=== PATIENT | female | born 1970 | race Caucasian/White ===

== ENCOUNTER → 2016-04-15 | Outpatient (CLI) | payer BC ==
[~2016-04-15] MED LIST: ASP81TEC PO; BIRTHCONTROL; CHLO500T4 PO; CRAN500T2 PO; DIPH50CA75 PO; DOCU100T7 PO; GABA100C PO; HYOS0.3710 PO; HYOS0.378 PO; HYOS0.379; JOLESSA PO; LRT10T PO; MELA1TAB8 PO; MTP25TSR PO; MULT-608 PO; NAPR-243 PO; NEURONTIN PO; NF-FLON16G; NFPRILOC40 PO; OXB5T PO; PANT40TA2 PO; SUMA100T2 PO; TOLTA4 PO; TOPI50TA2 PO; TOPI50TA20
--- OUTSIDE RECORDS SUMMARY | 2016-04-15 13:43 | XMS REPORT | Continuity of Care Document ---
Author Author [facility] Organization [facility] Address Unknown Phone Unavailable Allergies Active Description Code Type Severity Reaction Onset Reported/Identified Relationship to Patient Clinical Status Yes NKDA NKDA Mild N/A 06/11/2008 Yes No Known Drug Allergies [id number] Drug Allergy Unknown N/ A 06/22/2009 Medications Problems Date Dx Coded Attending Type Code Diagnosis Diagnosed By 01/01/2010 Ot 346.90 01/01/2010 Ot 396.3 01/01/2010 Ot 397.0 01/01/2010 Ot 416.8 01/01/2010 Ot 722.10 01/01/2010 Ot 780.96 01/01/2010 Ot 782.0 01/01/2010 Ot 786.09 01/01/2010 Ot 786.59 01/01/2010 Ot 790.6 01/01/2010 Ot V07.4 01/01/2010 Ot V58.69 02/22/2010 Ot 530.81 ESOPHAGEAL REFLUX 02/22/2010 Ot 535.40 OTH SPECIFIED GASTRITIS,W/O MENTION OF H 02/22/2010 Ot 553.3 DIAPHRAGMATIC HERNIA 02/22/2010 Ot 562.10 DIVERTICULOSIS COLON (W/O MENT OF HEMORR 02/22/2010 Ot V76.51 SCREEN MAL NEOP-COLON 09/10/2010 Ot 723.0 CERVICAL SPINAL STENOSIS 09/10/2010 Ot 782.0 SKIN SENSATION DISTURB 09/10/2010 Ot 786.01 HYPERVENTILATION 01/24/2011 Ot 724.2 LUMBAGO 01/24/2011 Ot 724.4 LUMBOSACRAL NEURITIS NOS 01/24/2011 Ot V57.1 PHYSICAL THERAPY NEC 08/16/2012 ROSARIO VILLEGAS, ERNESTO Nash Ot 728.71 PLANTAR FIBROMATOSIS 08/16/2012 ROSARIO VILLEGAS, ERNESTO Nash Ot V57.1 PHYSICAL THERAPY NEC 01/03/2014 ROSARIO VILLEGAS, ERNESTO Nash Ot 785.1 01/10/2014 Ot V76.12 01/10/2014 Ot 553.3 01/10/2014 Ot 625.9 01/10/2014 Ot 787.3 01/10/2014 Ot V64.2 01/10/2014 Ot V76.51 01/10/2014 Ot 724.4 01/10/2014 Ot 728.87 01/10/2014 ERNESTO PONCE MD Ot V76.12 01/10/2014 ERNESTO PONCE MD Ot 785.1 01/10/2014 ERNESTO PONCE MD Ot V76.12 01/10/2014 ERNESTO PONCE MD Ot 729.5 01/10/2014 ERNESTO PONCE MD Ot 729.5 01/14/2014 Ot V76.12 01/14/2014 Ot 553.3 01/14/2014 Ot 625.9 01/14/2014 Ot 787.3 01/14/2014 Ot V64.2 01/14/2014 Ot V76.51 01/14/2014 Ot 724.4 01/14/2014 Ot 728.87 01/14/2014 ERNESTO PONCE MD Ot V76.12 01/14/2014 ERNESTO PONCE MD Ot 785.1 01/14/2014 ERNESTO PONCE MD Ot V76.12 01/14/2014 ERNESTO PONCE MD Ot 729.5 01/28/2014 ERNESTO PONCE MD Ot V76.12 02/11/2014 PIERRE VILLEGAS, PRISCILLA P Ot 721.3 05/30/2014 ANAHI LOERA MD Ot 278.00 OBESITY, NOS 05/30/2014 ANAHI LOERA MD Ot 722.52 LUMB/LUMBOSAC DISC DEGEN 05/30/2014 ANAHI LOERA MD Ot V58.69 OTH MED,LT,CURRENT USE 05/30/2014 ANAHI LOERA MD Ot V85.36 BODY MASS INDEX 36.0-36.9, ADULT 03/25/2015 Ot 553.3 03/25/2015 Ot 625.9 03/25/2015 Ot 787.3 03/25/2015 Ot V64.2 03/25/2015 Ot V76.51 03/25/2015 Ot 724.4 03/25/2015 Ot 728.87 03/25/2015 ERNESTO PONCE MD, Ot V76.12 03/25/2015 ERNESTO PONCE MD Ot 785.1 03/25/2015 ERNESTO PONCE MD, Ot V76.12 03/25/2015 ERNESTO PONCE MD Ot 729.5 03/25/2015 PIERRE VILLEGAS, PRISCILLA Francisco Ot 724.4 03/25/2015 PIERRE VILLEGAS, PRISCILLA Francisco Ot 721.3 03/25/2015 EVARISTO VILLEGAS, ANAHI Nash Ot 722.52 03/25/2015 ANAHI LOERA MD Ot V58.69 04/01/2015 SONY BERGER MD Ot K21.9 04/01/2015 SONY BERGER MD Ot Z01.818 04/01/2015 SONY BERGER MD Ot Z80.0 04/03/2015 SONY BERGER MD Ot K21.0 GASTRO-ESOPHAGEAL REFLUX DISEASE WITH ES 04/03/2015 SONY BERGER MD Ot K29.70 GASTRITIS, UNSPECIFIED, WITHOUT BLEEDING 04/03/2015 SONY BERGER MD Ot K44.9 DIAPHRAGMATIC HERNIA WITHOUT OBSTRUCTION 04/03/2015 SONY BERGER MD Ot K57.30 DVRTCLOS OF LG INT W/O PERFORATION OR AB 04/03/2015 SONY BERGER MD Ot K58.9 IRRITABLE BOWEL SYNDROME WITHOUT DIARRHE 04/03/2015 SONY BERGER MD Ot K59.00 CONSTIPATION, UNSPECIFIED 04/03/2015 SONY BERGER MD Ot K60.2 ANAL FISSURE, UNSPECIFIED 04/03/2015 SONY BERGER MD Ot K64.1 SECOND DEGREE HEMORRHOIDS 04/03/2015 SONY BERGER MD Ot Z80.0 FAMILY HISTORY OF MALIGNANT NEOPLASM OF 07/15/2015 Ot 724.4 LUMBOSACRAL NEURITIS NOS 07/15/2015 Ot 728.87 MUSCLE WEAKNESS (GENERALIZED) 07/15/2015 ERNESTO PONCE MD, Ot V76.12 OTH SCREEN MAMMO-MALIGN NEOPLASM OF SHONDA 07/15/2015 ERNESTO PONCE MD Ot 785.1 PALPITATIONS 07/15/2015 ENRESTO PONCE MD, Ot V76.12 OTH SCREEN MAMMO-MALIGN NEOPLASM OF SHONDA 07/15/2015 ERNESTO PONCE MD Ot 729.5 PAIN IN LIMB 07/15/2015 PRISCILLA JAY MD Ot 724.4 LUMBOSACRAL NEURITIS NOS 07/15/2015 PRISCILLA JAY MD Ot 721.3 LUMBOSACRAL SPONDYLOSIS 07/15/2015 ANAHI LOERA MD Ot 722.52 LUMB/LUMBOSAC DISC DEGEN 07/15/2015 ANAHI LOERA MD Ot V58.69 OT MED,LT,CURRENT USE 07/15/2015 SONY BERGER MD, Ot K21.9 GASTRO-ESOPHAGEAL REFLUX DISEASE WITHOUT 07/15/2015 SONY BERGER MD, Ot Z01.818 ENCOUNTER FOR OTHER PREPROCEDURAL EXAMIN 07/15/2015 SONY BERGER MD, Ot Z80.0 FAMILY HISTORY OF MALIGNANT NEOPLASM OF Procedures Code Description Performed By Performed On 51.23 06/23/2009 87.53 06/23/2009 Results Encounters ACCT No. Visit Date/Time Discharge Status Pt. Type Provider Facility Loc./Unit Complaint [id number] 04/03/2015 11:33:00 2015 14:05:00 DIS Outpatient SONY BERGER MD [facility] [id number] 04/01/2015 14:30:00 2015 14:30:00 CAN Outpatient SONY BERGER MD [facility] PREOP [id number] 05/30/2014 08:11:00 2014 08:57:00 DIS Outpatient ANAHI LOERA MD [facility] CARD [id number] 04/04/2014 08:17:00 2014 23:59:59 CLS Outpatient ANAHI LOERA MD [facility] CARD [id number] 01/24/2014 16:00:00 2013 23:59:59 CLS Outpatient PRISCILLA JAY MD [facility] RAD [id number] 01/14/2014 13:06:00 2013 23:59:59 CLS Outpatient PRISCILLA JAY MD [facility] RAD [id number] 01/07/2014 14:54:00 2013 23:59:59 CLS Outpatient ERNESTO PONCE MD [facility] RAD [id number] 12/26/2013 13:53:00 2013 23:59:59 CLS Outpatient ERNESTO PONCE MD [facility] RAD [id number] 12/17/2013 09:39:00 2013 23:59:59 CLS Outpatient ERNESTO PONCE MD [facility] CARD [id number] 12/11/2012 15:21:00 2012 23:59:59 CLS Outpatient ERNESTO PONCE MD [facility] RAD [id number] 08/08/2012 14:29:00 2012 08:16:00 DIS Outpatient ERNESTO PONCE MD [facility] REHAB [id number] 03/25/2015 13:33:00 Document Registration [id number] 03/25/2015 13:33:00 Document Registration [id number] 01/18/2011 13:36:00 Document Registration [id number] 10/08/2010 13:36:00 Document Registration [id number] 09/10/2010 15:45:00 Document Registration [id number] 02/22/2010 09:13:00 Document Registration [id number] 01/04/2010 05:45:00 Document Registration [id number] 12/31/2009 14:13:00 Document Registration [id number] 12/01/2009 08:42:00 Document Registration [id number] 10/09/2008 14:03:00 Document Registration
--- NOTE | 2016-04-19 20:05 | Diagnostic Imaging Report ---
Bilateral screening mammogram The current study was also evaluated with a Computer Aided Detection (CAD) system. INDICATION: Screening. No current complaints stated on the questionnaire. COMPARISON: 01/07/2014. FINDINGS: The breasts are composed of heterogeneously dense parenchyma which may decrease mammographic sensitivity. There is no mass, architectural distortion, or suspicious cluster of calcifications. Allowing for technique and positional differences, no suspicious change is seen. IMPRESSION: Dense breasts with no definite change. ACR BI-RADS Category 2: Benign findings. Result letter will be mailed to the patient. Note: At least 10% of breast cancer is not imaged by mammography. Dictated by: Dictated on workstation # [id number]
== END ==
LOC: RAD 13:39
PROVIDERS: ATTEND Family Medicine
DX: Z12.31 Encounter for screening mammogram for malignant neoplasm of breast (principal)
CPT/HCPCS: 77067

== ENCOUNTER 2018-03-23 21:53 | Emergency (ER) | payer BC ==
[~2018-03-23] VITALS: Ht 157.5 cm; Wt 84.4 kg
--- OUTSIDE RECORDS SUMMARY | 2018-03-23 21:57 | XMS REPORT | Continuity of Care Document ---
Author Author [facility] Organization [facility] Address Unknown Phone Unavailable Allergies Active Description Code Type Severity Reaction Onset Reported/Identified Relationship to Patient Clinical Status Yes NKDA NKDA Mild N/ A 06/11/2008 Yes No Known Drug Allergies [id number] Drug Allergy Unknown N/A 06/22/2009 Medications There is no data. Problems Date Dx Coded Attending Type Code [...] ERNESTO Nash Ot 728.71 PLANTAR FIBROMATOSIS 08/16/2012 ERNESTO PONCE MD Ot V57.1 PHYSICAL THERAPY NEC 01/03/2014 ERNESTO PONCE MD Ot 785.1 01/10/2014 Ot V76.12 01/10/2014 Ot 553.3 01/10/2014 Ot 625.9 01/10/2014 Ot 787.3 01/10/2014 Ot V64.2 01/10/2014 Ot V76.51 01/10/2014 Ot 724.4 01/10/2014 Ot 728.87 01/10/2014 ERNESTO PONCE MD Ot V76.12 01/10/2014 ROSARIO VILLEGAS, ERNESTO Nash Ot 785.1 01/10/2014 ERNESTO PONCE MD Ot V76.12 01/10/2014 ERNESTO PONCE MD Ot 729.5 01/10/2014 ERNESTO PONCE MD Ot 729.5 01/14/2014 Ot V76.12 01/14/2014 Ot 553.3 01/14/2014 Ot 625.9 01/14/2014 Ot 787.3 01/14/2014 Ot V64.2 01/14/2014 Ot V76.51 01/14/2014 Ot 724.4 01/14/2014 Ot 728.87 01/14/2014 ERNESTO PONEC MD Ot V76.12 01/14/2014 ERNESTO PONCE MD Ot 785.1 01/14/2014 ERNESTO PONCE MD Ot V76.12 01/14/2014 ERNESTO PONCE MD Ot 729.5 01/28/2014 ERNESTO PONCE MD Ot V76.12 02/11/2014 PIERRE VILLEGAS, PRISCILLA Francisco Ot 721.3 05/30/2014 ANAHI LOERA MD Ot 278.00 OBESITY, NOS 05/30/2014 ANAHI LOERA MD Ot 722.52 LUMB/LUMBOSAC DISC DEGEN 05/30/2014 ANAHI LOERA MD Ot V58.69 OTH MED,LT,CURRENT USE 05/30/2014 ANAHI LOERA MD Ot V85.36 BODY MASS INDEX 36.0-36.9, ADULT 03/25/2015 Ot 553.3 03/25/2015 Ot 625.9 03/25/2015 Ot 787.3 03/25/2015 Ot V64.2 03/25/2015 Ot V76.51 03/25/2015 Ot 724.4 03/25/2015 Ot 728.87 03/25/2015 ROSARIO VILLEGAS, ERNESTO Nash Ot V76.12 03/25/2015 ROSARIO VILLEGAS, ERNESTO Nash Ot 785.1 03/25/2015 ROSARIO VILLEGAS, ERNESTO Nash Ot V76.12 03/25/2015 ROSARIO VILLEGAS, ERNESTO Nash Ot 729.5 03/25/2015 PIERRE VILLEGAS, PRISCILLA Francisco Ot 724.4 03/25/2015 PIERRE VILLEGAS, PRISCILLA Francisco Ot 721.3 03/25/2015 VEARISTO VILLEGAS, ANAHI Nash Ot 722.52 03/25/2015 EVARISTO VILLEGAS, ANAHI Nash Ot V58.69 04/01/2015 SONY BERGER MD Ot [...] 728.87 MUSCLE WEAKNESS (GENERALIZED) 07/15/2015 ERNESTO PONCE MD Ot V76.12 OTH SCREEN MAMMO-MALIGN NEOPLASM OF SHONDA 07/15/2015 ERNESTO PONCE MD Ot 785.1 PALPITATIONS 07/15/2015 ERNESTO PONCE MD Ot V76.12 OTH SCREEN MAMMO-MALIGN NEOPLASM OF SHONDA 07/15/2015 ERNESTO PONCE MD Ot 729.5 PAIN IN LIMB 07/15/2015 PRISCILLA JAY MD Ot 724.4 LUMBOSACRAL NEURITIS NOS 07/15/2015 PRISCILLA JAY MD Ot 721.3 LUMBOSACRAL SPONDYLOSIS 07/15/2015 ANAHI LOERA MD Ot 722.52 LUMB/LUMBOSAC DISC DEGEN 07/15/2015 ANAHI LOERA MD Ot V58.69 OTH MED,LT,CURRENT USE 07/15/2015 SONY BERGER MD, Ot K21.9 GASTRO-ESOPHAGEAL REFLUX DISEASE WITHOUT 07/15/2015 SONY BERGER MD, Ot Z01.818 ENCOUNTER FOR OTHER PREPROCEDURAL EXAMIN 07/15/2015 SONY BERGER MD Ot Z80.0 FAMILY HISTORY OF MALIGNANT NEOPLASM OF 04/19/2016 ERNESTO PONCE MD Ot Z12.31 ENCNTR SCREEN MAMMOGRAM FOR MALIGNANT NE 04/27/2016 ERNESTO PONCE MD, Ot Z12.31 ENCNTR SCREEN MAMMOGRAM FOR MALIGNANT NE Procedures Code Description Performed By Performed On 51.23 06/23/2009 87.53 06/23/2009 Results There is no data. Encounters ACCT No. Visit Date/Time Discharge Status Pt. Type Provider Facility Loc./Unit Complaint [id number] 04/15/2016 13:39:00 04/15/2016 23:59:59 CLS Outpatient ERNESTO PONCE MD [facility] RAD SCREENING [id number] 04/03/2015 11:33:00 04/03/2015 14:05:00 DIS Outpatient SONY BERGER MD [facility] SDC [id number] 04/01/2015 14:30:00 04/01/2015 14:30:00 CAN Outpatient SONY BERGER MD [facility] PREOP [id number] 05/30/2014 08:11:00 05/30/2014 08:57:00 DIS Outpatient ANAHI LOERA MD [facility] CARD [id number] 04/04/2014 08:17:00 04/04/2014 23:59:59 CLS Outpatient ANAHI LOERA MD [facility] CARD [id number] 01/24/2014 16:00:00 01/24/2014 23:59:59 CLS Outpatient PRISCILLA JAY MD [facility] RAD [id number] 01/14/2014 13:06:00 01/14/2014 23:59:59 CLS Outpatient PRISCILLA JAY MD [facility] RAD [id number] 01/07/2014 14:54:00 01/07/2014 23:59:59 CLS Outpatient ERNESTO PONCE MD [facility] RAD [id number] 12/26/2013 13:53:00 12/26/2013 23:59:59 CLS Outpatient ERNESTO PONCE MD [facility] RAD [id number] 12/17/2013 09:39:00 12/17/2013 23:59:59 CLS Outpatient ERNESTO PONCE MD [facility] CARD [id number] 12/11/2012 15:21:00 12/11/2012 23:59:59 CLS Outpatient ERNESTO PONCE MD [facility] RAD [id number] 08/08/2012 14:29:00 08/16/2012 08:16:00 DIS Outpatient ERNESTO PONCE MD [facility] REHAB [id number] 03/23/2018 21:54:00 ACT Emergency BRANNON JULES DO [facility] ER SOB [id number] 03/25/2015 13:33:00 Document Registration [id number] 03/25/2015 13:33:00 Document Registration [id number] 01/18/2011 13:36:00 Document Registration [id number] 10/08/2010 13:36:00 Document Registration [id number] 09/10/2010 15:45:00 Document Registration [id number] 02/22/2010 09:13:00 Document Registration [id number] 01/04/2010 05:45:00 Document Registration [id number] 12/31/2009 14:13:00 Document Registration [id number] 12/01/2009 08:42:00 Document Registration [id number] 10/09/2008 14:03:00 Document Registration [id number] 05/30/2014 08:12:31 ACT Document Registration
[2018-03-23] MEDS ORDERED: ASPIRIN 81 MG CHEW (CHILDREN'S ASA) PO ONE (22:45)
[2018-03-23 22:59] LABS: BASOPHILS # (AUTO) 0.1 10^3/uL (0.0-0.1); BASOPHILS % (AUTO) 1 % (0-10); EOSINOPHILS # (AUTO) 0.1 10^3/uL (0.0-0.3); EOSINOPHILS % (AUTO) 2 % (0-10); HEMATOCRIT 26 % (35-52); HEMOGLOBIN 8.7 G/DL (11.5-16.0); LYMPHOCYTES # (AUTO) 2.3 X 10^3 (1.0-4.0); LYMPHOCYTES % (AUTO) 37 % (12-44); MEAN CORPUSCULAR HEMOGLOBIN 28 PG (25-34); MEAN CORPUSCULAR HGB CONC 33 G/DL (32-36); MEAN CORPUSCULAR VOLUME 83 FL (80-99); MEAN PLATELET VOLUME 9.7 FL (7.4-10.4); MONOCYTES # (AUTO) 0.3 X 10^3 (0.0-1.0); MONOCYTES % (AUTO) 5 % (0-12); NEUTROPHILS # (AUTO) 3.3 X 10^3 (1.8-7.8); NEUTROPHILS % (AUTO) 55 % (42-75); PLATELET COUNT 338 10^3/uL (130-400); RED CELL DISTRIBUTION WIDTH 15.2 % (10.0-14.5); WHITE BLOOD COUNT 6.1 10^3/uL (4.3-11.0)
[2018-03-23 23:10] LABS: INR 1.1 (0.8-1.4); PROTHROMBIN TIME PATIENT 13.9 SEC (12.2-14.7)
[2018-03-23 23:19] LABS: ALANINE AMINOTRANSFERASE 18 U/L (0-55); ALBUMIN 3.7 GM/DL (3.2-4.5); ALKALINE PHOSPHATASE 42 U/L (40-136); AMYLASE 33 U/L (25-125); BILIRUBIN,TOTAL 0.4 MG/DL (0.1-1.0); BUN/CREATININE RATIO 15; CALCIUM 8.6 MG/DL (8.5-10.1); CARBON DIOXIDE 22 MMOL/L (21-32); CHLORIDE 110 MMOL/L (98-107); CREATININE SERUM 0.71 MG/DL (0.60-1.30); GFR ESTIMATED > 60; GLUCOSE 99 MG/DL (70-105); LIPASE 18 U/L (8-78); MAGNESIUM 1.7 MG/DL (1.8-2.4); POTASSIUM 3.3 MMOL/L (3.6-5.0); SODIUM 139 MMOL/L (135-145); TOTAL PROTEIN 6.3 GM/DL (6.4-8.2)
[2018-03-23 23:28] LABS: MYOGLOBIN SERUM 48.2 NG/ML (10.0-92.0)
[2018-03-23] MEDS ORDERED: MAGNESIUM OXIDE (MAG-OX)400 MG TAB PO ONE (23:30)
[2018-03-23] MEDS ORDERED: KETOROLAC 30 MG/ML VIAL IVP ONE (23:45)
[2018-03-23] MEDS ORDERED: PANTOPRAZOLE 40 MG (PROTONIX) VIAL IV ONE (23:45)
[2018-03-23] MEDS ORDERED: ONDANSETRON 4 MG/2 ML (SDV) Z0FRAN IVP ONE (23:45)
[2018-03-23] MEDS ORDERED: MAGNESIUM OXIDE (MAG-OX)400 MG TAB ONE (23:47)
[2018-03-24] MEDS ORDERED: IOHEXOL 350 MG/ML 150 ML (OMNIPAQUE 350) VIAL IV ONE (00:30)
[2018-03-24] MEDS ORDERED: NS 100 ML (IVPB) BAG IV ONE (00:30)
[2018-03-24] MEDS ORDERED: RECEIVED CONTRAST (Hold Metformin) IV SCH (00:30)
[2018-03-24] MEDS ORDERED: SUCR1TAB36 PO (00:53)
--- NOTE | 2018-03-24 00:54 | ED General ---
General Chief Complaint: Respiratory Problems Stated Complaint: SOB Nursing Triage Note: soa, left side pain. Nursing Sepsis Screen: No Definite Risk Source of Information: Patient History of Present Illness Date Seen by Provider: Mar 23, 2018 Time Seen by Provider: 22:18 Initial Comments PT ARRIVES VIA POV FROM HOME C/O SHORTNESS OF BREATH FOR A FEW HOURS C/O PAIN TO LEFT UPPER ABDOMEN AND CHEST, RADIATING TO LEFT FLANK/MID BACK AREA AND UP INTO LEFT LATERAL NECK AREA STATES "NOT BREATHING WELL" STATES THESE SYMPTOMS WOKE HER UP 2-3 HOURS AGO NO COUGH STATES SHE HAS HAD NAUSEA/VOMITING/DIARRHEA SINCE Monday03/19/18 HAS VOMITED X 1 TODAY NO DIARRHEA TODAY OR FOR THE LAST 3 DAYS STATES "I TRY TO DRINK WATER BUT IT COMES BACK UP BUT THE OATMEAL STAYED DOWN" NO NAUSEA NOW NO FEVER URINATING A NORMAL AMOUNT AND NO URINARY SYMPTOMS 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 PONCE Allergies and Home Medications Allergies Coded Allergies: No Known Drug Allergies (Verified , 06/22/09) Uncoded Allergies: NKDA (Allergy, Mild, 06/11/08) Home Medications Hyoscyamine Sulfate 0.375 Mg Tab.sr.12h, 0.375 MG PO BID, (Reported) Hyoscyamine Sulfate 0.125 Mg Tab.subl, 1-2 TAB SL Q4H Prescribed by: BRANNON JULES on 03/25/18 0450 Metoprolol Succinate 25 Mg Tab, 25 MG PO DAILY, (Reported) Ondansetron 4 Mg Tab.rapdis, 4 MG PO Q4H Prescribed by: BRANNON JULES on 03/25/18 0450 Oxybutynin Chloride 5 Mg Tab, 5 MG PO ONCE, (Reported) Pantoprazole Sodium 40 Mg Tablet.dr, 40 MG PO DAILY Prescribed by: SONY BERGER on 04/03/15 1308 Sucralfate 1 Gm Tablet, 1 GM PO QIDACHS Prescribed by: BRANNON JULES on 03/24/18 0053 Topiramate 50 Mg Tablet, 50 MG PO DAILY, (Reported) Patient Home Medication List Home Medication List Reviewed: Yes Review of Systems Review of Systems Constitutional: no symptoms reported; No chills, No diaphoresis, No dizziness, No fever EENTM: no symptoms reported Respiratory: see HPI; No cough; short of breath Cardiovascular: see HPI; No edema, No palpitations, No syncope, No vascular heart diseas Gastrointestinal: see HPI, abdominal pain, diarrhea, nausea, vomiting Genitourinary: no symptoms reported; No decreased output Musculoskeletal: see HPI, back pain Skin: no symptoms reported Psychiatric/Neurological: No Symptoms Reported Hematologic/Lymphatic: No Symptoms Reported Immunological/Allergic: no symptoms reported Past Oaelpqx-Ehffdl-Pwgpzj Hx Patient Social History Alcohol Use: Denies Use Recreational Drug Use: No Smoking Status: Never a Smoker 2nd Hand Smoke Exposure: No Recent Foreign Travel: No Contact w/Someone Who Travel: No Recent Infectious Disease Expo: No Recent Hopitalizations: No Immunizations Up To Date Tetanus Booster (TDap): Unknown Past Medical History Surgeries: Yes (EGD/COLONOSCOPY; HIATAL HERNIA REPAIR 2005; X 1) Abdominal, Appendectomy, Section, Gallbladder, Tubal Ligation Respiratory: No Cardiac: Yes Hypertension Neurological: Yes Headaches /Migraines : No 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 Disorders: 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 Genitourinary: Yes (URINARY URGENCY) Kidney Stones Gastrointestinal: Yes (S/P HIATAL HERNIA REPAIR 2005; RECURRENT HIATAL HERNIA OF 2.5 CM NOTED ON EGD 2015; S/P PABLO AND APPY) Gastroesophageal Reflux, Diverticulosis, Hemorrhoids, Hiatal Hernia, Irritable Bowel Musculoskeletal: Yes (SCIATICA; CHRONIC NECK AND BACK PAIN) Degenerate Disk Disease, Chronic Back Pain Endocrine: No HEENT: No Cancer: No Psychosocial: No Integumentary: No Blood Disorders: No Physical Exam Vital Signs Vital Signs - First Documented 03/23/18 22:10 Temp 98.1 Pulse 85 Resp 18 B/P (MAP) 108/84 (92) Pulse Ox 99 O2 Delivery Room Air Capillary Refill : Less Than 3 Seconds Height, Weight, BMI Height: 5'2.00" Weight: 186lbs. 0oz. 84.523467kr; 36.58 BMI Method:Stated General Appearance: No Apparent Distress, WD/WN HEENT: PERRL/EOMI Neck: Full Range of Motion, Normal Inspection, Non Tender, Supple; No Carotid Bruit, No JVD Respiratory: Normal Breath Sounds, No Accessory Muscle Use, No Respiratory Distress, Other (MILD LEFT LOWER RIB TENDERNESS) Cardiovascular: Regular Rate, Rhythm, No Edema, No JVD, No Murmur, Normal Peripheral Pulses Gastrointestinal: Normal Bowel Sounds, No Organomegaly, No Pulsatile Mass, Soft , Tenderness (EPIGASTRIC, LUQ AND LEFT FLANK TENDERNESS) Back: No Vertebral Tenderness, CVA Tenderness (L) Extremity: Normal Capillary Refill, Normal Inspection, Normal Range of Motion, Non Tender, No Pedal Edema Neurologic/Psychiatric: Alert, Oriented x3, No Motor/Sensory Deficits, Normal Mood/Affect, director regulatory agency II-XII Norm as Tested Skin: Normal Color, Warm/Dry; No Rash Progress/Results/Core Measures Suspected Sepsis Recent Fever Within 48 Hours: No Infection Criteria Present: None New/Unexplained Altered Menta: No Sepsis Screen: No Definite Risk SIRS Temperature:98.1 Pulse: 85 Respiratory Rate: 18 Laboratory Tests 03/23/18 22:50: White Blood Count 6.1 Blood Pressure 108 /84 Mean: 92 Laboratory Tests 03/23/18 22:50: Creatinine 0.71, INR Comment 1.1, Platelet Count 338, Total Bilirubin 0.4 Results/Orders Lab Results Laboratory Tests Test 03/23/18 22:50 Range/Units White Blood Count 6.1 4.3-11.0 10^3/uL Red Blood Count 3.15 L 4.35-5.85 10^6/uL Hemoglobin 8.7 L 11.5-16.0 G/DL Hematocrit 26 L 35-52 % Mean Corpuscular Volume 83 80-99 FL Mean Corpuscular Hemoglobin 28 25-34 PG Mean Corpuscular Hemoglobin Concent 33 32-36 G/DL Red Cell Distribution Width 15.2 H 10.0-14.5 % Platelet Count 338 130-400 10^3/uL Mean Platelet Volume 9.7 7.4-10.4 FL Neutrophils (%) (Auto) 55 42-75 % Lymphocytes (%) (Auto) 37 12-44 % Monocytes (%) (Auto) 5 0-12 % Eosinophils (%) (Auto) 2 0-10 % Basophils (%) (Auto) 1 0-10 % Neutrophils # (Auto) 3.3 1.8-7.8 X 10^3 Lymphocytes # (Auto) 2.3 1.0-4.0 X 10^3 Monocytes # (Auto) 0.3 0.0-1.0 X 10^3 Eosinophils # (Auto) 0.1 0.0-0.3 10^3/uL Basophils # (Auto) 0.1 0.0-0.1 10^3/uL Prothrombin Time 13.9 12.2-14.7 SEC INR Comment 1.1 0.8-1.4 Activated Partial Thromboplast Time 29 24-35 SEC Sodium Level 139 135-145 MMOL/L Potassium Level 3.3 L 3.6-5.0 MMOL/L Chloride Level 110 H 98-107 MMOL/L Carbon Dioxide Level 22 21-32 MMOL/L Anion Gap 7 5-14 MMOL/L Blood Urea Nitrogen 11 7-18 MG/DL Creatinine 0.71 0.60-1.30 MG/DL Estimat Glomerular Filtration Rate > 60 BUN/Creatinine Ratio 15 Glucose Level 99 70-105 MG/DL Calcium Level 8.6 8.5-10.1 MG/DL Corrected Calcium 8.8 8.5-10.1 MG/DL Magnesium Level 1.7 L 1.8-2.4 MG/DL Total Bilirubin 0.4 0.1-1.0 MG/DL Aspartate Amino Transf (AST/SGOT) 20 5-34 U/L Alanine Aminotransferase (ALT/SGPT) 18 0-55 U/L Alkaline Phosphatase 42 40-136 U/L Myoglobin 48.2 10.0-92.0 NG/ML Troponin I < 0.028 <0.028 NG/ML B-Type Natriuretic Peptide 123.7 H <100.0 PG/ML Total Protein 6.3 L 6.4-8.2 GM/DL Albumin 3.7 3.2-4.5 GM/DL Amylase Level 33 25-125 U/L Lipase 18 8-78 U/L My Orders Orders - JORGE ADANIELLAA K DO Chest Pa/Lat (2 View) (03/23/18 22:22) Saline Lock/Iv-Start (03/23/18 22:31) Ekg Tracing (03/23/18 22:31) Monitor-Rhythm Ecg Trace Only (03/23/18 22:31) Cbc With Automated Diff (03/23/18 22:39) Magnesium (03/23/18 22:39) Cardiac Profile 1 (03/23/18 22:39) Comprehensive Metabolic Panel (03/23/18 22:39) Myoglobin Serum (03/23/18 22:39) Protime With Inr (2/1/19 22:39) Partial Thromboplastin Time (03/23/18 22:39) Aspirin Chewable Tablet (Baby Aspirin Ch (03/23/18 22:45) Saline Lock/Iv-Start (03/23/18 22:39) Lipase (03/23/18 22:39) Amylase (03/23/18 22:39) BNP (03/23/18 22:39) Magnesium Oxide Tablet (Mag Ox Tablet) (03/23/18 23:30) Ketorolac Injection (Toradol Injection) (03/23/18 23:45) Ondansetron Injection (Zofran Injectio (03/23/18 23:45) Pantoprazole Injection (Protonix Injecti (03/23/18 23:45) Ct Angio Chest W (03/24/18 00:01) Iohexol Injection (Omnipaque 350 Mg/Ml 1 (03/24/18 00:30) Contrast Received (Contrast Received) (03/24/18 00:30) Ns (Ivpb) (Sodium Chloride 0.9% Ivpb Bag (03/24/18 00:30) Magnesium Oxide Tablet (Mag Ox Tablet) (03/23/18 23:47) Medications Given in ED Vital Signs/I&O Capillary Refill : Less Than 3 Seconds Blood Pressure Mean: 92 Progress Note : Progress Note UNEVENTFUL ER STAY PT STATES SHE FEELS BETTER AT DISMISSAL AND PAIN IS ESSENTIALLY GONE AT DISMISSAL ECG Initial ECG Impression Date: Mar 23, 2018 Initial ECG Impression Time: 23:36 Initial ECG Rate: 67 Initial ECG Rhythm: Normal Sinus Diagnostic Imaging Comments CXR--LARGE HIATAL HERNIA, PENDING RADIOLOGIST REVIEW CT CHEST ANGIOGRAM--NO P.E. LARGE PARAESOPHAGEAL HERNIA WITH REFLUX OF LIQUID INTO UPPER ESOPHAGUS--PER STAT RAD AT 0040 Reviewed: Reviewed by Me Departure Impression Primary Impression: RECURRENT HIATAL HERNIA Additional Impressions: Anemia Hypomagnesemia Disposition: HOME, SELF-CARE Condition: Improved Departure-Patient Inst. Referrals: SONY BERGER MD, DANIEL J MD (PCP/Family) Primary Care Physician Patient Instructions: Anemia Caused by Low Iron, Adult (DC), Hiatal Hernia (DC) , Low Magnesium Level (DC) Add. Discharge Instructions: TAKE MULTIVITAMIN WITH IRON DAILY TAKE COLACE DAILY IF YOU DEVELOP CONSTIPATION FROM IRON SUPPLEMENT TAKE YOUR PROTONIX DAILY FOLLOW UP WITH DR. BERGER THIS WEEK REGARDING HIATAL HERNIA FOLLOW UP WITH DR. PONCE THIS WEEK FOR RECHECK OF ANEMIA AND MAGNESIUM All discharge instructions reviewed with patient and/or family. Voiced understanding. Scripts Sucralfate (Carafate) 1 Gm Tablet 1 GM PO YULISSADACHAma, #60 TAB Prov: BRANNON JULES DO 03/24/18 BRANNON JULES DO Mar 24, 2018 00:54
[2018-03-24 01:00] VITALS: BP 123/83
--- NOTE | 2018-03-24 07:26 | Diagnostic Imaging Report ---
INDICATION: Chest pain, hiatal hernia. COMPARISON: 12/31/2009. FINDINGS: Frontal and lateral views of the chest demonstrate increasing hiatal hernia with dependent atelectasis in the left base. Right lung is clear. There is no pneumothorax or large effusion. Heart is normal. Osseous structures are age-appropriate. IMPRESSION: Enlarging hiatal hernia. Dictated by: Dictated on workstation # [id number]
--- NOTE | 2018-03-24 07:31 | Diagnostic Imaging Report ---
PROCEDURE: CT angiography of the chest with contrast. TECHNIQUE: Multiple contiguous axial images were obtained through the chest after uneventful bolus administration of intravenous contrast. 2D reconstructed CTA MIP acquisitions were also performed. INDICATION: Chest pain, shortness of breath, pulmonary embolism. COMPARISON: None. FINDINGS: The heart, pulmonary arteries and aorta are grossly normal. There is no pericardial effusion. There is no pulmonary embolism. Large hiatal hernia is present this is increased in size from the 2010 examination. There is some associated left basilar atelectasis. Otherwise, the lungs are clear. There is no mass, nodule or infiltrate. There is no lymphadenopathy. Osseous structures and visualized upper abdominal solid organs are unremarkable. Impression: 1. No pulmonary embolism or acute pathology identified. 2. Enlarging hiatal hernia with some fluid within the thoracic esophagus. No obvious obstruction identified. 3. Left basilar atelectasis. Agree with preliminary report Dictated by: Dictated on workstation # [id number]
[2018-03-25] MEDS ORDERED: HYOS0.1283 SL (04:50)
[2018-03-25] MEDS ORDERED: ONDA4TAB11 PO (04:50)
== END 2018-03-24 01:00 | disposition home or self-care (01) ==
LOC: EDUNIT# 21:53 → ER 21:54
DX: K44.9 Diaphragmatic hernia without obstruction or gangrene (principal); D64.9 Anemia, unspecified; E83.42 Hypomagnesemia; I10 Essential (primary) hypertension; K21.9 Gastro-esophageal reflux disease without esophagitis; K58.9 Irritable bowel syndrome, unspecified; Z87.19 Personal history of other diseases of the digestive system; Z87.442 Personal history of urinary calculi; G43.909 Migraine, unspecified, not intractable, without status migrainosus; Z98.51 Tubal ligation status; Z98.890 Other specified postprocedural states; Z90.49 Acquired absence of other specified parts of digestive tract
CPT/HCPCS: 36415; 71046; 71275; 80053; 82150; 83690; 83735; 83874; 83880; 84484; 85025; 85610; 85730; 93041

== ENCOUNTER 2018-03-25 02:30 | Emergency (ER) | payer BC ==
[~2018-03-25] VITALS: Ht 158.8 cm; Wt 84.4 kg
[~2018-03-25 02:30] MED LIST changes: +SUCR1TAB36 PO
--- OUTSIDE RECORDS SUMMARY | 2018-03-25 02:35 | XMS REPORT | Continuity of Care Document ---
Author Author [facility] Organization [facility] Address Unknown Phone Unavailable Allergies Active Description Code Type Severity Reaction Onset Reported/Identified Relationship to Patient Clinical Status Yes NKDA NKDA Mild N/ A 06/11/2008 Yes No Known Drug Allergies [id number] Drug Allergy Unknown N/A 06/22/2009 Medications There [...] EVARISTO VILLEGAS, ANAHI Nash Ot 722.52 03/25/2015 EVARISTO [...] MD Ot 785.1 PALPITATIONS 07/15/2015 ERNESTO PONCE MD, Ot V76.12 OTH SCREEN MAMMO-MALIGN NEOPLASM OF SHONDA 07/15/2015 ERNESTO PONCE MD Ot 729.5 PAIN IN LIMB 07/15/2015 PRISCILLA JAY MD Ot 724.4 LUMBOSACRAL NEURITIS NOS 07/15/2015 PRISCILLA JAY MD Ot 721.3 LUMBOSACRAL SPONDYLOSIS 07/15/2015 ANAHI LOERA MD Ot 722.52 LUMB/LUMBOSAC DISC DEGEN 07/15/2015 ANAHI LOERA MD, Ot V58.69 OTH MED,LT,CURRENT USE 07/15/2015 SONY BERGER MD, Ot K21.9 GASTRO-ESOPHAGEAL REFLUX DISEASE WITHOUT 07/15/2015 SONY BREGER MD Ot Z01.818 ENCOUNTER FOR OTHER PREPROCEDURAL EXAMIN 07/15/2015 SONY BERGER MD Ot Z80.0 FAMILY HISTORY OF MALIGNANT NEOPLASM OF 04/19/2016 ERNESTO PONCE MD Ot Z12.31 ENCNTR SCREEN MAMMOGRAM FOR MALIGNANT NE 04/27/2016 ERNESTO PONCE MD, Ot Z12.31 ENCNTR SCREEN MAMMOGRAM FOR MALIGNANT NE 03/24/2018 ERNESTO PONCE MD Ot V76.12 OTH SCREEN MAMMO-MALIGN NEOPLASM OF SHONDA 03/24/2018 ERNESTO PONCE MD Ot 785.1 PALPITATIONS 03/24/2018 ERNESTO PONCE MD, Ot V76.12 OTH SCREEN MAMMO-MALIGN NEOPLASM OF SHONDA 03/24/2018 ERNESTO PONCE MD Ot 729.5 PAIN IN LIMB 03/24/2018 PRISCILLA JAY MD Ot 724.4 LUMBOSACRAL NEURITIS NOS 03/24/2018 PRISCILLA JAY MD Ot 721.3 LUMBOSACRAL SPONDYLOSIS 03/24/2018 ANAHI LOERA MD Ot 722.52 LUMB/LUMBOSAC DISC DEGEN 03/24/2018 ANAHI LOERA MD Ot V58.69 OTH MED,LT,CURRENT USE 03/24/2018 SONY BERGER MD Ot K21.9 GASTRO-ESOPHAGEAL REFLUX DISEASE WITHOUT 03/24/2018 SONY BERGER MD Ot Z01.818 ENCOUNTER FOR OTHER PREPROCEDURAL EXAMIN 03/24/2018 SONY BERGER MD Ot Z80.0 FAMILY HISTORY OF MALIGNANT NEOPLASM OF 03/24/2018 ERNESTO PONCE MD, Ot Z12.31 ENCNTR SCREEN MAMMOGRAM FOR MALIGNANT NE 03/24/2018 ERNESTO PONCE MD, Ot V76.12 OTH SCREEN MAMMO-MALIGN NEOPLASM OF SHONDA 03/24/2018 ERNESTO PONCE MD Ot 785.1 PALPITATIONS 03/24/2018 ERNESTO PONCE MD, Ot V76.12 OTH SCREEN MAMMO-MALIGN NEOPLASM OF SHONDA 03/24/2018 ERNESTO PONCE MD Ot 729.5 PAIN IN LIMB 03/24/2018 PRISCILLA JAY MD Ot 724.4 LUMBOSACRAL NEURITIS NOS 03/24/2018 PRISCILLA JAY MD Ot 721.3 LUMBOSACRAL SPONDYLOSIS 03/24/2018 ANAHI LOERA MD Ot 722.52 LUMB/LUMBOSAC DISC DEGEN 03/24/2018 ANAHI LOERA MD Ot V58.69 OT MED,LT,CURRENT USE 03/24/2018 SONY BERGER MD Ot K21.9 GASTRO-ESOPHAGEAL REFLUX DISEASE WITHOUT 03/24/2018 SONY BERGER MD Ot Z01.818 ENCOUNTER FOR OTHER PREPROCEDURAL EXAMIN 03/24/2018 SONY BERGER MD Ot Z80.0 FAMILY HISTORY OF MALIGNANT NEOPLASM OF 03/24/2018 ERNESTO PONCE MD, Ot Z12.31 ENCNTR SCREEN MAMMOGRAM FOR MALIGNANT NE 03/24/2018 ERNESTO PONCE MD, Ot V76.12 OTH SCREEN MAMMO-MALIGN NEOPLASM OF SHONDA 03/24/2018 ERNESTO PONCE MD Ot 785.1 PALPITATIONS 03/24/2018 ERNESTO PONCE MD, Ot V76.12 OTH SCREEN MAMMO-MALIGN NEOPLASM OF SHONDA 03/24/2018 ERNESTO PONCE MD Ot 729.5 PAIN IN LIMB 03/24/2018 PRISCILLA JAY MD Ot 724.4 LUMBOSACRAL NEURITIS NOS 03/24/2018 PRISCILLA JAY MD Ot 721.3 LUMBOSACRAL SPONDYLOSIS 03/24/2018 ANAHI LOERA MD Ot 722.52 LUMB/LUMBOSAC DISC DEGEN 03/24/2018 ANAHI LOERA MD Ot V58.69 OT MED,LT,CURRENT USE 03/24/2018 SONY BERGER MD, Ot K21.9 GASTRO-ESOPHAGEAL REFLUX DISEASE WITHOUT 03/24/2018 SONY BERGER MD Ot Z01.818 ENCOUNTER FOR OTHER PREPROCEDURAL EXAMIN 03/24/2018 SONY BERGER MD Ot Z80.0 FAMILY HISTORY OF MALIGNANT NEOPLASM OF 03/24/2018 ERNESTO PONCE MD Ot Z12.31 ENCNTR SCREEN MAMMOGRAM FOR MALIGNANT NE Procedures Code Description Performed By Performed On 51.23 LAPAROSCOPIC CHOLECYSTECTOMY 06/23/2009 87.53 INTRAOPER CHOLANGIOGRAM 06/23/2009 Results There is no data. Encounters ACCT No. Visit Date/Time Discharge Status Pt. Type Provider Facility Loc./Unit Complaint [id number] 03/23/2018 21:54:00 03/24/2018 01:00:00 DIS Emergency JORGE A DANIELLAA Fela [facility] ER SOB [id number] 04/15/2016 13:39:00 04/15/2016 23:59:59 CLS Outpatient ERNESTO PONCE MD [facility] RAD SCREENING [id number] 04/03/2015 11:33:00 04/03/2015 14:05:00 DIS Outpatient SONY BERGER MD [facility] SDC FAMILY HISTORY COLON CA, REFLEX [id number] 04/01/2015 14:30:00 04/01/2015 14:30:00 CAN Outpatient SONY BERGER MD [facility] PREOP ABDOMINAL PAIN REFLUX [id number] 05/30/2014 08:11:00 05/30/2014 08:57:00 DIS Outpatient ANAHI LOERA MD [facility] CARD DDD [id number] 04/04/2014 08:17:00 04/04/2014 23:59:59 CLS Outpatient ANAHI LOERA MD [facility] CARD DDD-LUMBAR [id number] 01/24/2014 16:00:00 01/24/2014 23:59:59 CLS Outpatient PRISCILLA JAY MD [facility] RAD RT L5 RADICULOPATHY [id number] 01/14/2014 13:06:00 01/14/2014 23:59:59 CLS Outpatient PRISCILLA JAY MD [facility] RAD RT L5 RADICULOPATHY [id number] 01/07/2014 14:54:00 01/07/2014 23:59:59 CLS Outpatient ERNESTO PONCE MD [facility] RAD ROUTINE [id number] 12/26/2013 13:53:00 12/26/2013 23:59:59 CLS Outpatient ERNESTO PONCE MD [facility] RAD PAIN OVER 1ST 2ND METARSAL REGION [id number] 12/17/2013 09:39:00 12/17/2013 23:59:59 CLS Outpatient ERNESTO PONCE MD [facility] CARD PALP [id number] 12/11/2012 15:21:00 12/11/2012 23:59:59 CLS Outpatient ERNESTO PONCE MD [facility] RAD SCREENING [id number] 08/08/2012 14:29:00 08/16/2012 08:16:00 DIS Outpatient ENRESTO PONCE MD [facility] REHAB [id number] 03/25/2015 13:33:00 Document Registration [id number] 03/25/2015 13:33:00 Document Registration [id number] 01/18/2011 13:36:00 Document Registration [id number] 10/08/2010 13:36:00 Document Registration [id number] 09/10/2010 15:45:00 Document Registration [id number] 02/22/2010 09:13:00 Document Registration [id number] 01/04/2010 05:45:00 Document Registration [id number] 12/31/2009 14:13:00 Document Registration [id number] 12/01/2009 08:42:00 Document Registration [id number] 10/09/2008 14:03:00 Document Registration [email or web address] 05/30/2014 08:12:31 ACT Document Registration
[2018-03-25] MEDS ORDERED: ONDANSETRON 4 MG (ZOFRAN) ORAL DISSOLVE TAB PO ONE (04:00)
--- NOTE | 2018-03-25 04:07 | ED GI ---
General Stated Complaint: VOMITING Source of Information: Patient, Old Records History of Present Illness Date Seen by Provider: Mar 25, 2018 Time Seen by Provider: 03:57 Initial Comments PT ARRIVES VIA POV FROM HOME STATES SHE HAS BEEN VOMITING SINCE SHE WOKE UP AT 2044 THIS EVENING STATES SHE CAN'T KEEP ANYTHING DOWN STATES SHE HAS VOMITED 5 TIMES NO DIARRHEA HAS DIFFUSE UPPER ABDOMINAL PAIN ONLY RIGHT AFTER SHE VOMITS, THEN IT GOES AWAY. PT WAS SEEN IN ER LAST PM FOR LEFT CHEST PAIN AND SHORTNESS OF BREATH AND WAS DX WITH LARGE RECURRENT HIATAL HERNIA ( HAD SURGICAL REPAIR SEVERAL YEARS AGO ) STATES SHE TOOK HER MEDICATIONS AND ATE APPLESAUCE AND SHERBET YESTERDAY MORNING , AND KEPT IT DOWN STATES SHE SLEPT ALL DAY WOKE UP AT 2044 THIS EVENING TO GO TO WORK AND BEGAN VOMITING NO FEVER PT LATER STATES THAT SINCE Monday03/19/18, SHE CAN'T KEEP WATER DOWN. STATES ANY TIME SHE DRINKS WATER, SHE STARTS HAVING ACID REFLUX AND SHE THROWS IT BACK UP STATES "IT DOESN'T DO IT IF I DRINK TEA--IT ONLY HAPPENS WHEN I DRINK WATER" PCP: DR. PONCE Allergies and Home Medications Allergies Coded Allergies: No Known Drug Allergies (Verified , 06/22/09) Uncoded Allergies: NKDA (Allergy, Mild, 06/11/08) Home Medications Hyoscyamine Sulfate 0.375 Mg Tab.sr.12h, 0.375 MG PO BID, (Reported) Hyoscyamine Sulfate 0.125 Mg Tab.subl, 1-2 TAB SL Q4H Prescribed by: BRANNON JULES on 03/25/18 0450 Metoprolol Succinate 25 Mg Tab, 25 MG PO DAILY, (Reported) Ondansetron 4 Mg Tab.rapdis, 4 MG PO Q4H Prescribed by: BRANNON JULES on 03/25/18 0450 Oxybutynin Chloride 5 Mg Tab, 5 MG PO ONCE, (Reported) Pantoprazole Sodium 40 Mg Tablet.dr, 40 MG PO DAILY Prescribed by: SONY BERGER on 04/03/15 1308 Sucralfate 1 Gm Tablet, 1 GM PO QIDACHS Prescribed by: BRANNON JULES on 03/24/18 0053 Topiramate 50 Mg Tablet, 50 MG PO DAILY, (Reported) Patient Home Medication List Home Medication List Reviewed: Yes Review of Systems Review of Systems Constitutional: no symptoms reported Respiratory: No Symptoms Reported Cardiovascular: No Symptoms Reported Gastrointestinal: See HPI, Abdominal Pain, Nausea, Vomiting Genitourinary: No Symptoms Reported Musculoskeletal: no symptoms reported Skin: no symptoms reported Psychiatric/Neurological: No Symptoms Reported Endocrine: No Symptoms Reported Hematologic/Lymphatic: No Symptoms Reported Past Ebysqpu-Wqnlib-Slqflj Hx Patient Social History Alcohol Use: Denies Use Recreational Drug Use: No Smoking Status: Never a Smoker 2nd Hand Smoke Exposure: No Recent Foreign Travel: No Contact w/Someone Who Travel: No Recent Hopitalizations: No Immunizations Up To Date Tetanus Booster (TDap): Unknown Past Medical History Surgeries: Yes (EGD/COLONOSCOPY; HIATAL HERNIA REPAIR 2005; X1 ; CARDIAC CATH 2009--NO INTERVENTION) Abdominal, Appendectomy, Cardiac, Section, Gallbladder, Tubal Ligation Respiratory: No Cardiac: Yes Hypertension Neurological: Yes Headaches /Migraines 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 Genitourinary: Yes (URINARY URGENCY) Kidney Stones Gastrointestinal: Yes (S/P HIATAL HERNIA REPAIR 2005; ON EGD 2015--SHOWED RECURRENCE OF HIATAL HERNIA AT 2.5 CM AT THAT TIME; S/P PABLO AND APPY) Gastroesophageal Reflux, Diverticulosis, Hemorrhoids, Hiatal Hernia, Gall Bladder Disease, Irritable Bowel Musculoskeletal: Yes (SCIATICA; CHRONIC BACK AND NECK PAIN ) Degenerate Disk Disease, Chronic Back Pain Endocrine: No HEENT: No Cancer: No Psychosocial: No Integumentary: No Blood Disorders: No Physical Exam Vital Signs Vital Signs - First Documented 03/25/18 03:53 Temp 96.3 Pulse 81 Resp 20 B/P (MAP) 114/79 (91) Pulse Ox 100 O2 Delivery Room Air Capillary Refill : Height/Weight/BMI Height: 5'2.00" Weight: 186lbs. 0oz. 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, no motor/sensory deficits, alert, normal mood/affect, oriented x 3 Skin: normal color, warm/dry; No rash Progress/Results/Core Measures Results/Orders My Orders Orders - BRANNON JULES DO Ondansetron Oral Dissolve Tab (Zofran (03/25/18 04:00) Hyoscyamine Sl Tablet (Levsin Sl Tablet) (03/25/18 04:15) Hyoscyamine Sl Tablet (Levsin Sl Tablet) (03/25/18 04:21) Medications Given in ED Current Medications Medications Dose Ordered Sig/Sergio Route Start Time Stop Time Status Last Admin Dose Admin Hyoscyamine Sulfate 0.25 mg ONCE ONCE PO 03/25/18 04:15 03/25/18 05:03 DC 03/25/18 04:27 0.25 MG Ondansetron HCl 8 mg ONCE ONCE PO 03/25/18 04:00 03/25/18 04:02 DC 03/25/18 04:13 8 MG Vital Signs/I&O 03/25/18 03/25/18 03:53 04:59 Temp 96.3 96.4 Pulse 81 69 Resp 20 18 B/P (MAP) 114/79 (91) 106/64 (78) Pulse Ox 100 100 O2 Delivery Room Air Room Air Progress Progress Note : Progress Note SYMPTOMS IMPROVED WITH LEVSIN AND ZOFRAN PT KEPT DOWN 12 OZ OF WATER IN ER. NO VOMITING OR DIARRHEA AT ANY TIME DURING ENTIRE ER STAY Initial ECG Impression Date: Mar 23, 2018 Initial ECG Impression Time: 23:36 Initial ECG Rate: 67 Initial ECG Rhythm: Normal Sinus Diagnostic Imaging Comments CT CHEST ANGIOGRAM--NO P.E., LARGE PARAESOPHAGEAL HIATAL HERNIA WITH REFLUX OF OF INTO THE UPPER ESOPHAGUS--PER [facility]IA FAX @ [phone] CXR--LARGE HIATAL HERNIA, PENDING RADIOLOGIST REVIEW Reviewed: Reviewed by Me Departure Impression Primary Impression: Nausea & vomiting Additional Impression: RECURRENT HIATAL HERNIA Disposition: 01 HOME, SELF-CARE Condition: Improved Departure-Patient Inst. Referrals: SONY BERGER MD, DANIEL J MD (PCP/Family) Primary Care Physician Patient Instructions: Hiatal Hernia (DC), Nausea and Vomiting, Adult (DC) Add. Discharge Instructions: CLEAR LIQUIDS, SMALL AMOUNTS AT A TIME SOFT DIET, SMALL AMOUNTS AT A TIME EAT VERY SMALL MEALS, SEVERAL TIMES A DAY KEEP UPRIGHT WHILE EATING AND DRINKING, AND REMAIN UPRIGHT FOR AT LEAST 30 MINUTES AFTER EATING. FOLLOW UP WITH DR. BERGER NEXT WEEK FOR FURTHER CARE Scripts Hyoscyamine Sulfate (Levsin-Sl) 0.125 Mg Tab.subl 1-2 TAB SL Q4H for Abdominal Pain, #15 TAB Prov: BRANNON JULES DO 03/25/18 Ondansetron (Ondansetron Odt) 4 Mg Tab.rapdis 4 MG PO Q4H for Nausea/Vomiting, #10 TAB Prov: BRANNON JULES DO 03/25/18 BRANNON JULES DO Mar 25, 2018 04:07
[2018-03-25] MEDS ORDERED: HYOSCYAMINE 0.125 MG (LEVSIN) TAB PO ONE (04:15)
[2018-03-25] MEDS ORDERED: HYOSCYAMINE 0.125 MG (LEVSIN) TAB ONE (04:21)
[2018-03-25] MEDS ORDERED: ONDA4TAB11 PO (04:50)
[2018-03-25] MEDS ORDERED: HYOS0.1283 SL (04:50)
--- NOTE | 2018-03-25 04:50 | NUR ---
Pt alert, oriented and talkative during stay in ER. Pt is consantly on phone while in room.
[2018-03-25 04:59] VITALS: BP 106/64
== END 2018-03-25 04:59 | disposition home or self-care (01) ==
LOC: EDUNIT# 02:30 → ER 02:31
DX: K44.9 Diaphragmatic hernia without obstruction or gangrene (principal); I10 Essential (primary) hypertension; G43.909 Migraine, unspecified, not intractable, without status migrainosus; K21.9 Gastro-esophageal reflux disease without esophagitis; Z87.19 Personal history of other diseases of the digestive system; Z87.442 Personal history of urinary calculi; Z98.890 Other specified postprocedural states; Z90.49 Acquired absence of other specified parts of digestive tract; Z98.51 Tubal ligation status
CPT/HCPCS: 99283

== ENCOUNTER 2018-03-28 10:16 | Day surgery (SDC) | payer BC ==
[~2018-03-28] VITALS: Ht 158.8 cm; Wt 84.4 kg
[~2018-03-28 10:16] MED LIST changes: +HYOS0.1283 SL; +ONDA4TAB11 PO
--- OUTSIDE RECORDS SUMMARY | 2018-03-28 10:19 | XMS REPORT | Continuity of Care Document ---
Author Author [facility] Organization [facility] Address Unknown Phone Unavailable Allergies Active Description Code Type Severity Reaction Onset Reported/Identified Relationship to Patient Clinical Status Yes NKDA NKDA Mild N/ A 06/11/2008 Yes No Known Drug Allergies [id number] Drug Allergy Unknown N/A 06/22/2009 Medications There [...] GASTRO-ESOPHAGEAL REFLUX DISEASE WITHOUT 07/15/2015 SONY BERGER MD Ot Z01.818 ENCOUNTER FOR [...] V58.69 OTH MED,LT,CURRENT USE 03/24/2018 SONY BERGER MD, Ot K21.9 GASTRO-ESOPHAGEAL REFLUX DISEASE WITHOUT 03/24/2018 SONY BERGER MD Ot Z01.818 ENCOUNTER FOR OTHER PREPROCEDURAL EXAMIN 03/24/2018 SONY BERGER MD Ot Z80.0 FAMILY HISTORY OF MALIGNANT NEOPLASM OF 03/24/2018 ERNESTO PONCE MD Ot Z12.31 ENCNTR SCREEN MAMMOGRAM FOR MALIGNANT NE 03/25/2018 ERNESTO PONCE MD Ot V76.12 OTH SCREEN MAMMO-MALIGN NEOPLASM OF SHONDA 03/25/2018 ERNESTO PONCE MD Ot 785.1 PALPITATIONS 03/25/2018 ERNESTO PONCE MD Ot V76.12 OTH SCREEN MAMMO-MALIGN NEOPLASM OF SHONDA 03/25/2018 ERNESTO PONCE MD Ot 729.5 PAIN IN LIMB 03/25/2018 PRISCILLA JAY MD Ot 724.4 LUMBOSACRAL NEURITIS NOS 03/25/2018 PRISCILLA JAY MD Ot 721.3 LUMBOSACRAL SPONDYLOSIS 03/25/2018 ANAHI LOERA MD Ot 722.52 LUMB/LUMBOSAC DISC DEGEN 03/25/2018 ANAHI LOERA MD Ot V58.69 OTH MED,LT,CURRENT USE 03/25/2018 SONY BERGER MD, Ot K21.9 GASTRO-ESOPHAGEAL REFLUX DISEASE WITHOUT 03/25/2018 SONY BERGER MD Ot Z01.818 ENCOUNTER FOR OTHER PREPROCEDURAL EXAMIN 03/25/2018 SONY BERGER MD Ot Z80.0 FAMILY HISTORY OF MALIGNANT NEOPLASM OF 03/25/2018 ERNESTO PONCE MD Ot Z12.31 ENCNTR SCREEN MAMMOGRAM FOR MALIGNANT NE 03/27/2018 DANIELLA JULES DOA K Ot G43.909 MIGRAINE, UNSP, NOT INTRACTABLE, WITHOUT 03/27/2018 JORGE ADANIELLA Childers DOA K Ot I10 ESSENTIAL (PRIMARY) HYPERTENSION 03/27/2018 BRANNON JULES DO Ot K21.9 GASTRO-ESOPHAGEAL REFLUX DISEASE WITHOUT 03/27/2018 BRANNON JULES DO Ot K44.9 DIAPHRAGMATIC HERNIA WITHOUT OBSTRUCTION 03/27/2018 BRANNON JULES DO Ot R11.10 VOMITING, UNSPECIFIED 03/27/2018 BRANNON JULES DO Ot Z87.19 PERSONAL HISTORY OF OTHER DISEASES OF TH 03/27/2018 BRANNON JULES DO Ot Z87.442 PERSONAL HISTORY OF URINARY CALCULI 03/27/2018 BRANNON JULES DO Ot Z90.49 ACQUIRED ABSENCE OF OTHER SPECIFIED PART 03/27/2018 BRANNON JULES DO Ot Z98.51 TUBAL LIGATION STATUS 03/27/2018 BRANNON JULES DO Ot Z98.890 OTHER SPECIFIED POSTPROCEDURAL STATES Procedures Code Description Performed By Performed On 51.23 LAPAROSCOPIC CHOLECYSTECTOMY 06/23/2009 87.53 INTRAOPER CHOLANGIOGRAM 06/23/2009 Results Test Result Range Complete blood count (CBC) with automated white blood cell (WBC) differential - 03/23/18 22:50 Blood leukocytes automated count (number/volume) 6.1 10*3/uL 4.3-11.0 Blood erythrocytes automated count (number/volume) 3.15 10*6/uL 4.35-5.85 Venous blood hemoglobin measurement (mass/volume) 8.7 g/dL 11.5-16.0 Blood hematocrit (volume fraction) 26 % 35-52 Automated erythrocyte mean corpuscular volume 83 [foz_us] 80-99 Automated erythrocyte mean corpuscular hemoglobin (mass per erythrocyte) 28 pg 25-34 Automated erythrocyte mean corpuscular hemoglobin concentration measurement ( mass/volume) 33 g/dL 32-36 Automated erythrocyte distribution width ratio 15.2 % 10.0-14.5 Automated blood platelet count (count/volume) 338 10*3/uL 130-400 Automated blood platelet mean volume measurement 9.7 [foz_us] 7.4-10.4 Automated blood neutrophils/100 leukocytes 55 % 42-75 Automated blood lymphocytes/100 leukocytes 37 % 12-44 Blood monocytes/100 leukocytes 5 % 0-12 Automated blood eosinophils/100 leukocytes 2 % 0-10 Automated blood basophils/100 leukocytes 1 % 0-10 Blood neutrophils automated count (number/volume) 3.3 10*3 1.8-7.8 Blood lymphocytes automated count (number/volume) 2.3 10*3 1.0-4.0 Blood monocytes automated count (number/volume) 0.3 10*3 0.0-1.0 Automated eosinophil count 0.1 10*3/uL 0.0-0.3 Automated blood basophil count (count/volume) 0.1 10*3/uL 0.0-0.1 PT panel in platelet poor plasma by coagulation assay - 03/23/18 22:50 Prothrombin time (PT) in platelet poor plasma by coagulation assay 13.9 s 12.2-14.7 INR in platelet poor plasma or blood by coagulation assay 1.1 0.8-1.4 Activated partial thromboplastin time (aPTT) in platelet poor plasma bycoagulation assay - 03/23/18 22:50 Activated partial thromboplastin time (aPTT) in platelet poor plasma bycoagulation assay 29 s 24-35 Comprehensive metabolic panel - 03/23/18 22:50 Serum or plasma sodium measurement (moles/volume) 139 mmol/L 135-145 Serum or plasma potassium measurement (moles/volume) 3.3 mmol/L 3.6-5.0 Serum or plasma chloride measurement (moles/volume) 110 mmol/L 98-107 Carbon dioxide 22 mmol/L 21-32 Serum or plasma anion gap determination (moles/volume) 7 mmol/L 5-14 Serum or plasma urea nitrogen measurement (mass/volume) 11 mg/dL 7-18 Serum or plasma creatinine measurement (mass/volume) 0.71 mg/dL 0.60-1.30 Serum or plasma urea nitrogen/creatinine mass ratio 15 NRG Serum or plasma creatinine measurement with calculation of estimated glomerular filtration rate > NRG Serum or plasma glucose measurement (mass/volume) 99 mg/dL 70-105 Serum or plasma calcium measurement (mass/volume) 8.6 mg/dL 8.5-10.1 Serum or plasma total bilirubin measurement (mass/volume) 0.4 mg/dL 0.1-1.0 Serum or plasma alkaline phosphatase measurement (enzymatic activity/volume) 42 U/L 40-136 Serum or plasma aspartate aminotransferase measurement (enzymatic activity/ volume) 20 U/L 5-34 Serum or plasma alanine aminotransferase measurement (enzymatic activity/volume ) 18 U/L 0-55 Serum or plasma protein measurement (mass/volume) 6.3 g/dL 6.4-8.2 Serum or plasma albumin measurement (mass/volume) 3.7 g/dL 3.2-4.5 CALCIUM CORRECTED 8.8 mg/dL 8.5-10.1 Magnesium - 03/23/18 22:50 Magnesium 1.7 mg/dL 1.8-2.4 Serum or plasma troponin i.cardiac measurement (mass/volume) - 03/23/18 22:50 Serum or plasma troponin i.cardiac measurement (mass/volume) < ng/ mL <0.028 Myoglobin, serum - 03/23/18 22:50 Myoglobin, serum 48.2 ng/mL 10.0-92.0 Serum or plasma lithium measurement (moles/volume) - 03/23/18 22:50 BNP level 123.7 pg/mL <100.0 Serum or plasma amylase measurement (enzymatic activity/volume) - 03/23/18 22: 50 Serum or plasma amylase measurement (enzymatic activity/volume) 33 U /L 25-125 Lipase - 03/23/18 22:50 Lipase 18 U/L 8-78 Encounters ACCT No. Visit Date/Time Discharge Status Pt. Type Provider Facility Loc./Unit Complaint [id number] 03/25/2018 02:31:00 03/25/2018 04:59:00 DIS Outpatient BRANNON JULES DO [facility] ER VOMITING [id number] 03/23/2018 21:54:00 03/24/2018 01:00:00 DIS Emergency BRANNON JULES DO [facility] ER SOB [id number] 04/15/2016 13:39:00 04/15/2016 23:59:59 CLS Outpatient ERNESTO PONCE MD [facility] RAD SCREENING [id number] 04/03/2015 11:33:00 04/03/2015 14:05:00 DIS Outpatient SONY BERGER MD [facility] FAMILY HISTORY COLON CA, REFLEX [id number] 04/01/2015 14:30:00 04/01/2015 14:30:00 CAN Outpatient SONY BERGER MD [facility] PREOP ABDOMINAL PAIN REFLUX [id number] 05/30/2014 08:11:00 05/30/2014 08:57:00 DIS Outpatient ANAHI LOERA MD [facility] CARD DDD [id number] 04/04/2014 08:17:00 04/04/2014 23:59:59 CLS Outpatient ANAHI LOERA MD [facility] CARD DDD-LUMBAR [id number] 01/24/2014 16:00:00 01/24/2014 23:59:59 CLS Outpatient PRISCILLA JAY MD [facility] RAD RT L5 RADICULOPATHY [id number] 01/14/2014 13:06:00 01/14/2014 23:59:59 CLS Outpatient PRISCILLA JAY MD [facility] RAD RT L5 RADICULOPATHY [id number] 01/07/2014 14:54:00 01/07/2014 23:59:59 CLS Outpatient ERNESTO PONCE MD [facility] RAD ROUTINE [id number] 12/26/2013 13:53:00 12/26/2013 23:59:59 CLS Outpatient ERNESTO PONCE MD [facility] RAD PAIN OVER 1ST 2ND METARSAL REGION [id number] 12/17/2013 09:39:00 12/17/2013 23:59:59 CLS Outpatient ERNESTO PONCE MD [facility] CARD PALP [id number] 12/11/2012 15:21:00 12/11/2012 23:59:59 CLS Outpatient ERNESTO PONCE MD [facility] RAD SCREENING [id number] 08/08/2012 14:29:00 08/16/2012 08:16:00 DIS Outpatient ERNESTO PONCE MD [facility] REHAB [id number] 03/25/2015 13:33:00 Document Registration [id number] 03/25/2015 13:33:00 Document Registration [id number] 01/18/2011 13:36:00 Document Registration [id number] 10/08/2010 13:36:00 Document Registration [id number] 09/10/2010 15:45:00 Document Registration [id number] 02/22/2010 09:13:00 Document Registration [id number] 01/04/2010 05:45:00 Document Registration [id number] 12/31/2009 14:13:00 Document Registration [id number] 12/01/2009 08:42:00 Document Registration [id number] 10/09/2008 14:03:00 Document Registration [email or web address] 05/30/2014 08:12:31 ACT Document Registration
[2018-03-28] MEDS ORDERED: NS IV 500 ML 500 ML ONE (10:34)
[2018-03-28] MEDS ORDERED: NS IV 500 ML 500 ML IV PRN (10:51)
--- NOTE | 2018-03-28 10:52 | Progress Note-Pre Operative ---
Pre-Operative Progress Note H&P Reviewed The H&P was reviewed, patient examined and no changes noted. Date Seen by Provider: Mar 28, 2018 Time Seen by Provider: 10:40 Date H&P Reviewed: Mar 28, 2018 Time H&P Reviewed: 10:40 Pre-Operative Diagnosis: recurrent GERD and dysphagia SONY BERGER MD Mar 28, 2018 10:52
--- NOTE | 2018-03-28 10:52 | Conscious Sedation/ASA ---
Conscious Sedation Pre-Proced Time 10:40 ASA Score 2 For ASA 3 and 4: Consider anesthesia and medical clearance. Also, for patients with a history of failed moderate sedation consider anesthesia. Airway Lungs Heart ASA score ASA 1: a normal healthy patient ASA 2: a patient with a mild systemic disease (mid diabetes, controlled hypertension, obesity ASA 3: a patient with a severe systemic disease that limits activity (angina , COPD, prior Myocardial infarction) ASA 4: a patient with an incapacitating disease that is a constant threat to life (CHF, renal failure) ASA 5: a moribund patient not expected to survive 24 hrs. (ruptured aneurysm) ASA 6: a declared brain- patient whose organs are being harvested. For emergent operations, add the letter E after the classification Mallampati Classification Grade 2 Sedation Plan Analgesia, Amnesia, Plan communicated to team members, Discussed options with patient/fam, Discussed risks with patient/fam The patient is an appropriate candidate to undergo the planned procedure, sedation, and anesthesia. The patient immediately re-assessed prior to indication. SONY BERGER MD Mar 28, 2018 10:52
[2018-03-28] MEDS ORDERED: morphine INJ 10 MG/ML 1ML (SYR OR VIAL) IV PRN (11:00)
[2018-03-28] MEDS ORDERED: fentaNYL INJECTION 100 MCG/2 ML AMP IVP ONE (11:00)
[2018-03-28] MEDS ORDERED: MIDAZOLAM 2 MG/2 ML (VERSED) VIAL IVP ONE (11:00)
[2018-03-28] MEDS ORDERED: LIDOCAINE JELLY 2% 6 ML SYRINGE MM PRN (11:00)
[2018-03-28] MEDS ORDERED: HURRICAINE EXT TUBE (BENZOCAINE) XX PRN (11:00)
[2018-03-28] MEDS ORDERED: HYDROcodone/APAP 5 MG/325 MG (LORTAB) TAB PO PRN (11:00)
[2018-03-28] MEDS ORDERED: ONDANSETRON 4 MG/2 ML (SDV) Z0FRAN IV PRN (11:00)
[2018-03-28] MEDS ORDERED: ACETAMINOPHEN 325 MG TABLET PO PRN (11:00)
[2018-03-28 11:06] VITALS: BP 104/78
[2018-03-28] MEDS ORDERED: LORA10TA7 PO (11:22)
--- NOTE | 2018-03-28 11:35 | Discharge Inst-Surgical ---
D/C Lap Instructions-AB Will call for Follow Up Activity as tolerated High Fiber Diet 25g or more per day Avoid Alcohol, Caffeine, Spicy [place] and Acid foods. Drink 64 fluid oz or more of fluids per day. Symptoms to Report: Fever over 101 degree F, Nausea/Vomiting If any problems/questions: Contact your physician or go to Emergency Room SONY BERGER MD Mar 28, 2018 11:35
[2018-03-28] MEDS ORDERED: MIDAZOLAM 2 MG/2 ML (VERSED) VIAL ONE ×4 (12:56→13:24)
[2018-03-28] MEDS ORDERED: HURRICAINE EXT TUBE (BENZOCAINE) ONE (12:57)
[2018-03-28] MEDS ORDERED: LIDOCAINE JELLY 2% 6 ML SYRINGE ONE (12:57)
[2018-03-28] MEDS ORDERED: fentaNYL INJECTION 100 MCG/2 ML AMP ONE (12:57)
--- NOTE | 2018-03-28 14:18 | Progress Note-Post Operative ---
Post-Operative Progess Note Surgeon (s)/Hris Administrator (s) Surgeon SONY BERGER MD Hris Administrator: none Pre-Operative Diagnosis recurrent GERD and dysphagia Post-Operative Diagnosis esophageal candidiasis, distal esophageal stricture, recurrent type II hiatal hernia, mild-mod gastritis. Procedure & Operative Findings Date of Procedure 03/28/18 Procedure Performed/Findings EGD with bx and balloon dilatation. Anesthesia Type CS Estimated Blood Loss Estimated blood loss (mL): minimal Specimens/Packing Specimens Removed esphageal plaque for AFB and fungal culture, GE jxn, antrum SONY BERGER MD Mar 28, 2018 14:18
--- NOTE | 2018-03-28 14:19 | Discharge Inst-Surgical ---
D/C Lap Instructions-KIDO New, Converted, or Re-Newed RX: RX on Chart Follow Up Appt in 6 weeks Activity as tolerated Avoid Alcohol, Caffeine, Spicy [place] and Acid foods. Drink 64 fluid oz or more of fluids per day. Symptoms to Report: Fever over 101 degree F, Nausea/Vomiting If any problems/questions: Contact your physician or go to Emergency Room SONY BERGER MD Mar 28, 2018 14:19
[2018-03-28] MEDS ORDERED: FLUC100T PO (14:21)
[2018-03-28] MEDS ORDERED: FLUC200T PO (14:21)
[2018-03-28 14:30] VITALS: BP 103/57
[2018-03-28 14:40] VITALS: BP 108/59
[2018-03-28 15:12] VITALS: BP 108/59
--- NOTE | 2018-03-29 00:34 | OPERATIVE REPORT ---
DATE OF SERVICE: 03/28/2018 ATTENDING PRIMARY CARE PHYSICIAN: Dr. Regan. PREOPERATIVE DIAGNOSIS: Dysphagia with history of recurrent hiatal hernia. POSTOPERATIVE DIAGNOSES: Reflux esophagitis stage II, distal esophageal candidiasis. A large recurrent hiatal hernia with the gastroesophageal junction looking in normal positioning consistent with a type 2 recurrent hiatal hernia. Moderate gastritis. Pylorus and duodenum appeared normal. No distal obstructions. PROCEDURE: EGD with biopsy and balloon dilatation. SURGEON: Sony Berger MD ANESTHESIA: Conscious sedation. ESTIMATED BLOOD LOSS: Minimal. FINDINGS: Reflux esophagitis stage II with esophageal candidiasis and esophageal stricture. The EG junction appeared to be in normal position. There was a recurrent large hiatal hernia approximately 4 cm in size. This appears to be the root of her symptomatology. There was a moderate gastritis. No formal ulcerations, polyps or any neoplasms. Pylorus and duodenum appeared normal with no distal obstructions. DISPOSITION: The patient tolerated the procedure well. INDICATIONS: The patient is a 47-year-old female known to us. She was seen by us in 03/2015 for crampy abdominal pain and constipation. She has a history of gastroesophageal reflux disease and underwent a hiatal hernia repair as well as a Hill gastropexy in 2005. She had reported recurrence of symptoms including reflux and regurgitation. An EGD and colonoscopy were performed by us in 03/2015; she was found to have a reflux esophagitis stage II and a recurrent hiatal hernia approximately 3 cm in size at that time. There was a mild to moderate gastritis. The colonoscopy revealed a small anal fissure, chronic stage II external and internal hemorrhoids as well as mild sigmoid diverticulosis; however, no polyps identified. She presented with substernal pressure sensation, nausea, shortness of breath, diarrhea and dysphagia. She had been seen in the Emergency Department and a CT scan was performed, which showed a large hiatal hernia with fluid within the thoracic portion of the esophagus. She is currently on Protonix as well as Carafate. DESCRIPTION OF PROCEDURE: The patient was brought to the endoscopy suite, laid in the left lateral decubitus position. After adequate IV pain and sedative medications and conscious sedation anesthesia, the mouthpiece was applied. The endoscope was placed in the mouth, visualizing the pharynx and hypopharyngeal region. Vocal cords, epiglottis and vallecula identified and appeared to be normal. The endoscope was then gently intubated at the esophageal opening and esophagus insufflated. The endoscope was then advanced to the first, second and third portions of the esophagus. An esophageal stricture was identified as well as a reflux esophagitis stage II, but there was also a white to yellowish plaque substance coating the entire distal esophagus consistent with esophageal candidiasis. Brushings were taken as well as biopsy of the GE junction. The endoscope was then advanced in the stomach and endoscope retroflexed, visualizing a recurrent large hiatal hernia approximately 4 cm in size. The GE junction appeared to be more in line of normal anatomic positioning, which may indicate that this is a recurrent type 2 paraesophageal hernia. A moderate severity gastritis was noted. There were no formal ulcerations, polyps or any neoplasms. A biopsy was taken of the antrum to rule out H. pylori with visualization of good hemostasis. The endoscope was then advanced to the pylorus and first and second portion of the duodenum, which appeared normal with no distal obstructions. We then proceeded with an attempt at a trial of dilatation of the esophageal stricture despite having the recurrent hiatal hernia. A balloon was placed in the stomach and pulled back to the area of the stricture. We first proceeded to 2 atmospheres of pressure or 18 mm in diameter with no resistance. We then proceeded to 4 atmospheres of pressure or 19 mm with mild resistance. We then proceeded to 6 atmospheres of pressure or 20 mm in luminal diameter with mild to moderate resistance and left this in place for approximately 60 seconds. The balloon was then desufflated and removed. No mucosal tears were identified as well as no bleeding. The endoscope was then slowly withdrawn while taking a second look and suctioning of residual air with no additional findings. The patient tolerated the procedure well. We will recommend the necessary lifestyle and diet accommodation for right now including small and more frequent meals, avoidance of eating at night as well as head elevation while lying supine. We will also start her on Diflucan and she will be instructed to continue with Protonix and Carafate. We feel that the most likely root of her symptomatology is a recurrent hiatal hernia. However, due to the size and recurrent nature of the lesion, we will recommend that this be evaluated and treated at a tertiary center where a combined abdominal and thoracic approach would probably be necessary and if there is a shortened esophagus identified, an elongation procedure also may be necessary. Job ID: [id number] DocumentID: [id number] Dictated Date: 03/28/2018 14:01:00 Poultry Sexer Date: 03/29/2018 00:33:38 Dictated By: SONY BERGER MD MTDD
== END 2018-03-28 15:00 | disposition home or self-care (01) ==
LOC: ENDO 10:16
PROVIDERS: ATTEND Surgery
DX: K21.0 Gastro-esophageal reflux disease with esophagitis (principal); K22.2 Esophageal obstruction; B37.81 Candidal esophagitis; K44.9 Diaphragmatic hernia without obstruction or gangrene; K29.70 Gastritis, unspecified, without bleeding; K58.1 Irritable bowel syndrome with constipation; K27.9 Peptic ulcer, site unspecified, unspecified as acute or chronic, without hemorrhage or perforation; Z79.899 Other long term (current) drug therapy
CPT/HCPCS: 87101

== ENCOUNTER 2018-04-08 09:36 | Emergency (ER) | payer BC ==
[~2018-04-08] VITALS: Ht 157.5 cm; Wt 80.7 kg
[~2018-04-08 09:36] MED LIST changes: +FLUC100T PO; +FLUC200T PO; +LORA10TA7 PO
--- NOTE | 2018-04-08 09:39 | NUR ---
PT BROUGHT IN BY EMS FOR N/V THAT STARTED TODAY. NO IV PLACED IN ROUTE. PT PLACED IN WAITING ROOM DUE TO FULL ER AND MULTIPLE PT'S INFRONT OF HER WATITING.
--- OUTSIDE RECORDS SUMMARY | 2018-04-08 09:42 | XMS REPORT | Continuity of Care Document ---
Author Author [facility] Organization [facility] Address Unknown Phone Unavailable Allergies Active Description Code Type Severity Reaction Onset Reported/Identified Relationship to Patient Clinical Status Yes NKDA NKDA Mild N/ A 06/11/2008 Yes No Known Drug Allergies [id number] Drug Allergy Unknown N/A 06/22/2009 Medications There [...] Z01.818 ENCOUNTER FOR OTHER PREPROCEDURAL EXAMIN 03/24/2018 AB VILLEGAS, SONY Ot Z80.0 FAMILY HISTORY OF MALIGNANT NEOPLASM OF 03/24/2018 ERNESTO PONCE MD Ot Z12.31 ENCNTR SCREEN MAMMOGRAM FOR MALIGNANT NE 03/24/2018 DANIELLA JULES DOA Fela Ot D64.9 ANEMIA, UNSPECIFIED 03/24/2018 JORGE A DANIELLA CANOA K Ot E83.42 HYPOMAGNESEMIA 03/24/2018 JORGE A DANIELLA CANOA K Ot G43.909 MIGRAINE, UNSP, NOT INTRACTABLE, WITHOUT 03/24/2018 JORGE A DO BRANNON K Ot I10 ESSENTIAL (PRIMARY) HYPERTENSION 03/24/2018 JORGE A DODANIELLAA K Ot K21.9 GASTRO-ESOPHAGEAL REFLUX DISEASE WITHOUT 03/24/2018 JORGE A DO BRANNON K Ot K44.9 DIAPHRAGMATIC HERNIA WITHOUT OBSTRUCTION 03/24/2018 JORGE A DODANIELLAA K Ot K58.9 IRRITABLE BOWEL SYNDROME WITHOUT DIARRHE 03/24/2018 OJRGE A DANIELLA CANOA K Ot R06.02 SHORTNESS OF BREATH 03/24/2018 JORGE A DO BRANNON K Ot Z87.19 PERSONAL HISTORY OF OTHER DISEASES OF TH 03/24/2018 DANIELLA JULES DOA Fela Ot Z87.442 PERSONAL HISTORY OF URINARY CALCULI 03/24/2018 DANIELLA JULES DOA Fela Ot Z90.49 ACQUIRED ABSENCE OF OTHER SPECIFIED PART 03/24/2018 JORGE A DANIELLA CANOA Fela Ot Z98.51 TUBAL LIGATION STATUS 03/24/2018 JORGE A BRANNON CANO Ot Z98.890 OTHER SPECIFIED POSTPROCEDURAL STATES 03/24/2018 ERNESTO PONCE MD Ot V76.12 OTH [...] MD Ot 785.1 PALPITATIONS 03/24/2018 ERNESTO PONCE MD Ot V76.12 OTH SCREEN MAMMO-MALIGN NEOPLASM OF [place] 03/24/2018 ERNESTO PONCE MD Ot 729.5 PAIN IN LIMB 03/24/2018 PIERRE VILLEGAS, PRISCILLA Francisco Ot 724.4 LUMBOSACRAL NEURITIS NOS 03/24/2018 PRISCILLA [...] MD Ot 724.4 LUMBOSACRAL NEURITIS NOS 03/25/2018 PIERRE VILLEGAS, PRISCILLA Francisco Ot 721.3 LUMBOSACRAL SPONDYLOSIS 03/25/2018 ANAHI LOERA MD Ot 722.52 LUMB/LUMBOSAC DISC DEGEN 03/25/2018 ANAHI LOERA MD Ot V58.69 OT MED,LT,CURRENT USE 03/25/2018 SONY BERGER MD, Ot K21.9 GASTRO-ESOPHAGEAL REFLUX DISEASE WITHOUT 03/25/2018 SONY BERGER MD Ot Z01.818 ENCOUNTER FOR OTHER PREPROCEDURAL EXAMIN 03/25/2018 SONY BERGER MD, Ot Z80.0 FAMILY HISTORY OF MALIGNANT NEOPLASM OF 03/25/2018 ERNESTO PONCE MD Ot Z12.31 ENCNTR SCREEN MAMMOGRAM FOR MALIGNANT NE 03/25/2018 BRANNON JULES DO Ot G43.909 MIGRAINE, UNSP, NOT INTRACTABLE, WITHOUT 03/25/2018 BRANNON JULES DO Ot I10 ESSENTIAL (PRIMARY) HYPERTENSION 03/25/2018 BRANNON JULES DO Ot K21.9 GASTRO-ESOPHAGEAL REFLUX DISEASE WITHOUT 03/25/2018 BRANNON JULES DO Ot K44.9 DIAPHRAGMATIC HERNIA WITHOUT OBSTRUCTION 03/25/2018 BRANNON JULES DO Ot R11.10 VOMITING, UNSPECIFIED 03/25/2018 BRANNON JULES DO Ot Z87.19 PERSONAL HISTORY OF OTHER DISEASES OF TH 03/25/2018 BRANNON JULES DO Ot Z87.442 PERSONAL HISTORY OF URINARY CALCULI 03/25/2018 BRANNON JULES DO Ot Z90.49 ACQUIRED ABSENCE OF OTHER SPECIFIED PART 03/25/2018 BRANNON JULES DO Ot Z98.51 TUBAL LIGATION STATUS 03/25/2018 BRANNON JULES DO Ot Z98.890 OTHER SPECIFIED POSTPROCEDURAL STATES 03/27/2018 BRANNON JULES DO Ot G43.909 MIGRAINE, UNSP, NOT INTRACTABLE, WITHOUT 03/27/2018 BRANNON JULES DO K Ot I10 ESSENTIAL (PRIMARY) HYPERTENSION 03/27/2018 JORGE A BRANNON K Ot K21.9 GASTRO-ESOPHAGEAL REFLUX DISEASE WITHOUT 03/27/2018 JORGE A DO BRANNON K Ot K44.9 DIAPHRAGMATIC HERNIA WITHOUT OBSTRUCTION 03/27/2018 JORGE A BRANNON CANO K Ot R11.10 VOMITING, UNSPECIFIED 03/27/2018 JORGE A BRANNON CANO K Ot Z87.19 PERSONAL HISTORY OF OTHER DISEASES OF TH 03/27/2018 BRANNON JULES DO Ot Z87.442 PERSONAL HISTORY OF URINARY CALCULI 03/27/2018 JORGE A BRANNON Chahal Ot Z90.49 ACQUIRED ABSENCE OF OTHER SPECIFIED PART 03/27/2018 JORGE A BRANNON Chahal Ot Z98.51 TUBAL LIGATION STATUS 03/27/2018 JORGE A BRANNON Chahal Ot Z98.890 OTHER SPECIFIED POSTPROCEDURAL STATES 03/28/2018 SONY BERGER MD, Ot B37.81 CANDIDAL ESOPHAGITIS 03/28/2018 SONY BERGER MD, Ot K21.0 GASTRO-ESOPHAGEAL REFLUX DISEASE WITH ES 03/28/2018 SONY BERGER MD, Ot K22.2 ESOPHAGEAL OBSTRUCTION 03/28/2018 SONY BERGER MD Ot K27.9 PEPTIC ULC, SITE UNSP, UNSP AC OR CHR 03/28/2018 SONY BERGER MD, Ot K29.70 GASTRITIS, UNSPECIFIED, WITHOUT BLEEDING 03/28/2018 SONY BERGER MD, Ot K44.9 DIAPHRAGMATIC HERNIA WITHOUT OBSTRUCTION 03/28/2018 SONY BERGER MD, Ot K58.1 IRRITABLE BOWEL SYNDROME WITH CONSTIPATI 03/28/2018 SONY BERGER MD, Ot Z79.899 OTHER SIZING SPRAYER (CURRENT) DRUG THERAPY 03/30/2018 SONY BERGER MD, Ot B37.81 CANDIDAL ESOPHAGITIS 03/30/2018 SONY BERGER MD Ot K21.0 GASTRO-ESOPHAGEAL REFLUX DISEASE WITH ES 03/30/2018 SONY BERGER MD Ot K22.2 ESOPHAGEAL OBSTRUCTION 03/30/2018 SONY BERGER MD Ot K27.9 PEPTIC ULC, SITE UNSP, UNSP AC OR CHR 03/30/2018 SONY BERGER MD Ot K29.70 GASTRITIS, UNSPECIFIED, WITHOUT BLEEDING 03/30/2018 SONY BERGER MD, Ot K44.9 DIAPHRAGMATIC HERNIA WITHOUT OBSTRUCTION 03/30/2018 SONY BERGER MD, Ot K58.1 IRRITABLE BOWEL SYNDROME WITH CONSTIPATI 03/30/2018 SONY BERGER MD, Ot Z79.899 OTHER CARE HOME (CURRENT) DRUG THERAPY 03/30/2018 ERNESTO PONCE MD, Ot V76.12 OTH SCREEN MAMMO-MALIGN NEOPLASM OF [place] 03/30/2018 ERNESTO PONCE MD Ot 785.1 PALPITATIONS 03/30/2018 ERNESTO PONCE MD, Ot V76.12 OTH SCREEN MAMMO-MALIGN NEOPLASM OF [place] 03/30/2018 ERNESTO PONCE MD, Ot 729.5 PAIN IN LIMB 03/30/2018 PRISCILLA JAY MD Ot 724.4 LUMBOSACRAL NEURITIS NOS 03/30/2018 PRISCILLA JAY MD Ot 721.3 LUMBOSACRAL SPONDYLOSIS 03/30/2018 ANAHI LOERA MD Ot 722.52 LUMB/LUMBOSAC DISC DEGEN 03/30/2018 ANAHI LOERA MD, Ot V58.69 OTH MED,LT,CURRENT USE 03/30/2018 SONY BERGER MD, Ot K21.9 GASTRO-ESOPHAGEAL REFLUX DISEASE WITHOUT 03/30/2018 SONY BERGER MD, Ot Z01.818 ENCOUNTER FOR OTHER PREPROCEDURAL EXAMIN 03/30/2018 SONY BERGER MD, Ot Z80.0 FAMILY HISTORY OF MALIGNANT NEOPLASM OF 03/30/2018 ERNESTO PONCE MD, Ot Z12.31 ENCNTR SCREEN [...] - 03/23/18 22:50 Lipase 18 U/L 8-78 C FUNGUS SPUTUM FLUID TISSUE - 03/28/18 14:09 QUANTITY OF GROWTH Moderate Growth NRG FTX;REPORTABLE ID REPORTED 04/03/18 16:05 NRG C FUNGUS SPUTUM FLUID TISSUE [id number] NRG Encounters ACCT No. Visit Date/Time Discharge Status Pt. Type Provider Facility Loc./Unit Complaint [id number] 03/28/2018 10:16:00 03/28/2018 15:00:00 DIS Outpatient SONY BERGER MD [facility] ENDO REFLUX [id number] 03/25/2018 02:31:00 03/25/2018 04:59:00 DIS Emergency JORGE A DO, BRANNON K [facility] ER VOMITING [id number] 03/23/2018 21:54:00 03/24/2018 01:00:00 DIS Emergency JORGE A DOBRANNON [facility] ER SOB [id number] 04/15/2016 13:39:00 04/15/2016 23:59:59 CLS Outpatient ERNESTO PONCE MD [facility] RAD SCREENING [id number] 04/03/2015 11:33:00 04/03/2015 14:05:00 DIS Outpatient SONY BERGER MD [facility] SDC FAMILY HISTORY COLON CA, REFLEX [id number] 04/01/2015 14:30:00 04/01/2015 14:30:00 CAN Outpatient SONY BERGER MD [facility] PREOP ABDOMINAL PAIN REFLUX [id number] 05/30/2014 08:11:00 05/30/2014 08:57:00 DIS Outpatient ANAHI LOERA MD [facility] CARD DDD [id number] 04/04/2014 08:17:00 04/04/2014 23:59:59 CLS Outpatient ANAHI LOERA MD [facility] CARD DDD-LUMBAR [id number] 01/24/2014 16:00:00 01/24/2014 23:59:59 CLS Outpatient PRISCILLA JAY MD [facility] RAD RT L5 RADICULOPATHY [id number] 01/14/2014 13:06:00 01/14/2014 23:59:59 CLS Outpatient PRISCILLA JAY MD [facility] RAD RT L5 RADICULOPATHY [id number] 01/07/2014 14:54:00 01/07/2014 23:59:59 CLS Outpatient ERNESTO PONCE MD [facility] RAD ROUTINE [id number] 12/26/2013 13:53:00 12/26/2013 23:59:59 CLS Outpatient ERNESTO PONCE MD [facility] RAD PAIN OVER 1ST 2ND METARSAL REGION [id number] 12/17/2013 09:39:00 12/17/2013 23:59:59 CLS Outpatient ERNESTO PONCE MD [facility] CARD PALP [id number] 12/11/2012 15:21:00 12/11/2012 23:59:59 CLS Outpatient ERNESTO PONCE MD [facility] RAD SCREENING [id number] 08/08/2012 14:29:00 08/16/2012 08:16:00 DIS Outpatient ERNESTO PONCE MD [facility] REHAB [id number] 03/25/2015 13:33:00 Document Registration [id number] 03/25/2015 13:33:00 Document Registration [id number] 01/18/2011 13:36:00 Document Registration [id number] 10/08/2010 13:36:00 Document Registration [id number] 09/10/2010 15:45:00 Document Registration [id number] 02/22/2010 09:13:00 Document Registration [id number] 01/04/2010 05:45:00 Document Registration [id number] 12/31/2009 14:13:00 Document Registration [id number] 12/01/2009 08:42:00 Document Registration [id number] 10/09/2008 14:03:00 Document Registration [id number] 05/30/2014 08:12:31 ACT Document Registration
[2018-04-08 10:08] VITALS: BP 110/86
--- NOTE | 2018-04-08 11:24 | NUR ---
NOTIFIED OF BUSY ER WITH POSSIBLE LONG WAIT TIME.
--- NOTE | 2018-04-08 12:20 | NUR ---
NOTIFIED OF BUSY ER WITH MULTIPLE AMBULANCES. PT CONDITION HAS NOT CHANGED.
[2018-04-08] MEDS ORDERED: ONDANSETRON 4 MG/2 ML (SDV) Z0FRAN IVP ONE (13:30)
[2018-04-08 14:11] LABS: BASOPHILS # (AUTO) 0.1 10^3/uL (0.0-0.1); BASOPHILS % (AUTO) 1 % (0-10); EOSINOPHILS # (AUTO) 0.1 10^3/uL (0.0-0.3); EOSINOPHILS % (AUTO) 1 % (0-10); HEMATOCRIT 34 % (35-52); HEMOGLOBIN 11.1 G/DL (11.5-16.0); LYMPHOCYTES # (AUTO) 1.8 X 10^3 (1.0-4.0); LYMPHOCYTES % (AUTO) 22 % (12-44); MEAN CORPUSCULAR HGB CONC 33 G/DL (32-36); MEAN CORPUSCULAR VOLUME 81 FL (80-99); MEAN PLATELET VOLUME 11.1 FL (7.4-10.4); MONOCYTES # (AUTO) 0.5 X 10^3 (0.0-1.0); MONOCYTES % (AUTO) 7 % (0-12); NEUTROPHILS # (AUTO) 5.8 X 10^3 (1.8-7.8); NEUTROPHILS % (AUTO) 70 % (42-75); PLATELET COUNT 426 10^3/uL (130-400); RED CELL DISTRIBUTION WIDTH 15.3 % (10.0-14.5); WHITE BLOOD COUNT 8.3 10^3/uL (4.3-11.0)
[2018-04-08 14:25] LABS: ALANINE AMINOTRANSFERASE 9 U/L (0-55); ALBUMIN 4.4 GM/DL (3.2-4.5); ALKALINE PHOSPHATASE 60 U/L (40-136); AMYLASE 39 U/L (25-125); BILIRUBIN,TOTAL 0.4 MG/DL (0.1-1.0); BUN/CREATININE RATIO 14; CALCIUM 9.7 MG/DL (8.5-10.1); CARBON DIOXIDE 20 MMOL/L (21-32); CHLORIDE 109 MMOL/L (98-107); CREATININE SERUM 0.83 MG/DL (0.60-1.30); GFR ESTIMATED > 60; GLUCOSE 105 MG/DL (70-105); LIPASE 23 U/L (8-78); MEAN CORPUSCULAR HEMOGLOBIN 26 PG (25-34); POTASSIUM 3.8 MMOL/L (3.6-5.0); SODIUM 142 MMOL/L (135-145); TOTAL PROTEIN 7.8 GM/DL (6.4-8.2)
[2018-04-08 15:13] LABS: CLARITY,URINE CLEAR; COLOR,URINE YELLOW; GLUCOSE, URINE (UA) NEGATIVE (NEGATIVE); KETONES,URINE 4+ (NEGATIVE); LEUKOCYTE ESTERASE ,URINE 1+ (NEGATIVE); NITRITE,URINE NEGATIVE (NEGATIVE); PH,URINE 6 (5-9); PROTEIN,URINE 2+ (NEGATIVE); UROBILINOGEN,URINE 1 MG/DL (NORMAL)
[2018-04-08] MEDS ORDERED: fentaNYL INJECTION 100 MCG/2 ML AMP IVP ONE (15:30)
[2018-04-08 15:50] LABS: BACTERIA,URINE TRACE /HPF; CALCIUM OXALATE CRYSTALS,UR FEW /LPF; RBC,URINE 0-2 /HPF; WBC,URINE 0-2 /HPF
[2018-04-08 15:51] LABS: BILIRUBIN,URINE 2+ (NEGATIVE)
[2018-04-08] MEDS ORDERED: ONDN4T PO (16:07)
[2018-04-08] MEDS ORDERED: ACHD5005 PO (16:07)
--- NOTE | 2018-04-08 16:07 | ED Abdominal Pain ---
General Chief Complaint: Abdominal/GI Problems Stated Complaint: N/V Nursing Triage Note: [facility]B [facility]. STATES SHE STARTED HAVING ABD PAIN N/V STARTING YESTERDAY BUT HAS HAD IT OFF AND ON FOR 2 WEEKS. HX OF HERNIA THAT SHE IS TO SEE AB FOR ON MONDAY. Sepsis Screen: No Definite Risk Source of Information: Patient Exam Limitations: No Limitations History of Present Illness Date Seen by Provider: Apr 08, 2018 Time Seen by Provider: 13:40 Initial Comments 47-year-old female who presents to the emergency room with complaints of nausea and vomiting that started yesterday. She's had intermittent nausea and vomiting for the past 2 weeks. She has an appointment for her hiatal hernia on of this week to see Dr. BERGER for evaluation for possible surgery. Timing/Duration: Other (2 weeks) Associated Symptoms: Nausea/Vomiting Allergies and Home Medications Allergies Coded Allergies: No Known Drug Allergies (Verified , 06/22/09) Uncoded Allergies: NKDA (Allergy, Mild, 06/11/08) Home Medications Fluconazole 200 Mg Tablet, 200 MG PO DAILY Prescribed by: SONY BERGER on 03/28/18 1421 Fluconazole 100 Mg Tablet, 100 MG PO DAILY Prescribed by: SONY BERGER on 03/28/18 1421 Hydrocodone Bit/Acetaminophen 1 Tab Tab, 1 EACH PO Q4-6HR PRN for PAIN-MODERATE Prescribed by: MARLENA ROSARIO on 04/08/18 1607 Hyoscyamine Sulfate 0.375 Mg Tab.sr.12h, 0.375 MG PO BID, (Reported) Loratadine 10 Mg Tablet, 10 MG PO DAILY, (Reported) Metoprolol Succinate 25 Mg Tab, 25 MG PO DAILY, (Reported) Ondansetron HCl 4 Mg Tab, 4 MG PO Q4H PRN for NAUSEA/VOMITING-1ST LINE Prescribed by: MARLENA ROSARIO on 04/08/18 1607 Oxybutynin Chloride 5 Mg Tab, 5 MG PO ONCE, (Reported) Pantoprazole Sodium 40 Mg Tablet.dr, 40 MG PO DAILY Prescribed by: SONY BERGER on 04/03/15 1308 Topiramate 50 Mg Tablet, 50 MG PO DAILY, (Reported) Patient Home Medication List Home Medication List Reviewed: Yes Review of Systems Review of Systems Constitutional: no symptoms reported, see HPI Gastrointestinal: See HPI, Abdominal Pain, Nausea, Vomiting All Other Systems Reviewed Negative Unless Noted: Yes Past Tgwjbfr-Msgrul-Ddaidl Hx Past Med/Social Hx: Reviewed Nursing Past Med/Soc Hx Patient Social History Alcohol Use: Denies Use Recreational Drug Use: No 2nd Hand Smoke Exposure: No Recent Foreign Travel: No Contact w/Someone Who Travel: No Recent Infectious Disease Expo: No Recent Hopitalizations: No Immunizations Up To Date Tetanus Booster (TDap): Unknown Past Medical History Surgeries: Yes (EGD/COLONOSCOPY; HIATAL HERNIA REPAIR 2005; X 1) Abdominal, Appendectomy, Section, Gallbladder, Tubal Ligation Respiratory: No Currently Using CPAP: No Currently Using BIPAP: No Cardiac: Yes Hypertension Neurological: Yes Headaches /Migraines 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 Disorders: No 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 Genitourinary: Yes (URINARY URGENCY) Kidney Stones Gastrointestinal: Yes Gastroesophageal Reflux, Diverticulosis, Hemorrhoids, Hiatal Hernia, Irritable Bowel Musculoskeletal: Yes (SCIATICA; CHRONIC NECK AND BACK PAIN) Degenerate Disk Disease, Chronic Back Pain Endocrine: No HEENT: No Cancer: No Psychosocial: No Integumentary: No Blood Disorders: No Family Medical History Reviewed Nursing Family Hx Physical Exam Vital Signs Vital Signs - First Documented 04/08/18 10:08 Temp 98.0 Pulse 103 Resp 18 B/P (MAP) 110/86 (94) Pulse Ox 95 O2 Delivery Room Air Capillary Refill : Less Than 3 Seconds Height/Weight/BMI Height: 5'2.00" Weight: 178lbs. 0.0oz. 80.358137aj; 33.5 BMI Method:Stated General Appearance: WD/WN, no apparent distress HEENT: PERRL/EOMI, normal ENT inspection, TMs normal, pharynx normal Respiratory: chest non-tender, lungs clear, normal breath sounds, no respiratory distress, no accessory muscle use Cardiovascular: normal peripheral pulses, regular rate, rhythm, no edema, no gallop, no JVD, no murmur Gastrointestinal: normal bowel sounds, non tender, soft, no organomegaly, no pulsatile mass Extremities: normal capillary refill Neurologic/Psychiatric: alert, normal mood/affect, oriented x 3 Skin: normal color, warm/dry Progress/Results/Core Measures Results/Orders Lab Results Laboratory Tests Test 04/08/18 14:01 04/08/18 14:09 Range/Units White Blood Count 8.3 4.3-11.0 10^3/uL Red Blood Count 4.19 L 4.35-5.85 10^6/uL Hemoglobin 11.1 L 11.5-16.0 G/DL Hematocrit 34 L 35-52 % Mean Corpuscular Volume 81 80-99 FL Mean Corpuscular Hemoglobin 26 25-34 PG Mean Corpuscular Hemoglobin Concent 33 32-36 G/DL Red Cell Distribution Width 15.3 H 10.0-14.5 % Platelet Count 426 H 130-400 10^3/uL Mean Platelet Volume 11.1 H 7.4-10.4 FL Neutrophils (%) (Auto) 70 42-75 % Lymphocytes (%) (Auto) 22 12-44 % Monocytes (%) (Auto) 7 0-12 % Eosinophils (%) (Auto) 1 0-10 % Basophils (%) (Auto) 1 0-10 % Neutrophils # (Auto) 5.8 1.8-7.8 X 10^3 Lymphocytes # (Auto) 1.8 1.0-4.0 X 10^3 Monocytes # (Auto) 0.5 0.0-1.0 X 10^3 Eosinophils # (Auto) 0.1 0.0-0.3 10^3/uL Basophils # (Auto) 0.1 0.0-0.1 10^3/uL Sodium Level 142 135-145 MMOL/L Potassium Level 3.8 3.6-5.0 MMOL/L Chloride Level 109 H 98-107 MMOL/L Carbon Dioxide Level 20 L 21-32 MMOL/L Anion Gap 13 5-14 MMOL/L Blood Urea Nitrogen 12 7-18 MG/DL Creatinine 0.83 0.60-1.30 MG/DL Estimat Glomerular Filtration Rate > 60 BUN/Creatinine Ratio 14 Glucose Level 105 70-105 MG/DL Calcium Level 9.7 8.5-10.1 MG/DL Corrected Calcium 9.4 8.5-10.1 MG/DL Total Bilirubin 0.4 0.1-1.0 MG/DL Aspartate Amino Transf (AST/SGOT) 17 5-34 U/L Alanine Aminotransferase (ALT/SGPT) 9 0-55 U/L Alkaline Phosphatase 60 40-136 U/L Total Protein 7.8 6.4-8.2 GM/DL Albumin 4.4 3.2-4.5 GM/DL Amylase Level 39 25-125 U/L Lipase 23 8-78 U/L Urine Color YELLOW Urine Clarity CLEAR Urine pH 6 5-9 Urine Specific [place] 1.025 H 1.016-1.022 Urine Protein 2+ H NEGATIVE Urine Glucose (UA) NEGATIVE NEGATIVE Urine Ketones 4+ H NEGATIVE Urine Nitrite NEGATIVE NEGATIVE Urine Bilirubin 2+ H NEGATIVE Urine Urobilinogen 1 NORMAL MG/DL Urine Leukocyte Esterase 1+ H NEGATIVE Urine RBC (Auto) 3+ H NEGATIVE Urine RBC 0-2 /HPF Urine WBC 0-2 /HPF Urine Squamous Epithelial Cells 2-5 /HPF Urine Renal Epithelial Cells NONE /HPF Urine Crystals PRESENT H /LPF Urine Calcium Oxalate Crystals FEW H /LPF Urine Bacteria TRACE /HPF Urine Casts PRESENT /LPF Urine Hyaline Casts 5-10 H /LPF Urine Mucus LARGE H /LPF Urine Culture Indicated NO My Orders Orders - MARLENA ROSARIO Comprehensive Metabolic Panel (04/08/18 13:25) Lipase (04/08/18 13:25) Amylase (04/08/18 13:25) Ua Culture If Indicated (04/08/18 13:25) Saline Lock/Iv-Start (04/08/18 13:25) Cbc With Automated Diff (04/08/18 13:25) Ondansetron Injection (Zofran Injectio (04/08/18 13:30) Fentanyl Injection (Sublimaze Injection (04/08/18 15:30) Medications Given in ED Current Medications Medications Dose Ordered Sig/Sergio Route Start Time Stop Time Status Last Admin Dose Admin Fentanyl Citrate 50 mcg ONCE ONCE IVP 04/08/18 15:30 04/08/18 15:31 DC 04/08/18 15:48 50 MCG Ondansetron HCl 4 mg ONCE ONCE IVP 04/08/18 13:30 04/08/18 13:32 DC 04/08/18 14:01 4 MG Vital Signs/I&O 04/08/18 04/08/18 10:08 11:24 Temp 98.0 97.9 Pulse 103 94 Resp 18 16 B/P (MAP) 110/86 (94) 105/86 (92) Pulse Ox 95 100 O2 Delivery Room Air Room Air Blood Pressure Mean: 92 Progress Progress Note : Time: 16:06 Progress Note I have seen and evaluated the patient. Her nausea and vomiting and pain has improved at this time. I have reviewed her laboratory results with her at this time. She agrees with plan of care, plans for discharge, return precautions were given. Departure Impression Primary Impression: Nausea and vomiting Additional Impression: Hiatal hernia Disposition: HOME, SELF-CARE Condition: Stable/Unchanged Departure-Patient Inst. Decision time for Depature: 16:06 Referrals: SONY BERGER MD, DANIEL J MD (PCP/Family) Primary Care Physician Patient Instructions: Hiatal Hernia (DC), Nausea and Vomiting, Adult Add. Discharge Instructions: Take medications as directed. Follow-up with her primary care provider within 1 week for recheck. Return back to the emergency room for worsening symptoms or concerns as needed. All discharge instructions reviewed with patient and/or family. Voiced understanding. Scripts Hydrocodone Bit/Acetaminophen (Hydrocodone/Acetaminophen 5/325mg Tablet) 1 Tab Tab 1 EACH PO Q4-6HR PRN for PAIN-MODERATE MDD 10, #10 TAB Prov: MARLENA ROSARIO 04/08/18 Ondansetron HCl (Zofran) 4 Mg Tab 4 MG PO Q4H PRN for NAUSEA/VOMITING-1ST LINE, #14 TAB Prov: MARLENA ROSARIO 04/08/18 MARLENA ROSARIO Apr 08, 2018 16:07
[2018-04-08 16:32] VITALS: BP 0/0
[2018-04-09] MEDS ORDERED: PROM25SU43 RC (04:16)
== END 2018-04-08 16:32 | disposition home or self-care (01) ==
LOC: EDUNIT# 09:36 → ER 09:38
DX: K44.9 Diaphragmatic hernia without obstruction or gangrene (principal); R11.2 Nausea with vomiting, unspecified; I10 Essential (primary) hypertension; G43.909 Migraine, unspecified, not intractable, without status migrainosus; K58.9 Irritable bowel syndrome, unspecified; Z90.49 Acquired absence of other specified parts of digestive tract; Z98.51 Tubal ligation status; Z87.442 Personal history of urinary calculi
CPT/HCPCS: 36415; 80053; 81000; 82150; 83690; 85025

== ENCOUNTER 2018-04-08 21:07 | Emergency (ER) | payer BC ==
[~2018-04-08] VITALS: Ht 157.5 cm; Wt 80.7 kg
[~2018-04-08 21:07] MED LIST changes: +ACHD5005 PO; +ONDN4T PO
--- OUTSIDE RECORDS SUMMARY | 2018-04-08 21:13 | XMS REPORT | Continuity of Care Document ---
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 Comprehensive metabolic panel - 04/08/18 14:01 Serum or plasma sodium measurement (moles/volume) 142 mmol/L 135-145 Serum or plasma potassium measurement (moles/volume) 3.8 mmol/L 3.6-5.0 Serum or plasma chloride measurement (moles/volume) 109 mmol/L 98-107 Carbon dioxide 20 mmol/L 21-32 Serum or plasma anion gap determination (moles/volume) 13 mmol/L 5-14 Serum or plasma urea nitrogen measurement (mass/volume) 12 mg/dL 7-18 Serum or plasma creatinine measurement (mass/volume) 0.83 mg/dL 0.60-1.30 Serum or plasma urea nitrogen/creatinine mass ratio 14 NRG Serum or plasma creatinine measurement with calculation of estimated glomerular filtration rate > NRG Serum or plasma glucose measurement (mass/volume) 105 mg/dL 70-105 Serum or plasma calcium measurement (mass/volume) 9.7 mg/dL 8.5-10.1 Serum or plasma total bilirubin measurement (mass/volume) 0.4 mg/dL 0.1-1.0 Serum or plasma alkaline phosphatase measurement (enzymatic activity/volume) 60 U/L 40-136 Serum or plasma aspartate aminotransferase measurement (enzymatic activity/ volume) 17 U/L 5-34 Serum or plasma alanine aminotransferase measurement (enzymatic activity/volume ) 9 U/L 0-55 Serum or plasma protein measurement (mass/volume) 7.8 g/dL 6.4-8.2 Serum or plasma albumin measurement (mass/volume) 4.4 g/dL 3.2-4.5 CALCIUM CORRECTED 9.4 mg/dL 8.5-10.1 Serum or plasma amylase measurement (enzymatic activity/volume) - 04/08/18 14: 01 Serum or plasma amylase measurement (enzymatic activity/volume) 39 U /L 25-125 Lipase - 04/08/18 14:01 Lipase 23 U/L 8-78 Complete blood count (CBC) with automated white blood cell (WBC) differential - 04/08/18 14:01 Blood leukocytes automated count (number/volume) 8.3 10*3/uL 4.3-11.0 Blood erythrocytes automated count (number/volume) 4.19 10*6/uL 4.35-5.85 Venous blood hemoglobin measurement (mass/volume) 11.1 g/dL 11.5-16.0 Blood hematocrit (volume fraction) 34 % 35-52 Automated erythrocyte mean corpuscular volume 81 [foz_us] 80-99 Automated erythrocyte mean corpuscular hemoglobin (mass per erythrocyte) 26 pg 25-34 Automated erythrocyte mean corpuscular hemoglobin concentration measurement ( mass/volume) 33 g/dL 32-36 Automated erythrocyte distribution width ratio 15.3 % 10.0-14.5 Automated blood platelet count (count/volume) 426 10*3/uL 130-400 Automated blood platelet mean volume measurement 11.1 [foz_us] 7.4-10.4 Automated blood neutrophils/100 leukocytes 70 % 42-75 Automated blood lymphocytes/100 leukocytes 22 % 12-44 Blood monocytes/100 leukocytes 7 % 0-12 Automated blood eosinophils/100 leukocytes 1 % 0-10 Automated blood basophils/100 leukocytes 1 % 0-10 Blood neutrophils automated count (number/volume) 5.8 10*3 1.8-7.8 Blood lymphocytes automated count (number/volume) 1.8 10*3 1.0-4.0 Blood monocytes automated count (number/volume) 0.5 10*3 0.0-1.0 Automated eosinophil count 0.1 10*3/uL 0.0-0.3 Automated blood basophil count (count/volume) 0.1 10*3/uL 0.0-0.1 Complete urinalysis with reflex to culture - 04/08/18 14:09 Urine color determination YELLOW NRG Urine clarity determination CLEAR NRG Urine pH measurement by test strip 6 5-9 Specific gravity of urine by test strip 1.025 1.016- 1.022 Urine protein assay by test strip, semi-quantitative 2+ NEGATIVE Urine glucose detection by automated test strip NEGATIVE NEGATIVE Erythrocytes detection in urine sediment by light microscopy 3+ NEGATIVE Urine ketones detection by automated test strip 4+ NEGATIVE Urine nitrite detection by test strip NEGATIVE NEGATIVE Urine total bilirubin detection by test strip 2+ NEGATIVE Urine urobilinogen measurement by automated test strip (mass/volume) 1 mg/dL NORMAL Urine leukocyte esterase detection by dipstick 1+ NEGATIVE Automated urine sediment erythrocyte count by microscopy (number/high power field) [HPF] NRG Automated urine sediment leukocyte count by microscopy (number/high power field ) [HPF] NRG Bacteria detection in urine sediment by light microscopy TRACE NRG Squamous epithelial cells detection in urine sediment by light microscopy 2-5 NRG Crystals detection in urine sediment by light microscopy PRESENT NRG Casts detection in urine sediment by light microscopy PRESENT NRG Mucus detection in urine sediment by light microscopy LARGE NRG Complete urinalysis with reflex to culture NO NRG Hyaline casts detection in urine sediment by light microscopy 5-10 NRG Renal epithelial cells detection in urine sediment by light microscopy NONE NRG Calcium oxalate crystals detection in urine sediment by light microscopy FEW NRG Encounters ACCT No. Visit Date/Time Discharge Status Pt. Type Provider Facility Loc./Unit Complaint [id number] 03/28/2018 10:16:00 03/28/2018 15:00:00 DIS Outpatient SONY BERGER MD [facility] ENDO REFLUX [id number] 03/25/2018 02:31:00 03/25/2018 04:59:00 DIS Emergency JORGE A DO, BRANNON K [facility] ER VOMITING [id number] 03/23/2018 21:54:00 03/24/2018 01:00:00 DIS Emergency JORGE A DO, BRANNON K [facility] ER SOB [id number] 04/15/2016 13:39:00 04/15/2016 23:59:59 CLS Outpatient ERNESTO PONCE MD [facility] RAD SCREENING [id number] 04/03/2015 11:33:00 04/03/2015 14:05:00 DIS Outpatient SONY BERGER MD [facility] FAMILY HISTORY COLON CA, REFLEX [id number] 04/01/2015 14:30:00 04/01/2015 14:30:00 CAN Outpatient SONY BERGER MD [facility] PREOP ABDOMINAL PAIN REFLUX [id number] 05/30/2014 08:11:00 05/30/2014 08:57:00 DIS Outpatient ANAHI LOERA MD [facility] CARD DDD [id number] 04/04/2014 08:17:00 04/04/2014 23:59:59 CLS Outpatient ANAHI LOERA MD [facility] CARD DDD-LUMBAR [id number] 01/24/2014 16:00:00 01/24/2014 23:59:59 CLS Outpatient PRISCILLA JAY MD [facility] RAD RT L5 RADICULOPATHY [id number] 01/14/2014 13:06:00 01/14/2014 23:59:59 CLS Outpatient PRISCILLA JAY MD [facility] RAD RT L5 RADICULOPATHY [id number] 01/07/2014 14:54:00 01/07/2014 23:59:59 CLS Outpatient ERNESTO PONCE MD [facility] RAD ROUTINE [id number] 12/26/2013 13:53:00 12/26/2013 23:59:59 CLS Outpatient ERNESTO PONCE MD [facility] RAD PAIN OVER 1ST 2ND METARSAL REGION [id number] 12/17/2013 09:39:00 12/17/2013 23:59:59 CLS Outpatient ERNESTO PONCE MD [facility] CARD PALP [id number] 12/11/2012 15:21:00 12/11/2012 23:59:59 CLS Outpatient ERNESTO PONCE MD [facility] RAD SCREENING [id number] 08/08/2012 14:29:00 08/16/2012 08:16:00 DIS Outpatient ERNESTO PONCE MD [facility] REHAB [id number] 04/08/2018 14:25:00 Document Registration [id number] 03/25/2015 13:33:00 Document Registration [id number] 03/25/2015 13:33:00 Document Registration [id number] 01/18/2011 13:36:00 Document Registration [id number] 10/08/2010 13:36:00 Document Registration [id number] 09/10/2010 15:45:00 Document Registration [id number] 02/22/2010 09:13:00 Document Registration [id number] 01/04/2010 05:45:00 Document Registration [id number] 12/31/2009 14:13:00 Document Registration [id number] 12/01/2009 08:42:00 Document Registration [id number] 10/09/2008 14:03:00 Document Registration [id number] 05/30/2014 08:12:31 ACT Document Registration
--- NOTE | 2018-04-09 00:56 | NUR ---
PT BROUGHT BACK TO ROOM 7, NO S/S OF DISTRESS.
[2018-04-09] MEDS ORDERED: NS IV 1000 ML 1,000 ML ONE (01:47)
[2018-04-09 02:01] LABS: CLARITY,URINE CLEAR; COLOR,URINE YELLOW; GLUCOSE, URINE (UA) NEGATIVE (NEGATIVE); KETONES,URINE 4+ (NEGATIVE); LEUKOCYTE ESTERASE ,URINE 1+ (NEGATIVE); NITRITE,URINE NEGATIVE (NEGATIVE); PH,URINE 5 (5-9); PROTEIN,URINE 2+ (NEGATIVE); UROBILINOGEN,URINE 4 MG/DL (NORMAL)
[2018-04-09 02:01] LABS: BASOPHILS # (AUTO) 0.1 10^3/uL (0.0-0.1); BASOPHILS % (AUTO) 1 % (0-10); EOSINOPHILS # (AUTO) 0.1 10^3/uL (0.0-0.3); EOSINOPHILS % (AUTO) 1 % (0-10); HEMATOCRIT 34 % (35-52); LYMPHOCYTES # (AUTO) 2.5 X 10^3 (1.0-4.0); LYMPHOCYTES % (AUTO) 27 % (12-44); MEAN CORPUSCULAR HEMOGLOBIN 26 PG (25-34); MEAN CORPUSCULAR HGB CONC 32 G/DL (32-36); MEAN CORPUSCULAR VOLUME 81 FL (80-99); MEAN PLATELET VOLUME 11.3 FL (7.4-10.4); MONOCYTES # (AUTO) 0.8 X 10^3 (0.0-1.0); MONOCYTES % (AUTO) 9 % (0-12); NEUTROPHILS # (AUTO) 5.5 X 10^3 (1.8-7.8); NEUTROPHILS % (AUTO) 61 % (42-75); PLATELET COUNT 389 10^3/uL (130-400)
[2018-04-09 02:10] LABS: AMORPHOUS SEDIMENT,UR MOD AMOR URATES /LPF; BACTERIA,URINE TRACE /HPF; BILIRUBIN,URINE 2+ (NEGATIVE); RBC,URINE 0-2 /HPF; WBC,URINE RARE /HPF
[2018-04-09 02:11] VITALS: BP_SYST 102; BP_SYST 98; BP_SYST 99; BP_DIAS 72; BP_DIAS 75; BP_DIAS 77
[2018-04-09 02:15] LABS: ALANINE AMINOTRANSFERASE 13 U/L (0-55); ALBUMIN 4.2 GM/DL (3.2-4.5); ALKALINE PHOSPHATASE 61 U/L (40-136); AMYLASE 38 U/L (25-125); BILIRUBIN,TOTAL 0.5 MG/DL (0.1-1.0); BUN/CREATININE RATIO 15; CALCIUM 9.3 MG/DL (8.5-10.1); CARBON DIOXIDE 20 MMOL/L (21-32); CHLORIDE 110 MMOL/L (98-107); CREATININE SERUM 0.85 MG/DL (0.60-1.30); GFR ESTIMATED > 60; GLUCOSE 97 MG/DL (70-105); LIPASE 24 U/L (8-78); SODIUM 139 MMOL/L (135-145); TOTAL PROTEIN 7.5 GM/DL (6.4-8.2)
[2018-04-09] MEDS ORDERED: PANTOPRAZOLE 40 MG (PROTONIX) VIAL IV STA (02:48)
[2018-04-09] MEDS ORDERED: PROMETHAZINE INJ 25 MG/ML (PHENERGAN) AMP IVP STA (02:48)
[2018-04-09] MEDS ORDERED: NS IV 1000 ML 1,000 ML IV ONE (04:07)
[2018-04-09] MEDS ORDERED: PROM25SU43 RC (04:16)
--- NOTE | 2018-04-09 04:17 | ED GI ---
General Chief Complaint: Abdominal/GI Problems Stated Complaint: VOMITING Nursing Triage Note: PT ARRIVED BACK IN ED WITH C/O NAUSEA AND ABD PAIN. PT HAS A KNOWN HERNIA THAT SHE IS SUPPOSED TO FOLLOW UP WITH DR. RAIN IN [place] ON MONDAY. PT RATES PAIN 07/30 Sepsis Screen: No Definite Risk Allergies and Home Medications Allergies Coded Allergies: No Known Drug Allergies (Verified , 06/22/09) Uncoded Allergies: NKDA (Allergy, Mild, 06/11/08) Home Medications Fluconazole 200 Mg Tablet, 200 MG PO DAILY Prescribed by: SONY BERGER on 03/28/18 1421 Fluconazole 100 Mg Tablet, 100 MG PO DAILY Prescribed by: SONY BERGER on 03/28/18 1421 Hydrocodone Bit/Acetaminophen 1 Tab Tab, 1 EACH PO Q4-6HR PRN for PAIN-MODERATE Prescribed by: MARLENA ROSARIO on 04/08/18 1607 Hyoscyamine Sulfate 0.375 Mg Tab.sr.12h, 0.375 MG PO BID, (Reported) Loratadine 10 Mg Tablet, 10 MG PO DAILY, (Reported) Metoprolol Succinate 25 Mg Tab, 25 MG PO DAILY, (Reported) Ondansetron HCl 4 Mg Tab, 4 MG PO Q4H PRN for NAUSEA/VOMITING-1ST LINE Prescribed by: MARLENA ROSARIO on 04/08/18 1607 Oxybutynin Chloride 5 Mg Tab, 5 MG PO ONCE, (Reported) Pantoprazole Sodium 40 Mg Tablet.dr, 40 MG PO DAILY Prescribed by: SONY BERGER on 04/03/15 1308 Promethazine HCl 25 Mg Supp.rect, 25 MG RC Q4H Prescribed by: BRANNON JULES on 04/09/18 0416 Topiramate 50 Mg Tablet, 50 MG PO DAILY, (Reported) Past Xbxhueq-Fyorjd-Ydezfw Hx Patient Social History 2nd Hand Smoke Exposure: No Recent Foreign Travel: No Contact w/Someone Who Travel: No Recent Infectious Disease Expo: No Recent Hopitalizations: No Immunizations Up To Date Tetanus Booster (TDap): Unknown Past Medical History Surgeries: Yes (EGD/COLONOSCOPY; HIATAL HERNIA REPAIR 2005; X 1) Abdominal, Appendectomy, Section, Gallbladder, Tubal Ligation Respiratory: No Currently Using CPAP: No Currently Using BIPAP: No Cardiac: Yes Hypertension Neurological: Yes Headaches /Migraines 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 0.0oz. 80.455902fe; 33.5 BMI Method:Stated Progress/Results/Core Measures Results/Orders Lab Results Laboratory Tests Test 04/09/18 01:00 04/09/18 01:45 Range/Units Urine Color YELLOW Urine Clarity CLEAR Urine pH 5 5-9 Urine Specific [place] 1.025 H 1.016-1.022 Urine Protein 2+ H NEGATIVE Urine Glucose (UA) NEGATIVE NEGATIVE Urine Ketones 4+ H NEGATIVE Urine Nitrite NEGATIVE NEGATIVE Urine Bilirubin 2+ H NEGATIVE Urine Urobilinogen 4 H NORMAL MG/DL Urine Leukocyte Esterase 1+ H NEGATIVE Urine RBC (Auto) 2+ H NEGATIVE Urine RBC 0-2 /HPF Urine WBC RARE /HPF Urine Squamous Epithelial Cells 5-10 /HPF Urine Crystals PRESENT H /LPF Urine Amorphous Sediment MOD DOUGLAS URATES H /LPF Urine Bacteria TRACE /HPF Urine Casts NONE /LPF Urine Mucus LARGE H /LPF Urine Culture Indicated NO White Blood Count 9.0 4.3-11.0 10^3/uL Red Blood Count 4.22 L 4.35-5.85 10^6/uL Hemoglobin 11.0 L 11.5-16.0 G/DL Hematocrit 34 L 35-52 % Mean Corpuscular Volume 81 80-99 FL Mean Corpuscular Hemoglobin 26 25-34 PG Mean Corpuscular Hemoglobin Concent 32 32-36 G/DL Red Cell Distribution Width 15.0 H 10.0-14.5 % Platelet Count 389 130-400 10^3/uL Mean Platelet Volume 11.3 H 7.4-10.4 FL Neutrophils (%) (Auto) 61 42-75 % Lymphocytes (%) (Auto) 27 12-44 % Monocytes (%) (Auto) 9 0-12 % Eosinophils (%) (Auto) 1 0-10 % Basophils (%) (Auto) 1 0-10 % Neutrophils # (Auto) 5.5 1.8-7.8 X 10^3 Lymphocytes # (Auto) 2.5 1.0-4.0 X 10^3 Monocytes # (Auto) 0.8 0.0-1.0 X 10^3 Eosinophils # (Auto) 0.1 0.0-0.3 10^3/uL Basophils # (Auto) 0.1 0.0-0.1 10^3/uL Sodium Level 139 135-145 MMOL/L Potassium Level 4.0 3.6-5.0 MMOL/L Chloride Level 110 H 98-107 MMOL/L Carbon Dioxide Level 20 L 21-32 MMOL/L Anion Gap 9 5-14 MMOL/L Blood Urea Nitrogen 13 7-18 MG/DL Creatinine 0.85 0.60-1.30 MG/DL Estimat Glomerular Filtration Rate > 60 BUN/Creatinine Ratio 15 Glucose Level 97 70-105 MG/DL Calcium Level 9.3 8.5-10.1 MG/DL Corrected Calcium 9.1 8.5-10.1 MG/DL Total Bilirubin 0.5 0.1-1.0 MG/DL Aspartate Amino Transf (AST/SGOT) 18 5-34 U/L Alanine Aminotransferase (ALT/SGPT) 13 0-55 U/L Alkaline Phosphatase 61 40-136 U/L Total Protein 7.5 6.4-8.2 GM/DL Albumin 4.2 3.2-4.5 GM/DL Amylase Level 38 25-125 U/L Lipase 24 8-78 U/L Serum Test, Qualitative NEGATIVE NEGATIVE My Orders Orders - JORGE A,BRANNON K DO Ns Iv 1000 Ml (Sodium Chloride 0.9%) (04/09/18 01:47) Comprehensive Metabolic Panel (04/09/18 01:54) Lipase (04/09/18 01:54) Amylase (04/09/18 01:54) Ua Culture If Indicated (04/09/18 01:54) Hcg,Qualitative Serum (04/09/18 01:54) Saline Lock/Iv-Start (04/09/18 01:54) Cbc With Automated Diff (04/09/18 01:54) Acute Abd Series (04/09/18 02:48) Promethazine Injection (Phenergan Injec (04/09/18 02:48) Pantoprazole Injection (Protonix Injecti (04/09/18 02:48) Saline Lock/Iv-Start (04/09/18 04:07) Ns Iv 1000 Ml (Sodium Chloride 0.9%) (04/09/18 04:07) Medications Given in ED Current Medications Medications Dose Ordered Sig/Sergio Route Start Time Stop Time Status Last Admin Dose Admin Sodium Chloride 1,000 ml @ STK-MED ONCE .ROUTE 04/09/18 01:47 04/09/18 01:53 DC 04/09/18 02:20 1,000 MLS/HR Vital Signs/I&O 04/08/18 04/09/18 21:19 02:11 Temp 98.4 Pulse 86 96 113 B/P (MAP) 107/76 (86) 98/72 (81) 99/75 (83) 102/77 (85) O2 Delivery Room Air Blood Pressure Mean: 85 Diagnostic Imaging Comments ACUTE ABDOMEN XRAYS--LARGE HIATAL HERNIA, NO ACUTE PROCESS, PER RADIOLOGIST REPORT @ 0535 Reviewed: Reviewed by Me Departure Impression Primary Impression: RECURRENT HIATAL HERNIA Additional Impressions: Intractable nausea and vomiting Mild dehydration Disposition: 01 HOME, SELF-CARE Condition: Improved Departure-Patient Inst. Referrals: ERNESTO PONCE MD (PCP/Family) Primary Care Physician Patient Instructions: Acid Reflux (Gastroesophageal Reflux Disease), Adult (DC) , Hiatal Hernia (DC), Nausea and Vomiting, Adult (DC) Add. Discharge Instructions: CLEAR LIQUIDS--WATER, BROTH, JELLO, GATORADE NO FOOD UNTIL YOU ARE RECHECKED AND CLEARED BY . FOLLOW UP WITH DR. RAIN THIS WEEK SCHEDULED RETURN TO ER IF WORSE All discharge instructions reviewed with patient and/or family. Voiced understanding. Scripts Promethazine HCl (Phenergan) 25 Mg Supp.rect 25 MG RC Q4H for Nausea/Vomiting, #10 SUPP.RECT Prov: BRANNON JULES DO 04/09/18 BRANNON JULES DO Apr 09, 2018 04:16
--- NOTE | 2018-04-09 05:27 | Diagnostic Imaging Report ---
INDICATION: Nausea and abdominal pain COMPARISON: 03/23/2018 FINDINGS: Supine and upright views of the abdomen show a nondistended bowel gas pattern. No abnormal air fluid levels or free intraperitoneal air is seen. No abnormal extraosseous calcifications are seen. Bony and soft tissue structures are within normal limits. No organomegaly is identified. Accompanying upright chest shows normal heart size and pulmonary vascularity. Large hiatal hernia is noted projecting over the left heart border. The lungs are well aerated and clear. The mediastinum is normal in appearance. IMPRESSION: 1. No bowel obstruction or free air. 2. Normal chest. No pneumonia or pulmonary edema. 3. Large hiatal hernia. Dictated by: Dictated on workstation # [id number]
[2018-04-09 05:42] VITALS: BP 101/63
== END 2018-04-09 05:43 | disposition home or self-care (01) ==
LOC: EDUNIT# 21:07 → ER 21:08
DX: K44.9 Diaphragmatic hernia without obstruction or gangrene (principal); R11.2 Nausea with vomiting, unspecified; E86.0 Dehydration; I10 Essential (primary) hypertension; G43.909 Migraine, unspecified, not intractable, without status migrainosus; K21.9 Gastro-esophageal reflux disease without esophagitis; K58.9 Irritable bowel syndrome, unspecified; Z87.19 Personal history of other diseases of the digestive system; Z87.442 Personal history of urinary calculi; Z90.49 Acquired absence of other specified parts of digestive tract; Z98.51 Tubal ligation status
CPT/HCPCS: 36415; 74022; 80053; 81000; 82150; 83690; 84703; 85025

== ENCOUNTER 2018-04-22 17:10 | Emergency (ER) | payer BC ==
[~2018-04-22] VITALS: Ht 177.8 cm; Wt 76.2 kg
[~2018-04-22 17:10] MED LIST changes: +PROM25SU43 RC
[2018-04-22 17:11] VITALS: BP 133/89
[2018-04-22] MEDS ORDERED: NS IV 1000 ML 1,000 ML IV SCH (17:30)
[2018-04-22] MEDS ORDERED: ONDANSETRON 4 MG/2 ML (SDV) Z0FRAN IVP ONE (17:30)
--- NOTE | 2018-04-22 17:36 | ED Abdominal Pain ---
General Chief Complaint: Abdominal/GI Problems Stated Complaint: ABD PAIN Source of Information: Patient, EMS Exam Limitations: No Limitations (JENNIFER PETERS MD) History of Present Illness Date Seen by Provider: Apr 22, 2018 Time Seen by Provider: 17:32 Initial Comments This 47-year-old white female presents with persistent abdominal pain in the epigastric area. The patient has had persistent secondary nausea and vomiting and has been unable to adequately hydrate for the last 24-48 hours. The patient is in the process of evaluation for this persistent gastric discomfort. She is scheduled for further testing with her physicians specifically an upper GI. Patient denies hematemesis, black or tarry stools, history of pancreatitis, gallbladder disease, or significant alcohol. (JENNIFER PETERS MD) Initial Comments I agree with the above documented history. The patient also states that she's been having these problems with her hiatal hernia and has had a surgery in the past but after Dr. Carson did a EGD he referred her to a surgeon Dr. lopez in [place] for another procedure that might be successful and taking care of her symptoms. He did do a dilatation which she said helped for a couple weeks but her nausea vomiting persisted. She says in the past hyoscyamine as helped with her cramping. She said the Zofran's work for her but she doesn't have any more the oral dissolving just the oral type and she says they do not work for her. (DAYNA SAINZ) Allergies and Home Medications Allergies Coded Allergies: aspirin (Verified Allergy, Unknown, 04/22/18) fentanyl (Verified Allergy, Unknown, 04/22/18) hydrocodone (Verified Allergy, Unknown, 04/22/18) Uncoded Allergies: NKDA (Allergy, Mild, 06/11/08) Home Medications Fluconazole 200 Mg Tablet, 200 MG PO DAILY Prescribed by: SONY CARSON on 03/28/18 1421 Fluconazole 100 Mg Tablet, 100 MG PO DAILY Prescribed by: SONY CARSON on 03/28/18 1421 Hydrocodone Bit/Acetaminophen 1 Tab Tab, 1 EACH PO Q4-6HR PRN for PAIN-MODERATE Prescribed by: MARLENA ROSARIO on 04/08/18 1607 Hyoscyamine Sulfate 0.375 Mg Tab.sr.12h, 0.375 MG PO BID, (Reported) Loratadine 10 Mg Tablet, 10 MG PO DAILY, (Reported) Metoprolol Succinate 25 Mg Tab, 25 MG PO DAILY, (Reported) Ondansetron HCl 4 Mg Tab, 4 MG PO Q4H PRN for NAUSEA/VOMITING-1ST LINE Prescribed by: MARLENA ROSARIO on 04/08/18 1607 Oxybutynin Chloride 5 Mg Tab, 5 MG PO ONCE, (Reported) Pantoprazole Sodium 40 Mg Tablet.dr, 40 MG PO DAILY Prescribed by: SONY CARSON on 04/03/15 1308 Promethazine HCl 25 Mg Supp.rect, 25 MG RC Q4H Prescribed by: BRANNON JULES on 04/09/18 0416 Topiramate 50 Mg Tablet, 50 MG PO DAILY, (Reported) Patient Home Medication List Home Medication List Reviewed: Yes (JENNIFER PETERS MD) Review of Systems Review of Systems Constitutional: No chills, No fever; malaise Respiratory: Denies Cough Cardiovascular: Denies Chest Pain Gastrointestinal: Abdominal Pain; Denies Diarrhea; Nausea, Vomiting Genitourinary: Denies Burning, Denies Frequency, Denies Flank Pain Musculoskeletal: No back pain Skin: No rash Psychiatric/Neurological: No Symptoms Reported Endocrine: No Symptoms Reported Hematologic/Lymphatic: No Symptoms Reported (JENNIFER PETERS MD) Past Ujmexrp-Silucc-Faekfa Hx Past Med/Social Hx: Reviewed Nursing Past Med/Soc Hx (JENNIFER PETERS MD) Patient Social History 2nd Hand Smoke Exposure: No Recent Foreign Travel: No Contact w/Someone Who Travel: No Recent Hopitalizations: No (JENNIFER PETERS MD) Immunizations Up To Date Tetanus Booster (TDap): Unknown (JENNIFER PETERS MD) Past Medical History Surgeries: Yes (EGD/COLONOSCOPY; HIATAL HERNIA REPAIR 2005; X 1) Abdominal, Appendectomy, Section, Gallbladder, Tubal Ligation Respiratory: No Currently Using CPAP: No Currently Using BIPAP: No Cardiac: Yes Hypertension Neurological: Yes Headaches /Migraines 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 Disorders: No 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: Tubal Ligation Genitourinary: Yes (URINARY URGENCY) Kidney Stones Gastrointestinal: Yes ( HIATAL HERNIA-S/P SURGERY X 1--NOW WITH RECURRENCE; S/ P PABLO AND APPY ) Gastroesophageal Reflux, Diverticulosis, Hemorrhoids, Hiatal Hernia, Irritable Bowel Musculoskeletal: Yes (SCIATICA; CHRONIC NECK AND BACK PAIN) Degenerate Disk Disease, Chronic Back Pain Endocrine: No HEENT: No Cancer: No Psychosocial: No Integumentary: No Blood Disorders: No (JENNIFER PETERS MD) Physical Exam Vital Signs Vital Signs - First Documented 04/22/18 17:11 Pulse 98 Resp 20 B/P (MAP) 133/89 (104) Pulse Ox 100 O2 Delivery Room Air (DAYNA SAINZ) Vital Signs Capillary Refill : (JENNIFER PETERS MD) Height/Weight/BMI Height: 5'2.00" Weight: 178lbs. 0.0oz. [id number]; 33.5 BMI Method:Stated General Appearance: WD/WN, mild distress HEENT: normal ENT inspection Neck: normal inspection Respiratory: lungs clear Cardiovascular: regular rate, rhythm Gastrointestinal: abnormal bowel sounds (hypoactive), tenderness (in the epigastric area) Extremities: normal range of motion, normal inspection Back: normal inspection Neurologic/Psychiatric: no motor/sensory deficits Skin: normal color, warm/dry (JENNIFER PETERS MD) Progress/Results/Core Measures Results/Orders Lab Results Laboratory Tests Test 04/22/18 18:01 04/22/18 19:03 Range/Units White Blood Count 10.2 4.3-11.0 10^3/uL Red Blood Count 4.81 4.35-5.85 10^6/uL Hemoglobin 11.9 11.5-16.0 G/DL Hematocrit 38 35-52 % Mean Corpuscular Volume 79 L 80-99 FL Mean Corpuscular Hemoglobin 25 25-34 PG Mean Corpuscular Hemoglobin Concent 31 L 32-36 G/DL Red Cell Distribution Width 16.2 H 10.0-14.5 % Platelet Count 268 130-400 10^3/uL Mean Platelet Volume 12.5 H 7.4-10.4 FL Neutrophils (%) (Auto) 73 42-75 % Lymphocytes (%) (Auto) 17 12-44 % Monocytes (%) (Auto) 9 0-12 % Eosinophils (%) (Auto) 0 0-10 % Basophils (%) (Auto) 1 0-10 % Neutrophils # (Auto) 7.4 1.8-7.8 X 10^3 Lymphocytes # (Auto) 1.8 1.0-4.0 X 10^3 Monocytes # (Auto) 0.9 0.0-1.0 X 10^3 Eosinophils # (Auto) 0.0 0.0-0.3 10^3/uL Basophils # (Auto) 0.1 0.0-0.1 10^3/uL Sodium Level 147 H 135-145 MMOL/L Potassium Level 4.6 3.6-5.0 MMOL/L Chloride Level 116 H 98-107 MMOL/L Carbon Dioxide Level 13 L 21-32 MMOL/L Anion Gap 18 H 5-14 MMOL/L Blood Urea Nitrogen 19 H 7-18 MG/DL Creatinine 0.85 0.60-1.30 MG/DL Estimat Glomerular Filtration Rate > 60 BUN/Creatinine Ratio 22 Glucose Level 104 70-105 MG/DL Calcium Level 9.5 8.5-10.1 MG/DL Corrected Calcium 9.3 8.5-10.1 MG/DL Total Bilirubin 0.5 0.1-1.0 MG/DL Aspartate Amino Transf (AST/SGOT) 22 5-34 U/L Alanine Aminotransferase (ALT/SGPT) 10 0-55 U/L Alkaline Phosphatase 69 40-136 U/L Total Protein 7.6 6.4-8.2 GM/DL Albumin 4.3 3.2-4.5 GM/DL Lipase 39 8-78 U/L Urine Color YELLOW Urine Clarity SLIGHTLY CLOUDY Urine pH 5 5-9 Urine Specific [place] 1.030 H 1.016-1.022 Urine Protein 2+ H NEGATIVE Urine Glucose (UA) NEGATIVE NEGATIVE Urine Ketones 4+ H NEGATIVE Urine Nitrite NEGATIVE NEGATIVE Urine Bilirubin 1+ H NEGATIVE Urine Urobilinogen 1 NORMAL MG/DL Urine Leukocyte Esterase 1+ H NEGATIVE Urine RBC (Auto) 3+ H NEGATIVE Urine RBC 10-25 H /HPF Urine WBC 5-10 H /HPF Urine Squamous Epithelial Cells >50 H /HPF Urine Crystals NONE /LPF Urine Bacteria FEW H /HPF Urine Casts PRESENT /LPF Urine Hyaline Casts >50 H /LPF Urine Mucus NEGATIVE /LPF Urine Culture Indicated YES (DAYNA SAINZ) Micro Results Microbiology 04/22/18 JIE Preparation - Final, Complete (DAYNA SAINZ) My Orders Orders - DAYNA SAINZ Hyoscyamine Sl Tablet (Levsin Sl Tablet) (04/22/18 18:30) Ceftriaxone For Iv Use (Rocephin For I (04/22/18 21:30) Ketorolac Injection (Toradol Injection) (04/22/18 21:30) Ct Abd/Pelvis Wo(Kidney Stone) (04/22/18 21:24) Jie Prep (04/22/18 21:24) (DAYNA SAINZ) Medications Given in ED Current Medications Medications Dose Ordered Sig/Sergio Route Start Time Stop Time Status Last Admin Dose Admin Ceftriaxone Sodium 1000 mg/ Sterile Water 10 ml @ 200 mls/hr ONCE ONCE IV 04/22/18 21:30 04/22/18 21:32 DC 04/22/18 22:09 200 MLS/HR Hyoscyamine Sulfate 0.125 mg ONCE ONCE PO 04/22/18 18:30 04/22/18 18:31 DC 04/22/18 18:57 0.125 MG Ketorolac Tromethamine 30 mg ONCE ONCE IVP 04/22/18 21:30 04/22/18 21:31 DC 04/22/18 22:09 30 MG Morphine Sulfate 5 mg ONCE ONCE IVP 04/22/18 18:15 04/22/18 18:16 DC 04/22/18 18:18 5 MG Ondansetron HCl 4 mg ONCE ONCE IVP 04/22/18 17:30 04/22/18 17:33 DC 04/22/18 17:47 4 MG (DAYNA SAINZ) Vital Signs/I&O 04/22/18 17:11 Pulse 98 Resp 20 B/P (MAP) 133/89 (104) Pulse Ox 100 O2 Delivery Room Air (DAYNA SAINZ) Progress Progress Note : Time: 19:15 Progress Note Patient does not appear to be any acute distress and does not have a surgically acute abdomen. We will obtain some basic labs looking for trouble and give her the morphine and it was ordered in addition to some hyoscyamine and Zofran. She says her nausea is gone now. We'll make sure that she discharges if all of her labs are okay with appropriate refills on Zofran ODT and some hyoscyamine. (DAYNA SAINZ) Diagnostic Imaging Diagonstic Imaging: CT Plain Films/CT/US/NM/MRI: abdomen, pelvis (noncontrast) Comments NAME: JULIETA HERNÁNDEZ MED REC#: [id number] PHYSICIAN: DAYNA SAINZ MD CC: SUDHIR BURNS; DAYNA SAINZ Page 2 of 2 RADIOLOGY REPORT [facility] [place] [place] CC: SUDHIR BURNS; DAYNA SAINZ Page 1 of 2 RADIOLOGY REPORT NAME: JULIETA HERNÁNDEZ [facility] REC#: [id number] PT STATUS: REG ER : 1970 PHYSICIAN: DAYNA SAINZ MD ADMIT DATE: 04/22/18/ER Signed Date of Exam: 04/22/18 CT ABD/PELVIS WO(KIDNEY STONE) PROCEDURE: CT urinary tract, rule out kidney stone. TECHNIQUE: Multiple contiguous axial images were obtained through the abdomen and pelvis without the use of intravenous contrast. INDICATION: Left-sided pain. COMPARISON: Study is correlated with overlapped portions obtained during CT angiography of the chest from 03/24/2018. FINDINGS: There is left upper quadrant paraesophageal herniation of the gastric fundus. The EG junction is below the diaphragm. There is some dilatation of the supradiaphragmatic and infradiaphragmatic portions of the stomach, fluid distended. The lung bases are clear. No pneumothorax. The gallbladder is surgically absent. The liver, bile ducts, spleen, adrenals and pancreas are unremarkable. There are no opaque kidney stones. There is no hydronephrosis. There are a few scattered colonic diverticuli without diverticulitis. The uterus, adnexa and urinary bladder are unremarkable. The appendix is surgically absent. IMPRESSION: 1. Large paraesophageal gastric hernia with fluid distention of the supradiaphragmatic and infradiaphragmatic portions of the stomach. Nondilated duodenum. No bowel obstruction. No free air, perforation, fluid collection, hemorrhage or abscess. 2. Unobstructed and nonfocal urinary tracts with no acute hepatobiliary abnormality. Dictated by: Dictated on workstation # [id number] Dict: 04/22/182142 Trans: 04/22/182202 Interpreted by: SUDHIR BURNS Electronically signed by: SUDHIR BURNS 04/22/182202 Reviewed: Reviewed by Me (DAYNA SAINZ) Departure Impression Primary Impression: Nausea and vomiting Qualified Codes: R11.2 - Nausea with vomiting, unspecified Additional Impression: Urinary tract infection Qualified Codes: N30.01 - Acute cystitis with hematuria Disposition: HOME, SELF-CARE Condition: Improved Departure-Patient Inst. Decision time for Depature: 22:18 (DAYNA SAINZ) Referrals: ERNESTO PONCE MD (PCP/Family) Primary Care Physician Patient Instructions: Acute Cystitis (DC) Add. Discharge Instructions: Drink lots of fluids and start the Macrobid one capsule twice a day for the next week. Follow-up with your primary care doctor or with the surgeon for your continued hiatal hernia management. Use the Zofran 1 tablet every 6 hours under the tongue as necessary for nausea. All discharge instructions reviewed with patient and/or family. Voiced understanding. Scripts Nitrofurantoin Macrocrystal (Nitrofurantoin) 100 Mg Capsule 100 MG PO BID, #14 CAP 0 Refills Prov: DAYNA SAINZ 04/22/18 Ondansetron (Ondansetron Odt) 4 Mg Tab.rapdis 4 MG PO Q6H PRN for NAUSEA/VOMITING, #20 TAB 0 Refills Prov: DAYNA SAINZ 04/22/18 JENNIFER PETERS MD Apr 22, 2018 17:36 DAYNA SAINZ Apr 22, 2018 19:16
[2018-04-22 18:03] LABS: BASOPHILS # (AUTO) 0.1 10^3/uL (0.0-0.1); BASOPHILS % (AUTO) 1 % (0-10); EOSINOPHILS % (AUTO) 0 % (0-10); HEMATOCRIT 38 % (35-52); HEMOGLOBIN 11.9 G/DL (11.5-16.0); LYMPHOCYTES # (AUTO) 1.8 X 10^3 (1.0-4.0); LYMPHOCYTES % (AUTO) 17 % (12-44); MEAN CORPUSCULAR HEMOGLOBIN 25 PG (25-34); MEAN CORPUSCULAR HGB CONC 31 G/DL (32-36); MEAN CORPUSCULAR VOLUME 79 FL (80-99); MEAN PLATELET VOLUME 12.5 FL (7.4-10.4); MONOCYTES # (AUTO) 0.9 X 10^3 (0.0-1.0); MONOCYTES % (AUTO) 9 % (0-12); NEUTROPHILS # (AUTO) 7.4 X 10^3 (1.8-7.8); NEUTROPHILS % (AUTO) 73 % (42-75); PLATELET COUNT 268 10^3/uL (130-400); RED CELL DISTRIBUTION WIDTH 16.2 % (10.0-14.5); WHITE BLOOD COUNT 10.2 10^3/uL (4.3-11.0)
[2018-04-22] MEDS ORDERED: morphine INJ 10 MG/ML 1ML (SYR OR VIAL) IVP ONE (18:15)
[2018-04-22 18:24] LABS: ALANINE AMINOTRANSFERASE 10 U/L (0-55); ALBUMIN 4.3 GM/DL (3.2-4.5); ALKALINE PHOSPHATASE 69 U/L (40-136); BILIRUBIN,TOTAL 0.5 MG/DL (0.1-1.0); BUN/CREATININE RATIO 22; CALCIUM 9.5 MG/DL (8.5-10.1); CARBON DIOXIDE 13 MMOL/L (21-32); CHLORIDE 116 MMOL/L (98-107); CREATININE SERUM 0.85 MG/DL (0.60-1.30); GFR ESTIMATED > 60; GLUCOSE 104 MG/DL (70-105); LIPASE 39 U/L (8-78); POTASSIUM 4.6 MMOL/L (3.6-5.0); SODIUM 147 MMOL/L (135-145); TOTAL PROTEIN 7.6 GM/DL (6.4-8.2)
[2018-04-22] MEDS ORDERED: HYOSCYAMINE 0.125 MG (LEVSIN) TAB PO ONE (18:30)
[2018-04-22 19:11] LABS: CLARITY,URINE SLIGHTLY CLOUDY; COLOR,URINE YELLOW; GLUCOSE, URINE (UA) NEGATIVE (NEGATIVE); KETONES,URINE 4+ (NEGATIVE); LEUKOCYTE ESTERASE ,URINE 1+ (NEGATIVE); NITRITE,URINE NEGATIVE (NEGATIVE); PH,URINE 5 (5-9); PROTEIN,URINE 2+ (NEGATIVE); UROBILINOGEN,URINE 1 MG/DL (NORMAL)
[2018-04-22 19:19] LABS: BILIRUBIN,URINE 1+ (NEGATIVE)
[2018-04-22 19:20] LABS: BACTERIA,URINE FEW /HPF
[2018-04-22 19:21] LABS: HYALINE CASTS, URINE >50 /LPF; SQUAMOUS EPITHELIAL CELL,UR >50 /HPF
[2018-04-22] MEDS ORDERED: KETOROLAC 30 MG/ML VIAL IVP ONE (21:30)
[2018-04-22] MEDS ORDERED: cefTRIAXone FOR IV USE 1,000 MG in WATER (STERILE) FOR INJECTION 10 ML IV ONE (21:30)
--- NOTE | 2018-04-22 21:57 | Diagnostic Imaging Report ---
PROCEDURE: CT urinary tract, rule out kidney stone. TECHNIQUE: Multiple contiguous axial images were obtained through the abdomen and pelvis without the use of intravenous contrast. INDICATION: Left-sided pain. COMPARISON: Study is correlated with overlapped portions obtained during CT angiography of the chest from 03/24/2018. FINDINGS: There is left upper quadrant paraesophageal herniation of the gastric fundus. The EG junction is below the diaphragm. There is some dilatation of the supradiaphragmatic and infradiaphragmatic portions of the stomach, fluid distended. The lung bases are clear. No pneumothorax. The gallbladder is surgically absent. The liver, bile ducts, spleen, adrenals and pancreas are unremarkable. There are no opaque kidney stones. There is no hydronephrosis. There are a few scattered colonic diverticuli without diverticulitis. The uterus, adnexa and urinary bladder are unremarkable. The appendix is surgically absent. IMPRESSION: 1. Large paraesophageal gastric hernia with fluid distention of the supradiaphragmatic and infradiaphragmatic portions of the stomach. Nondilated duodenum. No bowel obstruction. No free air, perforation, fluid collection, hemorrhage or abscess. 2. Unobstructed and nonfocal urinary tracts with no acute hepatobiliary abnormality. Dictated by: Dictated on workstation # [id number]
[2018-04-22] MEDS ORDERED: NITR100C PO (22:20)
[2018-04-22] MEDS ORDERED: ONDA4TAB11 PO (22:20)
[2018-04-23] MEDS ORDERED: HYOS0.1283 SL (21:06)
== END 2018-04-22 22:46 | disposition home or self-care (01) ==
LOC: EDUNIT# 17:21 → ER 17:22
DX: N39.0 Urinary tract infection, site not specified (principal); I10 Essential (primary) hypertension; G43.909 Migraine, unspecified, not intractable, without status migrainosus; K21.9 Gastro-esophageal reflux disease without esophagitis; K58.9 Irritable bowel syndrome, unspecified; Z87.19 Personal history of other diseases of the digestive system; Z87.442 Personal history of urinary calculi; Z88.2 Allergy status to sulfonamides; Z88.8 Allergy status to other drugs, medicaments and biological substances; Z88.5 Allergy status to narcotic agent; Z90.49 Acquired absence of other specified parts of digestive tract; Z98.890 Other specified postprocedural states; Z98.51 Tubal ligation status
CPT/HCPCS: 36415; 74176; 80053; 81000; 83690; 85025; 87088; 87220; 99283

== ENCOUNTER 2018-04-23 18:52 | Emergency (ER) | payer BC ==
[~2018-04-23] VITALS: Ht 165.1 cm; Wt 72.6 kg
[~2018-04-23 18:52] MED LIST changes: +NITR100C PO
--- OUTSIDE RECORDS SUMMARY | 2018-04-23 19:00 | XMS REPORT | Continuity of Care Document ---
Author Author [facility] Organization [facility] Address Unknown Phone Unavailable Allergies Active Description Code Type Severity Reaction Onset Reported/Identified Relationship to Patient Clinical Status Yes NKDA NKDA Mild N/ A 06/11/2008 Yes No Known Drug Allergies [id number] Drug Allergy Unknown N/A 06/22/2009 Medications There [...] SCREEN MAMMOGRAM FOR MALIGNANT NE 04/27/2016 ERNESTO POCNE MD, Ot Z12.31 ENCNTR SCREEN MAMMOGRAM FOR [...] K21.9 GASTRO-ESOPHAGEAL REFLUX DISEASE WITHOUT 03/25/2018 BRANNON JUELS DO Ot K44.9 DIAPHRAGMATIC HERNIA WITHOUT OBSTRUCTION [...] Z98.51 TUBAL LIGATION STATUS 03/27/2018 JORGE A BARNNON Chahal Ot Z98.890 OTHER SPECIFIED POSTPROCEDURAL STATES [...] 03/28/2018 SONY BERGER MD, Ot Z79.899 OTHER INTERMEDIATE (CURRENT) DRUG THERAPY 03/30/2018 SONY BERGER MD, [...] OF SHONDA 03/30/2018 ERNESTO PONCE MD Ot 729.5 PAIN IN LIMB 03/30/2018 PRISCILLA JAY MD Ot 724.4 LUMBOSACRAL NEURITIS NOS 03/30/2018 PRISCILLA JAY MD Ot 721.3 LUMBOSACRAL SPONDYLOSIS 03/30/2018 ANAHI LOERA MD Ot 722.52 LUMB/LUMBOSAC DISC DEGEN 03/30/2018 ANAHI LOERA MD Ot V58.69 OTH MED,LT,CURRENT USE 03/30/2018 SONY BERGER MD, Ot K21.9 GASTRO-ESOPHAGEAL REFLUX DISEASE WITHOUT 03/30/2018 SONY BERGER MD, Ot Z01.818 ENCOUNTER FOR OTHER PREPROCEDURAL EXAMIN 03/30/2018 SONY BERGER MD, Ot Z80.0 FAMILY HISTORY OF MALIGNANT NEOPLASM OF 03/30/2018 ERNESTO PONCE MD Ot Z12.31 ENCNTR SCREEN MAMMOGRAM FOR MALIGNANT NE 04/08/2018 MARLENA ROSARIO Ot G43.909 MIGRAINE, UNSP, NOT INTRACTABLE, WITHOUT 04/08/2018 MARLENA ROSARIO Ot I10 ESSENTIAL (PRIMARY) HYPERTENSION 04/08/2018 MARLENA ROSARIO Ot K44.9 DIAPHRAGMATIC HERNIA WITHOUT OBSTRUCTION 04/08/2018 MARLENA ROSARIO Ot K58.9 IRRITABLE BOWEL SYNDROME WITHOUT DIARRHE 04/08/2018 MARLENA ROSARIO Ot R11.2 NAUSEA WITH VOMITING, UNSPECIFIED 04/08/2018 MARLENA ROSARIO Ot Z87.442 PERSONAL HISTORY OF URINARY CALCULI 04/08/2018 MARLENA ROSARIO Ot Z90.49 ACQUIRED ABSENCE OF OTHER SPECIFIED PART 04/08/2018 ESAU ROSARIOIS Ot Z98.51 TUBAL LIGATION STATUS 04/09/2018 JORGE A DO, BRANNON K Ot E86.0 DEHYDRATION 04/09/2018 JORGE A DO, BRANNON K Ot G43.909 MIGRAINE, UNSP, NOT INTRACTABLE, WITHOUT 04/09/2018 JORGE A DO, BRANNON K Ot I10 ESSENTIAL (PRIMARY) HYPERTENSION 04/09/2018 JORGE A DO, BRANNON K Ot K21.9 GASTRO-ESOPHAGEAL REFLUX DISEASE WITHOUT 04/09/2018 JORGE A DO, BRANNON K Ot K44.9 DIAPHRAGMATIC HERNIA WITHOUT OBSTRUCTION 04/09/2018 JORGE A DO, BRANNON K Ot K58.9 IRRITABLE BOWEL SYNDROME WITHOUT DIARRHE 04/09/2018 JORGE A DO, BRANNON K Ot R11.2 NAUSEA WITH VOMITING, UNSPECIFIED 04/09/2018 JORGE A DO, BRANNON K Ot Z87.19 PERSONAL HISTORY OF OTHER DISEASES OF TH 04/09/2018 JORGE A DO, BRANNON K Ot Z87.442 PERSONAL HISTORY OF URINARY CALCULI 04/09/2018 JORGE A DO, BRANNON K Ot Z90.49 ACQUIRED ABSENCE OF OTHER SPECIFIED PART 04/09/2018 JORGE A DO, BRANNON K Ot Z98.51 TUBAL LIGATION STATUS 04/10/2018 MARLENA ROSARIO Ot G43.909 MIGRAINE, UNSP, NOT INTRACTABLE, WITHOUT 04/10/2018 MARLENA ROSARIO Ot I10 ESSENTIAL (PRIMARY) HYPERTENSION 04/10/2018 MARLENA ROSARIO Ot K44.9 DIAPHRAGMATIC HERNIA WITHOUT OBSTRUCTION 04/10/2018 ESAU ROSARIOIS Ot K58.9 IRRITABLE BOWEL SYNDROME WITHOUT DIARRHE 04/10/2018 MARLENA ROSARIO Ot R11.2 NAUSEA WITH VOMITING, UNSPECIFIED 04/10/2018 ESAU ROSARIOIS Ot Z87.442 PERSONAL HISTORY OF URINARY CALCULI 04/10/2018 MARLENA ROSARIO Ot Z90.49 ACQUIRED ABSENCE OF OTHER SPECIFIED PART 04/10/2018 MARLENA ROSARIO Ot Z98.51 TUBAL LIGATION STATUS 04/10/2018 JORGEA DO, BRANNON K Ot E86.0 DEHYDRATION 04/10/2018 JORGE A DO, BRANNON K Ot G43.909 MIGRAINE, UNSP, NOT INTRACTABLE, WITHOUT 04/10/2018 JORGE A BRANNON CANO Ot I10 ESSENTIAL (PRIMARY) HYPERTENSION 04/10/2018 BRANNON JULES DO Ot K21.9 GASTRO-ESOPHAGEAL REFLUX DISEASE WITHOUT 04/10/2018 JORGE A BRANNON CANO Ot K44.9 DIAPHRAGMATIC HERNIA WITHOUT OBSTRUCTION 04/10/2018 JORGE A BRNANON CANO Ot K58.9 IRRITABLE BOWEL SYNDROME WITHOUT DIARRHE 04/10/2018 BRANNON JULES DO Ot R11.2 NAUSEA WITH VOMITING, UNSPECIFIED 04/10/2018 BRANNON JULES DO Ot Z87.19 PERSONAL HISTORY OF OTHER DISEASES OF TH 04/10/2018 BRANNON JULES DO Ot Z87.442 PERSONAL HISTORY OF URINARY CALCULI 04/10/2018 BRANNON JULES DO Ot Z90.49 ACQUIRED ABSENCE OF OTHER SPECIFIED PART 04/10/2018 BRANNON JULES DO Ot Z98.51 TUBAL LIGATION STATUS Procedures Code Description Performed By Performed On [...] 16:05 NR C FUNGUS SPUTUM FLUID TISSUE [id number] [facility] Comprehensive metabolic panel - 04/08/18 14:01 Serum [...] urine sediment by light microscopy FEW NRG Complete urinalysis with reflex to culture - 04/09/18 01:00 Urine color determination YELLOW NRG Urine clarity determination CLEAR NRG Urine pH measurement by test strip 5 5-9 Specific gravity of urine by test strip 1.025 1.016- 1.022 Urine protein assay by test strip, semi-quantitative 2+ NEGATIVE Urine glucose detection by automated test strip NEGATIVE NEGATIVE Erythrocytes detection in urine sediment by light microscopy 2+ NEGATIVE Urine ketones detection by automated test strip 4+ NEGATIVE Urine nitrite detection by test strip NEGATIVE NEGATIVE Urine total bilirubin detection by test strip 2+ NEGATIVE Urine urobilinogen measurement by automated test strip (mass/volume) 4 mg/dL NORMAL Urine leukocyte esterase detection by dipstick 1+ NEGATIVE Automated urine sediment erythrocyte count by microscopy (number/high power field) [HPF] NRG Automated urine sediment leukocyte count by microscopy (number/high power field ) RARE NRG Bacteria detection in urine sediment by light microscopy TRACE NRG Squamous epithelial cells detection in urine sediment by light microscopy 5-10 NRG Crystals detection in urine sediment by light microscopy PRESENT NRG Casts detection in urine sediment by light microscopy NONE NRG Mucus detection in urine sediment by light microscopy LARGE NRG Complete urinalysis with reflex to culture NO NRG Amorphous sediment detection in urine sediment by light microscopy MOD DOUGLAS URATES NRG Complete blood count (CBC) with automated white blood cell (WBC) differential - 04/09/18 01:45 Blood leukocytes automated count (number/volume) 9.0 10*3/uL 4.3-11.0 Blood erythrocytes automated count (number/volume) 4.22 10*6/uL 4.35-5.85 Venous blood hemoglobin measurement (mass/volume) 11.0 g/dL 11.5-16.0 Blood hematocrit (volume fraction) 34 % 35-52 Automated erythrocyte mean corpuscular volume 81 [foz_us] 80-99 Automated erythrocyte mean corpuscular hemoglobin (mass per erythrocyte) 26 pg 25-34 Automated erythrocyte mean corpuscular hemoglobin concentration measurement ( mass/volume) 32 g/dL 32-36 Automated erythrocyte distribution width ratio 15.0 % 10.0-14.5 Automated blood platelet count (count/volume) 389 10*3/uL 130-400 Automated blood platelet mean volume measurement 11.3 [foz_us] 7.4-10.4 Automated blood neutrophils/100 leukocytes 61 % 42-75 Automated blood lymphocytes/100 leukocytes 27 % 12-44 Blood monocytes/100 leukocytes 9 % 0-12 Automated blood eosinophils/100 leukocytes 1 % 0-10 Automated blood basophils/100 leukocytes 1 % 0-10 Blood neutrophils automated count (number/volume) 5.5 10*3 1.8-7.8 Blood lymphocytes automated count (number/volume) 2.5 10*3 1.0-4.0 Blood monocytes automated count (number/volume) 0.8 10*3 0.0-1.0 Automated eosinophil count 0.1 10*3/uL 0.0-0.3 Automated blood basophil count (count/volume) 0.1 10*3/uL 0.0-0.1 Serum or plasma choriogonadotropin ( test) detection - 04/09/18 01:45 Serum or plasma choriogonadotropin ( test) detection NEGATIVE NEGATIVE Comprehensive metabolic panel - 04/09/18 01:45 Serum or plasma sodium measurement (moles/volume) 139 mmol/L 135-145 Serum or plasma potassium measurement (moles/volume) 4.0 mmol/L 3.6-5.0 Serum or plasma chloride measurement (moles/volume) 110 mmol/L 98-107 Carbon dioxide 20 mmol/L 21-32 Serum or plasma anion gap determination (moles/volume) 9 mmol/L 5-14 Serum or plasma urea nitrogen measurement (mass/volume) 13 mg/dL 7-18 Serum or plasma creatinine measurement (mass/volume) 0.85 mg/dL 0.60-1.30 Serum or plasma urea nitrogen/creatinine mass ratio 15 NRG Serum or plasma creatinine measurement with calculation of estimated glomerular filtration rate > NRG Serum or plasma glucose measurement (mass/volume) 97 mg/dL 70-105 Serum or plasma calcium measurement (mass/volume) 9.3 mg/dL 8.5-10.1 Serum or plasma total bilirubin measurement (mass/volume) 0.5 mg/dL 0.1-1.0 Serum or plasma alkaline phosphatase measurement (enzymatic activity/volume) 61 U/L 40-136 Serum or plasma aspartate aminotransferase measurement (enzymatic activity/ volume) 18 U/L 5-34 Serum or plasma alanine aminotransferase measurement (enzymatic activity/volume ) 13 U/L 0-55 Serum or plasma protein measurement (mass/volume) 7.5 g/dL 6.4-8.2 Serum or plasma albumin measurement (mass/volume) 4.2 g/dL 3.2-4.5 CALCIUM CORRECTED 9.1 mg/dL 8.5-10.1 Serum or plasma amylase measurement (enzymatic activity/volume) - 04/09/18 01: 45 Serum or plasma amylase measurement (enzymatic activity/volume) 38 U /L 25-125 Lipase - 04/09/18 01:45 Lipase 24 U/L 8-78 Complete blood count (CBC) with automated white blood cell (WBC) differential - 04/22/18 18:01 Blood leukocytes automated count (number/volume) 10.2 10*3/uL 4.3-11.0 Blood erythrocytes automated count (number/volume) 4.81 10*6/uL 4.35-5.85 Venous blood hemoglobin measurement (mass/volume) 11.9 g/dL 11.5-16.0 Blood hematocrit (volume fraction) 38 % 35-52 Automated erythrocyte mean corpuscular volume 79 [foz_us] 80-99 Automated erythrocyte mean corpuscular hemoglobin (mass per erythrocyte) 25 pg 25-34 Automated erythrocyte mean corpuscular hemoglobin concentration measurement ( mass/volume) 31 g/dL 32-36 Automated erythrocyte distribution width ratio 16.2 % 10.0-14.5 Automated blood platelet count (count/volume) 268 10*3/uL 130-400 Automated blood platelet mean volume measurement 12.5 [foz_us] 7.4-10.4 Automated blood neutrophils/100 leukocytes 73 % 42-75 Automated blood lymphocytes/100 leukocytes 17 % 12-44 Blood monocytes/100 leukocytes 9 % 0-12 Automated blood eosinophils/100 leukocytes 0 % 0-10 Automated blood basophils/100 leukocytes 1 % 0-10 Blood neutrophils automated count (number/volume) 7.4 10*3 1.8-7.8 Blood lymphocytes automated count (number/volume) 1.8 10*3 1.0-4.0 Blood monocytes automated count (number/volume) 0.9 10*3 0.0-1.0 Automated eosinophil count 0.0 10*3/uL 0.0-0.3 Automated blood basophil count (count/volume) 0.1 10*3/uL 0.0-0.1 Comprehensive metabolic panel - 04/22/18 18:01 Serum or plasma sodium measurement (moles/volume) 147 mmol/L 135-145 Serum or plasma potassium measurement (moles/volume) 4.6 mmol/L 3.6-5.0 Serum or plasma chloride measurement (moles/volume) 116 mmol/L 98-107 Carbon dioxide 13 mmol/L 21-32 Serum or plasma anion gap determination (moles/volume) 18 mmol/L 5-14 Serum or plasma urea nitrogen measurement (mass/volume) 19 mg/dL 7-18 Serum or plasma creatinine measurement (mass/volume) 0.85 mg/dL 0.60-1.30 Serum or plasma urea nitrogen/creatinine mass ratio 22 NRG Serum or plasma creatinine measurement with calculation of estimated glomerular filtration rate > NRG Serum or plasma glucose measurement (mass/volume) 104 mg/dL 70-105 Serum or plasma calcium measurement (mass/volume) 9.5 mg/dL 8.5-10.1 Serum or plasma total bilirubin measurement (mass/volume) 0.5 mg/dL 0.1-1.0 Serum or plasma alkaline phosphatase measurement (enzymatic activity/volume) 69 U/L 40-136 Serum or plasma aspartate aminotransferase measurement (enzymatic activity/ volume) 22 U/L 5-34 Serum or plasma alanine aminotransferase measurement (enzymatic activity/volume ) 10 U/L 0-55 Serum or plasma protein measurement (mass/volume) 7.6 g/dL 6.4-8.2 Serum or plasma albumin measurement (mass/volume) 4.3 g/dL 3.2-4.5 CALCIUM CORRECTED 9.3 mg/dL 8.5-10.1 Lipase - 04/22/18 18:01 Lipase 39 U/L 8-78 Complete urinalysis with reflex to culture - 04/22/18 19:03 Urine color determination YELLOW NRG Urine clarity determination SLIGHTLY CLOUDY NRG Urine pH measurement by test strip 5 5-9 Specific gravity of urine by test strip 1.030 1.016- 1.022 Urine protein assay by test strip, semi-quantitative 2+ NEGATIVE Urine glucose detection by automated test strip NEGATIVE NEGATIVE Erythrocytes detection in urine sediment by light microscopy 3+ NEGATIVE Urine ketones detection by automated test strip 4+ NEGATIVE Urine nitrite detection by test strip NEGATIVE NEGATIVE Urine total bilirubin detection by test strip 1+ NEGATIVE Urine urobilinogen measurement by automated test strip (mass/volume) 1 mg/dL NORMAL Urine leukocyte esterase detection by dipstick 1+ NEGATIVE Automated urine sediment erythrocyte count by microscopy (number/high power field) [HPF] NRG Automated urine sediment leukocyte count by microscopy (number/high power field ) [HPF] NRG Bacteria detection in urine sediment by light microscopy FEW NRG Squamous epithelial cells detection in urine sediment by light microscopy >50 NRG Crystals detection in urine sediment by light microscopy NONE NRG Casts detection in urine sediment by light microscopy PRESENT NRG Mucus detection in urine sediment by light microscopy NEGATIVE NRG Complete urinalysis with reflex to culture YES NRG Hyaline casts detection in urine sediment by light microscopy >50 NRG Microscopic examination by KATLYN preparation - 04/22/18 21:21 KATLYN RESULT NEGATIVE; NO FUNGAL ELEMENTS OBSERVED NRG Encounters ACCT No. Visit Date/Time Discharge Status Pt. Type Provider Facility Loc./Unit Complaint [id number] 04/18/2018 11:44:00 04/18/2018 23:59:59 CLS Preadmit BRISEYDA SUDHIR [facility] RAD HIATAL HERNIA,STRICTURE OF ESOPHAGUS [id number] 04/08/2018 21:08:00 04/09/2018 05:43:00 DIS Emergency JORGE A DOBRANNON [facility] ER VOMITING [id number] 04/08/2018 09:38:00 04/08/2018 16:32:00 DIS Emergency MARLENA ROSARIO [facility] ER N/V [id number] 03/28/2018 10:16:00 03/28/2018 15:00:00 DIS Outpatient SONY BERGER MD [facility] ENDO REFLUX [id number] 03/25/2018 02:31:00 03/25/2018 04:59:00 DIS Emergency JORGE A DOBRANNON [facility] ER VOMITING [id number] 03/23/2018 21:54:00 03/24/2018 01:00:00 DIS Emergency JORGE A DOBRANNON [facility] ER SOB [id number] 04/15/2016 13:39:00 04/15/2016 23:59:59 CLS Outpatient ERNESTO PONCE MD [facility] RAD SCREENING [id number] 04/03/2015 11:33:00 04/03/2015 14:05:00 DIS Outpatient SONY BERGER MD [facility] FAMILY HISTORY COLON CA, REFLEX [id number] 04/01/2015 14:30:00 04/01/2015 14:30:00 CAN Outpatient SONY BERGER MD [facility] PREOP ABDOMINAL PAIN REFLUX [id number] 05/30/2014 08:11:00 05/30/2014 08:57:00 DIS Outpatient ANAHI LOERA MD [facility] CARD DDD [id number] 04/04/2014 08:17:00 04/04/2014 23:59:59 CLS Outpatient ANAHI LOERA MD [facility] CARD DDD-LUMBAR [id number] 01/24/2014 16:00:00 01/24/2014 23:59:59 CLS Outpatient PRISCILLA JAY MD [facility] RAD RT L5 RADICULOPATHY [id number] 01/14/2014 13:06:00 01/14/2014 23:59:59 CLS Outpatient PRISCILLA JAY MD [facility] RAD RT L5 RADICULOPATHY [id number] 01/07/2014 14:54:00 01/07/2014 23:59:59 CLS Outpatient ERNESTO PONCE MD [facility] RAD ROUTINE [id number] 12/26/2013 13:53:00 12/26/2013 23:59:59 CLS Outpatient ERNESTO PONCE MD [facility] RAD PAIN OVER 1ST 2ND METARSAL REGION [id number] 12/17/2013 09:39:00 12/17/2013 23:59:59 CLS Outpatient ERNESTO PONCE MD [facility] CARD PALP [id number] 12/11/2012 15:21:00 12/11/2012 23:59:59 CLS Outpatient ERNESTO PONCE MD [facility] RAD SCREENING [id number] 08/08/2012 14:29:00 08/16/2012 08:16:00 DIS Outpatient ERNESTO PONCE MD [facility] REHAB [id number] 04/22/2018 18:04:00 Document Registration [id number] 03/25/2015 13:33:00 Document Registration [id number] 03/25/2015 13:33:00 Document Registration [id number] 01/18/2011 13:36:00 Document Registration [id number] 10/08/2010 13:36:00 Document Registration [id number] 09/10/2010 15:45:00 Document Registration [id number] 02/22/2010 09:13:00 Document Registration [id number] 01/04/2010 05:45:00 Document Registration [id number] 12/31/2009 14:13:00 Document Registration [id number] 12/01/2009 08:42:00 Document Registration [id number] 10/09/2008 14:03:00 Document Registration [id number] 05/30/2014 08:12:31 ACT Document Registration
[2018-04-23] MEDS ORDERED: PROMETHAZINE INJ 25 MG/ML (PHENERGAN) AMP IVP ONE (19:15)
[2018-04-23] MEDS ORDERED: NS IV 1000 ML 1,000 ML IV SCH (19:15)
[2018-04-23 19:27] LABS: BASOPHILS # (AUTO) 0.1 10^3/uL (0.0-0.1); BASOPHILS % (AUTO) 1 % (0-10); EOSINOPHILS % (AUTO) 0 % (0-10); HEMATOCRIT 36 % (35-52); HEMOGLOBIN 11.3 G/DL (11.5-16.0); LYMPHOCYTES # (AUTO) 1.1 X 10^3 (1.0-4.0); LYMPHOCYTES % (AUTO) 10 % (12-44); MEAN CORPUSCULAR HEMOGLOBIN 25 PG (25-34); MEAN CORPUSCULAR HGB CONC 32 G/DL (32-36); MEAN CORPUSCULAR VOLUME 78 FL (80-99); MEAN PLATELET VOLUME 11.9 FL (7.4-10.4); MONOCYTES # (AUTO) 0.6 X 10^3 (0.0-1.0); MONOCYTES % (AUTO) 5 % (0-12); NEUTROPHILS # (AUTO) 9.4 X 10^3 (1.8-7.8); NEUTROPHILS % (AUTO) 84 % (42-75); PLATELET COUNT 340 10^3/uL (130-400); RED CELL DISTRIBUTION WIDTH 16.2 % (10.0-14.5); WHITE BLOOD COUNT 11.2 10^3/uL (4.3-11.0)
[2018-04-23] MEDS ORDERED: METOCLOPRAMIDE INJ 10 MG/2 ML (REGLAN) IVP ONE (19:30)
[2018-04-23 19:44] LABS: ALANINE AMINOTRANSFERASE 11 U/L (0-55); ALBUMIN 4.5 GM/DL (3.2-4.5); ALKALINE PHOSPHATASE 62 U/L (40-136); AMYLASE 45 U/L (25-125); BILIRUBIN,TOTAL 0.5 MG/DL (0.1-1.0); BUN/CREATININE RATIO 23; CARBON DIOXIDE 17 MMOL/L (21-32); CREATININE SERUM 0.83 MG/DL (0.60-1.30); GFR ESTIMATED > 60; GLUCOSE 123 MG/DL (70-105); LIPASE 42 U/L (8-78); TOTAL PROTEIN 7.9 GM/DL (6.4-8.2)
[2018-04-23 20:05] LABS: CLARITY,URINE SLIGHTLY CLOUDY; COLOR,URINE YELLOW; GLUCOSE, URINE (UA) NEGATIVE (NEGATIVE); KETONES,URINE 4+ (NEGATIVE); LEUKOCYTE ESTERASE ,URINE 1+ (NEGATIVE); NITRITE,URINE NEGATIVE (NEGATIVE); PH,URINE 6 (5-9); PROTEIN,URINE 3+ (NEGATIVE); UROBILINOGEN,URINE 4 MG/DL (NORMAL)
[2018-04-23 20:07] LABS: CHLORIDE 116 MMOL/L (98-107); POTASSIUM 3.6 MMOL/L (3.6-5.0); SODIUM 149 MMOL/L (135-145)
[2018-04-23 20:20] LABS: BILIRUBIN,URINE 1+ (NEGATIVE)
[2018-04-23 20:21] LABS: BACTERIA,URINE MODERATE /HPF; SQUAMOUS EPITHELIAL CELL,UR 25-50 /HPF
[2018-04-23] MEDS ORDERED: HYOSCYAMINE 0.125 MG (LEVSIN) TAB PO ONE (20:45)
--- NOTE | 2018-04-23 20:55 | ED Abdominal Pain ---
General Chief Complaint: Abdominal/GI Problems Stated Complaint: NAUSEA, VOMITTING Nursing Triage Note: THE PT IS AMBULATORY TO THE ROOM WITHOUT DIFFICULTY. NO DISTRESS IS SEEN ON ARRIVAL. LOC IS NORMAL FOR THE PT. THE PT WAS SEEN HERE LAST PM. Sepsis Screen: No Definite Risk Source of Information: Patient Exam Limitations: No Limitations History of Present Illness Date Seen by Provider: Apr 23, 2018 Time Seen by Provider: 19:11 Initial Comments 47-year-old female who presents to the emergency room with complaints of vomiting 1 time this afternoon and increasing abdominal pain and abdominal cramping throughout this evening. She reports that she was seen yesterday in the emergency room for similar complaints and received prescriptions for Zofran and was given a dose of morphine that seemed to help with her pain. She currently has a hiatal hernia and is to see a skilled helper Dr. Meza in [place] for further evaluation. She denies getting her prescription filled from last night's visit. Timing/Duration: 1-3 Hours Severity/Quality: Cramping Location: Generalized Abdomen Associated Symptoms: Nausea/Vomiting Allergies and Home Medications Allergies Coded Allergies: aspirin (Verified Allergy, Unknown, 04/22/18) fentanyl (Verified Allergy, Unknown, 04/22/18) hydrocodone (Verified Allergy, Unknown, 04/22/18) Uncoded Allergies: NKDA (Allergy, Mild, 06/11/08) Home Medications Fluconazole 200 Mg Tablet, 200 MG PO DAILY Prescribed by: SONY BERGER on 03/28/18 1421 Fluconazole 100 Mg Tablet, 100 MG PO DAILY Prescribed by: SONY BERGER on 03/28/18 1421 Hydrocodone Bit/Acetaminophen 1 Tab Tab, 1 EACH PO Q4-6HR PRN for PAIN-MODERATE Prescribed by: MARLENA ROSARIO on 04/08/18 1607 Hyoscyamine Sulfate 0.375 Mg Tab.sr.12h, 0.375 MG PO BID, (Reported) Hyoscyamine Sulfate 0.125 Mg Tab.subl, 0.125 MG SL Q4H PRN for CRAMPS Prescribed by: MARLENA ROSARIO on 04/23/18 210 Loratadine 10 Mg Tablet, 10 MG PO DAILY, (Reported) Metoprolol Succinate 25 Mg Tab, 25 MG PO DAILY, (Reported) Nitrofurantoin Macrocrystal 100 Mg Capsule, 100 MG PO BID Prescribed by: DAYNA SAINZ on 04/22/182219 Ondansetron 4 Mg Tab.rapdis, 4 MG PO Q6H PRN for NAUSEA/VOMITING Prescribed by: DAYNA SAINZ on 04/22/182219 Ondansetron HCl 4 Mg Tab, 4 MG PO Q4H PRN for NAUSEA/VOMITING-1ST LINE Prescribed by: AMRLENA ROSARIO on 04/08/18 1607 Oxybutynin Chloride 5 Mg Tab, 5 MG PO ONCE, (Reported) Pantoprazole Sodium 40 Mg Tablet.dr, 40 MG PO DAILY Prescribed by: SONY BERGER on 04/03/15 1308 Promethazine HCl 25 Mg Supp.rect, 25 MG RC Q4H Prescribed by: BRANNON JULES on 04/09/18 0416 Topiramate 50 Mg Tablet, 50 MG PO DAILY, (Reported) Patient Home Medication List Home Medication List Reviewed: Yes Review of Systems Review of Systems Constitutional: no symptoms reported, see HPI Gastrointestinal: See HPI, Abdominal Pain, Nausea, Vomiting All Other Systems Reviewed Negative Unless Noted: Yes Past [id number]-[id number] Hx Past Med/Social Hx: Reviewed Nursing Past Med/Soc Hx Patient Social History 2nd Hand Smoke Exposure: No Recent Foreign Travel: No Contact w/Someone Who Travel: No Recent Infectious Disease Expo: No Recent Hopitalizations: No Physical Abuse: No Sexual Abuse: No Mistreated: No Fear: No Immunizations Up To Date Tetanus Booster (TDap): Unknown Past Medical History Surgeries: Yes (EGD/COLONOSCOPY; HIATAL HERNIA REPAIR 2005; X 1) Abdominal, Appendectomy, Section, Gallbladder, Tubal Ligation Respiratory: No Currently Using CPAP: No Currently Using BIPAP: No Cardiac: Yes Hypertension Neurological: Yes Headaches /Migraines 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 Disorders: No [employer] C[employer] HAND History: Tubal Ligation Genitourinary: Yes (URINARY URGENCY) Kidney Stones Gastrointestinal: Yes ( HIATAL HERNIA-S/P SURGERY X 1--NOW WITH RECURRENCE; S/ P PABLO AND APPY ) Gastroesophageal Reflux, Diverticulosis, Hemorrhoids, Hiatal Hernia, Irritable Bowel Musculoskeletal: Yes (SCIATICA; CHRONIC NECK AND BACK PAIN) Degenerate Disk Disease, Chronic Back Pain Endocrine: No HEENT: No Cancer: No Psychosocial: No Integumentary: No Blood Disorders: No Family Medical History Reviewed Nursing Family Hx Physical Exam Vital Signs Vital Signs - First Documented 04/23/18 04/23/18 19:05 21:42 Temp 98.2 Pulse 92 Resp 16 B/P (MAP) 140/70 (93) Pulse Ox 98 O2 Delivery Room Air Capillary Refill : Less Than 3 Seconds Height/Weight/BMI Height: 5'5.00" Weight: 160lbs. 0.0oz. [id number]; 33.5 BMI Method:Estimated General Appearance: WD/WN, no apparent distress Respiratory: chest non-tender, lungs clear, normal breath sounds, no respiratory distress, no accessory muscle use Cardiovascular: normal peripheral pulses, regular rate, rhythm, no edema, no gallop, no JVD, no murmur Gastrointestinal: normal bowel sounds, non tender, soft, no organomegaly, no pulsatile mass Neurologic/Psychiatric: alert, normal mood/affect, oriented x 3 Skin: normal color, warm/dry Progress/Results/Core Measures Results/Orders Lab Results Laboratory Tests Test 04/23/18 19:20 04/23/18 19:59 Range/Units White Blood Count 11.2 H 4.3-11.0 10^3/uL Red Blood Count 4.56 4.35-5.85 10^6/uL Hemoglobin 11.3 L 11.5-16.0 G/DL Hematocrit 36 35-52 % Mean Corpuscular Volume 78 L 80-99 FL Mean Corpuscular Hemoglobin 25 25-34 PG Mean Corpuscular Hemoglobin Concent 32 32-36 G/DL Red Cell Distribution Width 16.2 H 10.0-14.5 % Platelet Count 340 130-400 10^3/uL Mean Platelet Volume 11.9 H 7.4-10.4 FL Neutrophils (%) (Auto) 84 H 42-75 % Lymphocytes (%) (Auto) 10 L 12-44 % Monocytes (%) (Auto) 5 0-12 % Eosinophils (%) (Auto) 0 0-10 % Basophils (%) (Auto) 1 0-10 % Neutrophils # (Auto) 9.4 H 1.8-7.8 X 10^3 Lymphocytes # (Auto) 1.1 1.0-4.0 X 10^3 Monocytes # (Auto) 0.6 0.0-1.0 X 10^3 Eosinophils # (Auto) 0.0 0.0-0.3 10^3/uL Basophils # (Auto) 0.1 0.0-0.1 10^3/uL Sodium Level 149 H 135-145 MMOL/L Potassium Level 3.6 3.6-5.0 MMOL/L Chloride Level 116 H 98-107 MMOL/L Carbon Dioxide Level 17 L 21-32 MMOL/L Anion Gap 16 H 5-14 MMOL/L Blood Urea Nitrogen 19 H 7-18 MG/DL Creatinine 0.83 0.60-1.30 MG/DL Estimat Glomerular Filtration Rate > 60 BUN/Creatinine Ratio 23 Glucose Level 123 H 70-105 MG/DL Calcium Level 10.0 8.5-10.1 MG/DL Corrected Calcium 9.6 8.5-10.1 MG/DL Total Bilirubin 0.5 0.1-1.0 MG/DL Aspartate Amino Transf (AST/SGOT) 20 5-34 U/L Alanine Aminotransferase (ALT/SGPT) 11 0-55 U/L Alkaline Phosphatase 62 40-136 U/L Total Protein 7.9 6.4-8.2 GM/DL Albumin 4.5 3.2-4.5 GM/DL Amylase Level 45 25-125 U/L Lipase 42 8-78 U/L Urine Color YELLOW Urine Clarity SLIGHTLY CLOUDY Urine pH 6 5-9 Urine Specific [place] 1.030 H 1.016-1.022 Urine Protein 3+ H NEGATIVE Urine Glucose (UA) NEGATIVE NEGATIVE Urine Ketones 4+ H NEGATIVE Urine Nitrite NEGATIVE NEGATIVE Urine Bilirubin 1+ H NEGATIVE Urine Urobilinogen 4 H NORMAL MG/DL Urine Leukocyte Esterase 1+ H NEGATIVE Urine RBC (Auto) 4+ H NEGATIVE Urine RBC 2-5 H /HPF Urine WBC 10-25 H /HPF Urine Squamous Epithelial Cells 25-50 H /HPF Urine Crystals NONE /LPF Urine Bacteria MODERATE H /HPF Urine Casts NONE /LPF Urine Mucus LARGE H /LPF Urine Culture Indicated YES My Orders Orders - MARLENA ROSARIO Comprehensive Metabolic Panel (04/23/18 19:11) Lipase (04/23/18 19:11) Amylase (04/23/18 19:11) Ua Culture If Indicated (04/23/18 19:11) Saline Lock/Iv-Start (04/23/18 19:11) Cbc With Automated Diff (04/23/18 19:11) Ns Iv 1000 Ml (Sodium Chloride 0.9%) (04/23/18 19:15) Metoclopramide Injection (Reglan Injecti (04/23/18 19:30) Urine Culture (04/23/18 19:59) Morphine Injection (Morphine Injection (04/23/18 20:45) Hyoscyamine Sl Tablet (Levsin Sl Tablet) (04/23/18 20:45) Rx-Hyoscyamine Tab (Rx-Levsin Sl) (04/23/18 21:32) Medications Given in ED Current Medications Medications Dose Ordered Sig/Sergio Route Start Time Stop Time Status Last Admin Dose Admin Hyoscyamine Sulfate 0.125 mg ONCE ONCE PO 04/23/18 20:45 04/23/18 20:47 DC 04/23/18 20:56 0.125 MG Metoclopramide HCl 5 mg ONCE ONCE IVP 04/23/18 19:30 04/23/18 19:31 DC 04/23/18 19:31 5 MG Morphine Sulfate 2 mg ONCE ONCE IVP 04/23/18 20:45 04/23/18 20:47 DC 04/23/18 21:05 2 MG Vital Signs/I&O 04/23/18 04/23/18 19:05 21:42 Temp 98.2 99.6 Pulse 92 89 Resp 16 B/P (MAP) 140/70 (93) 117/71 (86) Pulse Ox 98 O2 Delivery Room Air Blood Pressure Mean: 93 Progress Progress Note : Time: 20:55 Progress Note I have seen and evaluated the patient. Her nausea and vomiting has resolved with the Reglan and pain has improved with the Levsin and morphine. Given her normal imaging studies last night I will not be repeating her CT imaging due to high levels of radiation and nontender abdomen on exam. Her culture results of her urine were also were reviewed and she was instructed to stop her antibiotic that was prescribed last night. She agrees with plan of care, plans for discharge, return precautions were given. Departure Impression Primary Impression: Nausea and vomiting Disposition: 01 HOME, SELF-CARE Condition: Stable/Unchanged Departure-Patient Inst. Decision time for Depature: 20:55 Referrals: ERNESTO PONCE MD (PCP/Family) Primary Care Physician Patient Instructions: Nausea and Vomiting, Adult Add. Discharge Instructions: Resume your previously prescribed medications as directed. You may stop taking the antibiotic that was prescribed yesterday for your urinary tract infection as your urine culture did not show any growth. Take the Levsin as directed for abdominal cramping. Nothing by mouth for 12 hours. Advance to a clear liquid diet and then bland diet as tolerated. Call your skilled helper first thing tomorrow morning to get an appointment time for a sooner date. Return back to the emergency room for worsening symptoms or concerns as needed. All discharge instructions reviewed with patient and/or family. Voiced understanding. Scripts Hyoscyamine Sulfate (Levsin-Sl) 0.125 Mg Tab.subl 0.125 MG SL Q4H PRN for CRAMPS, #14 TAB Prov: MARLENA ROSARIO 04/23/18 MARLENA ROSARIO Apr 23, 2018 20:55
[2018-04-23] MEDS: morphine INJ 10 MG/ML 1ML (SYR OR VIAL) IVP ONE ×2 (20:57→21:05)
[2018-04-23] MEDS ORDERED: HYOS0.1283 SL (21:06)
--- NOTE | 2018-04-23 21:08 | NUR ---
REPORT RECIEVED FROM BOB VEGA. PATIENT AWAKE AND ALERT RESTING IN BED.
--- NOTE | 2018-04-23 21:17 | NUR ---
PATIENT AMBULATORY TO BATHROOM WITHOUT DIFFICULTY.
[2018-04-23] MEDS ORDERED: RX-HYOSCYAMINE 0.125 MG SL (LEVSIN) PPK#6 SL STA (21:32)
[2018-04-23 21:42] VITALS: BP 117/71
--- NOTE | 2018-04-23 21:44 | NUR ---
TAXI VOUCHER GIVEN TO PATIENT.
== END 2018-04-23 21:44 | disposition home or self-care (01) ==
LOC: EDUNIT# 18:52 → ER 18:55
DX: R11.2 Nausea with vomiting, unspecified (principal); I10 Essential (primary) hypertension; G43.909 Migraine, unspecified, not intractable, without status migrainosus; K21.9 Gastro-esophageal reflux disease without esophagitis; K58.9 Irritable bowel syndrome, unspecified; Z87.19 Personal history of other diseases of the digestive system; Z87.442 Personal history of urinary calculi; Z88.6 Allergy status to analgesic agent; Z88.5 Allergy status to narcotic agent; Z90.49 Acquired absence of other specified parts of digestive tract; Z98.890 Other specified postprocedural states; Z98.51 Tubal ligation status
CPT/HCPCS: 36415; 80053; 81000; 82150; 83690; 85025; 87088

== ENCOUNTER → 2018-04-25 | Outpatient (CLI) | payer BC ==
[~2018-04-25] MED LIST changes: +BARIUM SUSPENSION 105% (LIQUID POLIBAR PLUS) 240 ML/DOSE PO ONE
--- NOTE | 2018-04-25 13:48 | Diagnostic Imaging Report ---
INDICATION: Hiatal hernia. Patient reports having recent esophageal dilatation approximately one month ago. Patient complains of difficulty getting liquids or solids down. TECHNIQUE: Patient ingested effervescent crystals as well as thick barium and imaging over the esophagus was performed. FINDINGS: Preliminary radiograph demonstrates a large hiatal hernia. Postingestion images demonstrate abrupt narrowing of the distal esophagus. There appears to be a large paraesophageal hiatal hernia. Only a trickle of contrast is seen passing through the distal esophagus into the infradiaphragmatic portion of the stomach. There is retention of ingested contrast in the distal esophagus. IMPRESSION: Limited study. There is a very large paraesophageal hiatal hernia. There is significant delay in the passage of barium from the distal esophagus into the stomach. An area of narrowing distally is seen, suggestive of distal esophageal stricture. The GE junction could not be well characterized due to small volume of contrast ingested. Dictated by: Dictated on workstation # [id number]
== END ==
LOC: RAD 11:04
PROVIDERS: ATTEND Surgery
DX: K44.9 Diaphragmatic hernia without obstruction or gangrene (principal); K22.2 Esophageal obstruction
CPT/HCPCS: 74241

== ENCOUNTER 2018-04-30 00:34 | Inpatient (IN) | payer BC ==
[~2018-04-30] VITALS: Ht 157.5 cm; Wt 101.2 kg
[~2018-04-30 00:34] MED LIST changes: -BARIUM SUSPENSION 105% (LIQUID POLIBAR PLUS) 240 ML/DOSE PO ONE
--- OUTSIDE RECORDS SUMMARY | 2018-04-30 00:40 | XMS REPORT | Continuity of Care Document ---
Author Author [facility] Organization [facility] Address Unknown Phone Unavailable Allergies Active Description Code Type Severity Reaction Onset Reported/Identified Relationship to Patient Clinical Status Yes NKDA NKDA Mild N/ A 06/11/2008 Yes No Known Drug Allergies [id number] Drug Allergy Unknown N/A 06/22/2009 Yes aspirin [id number] Drug Allergy Unknown N/A 04/22/2018 Yes fentanyl [id number] Drug Allergy Unknown N/A 04/22/2018 Yes hydrocodone [id number] Drug Allergy Unknown N/A 04/22/2018 Medications There is no data. Problems Date Dx Coded Attending Type Code Diagnosis Diagnosed By 01/01/2010 Ot 346.90 01/01/2010 Ot 396.3 01/01/2010 Ot 397.0 01/01/2010 Ot 416.8 01/01/2010 Ot 722.10 01/01/2010 Ot 780.96 01/01/2010 Ot 782.0 01/01/2010 Ot 786.09 01/01/2010 Ot 786.59 01/01/2010 Ot 790.6 01/01/2010 Ot V07.4 01/01/2010 Ot V58.69 02/22/2010 Ot 530.81 ESOPHAGEAL REFLUX 02/22/2010 Ot 535.40 OT SPECIFIED GASTRITIS,W/O MENTION OF H 02/22/2010 Ot 553.3 DIAPHRAGMATIC HERNIA 02/22/2010 Ot 562.10 DIVERTICULOSIS COLON (W/O MENT OF HEMORR 02/22/2010 Ot V76.51 SCREEN MAL NEOP-COLON 09/10/2010 Ot 723.0 CERVICAL SPINAL STENOSIS 09/10/2010 Ot 782.0 SKIN SENSATION DISTURB 09/10/2010 Ot 786.01 HYPERVENTILATION 01/24/2011 Ot 724.2 LUMBAGO 01/24/2011 Ot 724.4 LUMBOSACRAL NEURITIS NOS 01/24/2011 Ot V57.1 PHYSICAL THERAPY NEC 08/16/2012 ROSARIOERNESTO VIZCAINO MD Ot 728.71 PLANTAR FIBROMATOSIS 08/16/2012 ERNESTO PONCE [...] BERGER MD Ot Z01.818 04/01/2015 SONY BERGER MD, Ot Z80.0 04/03/2015 SONY BERGER MD, Ot K21.0 GASTRO-ESOPHAGEAL REFLUX DISEASE WITH ES 04/03/2015 SONY BERGER MD Ot K29.70 GASTRITIS, UNSPECIFIED, WITHOUT BLEEDING 04/03/2015 SONY BERGER MD, Ot K44.9 DIAPHRAGMATIC HERNIA WITHOUT OBSTRUCTION 04/03/2015 SONY BERGER MD Ot K57.30 DVRTCLOS OF LG INT W/O PERFORATION OR AB 04/03/2015 SONY BERGER MD Ot K58.9 IRRITABLE BOWEL SYNDROME WITHOUT DIARRHE 04/03/2015 SONY BERGER MD Ot K59.00 CONSTIPATION, UNSPECIFIED 04/03/2015 SONY BERGER MD Ot K60.2 ANAL FISSURE, UNSPECIFIED 04/03/2015 SONY BERGER MD, Ot K64.1 SECOND DEGREE HEMORRHOIDS 04/03/2015 SONY [...] Ot 721.3 LUMBOSACRAL SPONDYLOSIS 07/15/2015 ANAHI LOERA MD, Ot 722.52 LUMB/LUMBOSAC DISC DEGEN 07/15/2015 ANAHI LOERA MD, Ot V58.69 OT MED,LT,CURRENT USE 07/15/2015 AB VILLEGAS, SONY Ot K21.9 GASTRO-ESOPHAGEAL REFLUX DISEASE WITHOUT 07/15/2015 AB VILLEGAS, SONY Ot Z01.818 ENCOUNTER FOR OTHER PREPROCEDURAL EXAMIN [...] GASTRO-ESOPHAGEAL REFLUX DISEASE WITHOUT 03/24/2018 SONY BERGER MD, Ot Z01.818 ENCOUNTER FOR OTHER PREPROCEDURAL EXAMIN 03/24/2018 SONY BERGER MD, Ot Z80.0 FAMILY HISTORY OF MALIGNANT NEOPLASM OF 03/24/2018 ERNESTO PONCE MD Ot Z12.31 ENCNTR SCREEN MAMMOGRAM FOR MALIGNANT NE 03/24/2018 DANIELLA JULES DOA K Ot D64.9 ANEMIA, UNSPECIFIED 03/24/2018 JORGE A DANIELLA CANOA K Ot E83.42 HYPOMAGNESEMIA 03/24/2018 JORGE A CANO BRANNON K Ot G43.909 MIGRAINE, UNSP, NOT INTRACTABLE, WITHOUT 03/24/2018 JORGE A DO BRANNON K Ot I10 ESSENTIAL (PRIMARY) HYPERTENSION 03/24/2018 JORGE A CANO BRNANON K Ot K21.9 GASTRO-ESOPHAGEAL REFLUX DISEASE WITHOUT 03/24/2018 JORGE A DO BRANNON K Ot K44.9 DIAPHRAGMATIC HERNIA WITHOUT OBSTRUCTION 03/24/2018 JORGE A DO BRANNON K Ot K58.9 IRRITABLE BOWEL SYNDROME WITHOUT DIARRHE 03/24/2018 JORGE A DO BRANNON K Ot R06.02 SHORTNESS OF BREATH 03/24/2018 JORGE A CANO BRANNON K Ot Z87.19 PERSONAL HISTORY OF OTHER DISEASES OF TH 03/24/2018 DANIELLA JULES DOA K Ot Z87.442 PERSONAL HISTORY OF URINARY CALCULI 03/24/2018 DANIELLA JULES DOA Fela Ot Z90.49 ACQUIRED ABSENCE OF OTHER SPECIFIED PART 03/24/2018 JORGE A DO BRANNON K Ot Z98.51 TUBAL LIGATION STATUS 03/24/2018 JORGE A CANO BRANNON K Ot Z98.890 OTHER SPECIFIED POSTPROCEDURAL STATES 03/24/2018 ERNESTO PONCE MD Ot V76.12 OT SCREEN MAMMO-MALIGN NEOPLASM OF SHONDA 03/24/2018 ERNESTO [...] FOR OTHER PREPROCEDURAL EXAMIN 03/24/2018 SONY BERGER MD, Ot Z80.0 FAMILY HISTORY [...] MAMMOGRAM FOR MALIGNANT NE 03/25/2018 ERNESTO PONCE MD, Ot V76.12 OTH SCREEN MAMMO-MALIGN NEOPLASM OF SHONDA 03/25/2018 ERNESTO PONCE MD Ot 785.1 PALPITATIONS 03/25/2018 ERNESTO PONCE MD, Ot V76.12 OTH SCREEN MAMMO-MALIGN NEOPLASM OF SHONDA 03/25/2018 ERNESTO PONCE MD Ot 729.5 PAIN IN LIMB 03/25/2018 PRISCILLA JAY MD Ot 724.4 LUMBOSACRAL NEURITIS NOS 03/25/2018 PRISCILLA JAY MD Ot 721.3 LUMBOSACRAL SPONDYLOSIS 03/25/2018 ANAHI LOERA MD Ot 722.52 LUMB/LUMBOSAC DISC DEGEN 03/25/2018 ANAHI LOERA MD, Ot V58.69 OT MED,LT,CURRENT USE 03/25/2018 SONY BERGER MD, Ot K21.9 GASTRO-ESOPHAGEAL REFLUX DISEASE WITHOUT 03/25/2018 SONY BERGER MD, Ot Z01.818 ENCOUNTER FOR OTHER PREPROCEDURAL EXAMIN 03/25/2018 SONY BERGER MD, Ot Z80.0 FAMILY HISTORY OF MALIGNANT NEOPLASM OF 03/25/2018 ERNESTO PONCE MD, Ot Z12.31 ENCNTR SCREEN [...] OF OTHER SPECIFIED PART 03/25/2018 BRANNON JULES DO, Ot Z98.51 TUBAL LIGATION STATUS 03/25/2018 JORGE A CANO BRANNON Chahal Ot Z98.890 OTHER SPECIFIED POSTPROCEDURAL STATES 03/27/2018 JORGE A BRANNON Chahal Ot G43.909 MIGRAINE, UNSP, NOT INTRACTABLE, WITHOUT 03/27/2018 JORGE A DO BRANNON K Ot I10 ESSENTIAL (PRIMARY) HYPERTENSION 03/27/2018 JORGE A DO BRANNON K Ot K21.9 GASTRO-ESOPHAGEAL REFLUX DISEASE WITHOUT 03/27/2018 JORGE A DO BRANNON Fela Ot K44.9 DIAPHRAGMATIC HERNIA WITHOUT OBSTRUCTION 03/27/2018 JORGE A DO BRANNON Chahal Ot R11.10 VOMITING, UNSPECIFIED 03/27/2018 JORGE A DO BRANNON K Ot Z87.19 PERSONAL HISTORY OF OTHER DISEASES OF TH 03/27/2018 JORGE A BRANNON Chahal Ot Z87.442 PERSONAL HISTORY OF URINARY CALCULI 03/27/2018 JORGE A BRANNON K Ot Z90.49 ACQUIRED ABSENCE OF OTHER SPECIFIED PART 03/27/2018 JORGE A DO BRANNON Chahal Ot Z98.51 TUBAL LIGATION STATUS 03/27/2018 JORGE A DO BRANNON Chahal Ot Z98.890 OTHER SPECIFIED POSTPROCEDURAL STATES 03/28/2018 SONY BERGER MD, Ot B37.81 CANDIDAL ESOPHAGITIS 03/28/2018 SONY BERGER MD, Ot K21.0 GASTRO-ESOPHAGEAL REFLUX DISEASE WITH ES 03/28/2018 SONY BERGER MD, Ot K22.2 ESOPHAGEAL OBSTRUCTION 03/28/2018 SONY BERGER MD, Ot K27.9 PEPTIC ULC, SITE UNSP, UNSP AC OR CHR 03/28/2018 SONY BERGER MD, Ot K29.70 GASTRITIS, UNSPECIFIED, WITHOUT BLEEDING 03/28/2018 SONY BERGER MD, Ot K44.9 DIAPHRAGMATIC HERNIA WITHOUT OBSTRUCTION 03/28/2018 SONY BERGER MD, Ot K58.1 IRRITABLE BOWEL SYNDROME WITH CONSTIPATI 03/28/2018 SONY BERGER MD, Ot Z79.899 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 SENIOR INSIGHT MANAGER (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) DRUG THERAPY 03/30/2018 SONY BERGER MD, Ot B37.81 CANDIDAL ESOPHAGITIS 03/30/2018 SONY BERGER MD, Ot K21.0 GASTRO-ESOPHAGEAL REFLUX DISEASE WITH ES 03/30/2018 KIDO MD, TAKAAKI Ot K22.2 ESOPHAGEAL OBSTRUCTION 03/30/2018 SONY BERGER MD, Ot K27.9 PEPTIC ULC, SITE UNSP, UNSP AC OR CHR 03/30/2018 SONY BERGER MD, Ot K29.70 GASTRITIS, UNSPECIFIED, WITHOUT BLEEDING 03/30/2018 SONY BERGER MD, Ot K44.9 DIAPHRAGMATIC HERNIA WITHOUT OBSTRUCTION 03/30/2018 SONY BERGER MD, Ot K58.1 IRRITABLE BOWEL SYNDROME WITH CONSTIPATI 03/30/2018 SONY BERGER MD, Ot Z79.899 OTHER SENIOR INSIGHT MANAGER (CURRENT) DRUG THERAPY 03/30/2018 ERNESTO PONCE MD, Ot V76.12 OTH SCREEN MAMMO-MALIGN NEOPLASM OF SHONDA 03/30/2018 ERNESTO PONCE MD Ot 785.1 PALPITATIONS 03/30/2018 ERNESTO PONCE MD, Ot V76.12 OTH SCREEN MAMMO-MALIGN NEOPLASM OF SHONDA 03/30/2018 ERNESTO PONCE MD Ot 729.5 PAIN IN LIMB 03/30/2018 PRISCILLA JAY MD Ot 724.4 LUMBOSACRAL NEURITIS NOS 03/30/2018 PRISCILLA JAY MD Ot 721.3 LUMBOSACRAL SPONDYLOSIS 03/30/2018 EVARISTO VILLEGAS, ANAHI Nash Ot 722.52 LUMB/LUMBOSAC DISC DEGEN 03/30/2018 ANAHI LOERA MD Ot V58.69 OTH MED,LT,CURRENT USE 03/30/2018 SONY BERGER MD, Ot K21.9 GASTRO-ESOPHAGEAL REFLUX DISEASE WITHOUT 03/30/2018 SONY BERGER MD Ot Z01.818 ENCOUNTER FOR OTHER PREPROCEDURAL EXAMIN 03/30/2018 SONY BERGER MD, Ot Z80.0 FAMILY HISTORY OF MALIGNANT NEOPLASM OF 03/30/2018 ERNESTO PONCE MD Ot Z12.31 ENCNTR SCREEN MAMMOGRAM FOR MALIGNANT NE 04/08/2018 MARLENA ROSARIO Ot G43.909 MIGRAINE, UNSP, NOT INTRACTABLE, WITHOUT 04/08/2018 MARLENA ROSARIO Ot I10 ESSENTIAL (PRIMARY) HYPERTENSION 04/08/2018 MARLENA ROSARIO Ot K44.9 DIAPHRAGMATIC HERNIA WITHOUT OBSTRUCTION 04/08/2018 BERNOT, MARLENA Ot K58.9 IRRITABLE BOWEL SYNDROME WITHOUT DIARRHE 04/08/2018 ESAU ROSARIOIS Ot R11.2 NAUSEA WITH VOMITING, UNSPECIFIED 04/08/2018 ESAU ROSARIOIS Ot Z87.442 PERSONAL HISTORY OF URINARY CALCULI 04/08/2018 ESAU ROSARIOIS Ot Z90.49 ACQUIRED ABSENCE OF OTHER SPECIFIED [...] G43.909 MIGRAINE, UNSP, NOT INTRACTABLE, WITHOUT 04/10/2018 ESAU ROSARIOIS Ot I10 ESSENTIAL (PRIMARY) HYPERTENSION 04/10/2018 ESAU ROSARIOIS Ot K44.9 DIAPHRAGMATIC HERNIA WITHOUT OBSTRUCTION 04/10/2018 MARLENA ROSARIO Ot K58.9 IRRITABLE BOWEL SYNDROME WITHOUT DIARRHE 04/10/2018 MARLENA ROSARIO Ot R11.2 NAUSEA WITH VOMITING, UNSPECIFIED 04/10/2018 MARLENA ROSARIO Ot Z87.442 PERSONAL HISTORY OF URINARY CALCULI 04/10/2018 MARLENA ROSARIO Ot Z90.49 ACQUIRED ABSENCE OF OTHER SPECIFIED PART 04/10/2018 BERNOT, MARLENA Ot Z98.51 TUBAL LIGATION STATUS 04/10/2018 JORGE A DO, BRANNON K Ot E86.0 DEHYDRATION 04/10/2018 JORGE A DO, BRANNON K Ot G43.909 MIGRAINE, UNSP, NOT INTRACTABLE, WITHOUT 04/10/2018 JORGE A DO, BRANNON K Ot I10 ESSENTIAL (PRIMARY) HYPERTENSION 04/10/2018 JORGE A DO, BRANNON K Ot K21.9 GASTRO-ESOPHAGEAL REFLUX DISEASE WITHOUT 04/10/2018 JORGE A DO, BRANNON K Ot K44.9 DIAPHRAGMATIC HERNIA WITHOUT OBSTRUCTION 04/10/2018 JORGE A DO, BRANNON K Ot K58.9 IRRITABLE BOWEL SYNDROME WITHOUT DIARRHE 04/10/2018 JORGE A DO, BRANNON K Ot R11.2 NAUSEA WITH VOMITING, UNSPECIFIED 04/10/2018 JORGE A DO, BRANNON K Ot Z87.19 PERSONAL HISTORY OF OTHER DISEASES OF 04/10/2018 JORGE A DO, BRANNON K Ot Z87.442 PERSONAL HISTORY OF URINARY CALCULI 04/10/2018 JORGE A DO, RBANNON K Ot Z90.49 ACQUIRED ABSENCE OF OTHER SPECIFIED PART 04/10/2018 JORGE A DO, BRANNON K Ot Z98.51 TUBAL LIGATION STATUS 04/22/2018 DAYNA SAINZ MD Ot G43.909 MIGRAINE, UNSP, NOT INTRACTABLE, WITHOUT 04/22/2018 DAYNA SAINZ MD Ot I10 ESSENTIAL (PRIMARY) HYPERTENSION 04/22/2018 DAYNA SAINZ MD Ot K21.9 GASTRO-ESOPHAGEAL REFLUX DISEASE WITHOUT 04/22/2018 DAYNA SAINZ MD Ot K58.9 IRRITABLE BOWEL SYNDROME WITHOUT DIARRHE 04/22/2018 DAYNA SAINZ MD Ot N39.0 URINARY TRACT INFECTION, SITE NOT SPECIF 04/22/2018 DAYNA SAINZ MD Ot R10.13 EPIGASTRIC PAIN 04/22/2018 DAYNA SAINZ MD Ot Z87.19 PERSONAL HISTORY OF OTHER DISEASES OF 04/22/2018 DAYNA SAINZ MD Ot Z87.442 PERSONAL HISTORY OF URINARY CALCULI 04/22/2018 DAYNA SAINZ MD Ot Z88.2 ALLERGY STATUS TO SULFONAMIDES STATUS 04/22/2018 DAYNA SAINZ MD Ot Z88.5 ALLERGY STATUS TO NARCOTIC AGENT STATUS 04/22/2018 DAYNA SAINZ MD Ot Z88.8 ALLERGY STATUS TO OTH DRUG/MEDS/BIOL SUB 04/22/2018 DAYNA SAINZ MD Ot Z90.49 ACQUIRED ABSENCE OF OTHER SPECIFIED PART 04/22/2018 DAYNA SAINZ MD Ot Z98.51 TUBAL LIGATION STATUS 04/22/2018 DAYNA SAINZ MD Ot Z98.890 OTHER SPECIFIED POSTPROCEDURAL STATES 04/25/2018 DAYNA SAINZ MD Ot G43.909 MIGRAINE, UNSP, NOT INTRACTABLE, WITHOUT 04/25/2018 DAYNA SAINZ MD Ot I10 ESSENTIAL (PRIMARY) HYPERTENSION 04/25/2018 DAYNA SAINZ MD Ot K21.9 GASTRO-ESOPHAGEAL REFLUX DISEASE WITHOUT 04/25/2018 DAYNA SAINZ MD Ot K58.9 IRRITABLE BOWEL SYNDROME WITHOUT DIARRHE 04/25/2018 DAYNA SAINZ MD Ot N39.0 URINARY TRACT INFECTION, SITE NOT SPECIF 04/25/2018 DAYNA SAINZ MD Ot R10.13 EPIGASTRIC PAIN 04/25/2018 DAYNA SAINZ MD Ot Z87.19 PERSONAL HISTORY OF OTHER DISEASES OF TH 04/25/2018 DAYNA SAINZ MD Ot Z87.442 PERSONAL HISTORY OF URINARY CALCULI 04/25/2018 DAYNA SAINZ MD Ot Z88.2 ALLERGY STATUS TO SULFONAMIDES STATUS 04/25/2018 DAYNA SAINZ MD Ot Z88.5 ALLERGY STATUS TO NARCOTIC AGENT STATUS 04/25/2018 DAYNA SAINZ MD Ot Z88.8 ALLERGY STATUS TO OTH DRUG/MEDS/BIOL SUB 04/25/2018 DAYNA SAINZ MD Ot Z90.49 ACQUIRED ABSENCE OF OTHER SPECIFIED PART 04/25/2018 DAYNA SAINZ MD Ot Z98.51 TUBAL LIGATION STATUS 04/25/2018 DAYNA SAINZ MD Ot Z98.890 OTHER SPECIFIED POSTPROCEDURAL STATES 04/25/2018 BERNOT, MARLENA Ot G43.909 MIGRAINE, UNSP, NOT INTRACTABLE, WITHOUT 04/25/2018 BERNOT, MARLENA Ot I10 ESSENTIAL (PRIMARY) HYPERTENSION 04/25/2018 BERNOT, MARLENA Ot K21.9 GASTRO-ESOPHAGEAL REFLUX DISEASE WITHOUT 04/25/2018 BERNOT, MARLENA Ot K58.9 IRRITABLE BOWEL SYNDROME WITHOUT DIARRHE 04/25/2018 MARLENA ROSARIO Ot R11.2 NAUSEA WITH VOMITING, UNSPECIFIED 04/25/2018 MARLENA ROSARIO Ot Z87.19 PERSONAL HISTORY OF OTHER DISEASES OF TH 04/25/2018 MARLENA ROSARIO Ot Z87.442 PERSONAL HISTORY OF URINARY CALCULI 04/25/2018 MARLENA ROSARIO Ot Z88.5 ALLERGY STATUS TO NARCOTIC AGENT STATUS 04/25/2018 MARLENA ROSARIO Ot Z88.6 ALLERGY STATUS TO ANALGESIC AGENT STATUS 04/25/2018 MARLENA ROSARIO Ot Z90.49 ACQUIRED ABSENCE OF OTHER SPECIFIED PART 04/25/2018 MARLENA ROSARIO Ot Z98.51 TUBAL LIGATION STATUS 04/25/2018 MARLENA ROSARIO Ot Z98.890 OTHER SPECIFIED POSTPROCEDURAL STATES Procedures [...] 16:05 NR C FUNGUS SPUTUM FLUID TISSUE [id number] [facility] Comprehensive metabolic panel - 04/08/18 14:01 Serum [...] urine sediment by light microscopy >50 NRG Bacterial urine culture - 04/22/18 19:03 Bacterial urine culture NG NR Microscopic examination by KATLYN preparation - 04/22/18 21:21 KATLYN RESULT NEGATIVE; NO FUNGAL ELEMENTS OBSERVED NRG Complete blood count (CBC) with automated white blood cell (WBC) differential - 04/23/18 19:20 Blood leukocytes automated count (number/volume) 11.2 10*3/uL 4.3-11.0 Blood erythrocytes automated count (number/volume) 4.56 10*6/uL 4.35-5.85 Venous blood hemoglobin measurement (mass/volume) 11.3 g/dL 11.5-16.0 Blood hematocrit (volume fraction) 36 % 35-52 Automated erythrocyte mean corpuscular volume 78 [foz_us] 80-99 Automated erythrocyte mean corpuscular hemoglobin (mass per erythrocyte) 25 pg 25-34 Automated erythrocyte mean corpuscular hemoglobin concentration measurement ( mass/volume) 32 g/dL 32-36 Automated erythrocyte distribution width ratio 16.2 % 10.0-14.5 Automated blood platelet count (count/volume) 340 10*3/uL 130-400 Automated blood platelet mean volume measurement 11.9 [foz_us] 7.4-10.4 Automated blood neutrophils/100 leukocytes 84 % 42-75 Automated blood lymphocytes/100 leukocytes 10 % 12-44 Blood monocytes/100 leukocytes 5 % 0-12 Automated blood eosinophils/100 leukocytes 0 % 0-10 Automated blood basophils/100 leukocytes 1 % 0-10 Blood neutrophils automated count (number/volume) 9.4 10*3 1.8-7.8 Blood lymphocytes automated count (number/volume) 1.1 10*3 1.0-4.0 Blood monocytes automated count (number/volume) 0.6 10*3 0.0-1.0 Automated eosinophil count 0.0 10*3/uL 0.0-0.3 Automated blood basophil count (count/volume) 0.1 10*3/uL 0.0-0.1 Comprehensive metabolic panel - 04/23/18 19:20 Serum or plasma sodium measurement (moles/volume) 149 mmol/L 135-145 Serum or plasma potassium measurement (moles/volume) 3.6 mmol/L 3.6-5.0 Serum or plasma chloride measurement (moles/volume) 116 mmol/L 98-107 Carbon dioxide 17 mmol/L 21-32 Serum or plasma anion gap determination (moles/volume) 16 mmol/L 5-14 Serum or plasma urea nitrogen measurement (mass/volume) 19 mg/dL 7-18 Serum or plasma creatinine measurement (mass/volume) 0.83 mg/dL 0.60-1.30 Serum or plasma urea nitrogen/creatinine mass ratio 23 NRG Serum or plasma creatinine measurement with calculation of estimated glomerular filtration rate > NRG Serum or plasma glucose measurement (mass/volume) 123 mg/dL 70-105 Serum or plasma calcium measurement (mass/volume) 10.0 mg/dL 8.5-10.1 Serum or plasma total bilirubin measurement (mass/volume) 0.5 mg/dL 0.1-1.0 Serum or plasma alkaline phosphatase measurement (enzymatic activity/volume) 62 U/L 40-136 Serum or plasma aspartate aminotransferase measurement (enzymatic activity/ volume) 20 U/L 5-34 Serum or plasma alanine aminotransferase measurement (enzymatic activity/volume ) 11 U/L 0-55 Serum or plasma protein measurement (mass/volume) 7.9 g/dL 6.4-8.2 Serum or plasma albumin measurement (mass/volume) 4.5 g/dL 3.2-4.5 CALCIUM CORRECTED 9.6 mg/dL 8.5-10.1 Serum or plasma amylase measurement (enzymatic activity/volume) - 04/23/18 19: 20 Serum or plasma amylase measurement (enzymatic activity/volume) 45 U /L 25-125 Lipase - 04/23/18 19:20 Lipase 42 U/L 8-78 Complete urinalysis with reflex to culture - 04/23/18 19:59 Urine color determination YELLOW NRG Urine clarity determination SLIGHTLY CLOUDY NRG Urine pH measurement by test strip 6 5-9 Specific gravity of urine by test strip 1.030 1.016- 1.022 Urine protein assay by test strip, semi-quantitative 3+ NEGATIVE Urine glucose detection by automated test strip NEGATIVE NEGATIVE Erythrocytes detection in urine sediment by light microscopy 4+ NEGATIVE Urine ketones detection by automated test [...] detection in urine sediment by light microscopy MODERATE NRG Squamous epithelial cells detection in urine sediment by light microscopy 25-50 NRG Crystals detection in urine sediment by light microscopy NONE NRG Casts detection in urine sediment by light microscopy NONE NRG Mucus detection in urine sediment by light microscopy LARGE NRG Complete urinalysis with reflex to culture YES NRG Bacterial urine culture - 04/23/18 19:59 Bacterial urine culture NG NRG Encounters ACCT No. Visit Date/Time Discharge Status Pt. Type Provider Facility Loc./Unit Complaint [id number] 04/25/2018 11:04:00 04/25/2018 23:59:59 CLS Outpatient SUDHIR RAIN DO [facility] RAD HIATAL HERNIA,STRICTURE OF ESOPHAGUS [id number] 04/23/2018 18:55:00 04/23/2018 21:44:00 DIS Outpatient MARLENA ROSARIO [facility] ER NAUSEA, VOMITTING [id number] 04/22/2018 17:22:00 04/22/2018 22:46:00 DIS Emergency DAYNA SAINZ MD [facility] ER ABD PAIN [id number] 04/08/2018 21:08:00 04/09/2018 05:43:00 DIS Emergency BRANNON JULES DO [facility] ER VOMITING [id number] 04/08/2018 09:38:00 04/08/2018 16:32:00 DIS Emergency MRALENA ROSARIO [facility] ER N/V [id number] 03/28/2018 10:16:00 03/28/2018 15:00:00 DIS Outpatient SONY BERGER MD [facility] ENDO REFLUX [id number] 03/25/2018 02:31:00 03/25/2018 04:59:00 DIS Emergency BRANNON JULES DO [facility] ER VOMITING [id number] 03/23/2018 21:54:00 03/24/2018 01:00:00 DIS Emergency BRANNON JULES DO [facility] ER SOB [id number] 04/15/2016 13:39:00 04/15/2016 23:59:59 CLS Outpatient ERNESTO PONCE MD [facility] RAD SCREENING [id number] 04/03/2015 11:33:00 04/03/2015 14:05:00 DIS Outpatient SONY BERGER MD [facility] FAMILY HISTORY COLON CA, REFLEX [id number] 04/01/2015 14:30:00 04/01/2015 14:30:00 CAN Outpatient SONY BERGER MD [facility] PREOP ABDOMINAL PAIN REFLUX [id number] 05/30/2014 08:11:00 05/30/2014 08:57:00 DIS Outpatient ANAHI LOERA MD [facility] CARD DDD [id number] 04/04/2014 08:17:00 04/04/2014 23:59:59 CLS Outpatient ANAHI LOERA MD [facility] CARD DDD-LUMBAR [id number] 01/24/2014 16:00:00 01/24/2014 23:59:59 CLS Outpatient PRISCILLA JAY MD [facility] RAD RT L5 RADICULOPATHY [id number] 01/14/2014 13:06:00 01/14/2014 23:59:59 CLS Outpatient PRISCILLA JAY MD [facility] RAD RT L5 RADICULOPATHY [id number] 01/07/2014 14:54:00 01/07/2014 23:59:59 CLS Outpatient ERNESTO PONCE MD [facility] RAD ROUTINE [id number] 12/26/2013 13:53:00 12/26/2013 23:59:59 CLS Outpatient ERNESTO PONCE MD [facility] RAD PAIN OVER 1ST 2ND METARSAL REGION [id number] 12/17/2013 09:39:00 12/17/2013 23:59:59 CLS Outpatient ERNESTO PONCE MD [facility] CARD PALP [id number] 12/11/2012 15:21:00 12/11/2012 23:59:59 CLS Outpatient ERNESTO PONCE MD [facility] RAD SCREENING [id number] 08/08/2012 14:29:00 08/16/2012 08:16:00 DIS Outpatient ROSARIO VILLEGAS, ERNESTO [facility] [id number] 03/25/2015 13:33:00 Document Registration [id number] 03/25/2015 13:33:00 Document Registration [id number] 01/18/2011 13:36:00 Document Registration [id number] 10/08/2010 13:36:00 Document Registration [id number] 09/10/2010 15:45:00 Document Registration [id number] 02/22/2010 09:13:00 Document Registration [id number] 01/04/2010 05:45:00 Document Registration [id number] 12/31/2009 14:13:00 Document Registration [id number] 12/01/2009 08:42:00 Document Registration [id number] 10/09/2008 14:03:00 Document Registration [id number] 05/30/2014 08:12:31 ACT Document Registration
[2018-04-30] MEDS ORDERED: NS IV 1000 ML 1,000 ML IV ONE (02:43)
[2018-04-30 02:50] LABS: CLARITY,URINE SLIGHTLY CLOUDY; COLOR,URINE BROWN; GLUCOSE, URINE (UA) 1+ (NEGATIVE); KETONES,URINE 4+ (NEGATIVE); LEUKOCYTE ESTERASE ,URINE 2+ (NEGATIVE); NITRITE,URINE POSITIVE (NEGATIVE); PH,URINE 6.5 (5-9); PROTEIN,URINE 4+ (NEGATIVE); UROBILINOGEN,URINE 4 MG/DL (NORMAL)
[2018-04-30 02:53] LABS: BASOPHILS # (AUTO) 0.1 10^3/uL (0.0-0.1); BASOPHILS % (AUTO) 1 % (0-10); EOSINOPHILS # (AUTO) 0.1 10^3/uL (0.0-0.3); EOSINOPHILS % (AUTO) 1 % (0-10); HEMATOCRIT 41 % (35-52); HEMOGLOBIN 12.5 G/DL (11.5-16.0); LYMPHOCYTES # (AUTO) 4.9 X 10^3 (1.0-4.0); LYMPHOCYTES % (AUTO) 34 % (12-44); MEAN CORPUSCULAR HEMOGLOBIN 25 PG (25-34); MEAN CORPUSCULAR HGB CONC 31 G/DL (32-36); MEAN CORPUSCULAR VOLUME 81 FL (80-99); MEAN PLATELET VOLUME 14.2 FL (7.4-10.4); MONOCYTES # (AUTO) 1.1 X 10^3 (0.0-1.0); MONOCYTES % (AUTO) 8 % (0-12); NEUTROPHILS # (AUTO) 8.1 X 10^3 (1.8-7.8); NEUTROPHILS % (AUTO) 57 % (42-75); PLATELET COUNT 422 10^3/uL (130-400); RED CELL DISTRIBUTION WIDTH 18.3 % (10.0-14.5); WHITE BLOOD COUNT 14.3 10^3/uL (4.3-11.0)
[2018-04-30 03:05] LABS: ALBUMIN 4.4 GM/DL (3.2-4.5); BILIRUBIN,TOTAL 0.5 MG/DL (0.1-1.0); CALCIUM 9.8 MG/DL (8.5-10.1); CREATININE SERUM 1.07 MG/DL (0.60-1.30); POTASSIUM 3.5 MMOL/L (3.6-5.0); TOTAL PROTEIN 8.2 GM/DL (6.4-8.2)
[2018-04-30 03:06] LABS: BACTERIA,URINE LARGE /HPF; SQUAMOUS EPITHELIAL CELL,UR 25-50 /HPF
[2018-04-30] MEDS ORDERED: KETOROLAC 30 MG/ML VIAL IVP STA (03:06)
[2018-04-30] MEDS ORDERED: KETOROLAC 30 MG/ML VIAL ONE (03:06)
[2018-04-30 03:07] LABS: BILIRUBIN,URINE 2+ (NEGATIVE)
[2018-04-30] MEDS ORDERED: cefTRIAXone FOR IV USE 1,000 MG in WATER (STERILE) FOR INJECTION 10 ML IV ONE (03:45)
--- NOTE | 2018-04-30 03:53 | ED Abdominal Pain ---
General Chief Complaint: Abdominal/GI Problems Stated Complaint: ABD PAIN Nursing Triage Note: PT COMPLAINT OF ABDOMAINL PAIN. STATES HISTORY OF HITIAL HERNIA. Sepsis Screen: No Definite Risk Source of Information: Patient Exam Limitations: No Limitations History of Present Illness Date Seen by Provider: Apr 30, 2018 Time Seen by Provider: 03:11 Initial Comments Here with report of allover abdominal pain that is worse than normal and different than typical. She has hiatal hernia which causes her quite a bit of problems. She reports that she's not eating well. She states that she is drinking but usually in the form of ice chips. Notes difficulty with urination. No report of vomiting. Timing/Duration: 1-2 Days Severity/Quality: Moderate, Severe, Aching Location: Generalized Abdomen Radiation: Back Activities at Onset: None Modifying Factors: Worsens With Urinating Associated Symptoms: Back Pain; No Chest Pain, No Fever/Chills, No Nausea/ Vomiting Allergies and Home Medications Allergies Coded Allergies: aspirin (Verified Allergy, Unknown, 04/22/18) fentanyl (Verified Allergy, Unknown, 04/22/18) hydrocodone (Verified Allergy, Unknown, 04/22/18) Uncoded Allergies: NKDA (Allergy, Mild, 06/11/08) Home Medications Fluconazole 200 Mg Tablet, 200 MG PO DAILY Prescribed by: SONY BERGER on 03/28/18 1421 Fluconazole 100 Mg Tablet, 100 MG PO DAILY Prescribed by: SONY BERGER on 03/28/18 1421 Hydrocodone Bit/Acetaminophen 1 Tab Tab, 1 EACH PO Q4-6HR PRN for PAIN-MODERATE Prescribed by: MARLENA ROSARIO on 04/08/18 1607 Hyoscyamine Sulfate 0.375 Mg Tab.sr.12h, 0.375 MG PO BID, (Reported) Hyoscyamine Sulfate 0.125 Mg Tab.subl, 0.125 MG SL Q4H PRN for CRAMPS Prescribed by: MARLENA ROSARIO on 04/23/18 210 Loratadine 10 Mg Tablet, 10 MG PO DAILY, (Reported) Metoprolol Succinate 25 Mg Tab, 25 MG PO DAILY, (Reported) Nitrofurantoin Macrocrystal 100 Mg Capsule, 100 MG PO BID Prescribed by: DAYNA SAINZ on 04/22/18 2220 Ondansetron 4 Mg Tab.rapdis, 4 MG PO Q6H PRN for NAUSEA/VOMITING Prescribed by: DAYNA SAINZ on 04/22/18 2220 Ondansetron HCl 4 Mg Tab, 4 MG PO Q4H PRN for NAUSEA/VOMITING-1ST LINE Prescribed by: MARLENA ROSARIO on 04/08/18 1607 Oxybutynin Chloride 5 Mg Tab, 5 MG PO ONCE, (Reported) Pantoprazole Sodium 40 Mg Tablet.dr, 40 MG PO DAILY Prescribed by: SONY BERGER on 04/03/15 1308 Promethazine HCl 25 Mg Supp.rect, 25 MG RC Q4H Prescribed by: BRANNON JULES on 04/09/18 0416 Topiramate 50 Mg Tablet, 50 MG PO DAILY, (Reported) Patient Home Medication List Home Medication List Reviewed: Yes Review of Systems Review of Systems Constitutional: No chills, No fever EENTM: No Symptoms Reported Respiratory: No Symptoms Reported Cardiovascular: No Symptoms Reported Gastrointestinal: Abdominal Pain; Denies Nausea, Denies Vomiting Genitourinary: Denies Incontinence; Pain Musculoskeletal: back pain; No muscle pain Skin: no symptoms reported All Other Systems Reviewed Negative Unless Noted: Yes Past Oosypdk-Sacuet-Xtfwyn Hx Past Med/Social Hx: Reviewed Nursing Past Med/Soc Hx Patient Social History Alcohol Use: Denies Use Recreational Drug Use: No 2nd Hand Smoke Exposure: No Recent Foreign Travel: No Contact w/Someone Who Travel: No Recent Infectious Disease Expo: No Recent Hopitalizations: No Immunizations Up To Date Tetanus Booster (TDap): Unknown Past Medical History Surgeries: Yes (EGD/COLONOSCOPY; HIATAL HERNIA REPAIR 2005; X 1) Abdominal, Appendectomy, Section, Gallbladder, Tubal Ligation Respiratory: No Currently Using CPAP: No Currently Using BIPAP: No Cardiac: Yes Hypertension Neurological: Yes Headaches /Migraines 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 Genitourinary: Yes (URINARY URGENCY) Kidney Stones Gastrointestinal: Yes ( HIATAL HERNIA-S/P SURGERY X 1--NOW WITH RECURRENCE; S/ P PABLO AND APPY ) Gastroesophageal Reflux, Diverticulosis, Hemorrhoids, Hiatal Hernia, Irritable Bowel Musculoskeletal: Yes (SCIATICA; CHRONIC NECK AND BACK PAIN) Degenerate Disk Disease, Chronic Back Pain Endocrine: No HEENT: No Cancer: No Psychosocial: No Integumentary: No Blood Disorders: No Family Medical History Reviewed Nursing Family Hx Physical Exam Vital Signs Vital Signs - First Documented 04/30/18 00:39 Temp 98.0 Pulse 139 Resp 18 B/P (MAP) 122/66 (84) Pulse Ox 100 O2 Delivery Room Air Capillary Refill : Less Than 3 Seconds Height/Weight/BMI Height: 5'2.00" Weight: 160lbs. 0.0oz. 72.445698uy; 33.5 BMI Method:Estimated General Appearance: WD/WN, no apparent distress HEENT: PERRL/EOMI, pharynx normal Neck: full range of motion, supple Respiratory: lungs clear, normal breath sounds Cardiovascular: regular rate, rhythm, no murmur Gastrointestinal: soft; No guarding, No rebound; tenderness (diffusely but greatest in the suprapubic region) Extremities: non-tender, normal inspection Back: normal inspection, no CVA tenderness Neurologic/Psychiatric: no motor/sensory deficits, alert, oriented x 3 Skin: normal color, warm/dry Progress/Results/Core Measures Results/Orders Lab Results Laboratory Tests Test 04/30/18 00:40 04/30/18 02:18 Range/Units White Blood Count 14.3 H 4.3-11.0 10^3/uL Red Blood Count 5.05 4.35-5.85 10^6/uL Hemoglobin 12.5 11.5-16.0 G/DL Hematocrit 41 35-52 % Mean Corpuscular Volume 81 80-99 FL Mean Corpuscular Hemoglobin 25 25-34 PG Mean Corpuscular Hemoglobin Concent 31 L 32-36 G/DL Red Cell Distribution Width 18.3 H 10.0-14.5 % Platelet Count 422 H 130-400 10^3/uL Mean Platelet Volume 14.2 H 7.4-10.4 FL Neutrophils (%) (Auto) 57 42-75 % Lymphocytes (%) (Auto) 34 12-44 % Monocytes (%) (Auto) 8 0-12 % Eosinophils (%) (Auto) 1 0-10 % Basophils (%) (Auto) 1 0-10 % Neutrophils # (Auto) 8.1 H 1.8-7.8 X 10^3 Lymphocytes # (Auto) 4.9 H 1.0-4.0 X 10^3 Monocytes # (Auto) 1.1 H 0.0-1.0 X 10^3 Eosinophils # (Auto) 0.1 0.0-0.3 10^3/uL Basophils # (Auto) 0.1 0.0-0.1 10^3/uL Sodium Level 155 H 135-145 MMOL/L Potassium Level 3.5 L 3.6-5.0 MMOL/L Chloride Level 119 H 98-107 MMOL/L Carbon Dioxide Level 14 L 21-32 MMOL/L Anion Gap 22 H 5-14 MMOL/L Blood Urea Nitrogen 32 H 7-18 MG/DL Creatinine 1.07 0.60-1.30 MG/DL Estimat Glomerular Filtration Rate 55 BUN/Creatinine Ratio 30 Glucose Level 159 H 70-105 MG/DL Calcium Level 9.8 8.5-10.1 MG/DL Corrected Calcium 9.5 8.5-10.1 MG/DL Total Bilirubin 0.5 0.1-1.0 MG/DL Aspartate Amino Transf (AST/SGOT) 38 H 5-34 U/L Alanine Aminotransferase (ALT/SGPT) 23 0-55 U/L Alkaline Phosphatase 56 40-136 U/L Total Protein 8.2 6.4-8.2 GM/DL Albumin 4.4 3.2-4.5 GM/DL Urine Color BROWN H Urine Clarity SLIGHTLY CLOUDY Urine pH 6.5 5-9 Urine Specific [place] 1.020 1.016-1.022 Urine Protein 4+ NEGATIVE Urine Glucose (UA) 1+ H NEGATIVE Urine Ketones 4+ H NEGATIVE Urine Nitrite POSITIVE H NEGATIVE Urine Bilirubin 2+ H NEGATIVE Urine Urobilinogen 4 H NORMAL MG/DL Urine Leukocyte Esterase 2+ H NEGATIVE Urine RBC (Auto) 5+ H NEGATIVE Urine RBC 10-25 H /HPF Urine WBC 10-25 H /HPF Urine Squamous Epithelial Cells 25-50 H /HPF Urine Crystals NONE /LPF Urine Bacteria LARGE H /HPF Urine Casts PRESENT /LPF Urine Hyaline Casts 10-25 H /LPF Urine Mucus MODERATE H /LPF Urine Culture Indicated YES My Orders Orders - PINA FERGUSON MD Cbc With Automated Diff (04/30/18 02:43) Comprehensive Metabolic Panel (04/30/18 02:43) Ua Culture If Indicated (04/30/18 02:43) Saline Lock/Iv-Start (04/30/18 02:43) Ns Iv 1000 Ml (Sodium Chloride 0.9%) (04/30/18 02:43) Ketorolac Injection (Toradol Injection) (04/30/18 03:06) Urine Culture (04/30/18 02:18) Ketorolac Injection (Toradol Injection) (04/30/18 03:06) Lactic Acid Analyzer (04/30/18 03:11) Blood Culture (04/30/18 03:11) Ceftriaxone For Iv Use (Rocephin For I (04/30/18 03:45) Medications Given in ED Current Medications Medications Dose Ordered Sig/Sergio Route Start Time Stop Time Status Last Admin Dose Admin Sodium Chloride 1,000 ml @ 0 mls/hr Q0M ONCE IV 04/30/18 02:43 04/30/18 02:44 DC 04/30/18 03:15 999 MLS/HR Vital Signs/I&O 04/30/18 00:39 Temp 98.0 Pulse 139 Resp 18 B/P (MAP) 122/66 (84) Pulse Ox 100 O2 Delivery Room Air Blood Pressure Mean: 84 Progress Progress Note : Progress Note Seen and evaluated. UA ordered. This was brown and purulent appearing. IV, labs , normal saline 1 L bolus and Toradol 30 mg IV ordered. Blood cultures and lactic acid ordered. We will initiate Rocephin 1 g IV. 0338: I did discuss the case with Dr. Avilez. She accepts the patient on behalf of Dr. Ponce for admission , inpatient status. Patient agrees with plan. Departure Communication (Admissions) Time/Spoke to Admitting Phy: 03:38 Impression Primary Impression: Urinary tract infection Qualified Codes: N30.01 - Acute cystitis with hematuria Additional Impressions: Hypernatremia Abdominal pain, diffuse Disposition: ADMITTED INPATIENT Condition: Stable Admissions Decision to Admit Reason: Admit from ER (General) Decision to Admit/Date: Apr 30, 2018 Time/Decision to Admit Time: 03:38 Departure-Patient Inst. Referrals: ERNESTO PONCE MD (PCP/Family) Primary Care Physician PINA FERGUSON MD Apr 30, 2018 03:53
--- OUTSIDE RECORDS SUMMARY | 2018-04-30 04:06 | XMS REPORT | Continuity of Care Document ---
Author Author [facility] Organization [facility] Address Unknown Phone Unavailable Allergies Active Description Code Type Severity Reaction Onset Reported/Identified Relationship to Patient Clinical Status Yes NKDA NKDA Mild N/ A 06/11/2008 Yes No Known Drug Allergies [id number] Drug Allergy Unknown N/A 06/22/2009 Yes aspirin [id number] Drug Allergy Unknown N/A 04/22/2018 Yes fentanyl [id number] Drug Allergy Unknown N/A 04/22/2018 Yes hydrocodone [id number] Drug Allergy Unknown N/A 04/22/2018 Medications There [...] ESSENTIAL (PRIMARY) HYPERTENSION 03/24/2018 JORGE A CANO BRANNON K Ot K21.9 GASTRO-ESOPHAGEAL REFLUX DISEASE [...] 03/28/2018 SONY BERGER MD, Ot 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 Type Provider Facility Loc./Unit Complaint [id number] 04/25/2018 11:04:00 04/25/2018 23:59:59 CLS Outpatient SUDHIR RIAN DO [facility] RAD HIATAL HERNIA,STRICTURE OF ESOPHAGUS [id number] 04/23/2018 18:55:00 04/23/2018 21:44:00 DIS Outpatient AMRLENA ROSAROI [facility] ER NAUSEA, VOMITTING [id number] 04/22/2018 17:22:00 04/22/2018 22:46:00 DIS Emergency DAYNA SAINZ MD [facility] ER ABD PAIN [id number] 04/08/2018 21:08:00 04/09/2018 05:43:00 DIS Emergency BRANNON JULES DO [facility] ER VOMITING [id number] 04/08/2018 09:38:00 04/08/2018 16:32:00 DIS Emergency MARLENA ROSARIO [facility] ER N/V [id number] 03/28/2018 10:16:00 03/28/2018 15:00:00 DIS Outpatient SONY BERGER MD [facility] ENDO REFLUX [id number] 03/25/2018 02:31:00 03/25/2018 04:59:00 DIS Emergency BRANNON JULES DO [facility] ER VOMITING [id number] 03/23/2018 21:54:00 03/24/2018 01:00:00 DIS Emergency BRANNON JULES DO [facility] ER SOB [id number] 04/15/2016 13:39:00 04/15/2016 23:59:59 CLS Outpatient ERNESTO PONCE MD [facility] RAD SCREENING [id number] 04/03/2015 11:33:00 04/03/2015 14:05:00 DIS Outpatient SONY BERGER MD [facility] FAMILY HISTORY COLON CA, REFLEX [id number] 04/01/2015 14:30:00 04/01/2015 14:30:00 CAN Outpatient SONY BERGER MD [facility] PREOP ABDOMINAL PAIN REFLUX [id number] 05/30/2014 08:11:00 05/30/2014 08:57:00 DIS Outpatient ANAHI LOERA MD [facility] CARD DDD [id number] 04/04/2014 08:17:00 04/04/2014 23:59:59 CLS Outpatient ANAHI LOERA MD [facility] CARD DDD-LUMBAR [id number] 01/24/2014 16:00:00 01/24/2014 23:59:59 CLS Outpatient PRISCILLA JAY MD [facility] RAD RT L5 RADICULOPATHY [id number] 01/14/2014 13:06:00 01/14/2014 23:59:59 CLS Outpatient PRISCILLA JAY MD [facility] RAD RT L5 RADICULOPATHY [id number] 01/07/2014 14:54:00 01/07/2014 23:59:59 CLS Outpatient ERNESTO PONCE MD [facility] RAD ROUTINE [id number] 12/26/2013 13:53:00 12/26/2013 23:59:59 CLS Outpatient ERNESTO PONCE MD [facility] RAD PAIN OVER 1ST 2ND METARSAL REGION [id number] 12/17/2013 09:39:00 12/17/2013 23:59:59 CLS Outpatient ERNESTO PONCE MD [facility] CARD PALP [id number] 12/11/2012 15:21:00 12/11/2012 23:59:59 CLS Outpatient ERNESTO PONCE MD [facility] RAD SCREENING [id number] 08/08/2012 14:29:00 08/16/2012 08:16:00 DIS Outpatient ROSARIO VILLEGAS, ERNESTO [facility] [id number] 03/25/2015 13:33:00 Document Registration [id number] 03/25/2015 13:33:00 Document Registration [id number] 01/18/2011 13:36:00 Document Registration [id number] 10/08/2010 13:36:00 Document Registration [id number] 09/10/2010 15:45:00 Document Registration [id number] 02/22/2010 09:13:00 Document Registration [id number] 01/04/2010 05:45:00 Document Registration [id number] 12/31/2009 14:13:00 Document Registration [id number] 12/01/2009 08:42:00 Document Registration [id number] 10/09/2008 14:03:00 Document Registration [id number] 05/30/2014 08:12:31 ACT Document Registration
[2018-04-30] MEDS ORDERED: cefTRIAXone 1,000 MG IV (ROCEPHIN) VIAL ONE (04:19)
[2018-04-30] MEDS ORDERED: WATER (STERILE) FOR INJECTION 10 ML ONE (04:20)
[2018-04-30] MEDS ORDERED: NS IV 1000 ML 1,000 ML ONE (04:57)
[2018-04-30] MEDS ORDERED: ACETAMINOPHEN 500 MG TAB (TYLENOL) ONE (04:58)
[2018-04-30 05:00] VITALS: BP 111/82
[2018-04-30] MEDS ORDERED: ACETAMINOPHEN 500 MG TAB (TYLENOL) PO PRN (05:45)
[2018-04-30] MEDS: NS IV 1000 ML 1,000 ML IV SCH ×2 (05:51→13:58)
--- NOTE | 2018-04-30 06:54 | NUR ---
JULIETA HERNÁNDEZ admitted to room 411-1, with an admitting diagnosis of abd pain, uti on 04/30/18 from ed via WC, accompanied by ED saff.JULIETA HERNÁNDEZ introduced to surroundings, call light, bed controls, phone, TV, temperature control, lights, meal times, smoking policy, visitor policy, side rail policy, bathrooms and showers. Patient Rights given to patient in the handbook. JULIETA HERNÁNDEZ verbalizes understanding that [facility] is not responsible for the loss or damage to any personal effects or valuables that are kept in the patients posession during their hospitalization. JULIETA HERNÁNDEZ verbalizes understanding of Interdisciplinary Patient Education. Patient and/or family were informed about the Rapid Response Team and its purpose.
--- NOTE | 2018-04-30 07:25 | History & Physicial ---
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 She does typically have diffuse abdominal pain since she is with irritable bowel syndrome as well as hiatal hernia but she does admit this is different. She has not been eating well and only drinking small amounts of fluids and taking ice chips. She is having difficulty with urination. She also reports that she is awaiting surgery for hiatal hernia. She informs me the surgery will be performed at [facility] by Dr Lew. She recently underwent upper GI last week. Date of Admission Apr 30, 2018 at 03:45 Date Seen by a Provider: Apr 30, 2018 Time Seen by a Provider: 07:40 I consulted on this patient on 04/30/18 07:22 Attending Physician Monica Avilez DO Admitting Physician Robert Ponce MD Consult Allergies and Home Medications Allergies Coded Allergies: aspirin (Verified Allergy, Unknown, 04/22/18) fentanyl (Verified Allergy, Unknown, 04/22/18) hydrocodone (Verified Allergy, Unknown, 04/22/18) Uncoded Allergies: NKDA (Allergy, Mild, 06/11/08) Home Medications Fluconazole 200 Mg Tablet, 200 MG PO DAILY Prescribed by: SONY CARSON on 03/28/18 1421 Fluconazole 100 Mg Tablet, 100 MG PO DAILY Prescribed by: SONY CARSON on 03/28/18 1421 Hydrocodone Bit/Acetaminophen 1 Tab Tab, 1 EACH PO Q4-6HR PRN for PAIN-MODERATE Prescribed by: MARLENA ROSARIO on 04/08/18 1607 Hyoscyamine Sulfate 0.375 Mg Tab.sr.12h, 0.375 MG PO BID, (Reported) Hyoscyamine Sulfate 0.125 Mg Tab.subl, 0.125 MG SL Q4H PRN for CRAMPS Prescribed by: MARLENA ROSARIO on 04/23/18 2106 Loratadine 10 Mg Tablet, 10 MG PO DAILY, (Reported) Metoprolol Succinate 25 Mg Tab, 25 MG PO DAILY, (Reported) Nitrofurantoin Macrocrystal 100 Mg Capsule, 100 MG PO BID Prescribed by: DAYNA SAINZ on 04/22/18 2220 Ondansetron 4 Mg Tab.rapdis, 4 MG PO Q6H PRN for NAUSEA/VOMITING Prescribed by: DAYNA SAINZ on 04/22/18 2220 Ondansetron HCl 4 Mg Tab, 4 MG PO Q4H PRN for NAUSEA/VOMITING-1ST LINE Prescribed by: MARLENA ROSARIO on 04/08/18 1607 Oxybutynin Chloride 5 Mg Tab, 5 MG PO ONCE, (Reported) Pantoprazole Sodium 40 Mg Tablet.dr, 40 MG PO DAILY Prescribed by: SONY CARSON on 04/03/15 1308 Promethazine HCl 25 Mg Supp.rect, 25 MG RC Q4H Prescribed by: BRANNON JULES on 04/09/18 0416 Topiramate 50 Mg Tablet, 50 MG PO DAILY, (Reported) Patient Home Medication List Home Medication List Reviewed: Yes Past Ufvaywe-Vqllof-Fybpry Hx Patient Social History Marrital Status: Number of Children: 1 Alcohol Use: Denies Use Recreational Drug Use: No 2nd Hand Smoke Exposure: No Recent Foreign Travel: No Contact w/other who traveled: No Recent Hopitalizations: No Recent Infectious Disease Expo: No Immunizations Up To Date Tetanus Booster (TDap): Unknown Surgeries Yes (EGD/COLONOSCOPY; HIATAL HERNIA REPAIR 2005; X 1) Abdominal, Appendectomy, Section, Gallbladder, Tubal Ligation Respiratory No Currently Using CPAP: No Currently Using BIPAP: No Cardiovascular Yes Hypertension Neurological Yes Headaches /Migraines 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 System Hx 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 Disorders: No 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 Genitourinary Yes (URINARY URGENCY) Kidney Stones Gastrointestinal Yes ( HIATAL HERNIA-S/P SURGERY X 1--NOW WITH RECURRENCE; S/P PABLO AND APPY ) Gastroesophageal Reflux, Diverticulosis, Hemorrhoids, Hiatal Hernia, Irritable Bowel Musculoskeletal Yes (SCIATICA; CHRONIC NECK AND BACK PAIN) Degenerate Disk Disease, Chronic Back Pain Endocrine History of Endocrine Disorders: No HEENT History of HEENT Disorders: No Cancer No Psychosocial History of Psychiatric Problem: No Integumentary History of Skin or Integumenta: No Blood Transfusions History of Blood Disorders: No Review of Systems Constitutional: see HPI Physical Exam Vital Signs Vital Signs - First Documented 04/30/18 00:39 Temp 98.0 Pulse 139 Resp 18 B/P (MAP) 122/66 (84) Pulse Ox 100 O2 Delivery Room Air Capillary Refill : Less Than 3 Seconds Height, Weight, BMI Height: 5'2.00" Weight: 161lbs. 0.0oz. 73.057930re; 29.5 BMI Method:Estimated General Appearance: No Apparent Distress Eyes: Bilateral Eye Normal Inspection Neck: Supple Respiratory: Lungs Clear Cardiovascular: Regular Rate, Rhythm (With a heart rate of 110) Gastrointestinal: Tenderness (Noted diffusely in all 4 quadrants) Rectal: Deferred Extremity: Normal Capillary Refill Neurologic/Psychiatric: Alert, Oriented x3 Skin: Normal Color Comments Laboratory Tests Test 04/30/18 00:40 04/30/18 02:18 04/30/18 03:52 Range/Units White Blood Count 14.3 H 4.3-11.0 10^3/uL Red Blood Count 5.05 4.35-5.85 10^6/uL Hemoglobin 12.5 11.5-16.0 G/DL Hematocrit 41 35-52 % Mean Corpuscular Volume 81 80-99 FL Mean Corpuscular Hemoglobin 25 25-34 PG Mean Corpuscular Hemoglobin Concent 31 L 32-36 G/DL Red Cell Distribution Width 18.3 H 10.0-14.5 % Platelet Count 422 H 130-400 10^3/uL Mean Platelet Volume 14.2 H 7.4-10.4 FL Neutrophils (%) (Auto) 57 42-75 % Lymphocytes (%) (Auto) 34 12-44 % Monocytes (%) (Auto) 8 0-12 % Eosinophils (%) (Auto) 1 0-10 % Basophils (%) (Auto) 1 0-10 % Neutrophils # (Auto) 8.1 H 1.8-7.8 X 10^3 Lymphocytes # (Auto) 4.9 H 1.0-4.0 X 10^3 Monocytes # (Auto) 1.1 H 0.0-1.0 X 10^3 Eosinophils # (Auto) 0.1 0.0-0.3 10^3/uL Basophils # (Auto) 0.1 0.0-0.1 10^3/uL Sodium Level 155 H 135-145 MMOL/L Potassium Level 3.5 L 3.6-5.0 MMOL/L Chloride Level 119 H 98-107 MMOL/L Carbon Dioxide Level 14 L 21-32 MMOL/L Anion Gap 22 H 5-14 MMOL/L Blood Urea Nitrogen 32 H 7-18 MG/DL Creatinine 1.07 0.60-1.30 MG/DL Estimat Glomerular Filtration Rate 55 BUN/Creatinine Ratio 30 Glucose Level 159 H 70-105 MG/DL Calcium Level 9.8 8.5-10.1 MG/DL Corrected Calcium 9.5 8.5-10.1 MG/DL Total Bilirubin 0.5 0.1-1.0 MG/DL Aspartate Amino Transf (AST/SGOT) 38 H 5-34 U/L Alanine Aminotransferase (ALT/SGPT) 23 0-55 U/L Alkaline Phosphatase 56 40-136 U/L Total Protein 8.2 6.4-8.2 GM/DL Albumin 4.4 3.2-4.5 GM/DL Urine Color BROWN H Urine Clarity SLIGHTLY CLOUDY Urine pH 6.5 5-9 Urine Specific [place] 1.020 1.016-1.022 Urine Protein 4+ NEGATIVE Urine Glucose (UA) 1+ H NEGATIVE Urine Ketones 4+ H NEGATIVE Urine Nitrite POSITIVE H NEGATIVE Urine Bilirubin 2+ H NEGATIVE Urine Urobilinogen 4 H NORMAL MG/DL Urine Leukocyte Esterase 2+ H NEGATIVE Urine RBC (Auto) 5+ H NEGATIVE Urine RBC 10-25 H /HPF Urine WBC 10-25 H /HPF Urine Squamous Epithelial Cells 25-50 H /HPF Urine Crystals NONE /LPF Urine Bacteria LARGE H /HPF Urine Casts PRESENT /LPF Urine Hyaline Casts 10-25 H /LPF Urine Mucus MODERATE H /LPF Urine Culture Indicated YES Lactic Acid Level 1.53 0.50-2.00 MMOL/L Assessment/Plan Assessment and Plan 1. Urinary tract infection -Patient received dose of Rocephin in ED. She will maintain ceftriaxone 1 g every 24 hours until abdominal pain has improved and then switched to oral medications 2. Diffuse abdominal pain--with a history of hiatal hernia -Continue to monitor -Dr Carson has seen her in the past, will consult -She is apparently awaiting surgery at [facility] by Dr. Lew -Patient has Toradol for pain relief. 3. Dehydration -Initiation of IV fluids Admission Diagnosis 1. Urinary tract infection 2. Diffuse abdominal pain Admission Status: Inpatient Order (span 2 midnights) Reason for Inpatient Admission: Patient is admitted for further IV fluids as well as initiation of IV ceftriaxone. Clinical Quality Measures DVT/VTE Risk/Contraindication: Risk Factor Score Per Nursin RFS Level Per Nursing on Admit: 2=Moderate ROBERT PONCE MD Apr 30, 2018 07:25
[2018-04-30 08:00] VITALS: BP 114/84
[2018-04-30] MEDS ORDERED: KETOROLAC 30 MG/ML VIAL IVP PRN (08:00)
[2018-04-30] MEDS ORDERED: FLU QUADRIvalent (5+ YOA) 2018-2019 (AFLURIA) 0.5 ML IM ONE (08:15)
[2018-04-30] MEDS ORDERED: NITR100C PO (09:20)
[2018-04-30] MEDS ORDERED: FLUC100T6 PO (09:20)
[2018-04-30] MEDS ORDERED: ONDA4TAB11 PO (09:20)
[2018-04-30] MEDS ORDERED: HYOS0.3710 PO (09:20)
[2018-04-30] MEDS ORDERED: PANT40TA3 PO (09:20)
[2018-04-30] MEDS ORDERED: TOPI50TA13 PO (09:20)
[2018-04-30] MEDS ORDERED: OXYB5TAB9 PO (09:20)
[2018-04-30] MEDS ORDERED: METO-387 PO (09:20)
--- NOTE | 2018-04-30 09:22 | NUR ---
SPOKE WITH THE PATIENT ABOUT HER MEDICATIONS. SHE HAD A LIST IN HER WALLET AND I COMPARED WITH THE EXT MED HX. SHE TAKES LORATADINE DAILY OTC.
[2018-04-30 12:00] VITALS: BP 111/63
--- NOTE | 2018-04-30 14:05 | NUR ---
Pastoral care visit.
[2018-04-30 15:37] VITALS: BP 104/78
[2018-04-30] MEDS ORDERED: HYDROmorphone 2 MG/ML VIAL (DILAUDID) ONE (16:12)
[2018-04-30] MEDS ORDERED: FLUCONAZOLE 200 MG/100 ML 100 ML IV ONE (16:45)
--- NOTE | 2018-04-30 17:33 | CONSULTATION REPORT ---
DATE OF SERVICE: 04/30/2018 ATTENDING PRIMARY CARE PHYSICIAN: Dr. Regan. HISTORY OF PRESENT ILLNESS: The patient is a 47-year-old female known to us. She was seen by us in March 2015 for crampy abdominal pain as well as gastroesophageal reflux disease. She has had a history of what sounds like a constipation, predominant irritable bowel syndrome for many years. She has been taking hyoscyamine in recent years and she states that this has helped her symptoms. She also has tried a high fiber diet; however, due to the secondary effects of the fiber, she has not been very consistent. She also has a longstanding history of gastroesophageal reflux disease and underwent a hiatal hernia repair as well as a Hill gastropexy in 2005. She states in the past few years, she has had reflux symptoms, which have worsened and progressed to dysphagia. She underwent EGD and colonoscopy in March 2015. At that time, a recurrent hiatal hernia was identified as well as a mild to moderate gastritis, a small anal fissure as well as chronic stage II external and internal hemorrhoids identified as well as mild sigmoid diverticulosis. Due to worsening symptoms, she was seen in the Emergency Department where a CT scan was performed, which did show a significant sized hiatal hernia. We had done a repeat endoscopy on her on 03/28/2018. Findings included a reflux esophagitis stage II as well as a distal esophageal candidiasis and a large recurrent hiatal hernia with gastroesophageal junction looking at normal positioning consistent with a type 2 recurrent hiatal hernia. Moderate gastritis was noted. The patient was admitted due to dehydration and urinary tract infection; however, she also has had recurrent episodes of regurgitation, stating that she can only take in small amounts of liquids at this time. PAST MEDICAL HISTORY: Gastroesophageal reflux disease, constipation, predominant irritable bowel syndrome, idiopathic tachycardia, urinary stress incontinence, seasonal allergies, recurrent hiatal hernia. PAST SURGICAL HISTORY: section 1997, appendectomy 2000, hiatal hernia repair and Hill gastropexy in 2005, laparoscopic cholecystectomy in 2009, tubal ligation in 2010, cardiac catheterization. ALLERGIES: No known drug allergies. CURRENT MEDICATIONS: Protonix 40 mg daily, loratadine 10 mg daily, metoprolol 25 mg daily, oxybutynin 5 mg daily, topiramate 50 mg daily, hyoscyamine 0.125 mg q.4 hours p.r.n., Zofran 4 mg q.4 hours p.r.n. SOCIAL HISTORY: Negative smoke, negative alcohol. FAMILY HISTORY: Paternal grandmother, cervical cancer. Mother hypertension, diabetes, TIA in her 40s. REVIEW OF SYSTEMS: A well-nourished female, currently in no acute distress. She is not experiencing any shortness of breath or difficulty breathing. No chest pain, palpitations, diaphoresis. She does not have any nausea; however, does have dysphagia and states that this initially started the day previous to admission after eating mashed potatoes. She states since that point, she has had dysphagia for liquids. She, however, since being admitted is able to take in small amounts of liquids. No hematemesis or coffee ground emesis. History of constipation. No bowel movements recently. No red blood per rectum, no dark tarry stools. No fever, chills. No recent inadvertent weight loss. PHYSICAL EXAMINATION: VITAL SIGNS: Temperature 99.2, blood pressure 104/73, pulse 130, respirations 17, pulse ox 96% on 2 liters nasal cannula. CHEST: Clear. Good breath sounds bilaterally. HEART: Regular. No murmurs. EXTREMITIES: No lower extremity edema. Negative Homans sign. HEENT: No scleral icterus. NECK: No cervical lymphadenopathy. ABDOMEN: Soft, nondistended. There is pain in the epigastric region upon deep palpation. There are no peritoneal signs. SKIN: Warm and dry. LABORATORY DATA: WBC 14.3, hemoglobin 12.5, hematocrit 41, platelets 422. Urinalysis positive nitrite, 2+ leukocyte esterase and large amounts of urine bacteria. ASSESSMENT AND PLAN: A 47-year-old female with urinary tract infection as well as dysphagia likely secondary to a recurrent hiatal hernia as well as exacerbation of gastroesophageal reflux disease. We will proceed with conservative management at this time and proceed with IV hydration as well as IV PPI acid clinical reimbursement specialist on a b.i.d. basis as well as sitting upright and ambulating as much as possible. She did have what appeared to be esophageal candidiasis and states that she has tried the medication; however, coul not tolerate it and we will proceed with another trial of fluconazole as well. She states that she has undergone evaluation for repair of the recurrent hiatal hernia with mesh in [place], [place], which is scheduled later this month. We will continue with this conservative management for now. Job ID: [id number] DocumentID: [id number] Dictated Date: 04/30/2018 16:45:03 Industrial Technician Date: 04/30/2018 17:33:03 Dictated By: SONY BERGER MD MTDD
[2018-04-30 19:26] VITALS: BP 119/91
[2018-04-30] MEDS: DEXAMETHASONE 4 MG/ML SDV (DECADRON) IV SCH (20:36)
[2018-04-30] MEDS: PANTOPRAZOLE 40 MG (PROTONIX) VIAL IV SCH (20:36)
[2018-04-30] MEDS: HYDROmorphone 2 MG/ML VIAL (DILAUDID) IV PRN (20:56)
[2018-05-01] VITALS (29 sets, daily range): BP systolic 78–131; BP diastolic 36–111
[2018-05-01] MEDS ORDERED: NS (IVPB) 250 ML IV ONE (01:30)
[2018-05-01] MEDS ORDERED: DILTIAZEM INJECTION 125 MG in NS (IVPB) 100 ML IV SCH (01:30)
[2018-05-01] MEDS ORDERED: ENOXAPARIN 80 MG/0.8 ML (LOVENOX) SYR SC SCH (01:30)
[2018-05-01] MEDS ORDERED: NS (IVPB) 100 ML ONE ×2 (01:42→05:47)
[2018-05-01] MEDS ORDERED: DILTIAZEM 125 MG/25 ML IV (CARDIZEM) IV ONE (01:43)
--- NOTE | 2018-05-01 02:00 | NUR ---
0045-WENT IN TO TAKE PTS VITALS SIGNS AND PTS HEART RATE WAS 170 AND SUSTAINING. BP-91/67, TEMP-99.2, RESP- 20, O2-94% ON RA. PT STATES SHE DOES NOT FEEL LIKE HER HEART IS RACING NOR DOES SHE COMPLAIN OF ANY SOB OR CHEST PAIN. 0108- SPOKE WITH DR. PONCE AT THIS TIME AND INFORMED HIM OF PTS HEART RATE SUSTAINING 170'S. TELEPHONE ORDERS RECEIVED TO PLACE PT ON TELEMETRY AND CONSULT THE FILER METAL PATTERNS REPLENISHMENT SPECIALIST. 0110-SPOKE WITH DR. SOLIS AND INFOMED HIM OF PTS CONDITION. TELEPHONE ORDERS RECEIVED TO TRANSFER PT TO ICU AND START A CARDIZEM DRIP 5MG/HR AND TO TITRATE PER PROTOCOL, 250CC NORMAL SALINE BOLUS OVER 30 MINUTES, SWITCH PTS FLUIDS TO NORMAL SALINE AT 150ML/HR, LOVENOX 70MG Q12 HRS STARTING NOW, POTASSIUM CHLORIDE 10MEQ/HR X3 BAGS, AND MORNING LABS OF CBC, CMP AND MAGNESIUM. DR. SOLIS ALSO WANTED ME TO VERIFY ALL THESE ORDERS WITH DR. PONCE FIRST SINCE DR. SOLIS HAS NOT HAD THIS PT PREVIOUSLY. 0125- SPOKE WITH DR. PONCE AND I LISTED ALL ABOVE ORDERS THAT DR. SOLIS WANTS AND DR. PONCE AGREED WITH ALL ORDERS. 0145-TRANSFERRED PT TO ICU AND GAVE REPORT TO ERROL STAFFING EXECUTIVE.
[2018-05-01] MEDS: POTASSIUM CL 10MEQ/50ML IVPB 50 ML IV SCH ×4 (02:32→05:58)
[2018-05-01] MEDS: NS IV 1000 ML 1,000 ML IV SCH ×3 (03:47→19:34)
[2018-05-01] MEDS ORDERED: cefTRIAXone 1,000 MG/SWFI 10 ML IV PUSH IV SCH ×2 (04:00)
[2018-05-01 04:36] LABS: BASOPHILS % (AUTO) 0 % (0-10); EOSINOPHILS % (AUTO) 0 % (0-10); HEMATOCRIT 37 % (35-52); HEMOGLOBIN 11.5 G/DL (11.5-16.0); LYMPHOCYTES # (AUTO) 1.6 X 10^3 (1.0-4.0); LYMPHOCYTES % (AUTO) 8 % (12-44); MEAN CORPUSCULAR HEMOGLOBIN 25 PG (25-34); MEAN CORPUSCULAR HGB CONC 31 G/DL (32-36); MEAN CORPUSCULAR VOLUME 81 FL (80-99); MEAN PLATELET VOLUME 13.3 FL (7.4-10.4); MONOCYTES # (AUTO) 0.9 X 10^3 (0.0-1.0); MONOCYTES % (AUTO) 4 % (0-12); NEUTROPHILS # (AUTO) 19.2 X 10^3 (1.8-7.8); NEUTROPHILS % (AUTO) 88 % (42-75); PLATELET COUNT 276 10^3/uL (130-400); WHITE BLOOD COUNT 21.8 10^3/uL (4.3-11.0)
[2018-05-01] MEDS ORDERED: cefTRIAXone 1,000 MG IV (ROCEPHIN) VIAL ONE (04:44)
[2018-05-01] MEDS ORDERED: WATER (STERILE) FOR INJECTION 10 ML ONE (04:44)
[2018-05-01 04:51] LABS: BAND NEUTROPHILS 37 %; LYMPHOCYTES % (MANUAL) 4 %; METAMYELOCYTES % 4 %; MONOCYTES % (MANUAL) 2 %; NEUTROPHILS % (MANUAL) 53 %; RBC MORPH NORMAL
[2018-05-01 04:52] LABS: TOXIC GRANULATION/VACUOLAZATIO 3+
[2018-05-01] MEDS: DEXAMETHASONE 4 MG/ML SDV (DECADRON) IV SCH ×3 (04:56→22:29)
[2018-05-01 05:00] LABS: ALBUMIN 2.5 GM/DL (3.2-4.5); BILIRUBIN,TOTAL 0.6 MG/DL (0.1-1.0); CREATININE SERUM 2.78 MG/DL (0.60-1.30); MAGNESIUM 1.1 MG/DL (1.8-2.4); PHOSPHORUS 5.7 MG/DL (2.3-4.7); POTASSIUM 4.8 MMOL/L (3.6-5.0); TOTAL PROTEIN 4.8 GM/DL (6.4-8.2)
[2018-05-01] MEDS ORDERED: NS IV 1000 ML 1,000 ML IV SCH ×2 (05:30→13:18)
[2018-05-01] MEDS ORDERED: LACTATED RINGERS 1,000 ML IV SCH (05:30)
--- NOTE | 2018-05-01 05:39 | Pulmonary Consultation ---
History of Present Illness History of Present Illness Date of Consultation 05/01/18 05:30 Time Seen by Provider: 05:31 Date of Admission History of Present Illness 47yo with hx of IBS,and hiatal hernia presented to ED seconary to diffuse abdominal pain. Pt has a hx of diffuse abdominal pain however pt states this is a different pain. also complains of decreased appetite and dysuria. Pt recently had a EGD last week. Pt was initially admitted to 4th floor however developed tachycardia last night with HR 170's. PT also now has worsening renal failure. Allergies and Home Medications Allergies Coded Allergies: aspirin (Verified Allergy, Unknown, Pt has received Ketorolac & ASA in the past, 04/30/18) fentanyl (Verified Allergy, Unknown, 04/22/18) Home Medications Fluconazole 100 Mg Tablet, 100 MG PO DAILY, (Reported) 14 DAY SUPPLY START DATE 04-20-18 Hyoscyamine Sulfate 0.375 Mg Tab.er.12h, 0.375 MG PO BID PRN for SPASMS, ( Reported) Loratadine 10 Mg Tablet, 10 MG PO DAILY, (Reported) Metoprolol Succinate 25 Mg Tab.er.24h, 25 MG PO DAILY, (Reported) Nitrofurantoin Macrocrystal 100 Mg Capsule, 100 MG PO BID, (Reported) 7 DAY SUPPLY FILLED 04-23-18 Ondansetron 4 Mg Tab.rapdis, 4 MG PO Q6H PRN for NAUSEA/VOMITING-1ST LINE, ( Reported) Oxybutynin Chloride 5 Mg Tablet, 5 MG PO BID, (Reported) Pantoprazole Sodium 40 Mg Tablet.dr, 40 MG PO DAILY, (Reported) Topiramate 50 Mg Tablet, 50 MG PO BID, (Reported) Past Gcpbypl-Jbjnmx-Wbpitv Hx Past Med/Social Hx: Reviewed Nursing Past Med/Soc Hx Patient Social History Alcohol Use: Denies Use Recreational Drug Use: No 2nd Hand Smoke Exposure: No Recent Foreign Travel: No Contact w/Someone Who Travel: No Recent Infectious Disease Expo: No Recent Hopitalizations: No Immunizations Up To Date Tetanus Booster (TDap): Unknown Past Medical History Surgeries: Yes (EGD/COLONOSCOPY; HIATAL HERNIA REPAIR 2005; X 1) Abdominal, Appendectomy, Section, Gallbladder, Tubal Ligation Respiratory: No Currently Using CPAP: No Currently Using BIPAP: No Cardiac: Yes Hypertension Neurological: Yes Headaches /Migraines 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 Disorders: No KETTLE COOK History: Tubal Ligation Genitourinary: Yes (URINARY URGENCY) Kidney Stones Gastrointestinal: Yes ( HIATAL HERNIA-S/P SURGERY X 1--NOW WITH RECURRENCE; S/ P PABLO AND APPY ) Gastroesophageal Reflux, Diverticulosis, Hemorrhoids, Hiatal Hernia, Irritable Bowel Musculoskeletal: Yes (SCIATICA; CHRONIC NECK AND BACK PAIN) Degenerate Disk Disease, Chronic Back Pain Endocrine: No HEENT: No Cancer: No Psychosocial: No Integumentary: No Blood Disorders: No Family Medical History Reviewed Nursing Family Hx Review of Systems Time Seen by Provider: 06:41 Constitutional: Fever, Chills, Sweats, Weakness, Malaise, Other Eyes: No: Pain, Vision change, Conjunctivae inflammation, Eyelid inflammation, Other, Redness ENT: No: Ear pain, Ear discharge, Nose pain, Nose discharge, Nose congestion, Mouth pain, Mouth swelling, Throat pain, Throat swelling, Other Respiratory: Cough, Dry, Shortness of breath, SOB with excertion; No: Wheezing , Hemoptysis, Pleuritic Pain, Sputum, Wheezing, Other Cardiovascular: Palpitations, Paroxysmal Noc. Dyspnea Gastrointestinal: Nausea, Abdominal Pain, Constipation; No: Vomiting Genitourinary: Dysuria, Retention Neurological: Weakness Sepsis Event Evaluation Height, Weight, BMI Height: 5'2.00" Weight: 161lbs. 0.0oz. 73.430409mg; 29.5 BMI Method:Estimated Exam Exam Vital Signs Date Time Temp Pulse Resp B/P (MAP) Pulse Ox O2 Delivery O2 Flow Rate FiO2 05/01/18 05:00 140 20 94/70 (78) 95 Nasal Cannula 2.00 05/01/18 04:56 99.4 05/01/18 04:00 149 19 88/75 (79) 95 Nasal Cannula 2.00 05/01/18 04:00 Nasal Cannula 2.00 05/01/18 03:00 149 15 85/72 (76) 95 Nasal Cannula 2.00 05/01/18 02:30 158 15 95/64 (74) 95 Nasal Cannula 2.00 05/01/18 02:15 160 17 100/72 (81) 96 Nasal Cannula 2.00 05/01/18 02:00 161 18 120/111 (114) 95 Nasal Cannula 2.00 05/01/18 02:00 Nasal Cannula 2.00 05/01/18 01:45 165 27 124/36 (65) 95 Nasal Cannula 2.00 05/01/18 01:45 165 05/01/18 00:45 99.2 170 20 91/67 (75) 94 Room Air 04/30/18 20:00 Room Air 04/30/18 19:26 99.6 164 18 119/91 (100) 94 Room Air 04/30/18 15:37 99.2 139 17 104/78 (87) 96 Room Air 04/30/18 12:00 97.7 133 18 111/63 (79) 96 Room Air 04/30/18 08:00 97.9 132 16 114/84 (94) 98 Room Air 04/30/18 07:40 Room Air I & O 05/01/18 07:00 Intake Total 3240 ml Output Total 50 ml Balance 3190 ml Height & Weight Height: 5'2.00" Weight: 161lbs. 0.0oz. 73.277440qj; 29.5 BMI Method:Estimated General Appearance: Anxious, Moderate Distress Neck: Supple Respiratory: No Accessory Muscle Use, No Respiratory Distress, Decreased Breath Sounds Cardiovascular: Tachycardia Capillary Refill: Less Than 3 Seconds Gastrointestinal: soft, guarding, rebound (Pt yelled out in pain when checking for rebound tenderness), tenderness (diffusely but greatest in the suprapubic region) Extremity: Normal Capillary Refill Neurologic/Psychiatric: Alert, Oriented x3 Skin: Normal Color Results Lab Laboratory Tests 04/30/18 00:40 05/01/18 04:30 Assessment/Plan Assessment/Plan Severe sepsis secondary to UTI -[place]ont cultures pending -Change rocephin to Zosyn -Check MRSA swab - has been neg in the past -Check influenza -Pt has already received 30cc/kg - Since hypotension and transfer to ICU pt has received 2100 - will give another liter bolus secondary to hypotension -Will give another liter bolus of LR Hypotension r/o shock -Give another liter bolus LR -If pt still hypotensive will place central line currently SBP 94 Severe diffuse abdominal pain, with hx of hiatal hernia-- pt has rebound tenderness r/o perforation -Dr. Carson following -I discussed with Dr. Carson and he agrees with CT of chest/abd/pelvis without contrast. If pt needs surgery she will probably need to be transferred to [place]. -PT states there is no way she can be . Sinus tach/ ? paroxysmal afib/flutter -Currently on Cardizem gtt -Cardiology is following Worsening renal failure -D/C Toradol -IVF -Check bilateral renal US Dysphagia with esophageal candidiasis -Diflucan Hypernatremia- secondary to dehydration -IVF -Monitor MARIPOSA ROSA DO May 01, 2018 05:39
[2018-05-01] MEDS ORDERED: PIPERACILLIN/TAZO 4.5 GM VIAL (ZOSYN) IV ONE (05:46)
[2018-05-01] MEDS: LACTATED RINGERS 1,000 ML IV SCH ×5 (06:01→22:30)
[2018-05-01] MEDS: PIPERACILLIN/TAZOBACTAM (BULK) 4.5 GM in NS (IVPB) 100 ML IV SCH ×3 (06:04→22:29)
[2018-05-01] MEDS: KCL 20 MEQ TAB (K-DUR) PO SCH (06:05)
[2018-05-01] MEDS: MAGNESIUM 1 GM/100 ML IVPB 100 ML IV SCH ×6 (06:12→19:33)
[2018-05-01] MEDS ORDERED: LACTATED RINGERS 1,000 ML IV ONE ×4 (06:15→13:09)
[2018-05-01] MEDS: HYDROmorphone 2 MG/ML VIAL (DILAUDID) IV PRN (06:45)
--- NOTE | 2018-05-01 07:08 | Progress Note (SOAP) ---
Subjective Date Seen by a Provider: May 01, 2018 Time Seen by a Provider: 07:20 Subjective/Events-last exam Patient has taken a turn for the worse since yesterday morning. She was noted to have increased tachycardia throughout the computer programmer chief and she was moved to intensive care unit. Dr. Fernandez also consulted regarding the tachycardia and diltiazem drip started. Patient does report her abdominal discomfort has also worsened. Most of the pain is in the right upper quadrant. Focused Exam Lactate Level 04/30/18 03:52: Lactic Acid Level 1.53 05/01/18 05:44: Lactic Acid Level 2.03*H Lactic Acid Level Laboratory Tests Test 05/01/18 05:44 Lactic Acid Level 2.03 MMOL/L (0.50-2.00) *H Objective Exam Vital Signs Date Time Temp Pulse Resp B/P (MAP) Pulse Ox O2 Delivery O2 Flow Rate FiO2 05/01/18 06:00 133 26 105/67 (80) 98 Nasal Cannula 2.00 05/01/18 05:00 140 20 94/70 (78) 95 Nasal Cannula 2.00 05/01/18 04:56 99.4 05/01/18 04:00 149 19 88/75 (79) 95 Nasal Cannula 2.00 05/01/18 04:00 Nasal Cannula 2.00 05/01/18 03:00 149 15 85/72 (76) 95 Nasal Cannula 2.00 05/01/18 02:30 158 15 95/64 (74) 95 Nasal Cannula 2.00 05/01/18 02:15 160 17 100/72 (81) 96 Nasal Cannula 2.00 05/01/18 02:00 161 18 120/111 (114) 95 Nasal Cannula 2.00 05/01/18 02:00 Nasal Cannula 2.00 05/01/18 01:45 165 27 124/36 (65) 95 Nasal Cannula 2.00 05/01/18 01:45 165 05/01/18 00:45 99.2 170 20 91/67 (75) 94 Room Air 04/30/18 20:00 Room Air 04/30/18 19:26 99.6 164 18 119/91 (100) 94 Room Air 04/30/18 15:37 99.2 139 17 104/78 (87) 96 Room Air 04/30/18 12:00 97.7 133 18 111/63 (79) 96 Room Air 04/30/18 08:00 97.9 132 16 114/84 (94) 98 Room Air 04/30/18 07:40 Room Air I & O 05/01/18 07:00 Intake Total 3240 ml Output Total 50 ml Balance 3190 ml Capillary Refill : Less Than 3 Seconds General Appearance: No Apparent Distress, Anxious Neck: Supple Respiratory: Chest Non Tender, Lungs Clear, Normal Breath Sounds Cardiovascular: Tachycardia Gastrointestinal: guarding, tenderness Extremity: Normal Capillary Refill Neurologic/Psychiatric: Oriented x3 Skin: Normal Color Results Lab Laboratory Tests 05/01/18 04:30: White Blood Count 21.8H, Red Blood Count 4.64, Hemoglobin 11.5, Hematocrit 37, Mean Corpuscular Volume 81, Mean Corpuscular Hemoglobin 25, Mean Corpuscular Hemoglobin Concent 31L, Red Cell Distribution Width 18.0H, Platelet Count 276, Mean Platelet Volume 13.3H, Neutrophils (%) (Auto) 88H, Lymphocytes (%) (Auto) 8L, Monocytes (%) (Auto) 4, Eosinophils (%) (Auto) 0, Basophils (%) (Auto) 0, Neutrophils # (Auto) 19.2H, Lymphocytes # (Auto) 1.6, Monocytes # (Auto) 0.9, Eosinophils # (Auto) 0.0, Basophils # (Auto) 0.0, Neutrophils % (Manual) 53, Lymphocytes % (Manual) 4, Monocytes % (Manual) 2, Metamyelocytes % 4, Band Neutrophils 37, Toxic Granulation 3+, Blood Morphology Comment NORMAL, Sodium Level 149H, Potassium Level 4.8, Chloride Level 122H, Carbon Dioxide Level 14L, Anion Gap 13, Blood Urea Nitrogen 45H, Creatinine 2.78#H, Estimat Glomerular Filtration Rate 18, BUN/Creatinine Ratio 16, Glucose Level 92, Calcium Level 8.0L, Corrected Calcium 9.2, Phosphorus Level 5.7H, Magnesium Level 1.1L, Total Bilirubin 0.6, Aspartate Amino Transf (AST/SGOT) 54H, Alanine Aminotransferase ( ALT/SGPT) 30, Alkaline Phosphatase 38L, Total Protein 4.8L, Albumin 2.5L 05/01/18 05:44: Lactic Acid Level 2.03*H Assessment/Plan Assessment/Plan Assess & Plan/Chief Complaint 1. Urinary tract infection -Patient received dose of Rocephin in ED. She will maintain ceftriaxone 1 g every 24 hours until abdominal pain has improved and then switched to oral medications 05/01 2. Exclude sepsis--noted tachycardia with elevated lactic acid -Cardiology consult at last evening and placed in ICU -Patient was placed on Cardizem drip early a.m. -Patient has now been switched from Rocephin to Zosyn. -Dumont cultures obtained by pulmonology. -Chest x-ray performed. 3. Diffuse abdominal pain--with a history of hiatal hernia -Continue to monitor -Dr Carson has seen her in the past, will consult -She is apparently awaiting surgery at [facility] by Dr. Lew -Patient has Toradol for pain relief. 05/01 -CT of the abdomen and pelvis arrange this morning -Patient may possibly need transfer to [facility] depending results and evaluation by Dr. Carson 4. Dehydration -Initiation of IV fluids 05/01 -Fluids continue 5. Worsening creatinine -IV fluid bolus noted given per pulmonary -Monitor creatinine Clinical Quality Measures Admission Status Admission Dx 1. Urinary tract infection-on admission 2. Diffuse abdominal pain--with a history of hiatal hernia 3. Dehydration DVT/VTE Risk/Contraindication: Risk Factor Score Per Nursin RFS Level Per Nursing on Admit: 2=Moderate ERNESTO PONCE MD May 01, 2018 07:08
--- NOTE | 2018-05-01 07:19 | NUR ---
0500-DR ROSA CONSULTED ON PT, NOTIFIED DR ROSA OF PT LABS AND SEVERE SEPSIS RISK, 0530-ORDERS FOR X1 BOLUS LR, AND CHANGE FLUIDS TO LR AT 150MLS/HR, 2GRAMS OF MAG, CHANGE ANTIBIOTIC TO ZOSYN, ORDER FOR NEELY CATH 0600-NEELY CATH INSERTED, PT TOLERATED WELL, 5MLS OF DARK URINE RETURNED, NOTIFIED DR ROSA OF URINE OUTPUT
[2018-05-01] MEDS ORDERED: NS 1000 ML IV BAG IV ONE (07:45)
--- NOTE | 2018-05-01 07:57 | NUR ---
CALL PLACED TO DR. SOLIS REGARDING PT HYPOTENSION ET TACHYCARDIA, RECEIVED ORDER FOR ECHO, 500ML BOLUS OVER 30 MINUTES THEN 200ML/HR REDUCE CARDIZEM GTT TO 5/HR, ADMINISTER ONE TIME DOSE OF 0.25 DITILIZEM. LABS GONE OVER WITH PHYSICIAN, BUN ET CREATINE, ET LOW URINE OUTPUT.
[2018-05-01] MEDS ORDERED: DIGOXIN 0.25 MG/ML (LANOXIN) 2 ML AMP IV NR (08:00)
[2018-05-01] MEDS ORDERED: NS IV 1000 ML 500 ML IV SCH (08:00)
--- NOTE | 2018-05-01 08:00 | NUR ---
RECEIVED CALL FROM RADIOLOGY DEPARTMENT REGARDING PATIENT CT SCAN JUST COMPLETED. GAVE RADIOLOGIST DR. BERGER PHONE NUMBER. PLACED CALL TO DR BERGER ET RECEIVED ORDER THAT SHE WOULD NEED SURGERY. STATED TO GET CONSENT READY. SURGERY DEPARTMENT CONTACTED.
--- NOTE | 2018-05-01 08:14 | Diagnostic Imaging Report ---
Indication: Dyspnea. Comparison: 04/02/2017. Findings: Stable asymmetric elevation of the left hemidiaphragm with hiatal hernia. Associated subsegmental atelectasis within lung bases has increased. No pneumothorax. Normal heart size. Impression: 1. Increased basilar subsegmental atelectasis. 2. Stable hiatal hernia. Dictated by: Dictated on workstation # [id number]
--- NOTE | 2018-05-01 08:22 | Diagnostic Imaging Report ---
PROCEDURE: CT chest, abdomen, and pelvis without contrast. TECHNIQUE: Multiple contiguous axial images were obtained through the chest, abdomen, and pelvis without the use of intravenous contrast. INDICATION: Abdominal pain and dyspnea. COMPARISON: CT abdomen and pelvis of 04/22/2018. FINDINGS: CT CHEST: No endoluminal nodule within the trachea. Compressive atelectasis is present in the left lower lobe from hiatal versus diaphragmatic hernia which may be posttraumatic in nature. The stomach is herniated through the defect at the levels of mid left hemidiaphragm and approximately half the stomach is within the chest. Trace bilateral pleural effusions are present. There is no contrast material within the pleural fluid. No contrast material is present within the mediastinum to suggest esophageal perforation. Thyroid is normal. No supraclavicular axillary lymphadenopathy. Heart is normal in size. No worrisome focal osseous lesions. CT ABDOMEN AND PELVIS: There is a moderate amount of free fluid which has associated contrast material mixed within it indicative of a perforated hollow viscus. The greater curvature of the gastric body is likely the source of perforation as contrast material is seen most abundantly surrounding this area. There are scattered foci of free air present. Unenhanced liver, spleen, pancreas, adrenals and kidneys are grossly normal. No bowel obstruction. The majority of the colon is decompressed. Normal caliber aorta. No enlarged abdominal or pelvic lymph nodes. No concerning focal osseous lesions. IMPRESSION: 1. Since prior CT of 04/22/2018, there's been a perforation of the stomach in the region of the distal gastric body. The perforation involves a portion of stomach still within the abdomen as there is a large paraesophageal hiatal versus diaphragmatic hernia that has a similar configuration to prior exam. 2. Due to the perforation, there is a moderate amount of free fluid and contrast material throughout the abdomen and pelvis. A small amount of pneumoperitoneum is present as well. 3. Consolidations within the left lung adjacent to the large hiatal hernia favor compressive atelectasis. Aspiration or pneumonia could be present in the appropriate setting. 4. There is no pneumomediastinum or pleural contrast material to suggest esophageal perforation or perforation of the intrathoracic portion of the stomach. 5. Findings a gastric perforation were discussed with Dr. Zavala by Dr. Ralf Jimenez at 8:05 AM on 05/01/2018. Dictated by: Dictated on workstation # [id number]
--- NOTE | 2018-05-01 08:25 | NUR ---
DR. SOLIS AT BEDSIDE, INFORMED OF NEW INFORMATION REGARDING NEED FOR SURGERY. GAVE ORDER TO Anh/Vanessa VALDOVINOS AT THIS TIME. STATED HER ISSUES DOES NOT APPEAR TO BE CARDIAC. JUAN CARLOS DISCONTINUED
--- NOTE | 2018-05-01 08:40 | NUR ---
PATIENT TRANSPORTED TO OR VIA OR NURSE. REPORT GIVEN TO NURSE, PATIENT UNHOOKED FROM MONITORS AT THIS TIME.
[2018-05-01] MEDS ORDERED: LACTATED RINGERS 1,000 ML IV PRN (08:49)
[2018-05-01] MEDS ORDERED: DEXAMETHASONE 10 MG/ML (DECADRON) 1 ML VIAL ONE (09:01)
[2018-05-01] MEDS ORDERED: SUCCINYLCHOLINE INJ 100 MG/5 ML SYR ONE (09:01)
[2018-05-01] MEDS ORDERED: ROCURONIUM 10 MG/ML 5 ML SYRINGE IV ONE (09:01)
[2018-05-01] MEDS ORDERED: ONDANSETRON 4 MG/2 ML (SDV) Z0FRAN ONE (09:01)
[2018-05-01] MEDS ORDERED: SEVOFLURANE (ULTANE) 15 ML INHAL SOLN ONE ×13 (09:01→12:57)
[2018-05-01] MEDS ORDERED: LIDOCAINE PF 2% 5 ML (XYLOCAINE) VIAL ONE (09:01)
[2018-05-01] MEDS ORDERED: proPOfol 200 MG/20 ML (DIPRIVAN) VIAL IV ONE (09:01)
[2018-05-01] MEDS ORDERED: fentaNYL INJECTION 250 MCG/5 ML AMP ONE (09:02)
[2018-05-01] MEDS ORDERED: MIDAZOLAM 2 MG/2 ML (VERSED) VIAL ONE (09:02)
--- NOTE | 2018-05-01 09:45 | Consultation-Cardiology ---
HPI-Cardiology Cardiology Consultation: Date of Consultation 05/01/18 Time Seen by a Provider: 08:45 Date of Admission Attending Physician Monica Avilez DO Admitting Physician Robert Regan MD Consulting Physician TARUN SOLIS MD, MA, FACP, FACC, FSCAI, CCDS HPI: Chief Complaint: Reason for consultation: Tachycardia HPI 47 yo woman admitted to Dr Regan with gen abd pain and nausea, poor appetite, and inability to keep solids or liquids down for a few days prior to presentation. Had had increasing weakness. Was admitted to Med Floor, but was quite tachycardic in the early hours of this am and was transferred to the ICU. BP has been low and heart remains fast. She denies cp or palp or syncope. Has gen abd pain and malaise. Denies shortness of breath at rest Review of Systems-Cardiology Review of Systems Constitutional: As described under HPI Eyes: No vision change Ears/Nose/Throat: No ear discharge, No nasal drainage, No recent hearing loss Respiratory: As described under HPI Cardiovascular: As described under HPI Gastrointestinal: As described under HPI Genitourinary: No dysuria, No hematuria, No urine frequency changes Musculoskeletal: No back pain, No joint pain Skin: No rash, No ulcerations Psychiatric/Neurological: No seizure, No focal weakness, No syncope Hematologic: No bleeding abnormalities All Other Systems Reviewed Negative Unless Noted: Yes GUO-Vakqvc-Cookty Hx Patient Social History Marrital Status: Number of Children: 1 Alcohol Use: Denies Use Recreational Drug Use: No 2nd Hand Smoke Exposure: No Recent Foreign Travel: No Recent Infectious Disease Expo: No Hospitalization with Isolation: Denies Immunizations Up To Date Tetanus Booster (TDap): Unknown Past Medical History PMH As described under Assessment. Family Medical History Family Medical History: She does not report fam h/o early CAD or SCD Allergies and Home Medications Allergies Coded Allergies: aspirin (Verified Allergy, Unknown, Pt has received Ketorolac & ASA in the past, 04/30/18) fentanyl (Verified Allergy, Unknown, 04/22/18) Home Medications Fluconazole 100 Mg Tablet, 100 MG PO DAILY, (Reported) 14 DAY SUPPLY START DATE 04-20-18 Hyoscyamine Sulfate 0.375 Mg Tab.er.12h, 0.375 MG PO BID PRN for SPASMS, ( Reported) Loratadine 10 Mg Tablet, 10 MG PO DAILY, (Reported) Metoprolol Succinate 25 Mg Tab.er.24h, 25 MG PO DAILY, (Reported) Nitrofurantoin Macrocrystal 100 Mg Capsule, 100 MG PO BID, (Reported) 7 DAY SUPPLY FILLED 04-23-18 Ondansetron 4 Mg Tab.rapdis, 4 MG PO Q6H PRN for NAUSEA/VOMITING-1ST LINE, ( Reported) Oxybutynin Chloride 5 Mg Tablet, 5 MG PO BID, (Reported) Pantoprazole Sodium 40 Mg Tablet.dr, 40 MG PO DAILY, (Reported) Topiramate 50 Mg Tablet, 50 MG PO BID, (Reported) Patient Home Medication List Home Medication List Reviewed: Yes Physical Exam-Cardiology Physical Exam Vital Signs/I&O 05/01/18 05/01/18 05/01/18 05/01/18 00:45 01:45 01:45 02:00 Temp 99.2 Pulse 170 165 165 Resp 20 27 B/P (MAP) 91/67 (75) 124/36 (65) Pulse Ox 94 95 O2 Delivery Room Air Nasal Cannula Nasal Cannula O2 Flow Rate 2.00 2.00 05/01/18 05/01/18 05/01/18 05/01/18 02:00 02:15 02:30 03:00 Pulse 161 160 158 149 Resp 18 17 15 15 B/P (MAP) 120/111 (114) 100/72 (81) 95/64 (74) 85/72 (76) Pulse Ox 95 96 95 95 O2 Delivery Nasal Cannula Nasal Cannula Nasal Cannula Nasal Cannula O2 Flow Rate 2.00 2.00 2.00 2.00 05/01/18 05/01/18 05/01/18 05/01/18 04:00 04:00 04:56 05:00 Temp 99.4 Pulse 149 140 Resp 19 20 B/P (MAP) 88/75 (79) 94/70 (78) Pulse Ox 95 95 O2 Delivery Nasal Cannula Nasal Cannula Nasal Cannula O2 Flow Rate 2.00 2.00 2.00 05/01/18 05/01/18 05/01/18 05/01/18 06:00 07:00 07:29 08:00 Pulse 133 130 138 Resp 26 16 B/P (MAP) 105/67 (80) 88/67 (74) Pulse Ox 98 95 94 O2 Delivery Nasal Cannula Nasal Cannula Nasal Cannula O2 Flow Rate 2.00 2.00 2.00 05/01/18 05/01/18 05/01/18 08:00 08:40 09:00 Temp 98.4 Pulse 135 134 133 Resp 19 17 22 B/P (MAP) 78/66 (70) 94/82 (86) 79/68 (72) Pulse Ox 95 95 97 O2 Delivery Nasal Cannula Nasal Cannula Nasal Cannula O2 Flow Rate 2.00 2.00 2.00 05/01/18 00:00 Intake Total 2240 ml Output Total 50 ml Balance 2190 ml Capillary Refill : Less Than 3 Seconds Constitutional: AAO x 3, well-developed, well-nourished HEENT: EOMI, hearing is well preserved; No xanthelasmas are seen Neck: carotid pulses are 2 + bilaterally, with good upstrokes Respiratory: No accessory muscle use; other (fair to good bilat air entry, diminished at the bases) Cardiovascular: regular rate-rhythm, S1 and S2, systolic murmur (faint JENNIFER at card base) Gastrointestinal: tender, guarding, rebound, other (weak to absent BS) Extremities: No clubbing, No cyanosis, No significant edema Neurologic/Psychiatric: grossly intact, power is 5/5 both on sides Skin: warm/dry; No cyanosis, No cool, No diaphoresis Data Review Labs Laboratory Tests 05/01/18 04:30: White Blood Count 21.8H, Red Blood Count 4.64, Hemoglobin 11.5, Hematocrit 37, Mean Corpuscular Volume 81, Mean Corpuscular Hemoglobin 25, Mean Corpuscular Hemoglobin Concent 31L, Red Cell Distribution Width 18.0H, Platelet Count 276, Mean Platelet Volume 13.3H, Neutrophils (%) (Auto) 88H, Lymphocytes (%) (Auto) 8L, Monocytes (%) (Auto) 4, Eosinophils (%) (Auto) 0, Basophils (%) (Auto) 0, Neutrophils # (Auto) 19.2H, Lymphocytes # (Auto) 1.6, Monocytes # (Auto) 0.9, Eosinophils # (Auto) 0.0, Basophils # (Auto) 0.0, Neutrophils % (Manual) 53, Lymphocytes % (Manual) 4, Monocytes % (Manual) 2, Metamyelocytes % 4, Band Neutrophils 37, Toxic Granulation 3+, Blood Morphology Comment NORMAL, Sodium Level 149H, Potassium Level 4.8, Chloride Level 122H, Carbon Dioxide Level 14L, Anion Gap 13, Blood Urea Nitrogen 45H, Creatinine 2.78#H, Estimat Glomerular Filtration Rate 18, BUN/Creatinine Ratio 16, Glucose Level 92, Calcium Level 8.0L, Corrected Calcium 9.2, Phosphorus Level 5.7H, Magnesium Level 1.1L, Total Bilirubin 0.6, Aspartate Amino Transf (AST/SGOT) 54H, Alanine Aminotransferase ( ALT/SGPT) 30, Alkaline Phosphatase 38L, Total Protein 4.8L, Albumin 2.5L, Serum Test, Qualitative NEGATIVE 05/01/18 05:44: Lactic Acid Level 2.03*H 05/01/18 08:10: Lactic Acid Level 2.26*H Microbiology 05/01/18 Influenza Types A,B Antigen (DANIELA) - Final, Complete A/P-Cardiology Assessment/Admission Diagnosis Septic shock Acute abdomen Sinus tach due to septic shock Acute kidney injury stage 3 LVEF 50-55% on echo of 05/01/18 Discussion and Recomendations * Pt is critically ill * We recommend treatment of acute abdomen and septic shock * I discussed our assessment with the patient Clinical Quality Measures DVT/VTE Risk/Contraindication: Risk Factor Score Per Nursin RFS Level Per Nursing on Admit: 2=Moderate TARUN SOLIS MD FACP [facility] May 01, 2018 09:45
--- NOTE | 2018-05-01 10:00 | Progress Note-Pre Operative ---
Pre-Operative Progress Note H&P Reviewed The H&P was reviewed, patient examined and no changes noted. Date Seen by Provider: May 01, 2018 Time Seen by Provider: 09:30 Date H&P Reviewed: May 01, 2018 Time H&P Reviewed: 09:30 Pre-Operative Diagnosis: perforated viscus SONY BERGER MD May 01, 2018 10:00
[2018-05-01] MEDS ORDERED: WATER (STERILE) FOR INJECTION 20 ML ONE (10:04)
[2018-05-01] MEDS ORDERED: ceFAZolin INJECTION 2,000 MG ONE (10:04)
[2018-05-01] MEDS ORDERED: BUP/EPI 0.5% 1:200,000 (SENSORCAINE) 30 ML VIAL ONE (10:19)
[2018-05-01] MEDS ORDERED: PHENYLEPHRINE 100 MCG/ML 10 ML (ANESTHESIA) SYR ONE ×2 (10:59→11:14)
[2018-05-01] MEDS ORDERED: PHENYLEPHRINE INJ 10 MG/ML (FOR DRIP KITS ONLY) ONE (12:01)
[2018-05-01] MEDS ORDERED: NEOSTIGMINE 1 MG/ML 5 ML SYRINGE ONE (13:01)
[2018-05-01] MEDS ORDERED: GLYCOPYRROLATE 0.2 MG/ML (ROBINUL) 2 ML VIAL ONE (13:01)
--- NOTE | 2018-05-01 13:18 | Progress Note-Post Operative ---
Post-Operative Progess Note Surgeon (s)/Content Checker (s) Surgeon SONY BERGER MD Content Checker: none Pre-Operative Diagnosis perforated viscus Post-Operative Diagnosis perforated posterior distal fundus secondary gastric volvulus. Procedure & Operative Findings Date of Procedure 05/01/18 Procedure Performed/Findings diagnostic laparoscopy, reduction larger recurrent hiatal hernia, gastric wedge resection, hien patch. placement lt subclavian central venous catheter. Anesthesia Type GET Estimated Blood Loss Estimated blood loss (mL): minimal Specimens/Packing Specimens Removed perforated gastric fundus SONY BERGER MD May 01, 2018 13:18
[2018-05-01] MEDS ORDERED: METOCLOPRAMIDE INJ 10 MG/2 ML (REGLAN) IV PRN (13:30)
[2018-05-01] MEDS ORDERED: NALOXONE 0.4 MG/ML 1 ML (NARCAN) VIAL IV PRN (13:30)
[2018-05-01] MEDS ORDERED: HYDROmorphone PF INJECTION 10 MG in NS (IVPB) 50 ML IV SCH (13:30)
[2018-05-01] MEDS ORDERED: diphenhydrAMINE 50 MG/ML INJ (BENADRYL) IV PRN (13:30)
[2018-05-01] MEDS ORDERED: IOHEXOL 350 MG/ML 100 ML (OMNIPAQUE 350) VIAL IV ONE (14:00)
[2018-05-01] MEDS ORDERED: NS 100 ML (IVPB) BAG IV ONE (14:00)
[2018-05-01] MEDS ORDERED: HOLD METFORMIN - RECEIVED CONTRAST 20 ML VIAL IV SCH (14:00)
[2018-05-01] MEDS: PANTOPRAZOLE 40 MG (PROTONIX) VIAL IV SCH ×2 (14:12→22:29)
[2018-05-01] MEDS: FLUCONAZOLE 200 MG/100 ML 50 ML, EMPTY IV BAG (PVC) 1 EA IV SCH ×2 (14:12)
[2018-05-01] MEDS ORDERED: ONDANSETRON 4 MG/2 ML (SDV) Z0FRAN IVP PRN (14:15)
[2018-05-01] MEDS ORDERED: morphine INJ 10 MG/ML 1ML (SYR OR VIAL) IVP ONE (14:15)
--- NOTE | 2018-05-01 14:25 | NUR ---
REPORT RECEIVED FROM INSTRUCTIONAL SYSTEMS SPECIALIST TINA AT THIS TIME. PATIENT CONTINUES ON VENT THEY WERE UNABLE TO WAKE HER DURING RECOVERY TIME. CALL PLACED TO DR. ROSA AT THIS TIME BY THIS RN. DR ROSA STATED TO CONTINUE WITH VENT AT THIS TIME ET HE WOULD COME TO SEE HER AFTER CLINIC.
[2018-05-01 15:11] LABS: ABG BASE EXCESS -10.8 MMOL/L (-2.5-2.5); ABG OXYGEN SATURATION 94 % (94-100); ABG PCO2 33 MMHG (35-45); ABG PO2 73 MMHG (79-93); ABG TCO2 15.8 MMOL/L (21.0-31.0)
[2018-05-01 15:14] LABS: ABG PH 7.27 (7.37-7.43); INSPIRED O2 30 L; PATIENT TEMP 98.1; VENTILATOR YES
--- NOTE | 2018-05-01 15:58 | Pulmonary Progress Note ---
Subjective Time Seen by a Provider: 14:30 Subjective/Events-last exam PT is now on vent s/p surgery. Sepsis Event Evaluation Height, Weight, BMI Height: 5'2.00" Weight: 161lbs. 0.0oz. 73.532653zb; 29.5 BMI Method:Estimated Focused Exam Lactate Level 04/30/18 03:52: Lactic Acid Level 1.53 05/01/18 05:44: Lactic Acid Level 2.03*H 05/01/18 08:10: Lactic Acid Level 2.26*H Exam Exam Vital Signs Date Time Temp Pulse Resp B/P (MAP) Pulse Ox O2 Delivery O2 Flow Rate FiO2 05/01/18 14:30 118 16 81/67 (72) 99 Mechanical Ventilator 30.00 05/01/18 14:24 122 19 100 30 05/01/18 14:15 121 104/71 (82) 100 Mechanical Ventilator 30.00 05/01/18 14:00 124 7 120/105 (110) 100 Mechanical Ventilator 30.00 05/01/18 13:45 125 11 106/93 (97) 99 Mechanical Ventilator 30.00 05/01/18 13:37 133 15 100 50 05/01/18 13:30 131 13 107/80 (89) 99 Mechanical Ventilator 30.00 05/01/18 09:00 133 22 79/68 (72) 97 Nasal Cannula 2.00 05/01/18 08:40 98.4 134 17 94/82 (86) 95 Nasal Cannula 2.00 05/01/18 08:00 135 19 78/66 (70) 95 Nasal Cannula 2.00 05/01/18 08:00 94 Nasal Cannula 2.00 05/01/18 07:29 138 05/01/18 07:00 130 16 88/67 (74) 95 Nasal Cannula 2.00 05/01/18 06:00 133 26 105/67 (80) 98 Nasal Cannula 2.00 05/01/18 05:00 140 20 94/70 (78) 95 Nasal Cannula 2.00 05/01/18 04:56 99.4 05/01/18 04:00 149 19 88/75 (79) 95 Nasal Cannula 2.00 05/01/18 04:00 Nasal Cannula 2.00 05/01/18 03:00 149 15 85/72 (76) 95 Nasal Cannula 2.00 05/01/18 02:30 158 15 95/64 (74) 95 Nasal Cannula 2.00 05/01/18 02:15 160 17 100/72 (81) 96 Nasal Cannula 2.00 05/01/18 02:00 161 18 120/111 (114) 95 Nasal Cannula 2.00 05/01/18 02:00 Nasal Cannula 2.00 05/01/18 01:45 165 27 124/36 (65) 95 Nasal Cannula 2.00 05/01/18 01:45 165 05/01/18 00:45 99.2 170 20 91/67 (75) 94 Room Air 04/30/18 20:00 Room Air 04/30/18 19:26 99.6 164 18 119/91 (100) 94 Room Air I & O 05/01/18 07:00 Intake Total 3390 ml Output Total 50 ml Balance 3340 ml Height & Weight Height: 5'2.00" Weight: 161lbs. 0.0oz. 73.210164rv; 29.5 BMI Method:Estimated General Appearance: Anxious, Mild Distress Neck: Supple Respiratory: Chest Non Tender, Lungs Clear, Normal Breath Sounds Cardiovascular: Tachycardia Capillary Refill: Less Than 3 Seconds Gastrointestinal: tenderness Extremity: Normal Capillary Refill Neurologic/Psychiatric: Oriented x3 Skin: Normal Color Results Lab Laboratory Tests 04/30/18 00:40 05/01/18 04:30 Assessment/Plan Assessment/Plan Severe sepsis secondary to abdominal perforation -Dumont cultures pending -Zosyn, Diflucan -Check MRSA swab - has been neg in the past Abdominal perforation s/p surgical repair -Dr. Carson following -Ventilator therapy from surgery -I was called to manage vent after pt was not waking up. -Once pt is awake will proceed with extubation. Hypotension -IVF Sinus tach/ ? paroxysmal afib/flutter -Currently on Cardizem gtt -Cardiology is following Worsening renal failure -D/C Toradol -IVF -Check bilateral renal US Dysphagia with esophageal candidiasis -Diflucan Hypernatremia- secondary to dehydration -IVF -Monitor 1600: UPDATE: is now awake and following commands. Will proceed with extubation. I have discussed with RT and RN regarding plan of care. Critical Care: Critically Ill Patient Time spent with patient (mins): 30 MARIPOSA ROSA DO May 01, 2018 15:58
[2018-05-01 16:29] LABS: BASOPHILS % (AUTO) 0 % (0-10); EOSINOPHILS % (AUTO) 0 % (0-10); HEMATOCRIT 29 % (35-52); HEMOGLOBIN 8.9 G/DL (11.5-16.0); LYMPHOCYTES # (AUTO) 0.8 X 10^3 (1.0-4.0); LYMPHOCYTES % (AUTO) 4 % (12-44); MEAN CORPUSCULAR HGB CONC 30 G/DL (32-36); MEAN CORPUSCULAR VOLUME 81 FL (80-99); MEAN PLATELET VOLUME 13.1 FL (7.4-10.4); MONOCYTES # (AUTO) 0.7 X 10^3 (0.0-1.0); MONOCYTES % (AUTO) 4 % (0-12); NEUTROPHILS # (AUTO) 16.8 X 10^3 (1.8-7.8); NEUTROPHILS % (AUTO) 92 % (42-75); PLATELET COUNT 243 10^3/uL (130-400); RED CELL DISTRIBUTION WIDTH 17.9 % (10.0-14.5); WHITE BLOOD COUNT 18.2 10^3/uL (4.3-11.0)
[2018-05-01 16:33] LABS: MEAN CORPUSCULAR HEMOGLOBIN 24 PG (25-34)
[2018-05-01 16:46] LABS: BILIRUBIN,TOTAL 0.5 MG/DL (0.1-1.0); CALCIUM 7.3 MG/DL (8.5-10.1); CREATININE SERUM 2.64 MG/DL (0.60-1.30); PHOSPHORUS 4.3 MG/DL (2.3-4.7); POTASSIUM 4.3 MMOL/L (3.6-5.0); TOTAL PROTEIN 4.1 GM/DL (6.4-8.2)
--- NOTE | 2018-05-01 16:57 | OPERATIVE REPORT ---
DATE OF SERVICE: 05/01/2018 ATTENDING PRIMARY CARE PHYSICIAN: Dr. Regan. PREOPERATIVE DIAGNOSIS: Perforated viscus. POSTOPERATIVE DIAGNOSES: Perforated gastric fundus along the posterior wall secondary to a recurrent large hiatal hernia and organoaxial volvulus. PROCEDURE PERFORMED: Diagnostic laparoscopy, reduction of hernia, wedge resection of stomach, placement of left subclavian central venous catheter. SURGEON: Chelsey Carson MD. ANESTHESIA: General endotracheal. ESTIMATED BLOOD LOSS: Minimal. FINDINGS: Large recurrent hiatal hernia with approximately 50% of the stomach within the mediastinum. There was a contamination throughout the peritoneal cavity, which was mostly liquid contents. There was organoaxial volvulus with a perforation in the posterior wall of the distal fundus. DISPOSITION: The patient tolerated the procedure well. INDICATIONS: The patient is a 47-year-old female known to us. She was initially seen in 03/2015 for crampy abdominal pain and gastroesophageal reflux disease. She has had a history of what sounds to be a constipation predominantly irritable bowel syndrome for many years and has had a crampy abdominal pain. She has been taking hyoscyamine and states that has helped her symptoms. She also has proceeded with a high fiber diet. She also has a longstanding history of gastroesophageal reflux disease and underwent a hiatal hernia repair as well as a Hill gastropexy in 2005. In the past year, she has had recurrent reflux type of symptoms as well as dysphagia. An EGD and colonoscopy were performed in 2015 and at the time, recurrent hiatal hernia was identified as well as a mild to moderate gastritis as well as a small anal fissure and chronic stage II external and internal hemorrhoids and mild sigmoid diverticulosis. She had worsening symptoms and was seen in the Emergency Department and admitted on 04/30/2018. She had reported continued discomfort as well as dysphagia; however, the dysphagia had worsened. She was admitted, started on IV fluids. Her vital signs were stable and her white count was only mildly elevated; however, overnight, she did have some episodes of hypertension requiring transfer to intensive care unit. A CT scan was performed which did show contrast extravasation consistent with a perforated viscus, most likely from the recurrent hiatal hernia and organoaxial volvulus of the stomach. DESCRIPTION OF PROCEDURE: The patient was brought to the operating room, laid supine on the table. After adequate IV pain and sedating medications and general endotracheal intubation, the chest and neck were prepped and draped in standard surgical fashion. A 0.5% Marcaine with epinephrine was used to anesthetize the overlying skin in the left subclavian region and the left subclavian vein was cannulated with drawing of venous blood. A guidewire was then inserted without any resistance and the cannulating needle removed and a skin incision was made using 11-blade. A tract was then created using a venous dilator and a triple lumen central venous catheter was then placed over the guidewire using Seldinger technique. The guidewire was then removed and all three ports shashank venous blood and saline pushed in without any resistance. The catheter was then sutured to the skin using 3-0 silk interrupted sutures. The catheter was then cleaned and covered with our sterile Op-Site. The abdomen was then prepped and draped in standard surgical fashion. A 0.5% Marcaine with epinephrine was used to anesthetize the overlying skin in the left upper abdominal quadrant and a transverse skin incision made using 15-blade. An #0 silk suture was applied to the medial aspect incision for retraction and a Veress needle inserted with a low opening pressure of 0 mmHg and the abdomen was insufflated to 15 mmHg pressure. Veress needle was removed and a 5 mm Xcel trocar placed. A 4-quadrant abdominal exploration was performed. There was a significant amount of contamination from what appeared to be gastric contents. There was also contrast extravasation as well. A large recurrent hiatal hernia was identified with approximately 50% of the stomach within the mediastinum. Under direct visualization, we then proceed to place a midabdominal left midline 10 mm port after the skin and peritoneal lining were anesthetized using 0.5% Marcaine with epinephrine and a transverse skin incision was made using a 15-blade. In a similar manner, a midabdominal right of midline 15 mm port as well as a right upper abdominal quadrant 5 mm port. The epigastric region was then anesthetized using 0.5% Marcaine with epinephrine and a transverse skin incision made using 15-blade. A tract was then created using a trocar to a 5 mm port and through this opening, a medium-sized Nathansen liver retractor was placed and the left lobe of liver retracted anteriorly and superiorly. The patient was then placed in steep reverse Trendelenburg position. The contamination, which was mostly liquid, was suctioned out as well as possible. We then proceeded with the reduction of the hernia. The perforation was identified, which was on the posterior wall of the distal fundus within the hernia sac. It appeared that after reduction, there was adequate perfusion to the region and it appeared to be vascularly viable. We then proceeded with a wedge resection of the segment of the perforated fundus of the stomach using a YONATAN 60 mm black load which was polyglycolic acid coated. We then proceeded with 4-quadrant irrigation with 4 liters of saline and suctioned this as well as possible. The Tisseel fibrin glue was then placed over the staple line. A wedge of mesentery was then placed over the staple line and the fibrin glue to perform a Jesse patch. We then proceeded with placement of a subphrenic 19-Nepalese Larry-Cazares drain as well as a pelvic drain and brought these out through the 5 mm port sites and sutured to the skin using 3-0 nylon sutures. The 10 mm and 15 mm port site fascia and peritoneum were then closed under direct visualization using Misha-Rita device and #0 Vicryl suture. The abdomen was desufflated and remaining ports removed. Skin incisions were closed using 4-0 Monocryl running subcuticular sutures. Wounds were then cleaned and covered with Dermabond. The patient tolerated the procedure well. We will admit her back to the ICU and continue her with IV hydration as well as IV antibiotics, including Zosyn and Diflucan. An NG tube was also placed intraoperatively and we will keep this in place and proceed with a Gastrografin upper GI in about 72 hours to verify sealing of the leak and then start a clear liquid diet and slowly advance as tolerated. We also will proceed with DVT prophylaxis with calf SCDs as well as Lovenox injections and early ambulation. We will involve respiratory therapy for IS teaching and scheduled breathing treatments to prevent pneumonia. Will also continue IV PPI BID and FLOOR LAYER APPRENTICE for pain control. Once time has elapsed and inflammation has subsided she will need to follow-up with her other surgeon for definitive therapy which would encompass repair of the recurrent hiatal hernia with mesh when the inflammation has subsided. Job ID: [id number] DocumentID: [id number] Dictated Date: 05/01/2018 15:10:57 Crane Rigger Date: 05/01/2018 16:56:50 Dictated By: MD MERCEDES DOMINGUEZ
[2018-05-01] MEDS: RT-ALBUTEROL SULF 2.5 MG/3 ML PRE-MIX VIAL INH SCH ×3 (18:43→22:13)
--- NOTE | 2018-05-01 19:35 | Diagnostic Imaging Report ---
INDICATION: Left subclavian line placement. EXAMINATION: Chest dated 05/01/2018. COMPARISON: 05/01/2018 at an earlier time. FINDINGS: The heart is prominent. There is mild pulmonary vascular congestion. Left base density could be due to a partial hernia as suspected on previous imaging. Adjacent infiltrate or effusion not excluded. Feeding tube tip is coiled in the left mid abdomen and extends to the midline of the mid abdomen. Left PICC line is new with the tip in the distal SVC. IMPRESSION: 1. PICC line as above with feeding tube as noted. 2. Left base atelectasis versus infiltrate with a small adjacent effusion. Dictated by: Dictated on workstation # [id number]
[2018-05-02] VITALS (24 sets, daily range): BP systolic 12–126; BP diastolic 53–85
[2018-05-02] MEDS: RT-ALBUTEROL SULF 2.5 MG/3 ML PRE-MIX VIAL INH SCH ×6 (02:31→22:04)
[2018-05-02 03:52] LABS: BASOPHILS % (AUTO) 0 % (0-10); EOSINOPHILS % (AUTO) 0 % (0-10); HEMATOCRIT 26 % (35-52); HEMOGLOBIN 8.1 G/DL (11.5-16.0); LYMPHOCYTES # (AUTO) 0.5 X 10^3 (1.0-4.0); LYMPHOCYTES % (AUTO) 3 % (12-44); MEAN CORPUSCULAR HEMOGLOBIN 25 PG (25-34); MEAN CORPUSCULAR HGB CONC 32 G/DL (32-36); MEAN CORPUSCULAR VOLUME 80 FL (80-99); MEAN PLATELET VOLUME 12.4 FL (7.4-10.4); MONOCYTES # (AUTO) 0.6 X 10^3 (0.0-1.0); MONOCYTES % (AUTO) 3 % (0-12); NEUTROPHILS # (AUTO) 16.7 X 10^3 (1.8-7.8); NEUTROPHILS % (AUTO) 94 % (42-75); PLATELET COUNT 222 10^3/uL (130-400); RED CELL DISTRIBUTION WIDTH 17.7 % (10.0-14.5); WHITE BLOOD COUNT 17.8 10^3/uL (4.3-11.0)
[2018-05-02 04:18] LABS: CALCIUM 7.5 MG/DL (8.5-10.1); CREATININE SERUM 2.46 MG/DL (0.60-1.30); MAGNESIUM 2.4 MG/DL (1.8-2.4); PHOSPHORUS 4.2 MG/DL (2.3-4.7); POTASSIUM 3.7 MMOL/L (3.6-5.0)
[2018-05-02] MEDS: NS IV 1000 ML 1,000 ML IV SCH (04:54)
--- NOTE | 2018-05-02 05:37 | Pulmonary Progress Note ---
Subjective Time Seen by a Provider: 05:39 Subjective/Events-last exam Sinus tach, and Mild hypotension. Pain is controlled. Sepsis Event Evaluation Height, Weight, BMI Height: 5'2.00" Weight: 161lbs. 0.0oz. 73.949134ud; 29.5 BMI Method:Estimated Focused Exam Lactate Level 05/01/18 05:44: Lactic Acid Level 2.03*H 05/01/18 08:10: Lactic Acid Level 2.26*H 05/01/18 16:15: Lactic Acid Level 1.66 Exam Exam Vital Signs Date Time Temp Pulse Resp B/P (MAP) Pulse Ox O2 Delivery O2 Flow Rate FiO2 05/02/18 05:00 111 15 99/66 (77) 98 Nasal Cannula 2.00 05/02/18 04:00 117 15 108/63 (78) 99 Nasal Cannula 2.00 05/02/18 03:00 121 10 111/63 (79) 100 Nasal Cannula 2.00 05/02/18 02:36 96 Nasal Cannula 3.00 05/02/18 02:00 108 15 126/74 (91) 100 Nasal Cannula 2.00 05/02/18 01:00 106 05/02/18 01:00 102 15 105/76 (86) 99 Nasal Cannula 2.00 05/02/18 00:00 107 15 109/70 (83) 98 Nasal Cannula 2.00 05/01/18 23:00 112 20 124/80 (95) 97 Nasal Cannula 2.00 05/01/18 22:17 100 Nasal Cannula 3.00 05/01/18 22:00 114 13 100/71 (81) 100 Nasal Cannula 2.00 05/01/18 21:00 105 14 131/74 (93) 99 Nasal Cannula 2.00 05/01/18 21:00 18 05/01/18 20:00 110 14 99/66 (77) 100 Nasal Cannula 2.00 05/01/18 20:00 95 Nasal Cannula 2.00 05/01/18 19:00 113 05/01/18 19:00 113 24 122/86 (98) 100 Nasal Cannula 2.00 05/01/18 18:00 111 15 115/73 (87) 100 Nasal Cannula 2.00 05/01/18 17:00 120 21 128/89 (102) 100 Nasal Cannula 4.00 05/01/18 16:00 114 22 122/85 (97) 100 Nasal Cannula 4.00 05/01/18 15:56 100 Nasal Cannula 4.00 05/01/18 15:52 97.9 05/01/18 15:00 122 16 108/93 (98) 99 Mechanical Ventilator 30.00 05/01/18 14:30 118 16 81/67 (72) 99 Mechanical Ventilator 30.00 05/01/18 14:24 122 19 100 30 05/01/18 14:15 121 104/71 (82) 100 Mechanical Ventilator 30.00 05/01/18 14:00 124 7 120/105 (110) 100 Mechanical Ventilator 30.00 05/01/18 13:45 125 11 106/93 (97) 99 Mechanical Ventilator 30.00 05/01/18 13:37 133 15 100 50 05/01/18 13:30 131 13 107/80 (89) 99 Mechanical Ventilator 30.00 05/01/18 09:00 133 22 79/68 (72) 97 Nasal Cannula 2.00 05/01/18 08:40 98.4 134 17 94/82 (86) 95 Nasal Cannula 2.00 05/01/18 08:00 135 19 78/66 (70) 95 Nasal Cannula 2.00 05/01/18 08:00 94 Nasal Cannula 2.00 05/01/18 07:29 138 05/01/18 07:00 130 16 88/67 (74) 95 Nasal Cannula 2.00 05/01/18 06:00 133 26 105/67 (80) 98 Nasal Cannula 2.00 I & O 05/02/18 07:00 Intake Total 6200 ml Output Total 757 ml Balance 5443 ml Height & Weight Height: 5'2.00" Weight: 161lbs. 0.0oz. 73.716246pq; 29.5 BMI Method:Estimated General Appearance: Anxious, Mild Distress Neck: Supple Respiratory: Chest Non Tender, Lungs Clear, Normal Breath Sounds Cardiovascular: Tachycardia Capillary Refill: Less Than 3 Seconds Gastrointestinal: tenderness Extremity: Normal Capillary Refill Neurologic/Psychiatric: Oriented x3 Skin: Normal Color Results Lab Laboratory Tests 05/01/18 04:30 05/01/18 16:15 05/02/18 03:41 Assessment/Plan Assessment/Plan Severe sepsis secondary to abdominal perforation -Dumont cultures pending -Zosyn, Diflucan -Check MRSA swab - has been neg in the past Abdominal perforation s/p surgical repair -Dr. Carson following -PT extubated yesterday evening Sinus tach/ ? paroxysmal afib/flutter -Cardiology is following Worsening renal failure -D/C Toradol -IVF -Check bilateral renal US Dysphagia with esophageal candidiasis -Diflucan Hypernatremia- secondary to dehydration -IVF -Monitor MARIPOSA ROSA DO May 02, 2018 05:37
[2018-05-02] MEDS ORDERED: SODIUM BICARB 8.4% 50 MEQ/50 ML (ABBOTT) SYR IV ONE (05:45)
[2018-05-02] MEDS ORDERED: LACTATED RINGERS 1,000 ML IV SCH (05:45)
[2018-05-02] MEDS: KCL 20 MEQ TAB (K-DUR) PO SCH (06:23)
[2018-05-02] MEDS: POTASSIUM CL 10MEQ/50ML IVPB 50 ML IV SCH ×3 (06:23→06:34)
[2018-05-02] MEDS: MAGNESIUM 1 GM/100 ML IVPB 100 ML IV SCH (06:23)
[2018-05-02] MEDS: PIPERACILLIN/TAZOBACTAM (BULK) 4.5 GM in NS (IVPB) 100 ML IV SCH ×3 (06:28→20:38)
[2018-05-02] MEDS: DEXAMETHASONE 4 MG/ML SDV (DECADRON) IV SCH ×3 (06:28→22:36)
--- NOTE | 2018-05-02 07:23 | Progress Note (SOAP) ---
Subjective Date Seen by a Provider: May 02, 2018 Time Seen by a Provider: 07:15 Subjective/Events-last exam Patient is status post exploratory lap with repair of perforated viscus from yesterday. She was extubated yesterday evening. She is now with NG tube. 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 She also reports that her pain level is controlled. Focused Exam Lactate Level 05/01/18 05:44: Lactic Acid Level 2.03*H 05/01/18 08:10: Lactic Acid Level 2.26*H 05/01/18 16:15: Lactic Acid Level 1.66 Objective Exam Vital Signs Date Time Temp Pulse Resp B/P (MAP) Pulse Ox O2 Delivery O2 Flow Rate FiO2 05/02/18 06:57 98 Nasal Cannula 1.50 05/02/18 06:00 114 14 104/67 (79) 99 Nasal Cannula 2.00 05/02/18 05:00 111 15 99/66 (77) 98 Nasal Cannula 2.00 05/02/18 04:00 117 15 108/63 (78) 99 Nasal Cannula 2.00 05/02/18 04:00 95 Nasal Cannula 2.00 05/02/18 03:00 121 10 111/63 (79) 100 Nasal Cannula 2.00 05/02/18 02:36 96 Nasal Cannula 3.00 05/02/18 02:00 108 15 126/74 (91) 100 Nasal Cannula 2.00 05/02/18 01:00 106 05/02/18 01:00 102 15 105/76 (86) 99 Nasal Cannula 2.00 05/02/18 00:00 95 Nasal Cannula 2.00 05/02/18 00:00 107 15 109/70 (83) 98 Nasal Cannula 2.00 05/01/18 23:00 112 20 124/80 (95) 97 Nasal Cannula 2.00 05/01/18 22:17 100 Nasal Cannula 3.00 05/01/18 22:00 114 13 100/71 (81) 100 Nasal Cannula 2.00 05/01/18 21:00 105 14 131/74 (93) 99 Nasal Cannula 2.00 05/01/18 21:00 18 05/01/18 20:00 110 14 99/66 (77) 100 Nasal Cannula 2.00 05/01/18 20:00 95 Nasal Cannula 2.00 05/01/18 19:00 113 05/01/18 19:00 113 24 122/86 (98) 100 Nasal Cannula 2.00 05/01/18 18:00 111 15 115/73 (87) 100 Nasal Cannula 2.00 05/01/18 17:00 120 21 128/89 (102) 100 Nasal Cannula 4.00 05/01/18 16:00 114 22 122/85 (97) 100 Nasal Cannula 4.00 05/01/18 15:56 100 Nasal Cannula 4.00 05/01/18 15:52 97.9 05/01/18 15:00 122 16 108/93 (98) 99 Mechanical Ventilator 30.00 05/01/18 14:30 118 16 81/67 (72) 99 Mechanical Ventilator 30.00 05/01/18 14:24 122 19 100 30 05/01/18 14:15 121 104/71 (82) 100 Mechanical Ventilator 30.00 05/01/18 14:00 124 7 120/105 (110) 100 Mechanical Ventilator 30.00 05/01/18 13:45 125 11 106/93 (97) 99 Mechanical Ventilator 30.00 05/01/18 13:37 133 15 100 50 05/01/18 13:30 131 13 107/80 (89) 99 Mechanical Ventilator 30.00 05/01/18 09:00 133 22 79/68 (72) 97 Nasal Cannula 2.00 05/01/18 08:40 98.4 134 17 94/82 (86) 95 Nasal Cannula 2.00 05/01/18 08:00 135 19 78/66 (70) 95 Nasal Cannula 2.00 05/01/18 08:00 94 Nasal Cannula 2.00 05/01/18 07:29 138 I & O 05/02/18 07:00 Intake Total 6200 ml Output Total 942 ml Balance 5258 ml Capillary Refill : Less Than 3 Seconds General Appearance: No Apparent Distress Respiratory: Lungs Clear Cardiovascular: Regular Rate, Rhythm, Tachycardia (At 130) Gastrointestinal: tenderness (Status post surgery), other (Bowel sounds quiet) Skin: Normal Color Results Lab Laboratory Tests 05/01/18 08:10: Lactic Acid Level 2.26*H 05/01/18 15:04: Blood Gas Puncture Site LEFT BRACHIAL ART LI, Blood Gas Patient Temperature 98.1 , Arterial Blood pH 7.27*L, Arterial Blood Partial Pressure CO2 33L, Arterial Blood Partial Pressure O2 73L, Arterial Blood HCO3 15*L, Arterial Blood Total CO2 15.8L, Arterial Blood Oxygen Saturation 94, Arterial Blood Base Excess - 10.8L, Derick Test N/A, Blood Gas Ventilator Setting YES, Blood Gas Inspired Oxygen 30 L 05/01/18 16:15: Lactic Acid Level 1.66, White Blood Count 18.2H, Red Blood Count 3.64L, Hemoglobin 8.9#L, Hematocrit 29L, Mean Corpuscular Volume 81, Mean Corpuscular Hemoglobin 24L, Mean Corpuscular Hemoglobin Concent 30L, Red Cell Distribution Width 17.9H, Platelet Count 243, Mean Platelet Volume 13.1H, Neutrophils (%) ( Auto) 92H, Lymphocytes (%) (Auto) 4L, Monocytes (%) (Auto) 4, Eosinophils (%) ( Auto) 0, Basophils (%) (Auto) 0, Neutrophils # (Auto) 16.8H, Lymphocytes # (Auto ) 0.8L, Monocytes # (Auto) 0.7, Eosinophils # (Auto) 0.0, Basophils # (Auto) 0.0 , Sodium Level 143, Potassium Level 4.3, Chloride Level 118H, Carbon Dioxide Level 17L, Anion Gap 8, Blood Urea Nitrogen 45H, Creatinine 2.64H, Estimat Glomerular Filtration Rate 20, BUN/Creatinine Ratio 17, Glucose Level 110H, Calcium Level 7.3L, Corrected Calcium 8.9, Phosphorus Level 4.3, Magnesium Level 1.0*L, Total Bilirubin 0.5, Aspartate Amino Transf (AST/SGOT) 54H, Alanine Aminotransferase (ALT/SGPT) 32, Alkaline Phosphatase 45, Total Protein 4.1L, Albumin 2.0L 05/02/18 03:41: White Blood Count 17.8H, Red Blood Count 3.21L, Hemoglobin 8.1L, Hematocrit 26L , Mean Corpuscular Volume 80, Mean Corpuscular Hemoglobin 25, Mean Corpuscular Hemoglobin Concent 32, Red Cell Distribution Width 17.7H, Platelet Count 222, Mean Platelet Volume 12.4H, Neutrophils (%) (Auto) 94H, Lymphocytes (%) (Auto) 3L, Monocytes (%) (Auto) 3, Eosinophils (%) (Auto) 0, Basophils (%) (Auto) 0, Neutrophils # (Auto) 16.7H, Lymphocytes # (Auto) 0.5L, Monocytes # (Auto) 0.6, Eosinophils # (Auto) 0.0, Basophils # (Auto) 0.0, Sodium Level 143, Potassium Level 3.7, Chloride Level 117H, Carbon Dioxide Level 16L, Anion Gap 10, Blood Urea Nitrogen 46H, Creatinine 2.46H, Estimat Glomerular Filtration Rate 21, BUN/ Creatinine Ratio 19, Glucose Level 124H, Calcium Level 7.5L, Phosphorus Level 4.2, Magnesium Level 2.4 Microbiology 04/30/18 Blood Culture - Preliminary, Resulted No growth 05/01/18 Influenza Types A,B Antigen (DANIELA) - Final, Complete 04/30/18 Urine Culture - Final, Complete 3 or more isolates Assessment/Plan Assessment/Plan Assess & Plan/Chief Complaint 1. Sepsis--noted tachycardia with elevated lactic acid 05/01 -Cardiology consult at last evening and placed in ICU -Patient was placed on Cardizem drip early a.m. -Patient has now been switched from Rocephin to Zosyn. -[place] cultures obtained by pulmonology. -Chest x-ray performed. 05/02 -Patient currently on Zosyn day number 2 3. Diffuse abdominal pain--with a history of hiatal hernia -Continue to monitor -Dr Carson has seen her in the past, will consult -She is apparently awaiting surgery at [facility] by Dr. Lew -Patient has Toradol for pain relief. 05/01 -CT of the abdomen and pelvis arrange this morning -Patient may possibly need transfer to [facility] depending results and evaluation by Dr. Carson 05/02 -Status post repair of perforated viscus day number 1 -Dr. Carson following 4. Dehydration -Initiation of IV fluids 05/01 -Fluids continue 5. Worsening creatinine -IV fluid bolus noted given per pulmonary -Monitor creatinine 05/02 -Creatinine trending downward now 6. Urinary tract infection -Patient received dose of Rocephin in ED. She will maintain ceftriaxone 1 g every 24 hours until abdominal pain has improved and then switched to oral medications 05/02 -Culture with mixed eliane Clinical Quality Measures Admission Status Admission Dx 1. Urinary tract infection-on admission 2. Diffuse abdominal pain--with a history of hiatal hernia 3. Dehydration DVT/VTE Risk/Contraindication: Risk Factor Score Per Nursin RFS Level Per Nursing on Admit: 2=Moderate ERNESTO PONCE MD May 02, 2018 07:23
--- NOTE | 2018-05-02 08:55 | Diagnostic Imaging Report ---
PROCEDURE: US Renal Bilateral. TECHNIQUE: Multiple real-time grayscale images were obtained over the kidneys in various projections bilaterally. INDICATION: Renal failure and abdominal pain. The right kidney measures 10.8 x 5.1 x 5.8 cm and the left kidney measures 11.5 x 5.4 x 6.4 cm. The cortical thickness and echogenicity is normal. No calculi or hydronephrosis is identified. Bladder is decompressed by a Collins catheter. IMPRESSION: Unremarkable renal ultrasound. Dictated by: Dictated on workstation # [id number]
[2018-05-02] MEDS: FLUCONAZOLE 200 MG/100 ML 50 ML, EMPTY IV BAG (PVC) 1 EA IV SCH ×2 (09:14)
[2018-05-02] MEDS: PANTOPRAZOLE 40 MG (PROTONIX) VIAL IV SCH ×2 (09:14→20:23)
[2018-05-02] MEDS: SENNA W/DOCUSATE (SENOKOT S) TABLET PO SCH (09:14)
[2018-05-02] MEDS: ENOXAPARIN 80 MG/0.8 ML (LOVENOX) SYR SC SCH (09:15)
--- NOTE | 2018-05-02 09:35 | Diagnostic Imaging Report ---
INDICATION: Dyspnea. TECHNIQUE: Single view chest at 3:22 AM. CORRELATION STUDY: 05/01/2018. FINDINGS: The gastric tube and left-sided central line are unchanged. The heart size and mediastinum are relatively stable. Consolidation in both lung bases, left greater than right, along with a left pleural effusion persist. The findings are likely relatively stable. An additional component of the density in the left lung base is likely attributed to a known hernia defect. There is continued contrast within the stomach and left upper quadrant. Additional tubing is also noted over the upper abdomen. IMPRESSION: 1. Stable support lines and tubes. 2. Consolidation at both lung bases, left greater than right. The findings are likely that of atelectasis and/or infiltrate. An additional component in the left lung base is likely attributed to the known hernia. 3. Contrast remains in the left upper quadrant with some within the stomach and some appearing to be in the peritoneal cavity. Drainage tubing is present in the upper abdomen as well. Dictated by: Dictated on workstation # [id number]
--- NOTE | 2018-05-02 10:03 | Cardiology Progress Note ---
Cardiology SOAP Progress Note Subjective: Abdominal discomfort. Objective: I&O/Vital Signs 05/02/18 05/02/18 05/02/18 05/02/18 10:00 10:51 11:00 12:00 Pulse 116 125 B/P (MAP) 87/76 (80) 101/66 (78) Pulse Ox 90 97 95 92 O2 Delivery Room Air Room Air Room Air Room Air O2 Flow Rate 0.00 05/02/18 05/02/18 05/02/18 05/02/18 12:00 13:00 13:02 14:00 Pulse 123 122 122 121 Resp 14 13 32 B/P (MAP) 82/59 (67) 104/66 (79) 102/62 (75) Pulse Ox 92 93 91 O2 Delivery Room Air Room Air Room Air 05/02/18 05/02/18 05/02/18 05/02/18 14:25 15:00 16:00 16:00 Pulse 117 115 Resp 17 10 B/P (MAP) 98/63 (75) 97/56 (70) Pulse Ox 92 89 92 90 O2 Delivery Room Air Room Air Room Air Room Air O2 Flow Rate 0.00 05/02/18 05/02/18 05/02/18 17:00 18:00 20:25 Temp 98.6 Pulse 123 114 Resp 15 20 B/P (MAP) 95/61 (72) 96/58 (71) Pulse Ox 90 90 O2 Delivery Room Air Room Air 05/02/18 00:00 Intake Total 2320 ml Output Total 557 ml Balance 1763 ml Weight (Pounds): 161 Weight (Ounces): 0.0 Weight (Calculated Kilograms): 73.018531 Constitutional: AAO x 3, well-developed, well-nourished Respiratory: No accessory muscle use; other (fair to good bilat air entry, diminished at the bases) Cardiovascular: regular rate-rhythm, S1 and S2, systolic murmur (faint JENNIFER at card base) Gastrointestional: tender, guarding, rebound, other (weak to absent BS) Extremities: No clubbing, No cyanosis, No significant edema Neurologic/Psychiatric: grossly intact, power is 5/5 both on sides Skin: warm/dry; No cyanosis, No cool, No diaphoresis Results/Procedures: Labs Laboratory Tests 05/02/18 03:41: White Blood Count 17.8H, Red Blood Count 3.21L, Hemoglobin 8.1L, Hematocrit 26L , Mean Corpuscular Volume 80, Mean Corpuscular Hemoglobin 25, Mean Corpuscular Hemoglobin Concent 32, Red Cell Distribution Width 17.7H, Platelet Count 222, Mean Platelet Volume 12.4H, Neutrophils (%) (Auto) 94H, Lymphocytes (%) (Auto) 3L, Monocytes (%) (Auto) 3, Eosinophils (%) (Auto) 0, Basophils (%) (Auto) 0, Neutrophils # (Auto) 16.7H, Lymphocytes # (Auto) 0.5L, Monocytes # (Auto) 0.6, Eosinophils # (Auto) 0.0, Basophils # (Auto) 0.0, Sodium Level 143, Potassium Level 3.7, Chloride Level 117H, Carbon Dioxide Level 16L, Anion Gap 10, Blood Urea Nitrogen 46H, Creatinine 2.46H, Estimat Glomerular Filtration Rate 21, BUN/ Creatinine Ratio 19, Glucose Level 124H, Calcium Level 7.5L, Phosphorus Level 4.2, Magnesium Level 2.4 Microbiology 05/01/18 Blood Culture - Preliminary, Resulted No growth 05/01/18 Influenza Types A,B Antigen (DANIELA) - Final, Complete 04/30/18 Urine Culture - Final, Complete 3 or more isolates A/P: Assessment/Dx: Septic shock Acute abdomen Sinus tach due to septic shock Acute kidney injury stage 3 LVEF 50-55% on echo of 05/01/18 Plan: * Pt is critically ill * defer treatment to surgery and primary team. Thank you for your consultation. Please call me if you have any questions. Conner Nair MD, FACP, FACC, FSCAI, FHRS, CCDS Interventional Cardiology Cardiac Electrophysiology Vascular Medicine and Endovascular Interventions Focused Exam Lactate Level 05/01/18 05:44: Lactic Acid Level 2.03*H 05/01/18 08:10: Lactic Acid Level 2.26*H 05/01/18 16:15: Lactic Acid Level 1.66 Shira NAIR MD May 02, 2018 10:03
--- NOTE | 2018-05-02 10:20 | Anesthesia-General Post-Op ---
General Patient Condition Mental Status/LOC: Same as Preop Cardiovascular: Satisfactory Nausea/Vomiting: Absent Respiratory: Satisfactory Pain: Controlled Complications: Absent Post Op Complications Complications None Follow Up Care/Instructions Patient Instructions None needed. Anesthesia/Patient Condition Patient Condition Patient is doing well, no complaints, stable vital signs, no apparent adverse anesthesia problems. No complications reported per nursing. MARY LESTER CRNA May 02, 2018 10:20
[2018-05-02] MEDS: LACTATED RINGERS 1,000 ML IV SCH ×2 (14:11→21:45)
--- NOTE | 2018-05-02 18:14 | Progress Note (SOAP) ---
Subjective Date Seen by a Provider: May 02, 2018 Time Seen by a Provider: 18:00 Subjective/Events-last exam doing ok. pain controlled with [employer]. urine output improved with IV hydration. will start TPN and await oral alimentation until confirmation of no leak on gastrograffin UGI in 48 hours. continue ambulation and breathing tx. Focused Exam Lactate Level 05/01/18 05:44: Lactic Acid Level 2.03*H 05/01/18 08:10: Lactic Acid Level 2.26*H 05/01/18 16:15: Lactic Acid Level 1.66 Objective Exam Vital Signs Date Time Temp Pulse Resp B/P (MAP) Pulse Ox O2 Delivery O2 Flow Rate FiO2 05/02/18 17:00 123 15 95/61 (72) 90 Room Air 05/02/18 16:00 115 10 97/56 (70) 90 Room Air 05/02/18 16:00 92 Room Air 0.00 05/02/18 15:00 117 17 98/63 (75) 89 Room Air 05/02/18 14:25 92 Room Air 05/02/18 14:00 121 32 102/62 (75) 91 Room Air 05/02/18 13:02 122 05/02/18 13:00 122 13 104/66 (79) 93 Room Air 05/02/18 12:00 123 14 82/59 (67) 92 Room Air 05/02/18 12:00 92 Room Air 0.00 05/02/18 11:00 125 101/66 (78) 95 Room Air 05/02/18 10:51 97 Room Air 05/02/18 10:00 116 87/76 (80) 90 Room Air 05/02/18 09:00 117 95/53 (67) 92 Room Air 05/02/18 08:00 92 Room Air 2.00 05/02/18 08:00 122 92/85 (87) 94 Room Air 05/02/18 07:06 118 05/02/18 07:00 18 05/02/18 07:00 121 14 94/56 (69) 98 Room Air 05/02/18 06:57 98 Nasal Cannula 1.50 05/02/18 06:00 114 14 104/67 (79) 99 Nasal Cannula 2.00 05/02/18 05:00 111 15 99/66 (77) 98 Nasal Cannula 2.00 05/02/18 04:00 117 15 108/63 (78) 99 Nasal Cannula 2.00 05/02/18 04:00 97.5 05/02/18 04:00 95 Nasal Cannula 2.00 05/02/18 03:00 121 10 111/63 (79) 100 Nasal Cannula 2.00 05/02/18 02:36 96 Nasal Cannula 3.00 05/02/18 02:00 108 15 126/74 (91) 100 Nasal Cannula 2.00 05/02/18 01:00 106 05/02/18 01:00 102 15 105/76 (86) 99 Nasal Cannula 2.00 05/02/18 00:00 95 Nasal Cannula 2.00 05/02/18 00:00 107 15 109/70 (83) 98 Nasal Cannula 2.00 05/02/18 00:00 97.8 05/01/18 23:00 112 20 124/80 (95) 97 Nasal Cannula 2.00 05/01/18 22:17 100 Nasal Cannula 3.00 05/01/18 22:00 114 13 100/71 (81) 100 Nasal Cannula 2.00 05/01/18 21:00 105 14 131/74 (93) 99 Nasal Cannula 2.00 05/01/18 21:00 18 05/01/18 20:00 110 14 99/66 (77) 100 Nasal Cannula 2.00 05/01/18 20:00 97.6 05/01/18 20:00 95 Nasal Cannula 2.00 05/01/18 19:00 113 05/01/18 19:00 113 24 122/86 (98) 100 Nasal Cannula 2.00 I & O 05/02/18 07:00 Intake Total 6200 ml Output Total 942 ml Balance 5258 ml Capillary Refill : Less Than 3 Seconds General Appearance: No Apparent Distress HEENT: PERRL/EOMI Neck: Full Range of Motion Respiratory: Chest Non Tender, Decreased Breath Sounds Cardiovascular: Regular Rate, Rhythm Gastrointestinal: soft, tenderness Extremity: Normal Capillary Refill Neurologic/Psychiatric: Alert, Oriented x3 Skin: Normal Color Lymphatic: No Adenopathy Results Lab Laboratory Tests 05/02/18 03:41: White Blood Count 17.8H, Red Blood Count 3.21L, Hemoglobin 8.1L, Hematocrit 26L , Mean Corpuscular Volume 80, Mean Corpuscular Hemoglobin 25, Mean Corpuscular Hemoglobin Concent 32, Red Cell Distribution Width 17.7H, Platelet Count 222, Mean Platelet Volume 12.4H, Neutrophils (%) (Auto) 94H, Lymphocytes (%) (Auto) 3L, Monocytes (%) (Auto) 3, Eosinophils (%) (Auto) 0, Basophils (%) (Auto) 0, Neutrophils # (Auto) 16.7H, Lymphocytes # (Auto) 0.5L, Monocytes # (Auto) 0.6, Eosinophils # (Auto) 0.0, Basophils # (Auto) 0.0, Sodium Level 143, Potassium Level 3.7, Chloride Level 117H, Carbon Dioxide Level 16L, Anion Gap 10, Blood Urea Nitrogen 46H, Creatinine 2.46H, Estimat Glomerular Filtration Rate 21, BUN/ Creatinine Ratio 19, Glucose Level 124H, Calcium Level 7.5L, Phosphorus Level 4.2, Magnesium Level 2.4 Microbiology 05/01/18 Blood Culture - Preliminary, Resulted No growth 05/01/18 Influenza Types A,B Antigen (DANIELA) - Final, Complete 04/30/18 Urine Culture - Final, Complete 3 or more isolates Assessment/Plan Assessment/Plan Assess & Plan/Chief Complaint s/p laparoscopic reduction large recurrent hiatal hernia and repair perforation. continue bowel rest for now and NGT. will start TPN. continue IV hydration for previous prerenal azotemia. continue DVT prophylaxis. continue abx and antifungals and manage intraabdominal drains. Clinical Quality Measures DVT/VTE Risk/Contraindication: Risk Factor Score Per Nursin RFS Level Per Nursing on Admit: 2=Moderate SONY BERGER MD May 02, 2018 18:14
[2018-05-02] MEDS ORDERED: TPN IV SCH (18:30)
[2018-05-03] VITALS (20 sets, daily range): BP systolic 94–137; BP diastolic 60–84
[2018-05-03] MEDS: RT-ALBUTEROL SULF 2.5 MG/3 ML PRE-MIX VIAL INH SCH ×3 (01:40→10:46)
[2018-05-03 04:05] LABS: BASOPHILS % (AUTO) 0 % (0-10); EOSINOPHILS % (AUTO) 0 % (0-10); HEMATOCRIT 22 % (35-52); LYMPHOCYTES # (AUTO) 0.3 X 10^3 (1.0-4.0); LYMPHOCYTES % (AUTO) 2 % (12-44); MEAN CORPUSCULAR HEMOGLOBIN 25 PG (25-34); MEAN CORPUSCULAR HGB CONC 32 G/DL (32-36); MEAN CORPUSCULAR VOLUME 79 FL (80-99); MEAN PLATELET VOLUME 12.3 FL (7.4-10.4); MONOCYTES # (AUTO) 0.3 X 10^3 (0.0-1.0); MONOCYTES % (AUTO) 2 % (0-12); NEUTROPHILS # (AUTO) 13.1 X 10^3 (1.8-7.8); NEUTROPHILS % (AUTO) 96 % (42-75); PLATELET COUNT 181 10^3/uL (130-400); RED CELL DISTRIBUTION WIDTH 17.4 % (10.0-14.5); WHITE BLOOD COUNT 13.7 10^3/uL (4.3-11.0)
[2018-05-03 04:11] LABS: INR 4.9 (0.8-1.4)
[2018-05-03 04:14] LABS: PROTHROMBIN TIME PATIENT 46.1 SEC (12.2-14.7)
[2018-05-03 04:28] LABS: CREATININE SERUM 1.53 MG/DL (0.60-1.30); POTASSIUM 3.3 MMOL/L (3.6-5.0)
[2018-05-03 04:29] LABS: ALBUMIN 2.1 GM/DL (3.2-4.5); BILIRUBIN,TOTAL 0.3 MG/DL (0.1-1.0); CALCIUM 7.7 MG/DL (8.5-10.1); MAGNESIUM 2.2 MG/DL (1.8-2.4); PHOSPHORUS 3.5 MG/DL (2.3-4.7); TOTAL PROTEIN 4.3 GM/DL (6.4-8.2)
[2018-05-03] MEDS: LACTATED RINGERS 1,000 ML IV SCH ×3 (04:33→18:33)
[2018-05-03] MEDS: MAGNESIUM 1 GM/100 ML IVPB 100 ML IV SCH (04:36)
[2018-05-03] MEDS: PIPERACILLIN/TAZOBACTAM (BULK) 4.5 GM in NS (IVPB) 100 ML IV SCH ×3 (05:30→21:23)
--- NOTE | 2018-05-03 06:24 | Pulmonary Progress Note ---
Subjective Time Seen by a Provider: 06:24 Subjective/Events-last exam PT is doing better. Pain is controlled. BP and HR is stable. Sepsis Event Evaluation Height, Weight, BMI Height: 5'2.00" Weight: 161lbs. 0.0oz. 73.537451az; 29.5 BMI Method:Estimated Focused Exam Lactate Level 05/01/18 05:44: Lactic Acid Level 2.03*H 05/01/18 08:10: Lactic Acid Level 2.26*H 05/01/18 16:15: Lactic Acid Level 1.66 Exam Exam Vital Signs Date Time Temp Pulse Resp B/P (MAP) Pulse Ox O2 Delivery O2 Flow Rate FiO2 05/03/18 04:00 Room Air 0.00 05/03/18 04:00 104 30 116/77 (90) 98 Room Air 05/03/18 04:00 98.5 05/03/18 03:00 109 14 104/66 (79) 96 Room Air 05/03/18 02:00 112 11 105/63 (77) 89 Room Air 05/03/18 01:52 91 Room Air 05/03/18 01:40 99 Nasal Cannula 1.00 05/03/18 01:00 102 05/03/18 01:00 102 13 113/65 (81) 98 Nasal Cannula 1.00 05/03/18 00:00 98.9 05/03/18 00:00 105 10 113/65 (81) 96 Nasal Cannula 1.00 05/02/18 23:59 Room Air 0.00 05/02/18 23:00 106 8 100/53 (69) 93 Nasal Cannula 1.00 05/02/18 22:04 89 Room Air 05/02/18 22:00 110 13 99/55 (70) 85 Nasal Cannula 1.00 05/02/18 21:00 20 05/02/18 21:00 113 16 97/60 (72) 86 Room Air 05/02/18 20:25 98.6 05/02/18 20:00 Room Air 0.00 05/02/18 20:00 120 9 93/62 (72) 92 Room Air 05/02/18 19:00 113 05/02/18 19:00 113 21 103/61 (75) 91 Room Air 05/02/18 18:00 114 20 96/58 (71) 90 Room Air 05/02/18 17:00 123 15 95/61 (72) 90 Room Air 05/02/18 16:00 115 10 97/56 (70) 90 Room Air 05/02/18 16:00 92 Room Air 0.00 05/02/18 15:00 117 17 98/63 (75) 89 Room Air 05/02/18 14:25 92 Room Air 05/02/18 14:00 121 32 102/62 (75) 91 Room Air 05/02/18 13:02 122 05/02/18 13:00 122 13 104/66 (79) 93 Room Air 05/02/18 12:00 123 14 82/59 (67) 92 Room Air 05/02/18 12:00 92 Room Air 0.00 05/02/18 11:00 125 101/66 (78) 95 Room Air 05/02/18 10:51 97 Room Air 05/02/18 10:00 116 87/76 (80) 90 Room Air 05/02/18 09:00 117 95/53 (67) 92 Room Air 05/02/18 08:00 92 Room Air 2.00 05/02/18 08:00 122 92/85 (87) 94 Room Air 05/02/18 07:06 118 05/02/18 07:00 18 05/02/18 07:00 121 14 94/56 (69) 98 Room Air 05/02/18 06:57 98 Nasal Cannula 1.50 I & O 05/03/18 07:00 Intake Total 0 ml Output Total 1680 ml Balance -1680 ml Height & Weight Height: 5'2.00" Weight: 161lbs. 0.0oz. 73.602120hn; 29.5 BMI Method:Estimated General Appearance: No Apparent Distress HEENT: PERRL/EOMI Neck: Full Range of Motion Respiratory: Chest Non Tender, Decreased Breath Sounds Cardiovascular: Regular Rate, Rhythm Capillary Refill: Less Than 3 Seconds Gastrointestinal: soft, tenderness Extremity: Normal Capillary Refill Neurologic/Psychiatric: Alert, Oriented x3 Skin: Normal Color Lymphatic: No Adenopathy Results Lab Laboratory Tests 05/01/18 16:15 05/02/18 03:41 05/03/18 03:53 Assessment/Plan Assessment/Plan Severe sepsis secondary to abdominal perforation -[place] cultures pending -Zosyn, Diflucan -Check MRSA swab - has been neg in the past Abdominal perforation s/p surgical repair -Dr. Carson following -[facility] [employer]IOR[employer] THERAPIST per Dr. Carson Atelectasis -Increase activity -IS Sinus tach -Cardiology is following Anemia- post op -Monitor -Will transfuse 1 unit of PRBC Metabolic acidosis -IVF and montior Worsening renal failure -IVF - bilateral renal US Dysphagia with esophageal candidiasis -Diflucan Hypernatremia- secondary to dehydration -IVF -Monitor MARIPOSA ROSA DO May 03, 2018 06:24
[2018-05-03] MEDS: DEXAMETHASONE 4 MG/ML SDV (DECADRON) IV SCH ×3 (06:38→21:22)
[2018-05-03] MEDS: KCL 20 MEQ TAB (K-DUR) PO SCH (06:47)
[2018-05-03] MEDS: POTASSIUM CL 10MEQ/50ML IVPB 50 ML IV SCH ×5 (06:50→08:40)
--- NOTE | 2018-05-03 07:20 | Progress Note (SOAP) ---
Subjective Date Seen by a Provider: May 03, 2018 Time Seen by a Provider: 07:30 Subjective/Events-last exam Patient sitting up in bed today. NG tube in place. 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 She has not passed any flatus. Focused Exam Lactate Level 05/01/18 05:44: Lactic Acid Level 2.03*H 05/01/18 08:10: Lactic Acid Level 2.26*H 05/01/18 16:15: Lactic Acid Level 1.66 Objective Exam Vital Signs Date Time Temp Pulse Resp B/P (MAP) Pulse Ox O2 Delivery O2 Flow Rate FiO2 05/03/18 07:03 Room Air 05/03/18 06:00 108 15 111/65 (80) 98 Room Air 05/03/18 05:00 106 10 94/63 (73) 91 Room Air 05/03/18 04:00 Room Air 0.00 05/03/18 04:00 104 30 116/77 (90) 98 Room Air 05/03/18 04:00 98.5 05/03/18 03:00 109 14 104/66 (79) 96 Room Air 05/03/18 02:00 112 11 105/63 (77) 89 Room Air 05/03/18 01:52 91 Room Air 05/03/18 01:40 99 Nasal Cannula 1.00 05/03/18 01:00 102 05/03/18 01:00 102 13 113/65 (81) 98 Nasal Cannula 1.00 05/03/18 00:00 98.9 05/03/18 00:00 105 10 113/65 (81) 96 Nasal Cannula 1.00 05/02/18 23:59 Room Air 0.00 05/02/18 23:00 106 8 100/53 (69) 93 Nasal Cannula 1.00 05/02/18 22:04 89 Room Air 05/02/18 22:00 110 13 99/55 (70) 85 Nasal Cannula 1.00 05/02/18 21:00 20 05/02/18 21:00 113 16 97/60 (72) 86 Room Air 05/02/18 20:25 98.6 05/02/18 20:00 Room Air 0.00 05/02/18 20:00 120 9 93/62 (72) 92 Room Air 05/02/18 19:00 113 05/02/18 19:00 113 21 103/61 (75) 91 Room Air 05/02/18 18:00 114 20 96/58 (71) 90 Room Air 05/02/18 17:00 123 15 95/61 (72) 90 Room Air 05/02/18 16:00 115 10 97/56 (70) 90 Room Air 05/02/18 16:00 92 Room Air 0.00 05/02/18 15:00 117 17 98/63 (75) 89 Room Air 05/02/18 14:25 92 Room Air 05/02/18 14:00 121 32 102/62 (75) 91 Room Air 05/02/18 13:02 122 05/02/18 13:00 122 13 104/66 (79) 93 Room Air 05/02/18 12:00 123 14 82/59 (67) 92 Room Air 05/02/18 12:00 92 Room Air 0.00 05/02/18 11:00 125 101/66 (78) 95 Room Air 05/02/18 10:51 97 Room Air 05/02/18 10:00 116 87/76 (80) 90 Room Air 05/02/18 09:00 117 95/53 (67) 92 Room Air 05/02/18 08:00 92 Room Air 2.00 05/02/18 08:00 122 92/85 (87) 94 Room Air I & O 05/03/18 07:00 Intake Total 0 ml Output Total 1825 ml Balance -1825 ml Capillary Refill : Less Than 3 Seconds General Appearance: No Apparent Distress, Anxious (Slight) Respiratory: Lungs Clear Cardiovascular: Regular Rate, Rhythm, Tachycardia (Overall improved rate currently at 110) Gastrointestinal: soft, other (Bowel sounds not detected) Neurologic/Psychiatric: Alert, Oriented x3 Skin: Normal Color Results Lab Laboratory Tests 05/03/18 03:53: White Blood Count 13.7H, Red Blood Count 2.82L, Hemoglobin 7.0L, Hematocrit 22L , Mean Corpuscular Volume 79L, Mean Corpuscular Hemoglobin 25, Mean Corpuscular Hemoglobin Concent 32, Red Cell Distribution Width 17.4H, Platelet Count 181, Mean Platelet Volume 12.3H, Neutrophils (%) (Auto) 96H, Lymphocytes (%) (Auto) 2L, Monocytes (%) (Auto) 2, Eosinophils (%) (Auto) 0, Basophils (%) (Auto) 0, Neutrophils # (Auto) 13.1H, Lymphocytes # (Auto) 0.3L, Monocytes # (Auto) 0.3, Eosinophils # (Auto) 0.0, Basophils # (Auto) 0.0, Prothrombin Time 46.1*H, INR Comment 4.9H, Sodium Level 144, Potassium Level 3.3L, Chloride Level 116H, Carbon Dioxide Level 20L, Anion Gap 8, Blood Urea Nitrogen 35H, Creatinine 1.53H , Estimat Glomerular Filtration Rate 37, BUN/Creatinine Ratio 23, Glucose Level 96, Calcium Level 7.7L, Corrected Calcium 9.2, Phosphorus Level 3.5, Magnesium Level 2.2, Total Bilirubin 0.3, Aspartate Amino Transf (AST/SGOT) 19, Alanine Aminotransferase (ALT/SGPT) 14, Alkaline Phosphatase 55, Total Protein 4.3L, Albumin 2.1L, Triglycerides Level 120 Microbiology 05/01/18 Blood Culture - Preliminary, Resulted No growth 05/01/18 Influenza Types A,B Antigen (DANIELA) - Final, Complete 04/30/18 Urine Culture - Final, Complete 3 or more isolates Assessment/Plan Assessment/Plan Assess & Plan/Chief Complaint 1. Sepsis--noted tachycardia with elevated lactic acid 05/01 -Cardiology consult at last evening and placed in ICU -Patient was placed on Cardizem drip early a.m. -Patient has now been switched from Rocephin to Zosyn. -[place]ont cultures obtained by pulmonology. -Chest x-ray performed. 05/02 -Patient currently on Zosyn day number 2 05/03 -Day number 3 of Zosyn 3. Diffuse abdominal pain--with a history of hiatal hernia -Continue to monitor -Dr Carson has seen her in the past, will consult -She is apparently awaiting surgery at [facility] by Dr. Lew -Patient has Toradol for pain relief. 05/01 -CT of the abdomen and pelvis arrange this morning -Patient may possibly need transfer to [facility] depending results and evaluation by Dr. Carson 05/02 -Status post repair of perforated viscus day number 1 -Dr. Carson following 05/03 -noted plan for TPN and gastrograffin UGI planned 48 hrs as of last night. 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 Dehydration -Initiation of IV fluids 05/01 -Fluids continue 5. Worsening creatinine -IV fluid bolus noted given per pulmonary -Monitor creatinine 05/02 -Creatinine trending downward now 05/03 -Cr is 1.5 improved. Hydration helping 6. Urinary tract infection -Patient received dose of Rocephin in ED. She will maintain ceftriaxone 1 g every 24 hours until abdominal pain has improved and then switched to oral medications 05/02 -Culture with mixed eliane 7. Anemiapostoperative -1 unit of PRBCs ordered by Dr. Romero Clinical Quality Measures Admission Status Admission Dx 1. Urinary tract infection-on admission 2. Diffuse abdominal pain--with a history of hiatal hernia 3. Dehydration DVT/VTE Risk/Contraindication: Risk Factor Score Per Nursin RFS Level Per Nursing on Admit: 2=Moderate ERNESTO PONCE MD May 03, 2018 07:20
--- NOTE | 2018-05-03 07:36 | Diagnostic Imaging Report ---
INDICATION: Shortness of breath. Portable chest 2:51 AM FINDINGS: There is an NG tube projecting over the stomach. Left subclavian central line tip projects over the SVC. There is atelectasis at both lung bases. There is a small effusion. IMPRESSION: Bilateral basilar atelectasis. There may be some superimposed infiltrate at the left lung base. There is also small left effusion. No change compared to previous day. Dictated by: Dictated on workstation # [id number]
[2018-05-03] MEDS: FLUCONAZOLE 200 MG/100 ML 50 ML, EMPTY IV BAG (PVC) 1 EA IV SCH ×2 (08:15)
[2018-05-03] MEDS: PANTOPRAZOLE 40 MG (PROTONIX) VIAL IV SCH ×2 (08:15→21:22)
[2018-05-03] MEDS: SENNA W/DOCUSATE (SENOKOT S) TABLET PO SCH (08:15)
[2018-05-03] MEDS: ENOXAPARIN 80 MG/0.8 ML (LOVENOX) SYR SC SCH (08:15)
--- NOTE | 2018-05-03 11:20 | NUR ---
Pastoral care visit.
[2018-05-03 11:23] LABS: BILIRUBIN,URINE NEGATIVE (NEGATIVE); CLARITY,URINE CLEAR; COLOR,URINE YELLOW; GLUCOSE, URINE (UA) NEGATIVE (NEGATIVE); KETONES,URINE 3+ (NEGATIVE); LEUKOCYTE ESTERASE ,URINE 1+ (NEGATIVE); NITRITE,URINE NEGATIVE (NEGATIVE); PH,URINE 5 (5-9); PROTEIN,URINE 3+ (NEGATIVE); UROBILINOGEN,URINE NORMAL (NORMAL)
[2018-05-03 11:39] LABS: BACTERIA,URINE FEW /HPF; RBC,URINE 25-50 /HPF
--- NOTE | 2018-05-03 13:37 | NUR ---
TPN: 47 Y/O F, HT 62", ABW 88KG, IBW 50KG, ADJDW 65KG, BMI 35.8. ALLERGIES ASPIRIN, FENTANYL. LYTES: K 3.3, CO2 20, BUN 35 CC: UTI/DIFFUSE ABDOMINAL PAIN, CLASS II OBESITY GOAL: NUTRITION ADJUSTED FOR OBESITY 14 KCAL X KG ABW (1230 KCAL), PROTEIN 2 GM X KG IBW (100 GM) PLAN: REPLACE POTASSIUM, START TPN AT 58 ML/HR PROVIDING 1000 KCAL WITH 80 GM PROTEIN, NO LIPIDS AT THIS TIME. WILL ADVANCE KCAL AND PROTEIN PENDING LABS. ACETATE ADJUSTED IN TPN TO ADDRESS LOW CO2.
[2018-05-03 14:43] LABS: HEMOGLOBIN 8.3 G/DL (11.5-16.0)
--- NOTE | 2018-05-03 15:10 | Cardiology Progress Note ---
Cardiology SOAP Progress Note Subjective: Mild tachycardia. Mild abdominal discomfort. Objective: I&O/Vital Signs 05/03/18 05/03/18 05/03/18 05/03/18 06:00 07:00 07:00 07:03 Pulse 108 120 101 Resp 15 14 B/P (MAP) 111/65 (80) 110/72 (85) Pulse Ox 98 98 O2 Delivery Room Air Room Air Room Air 05/03/18 05/03/18 05/03/18 05/03/18 07:21 08:00 08:10 08:46 Temp 98.8 Pulse 117 117 Resp 20 18 18 B/P (MAP) 112/67 (82) 128/70 Pulse Ox 95 93 93 O2 Delivery Room Air Room Air Room Air O2 Flow Rate 0.00 05/03/18 05/03/18 05/03/18 05/03/18 09:00 09:01 10:00 10:48 Temp 98.8 Pulse 114 115 111 Resp 11 20 10 B/P (MAP) 112/60 (77) 112/60 121/84 (96) Pulse Ox 93 93 99 93 O2 Delivery Room Air Room Air Room Air Room Air 05/03/18 05/03/18 05/03/18 05/03/18 11:00 11:40 12:00 12:35 Temp 98.9 Pulse 93 108 101 Resp 7 12 14 B/P (MAP) 136/64 (88) 128/79 135/81 (99) Pulse Ox 97 100 100 93 O2 Delivery Room Air Room Air Room Air Room Air O2 Flow Rate 0.00 05/03/18 05/03/18 05/03/18 05/03/18 13:00 13:00 14:00 14:21 Temp 98.0 Pulse 111 97 92 Resp 13 35 B/P (MAP) 137/79 (98) 129/80 (96) Pulse Ox 93 99 99 O2 Delivery Room Air Room Air Room Air 05/03/18 16:27 Temp 97.5 Pulse 83 Resp 14 B/P (MAP) 131/78 (95) Pulse Ox 94 O2 Delivery Room Air 05/03/18 00:00 Intake Total 0 ml Output Total 1040 ml Balance -1040 ml Weight (Pounds): 196 Weight (Ounces): 0.0 Weight (Calculated Kilograms): [id number] Constitutional: AAO x 3, well-developed, well-nourished Respiratory: No accessory muscle use, No respiratory distress, No chest tender , No chest expansion is symmetric; chest is bilaterally symmetric; No lungs clear to percussion; lungs clear to auscultation; No crackles, No rhonchi, No rales, No stridor, No wheezing, No pleural rub; other (fair to good bilat air entry, diminished at the bases) Cardiovascular: regular rate-rhythm; No irregularly irregular, No extra beats, No parasternal heave is noted, No JVD, No edema, No bradycardia; tachycardia; No point of maximal impulse, No cardiac thrills are palpable; S1 and S2; No gallop/S3, No gallop/S4, No diastolic murmur; systolic murmur (faint JENNIFER at card base); No friction rub, No click, No other Gastrointestional: tender; No soft, No round, No distended, No pulsatile mass, No organomegaly; guarding, rebound; No tenderness, No hernia, No mass, No audible bowel sounds, No abnormal bowel sounds, No abdominal bruits, No spleenomegaly; other (weak to absent BS) Extremities: No normal range of motion, No non-tender, No normal inspection, No pedal edema, No calf tenderness, No normal capillary refill, No pelvis stable , No calf tenderness, No inflammation, No pedal edema, No slow capillary refill , No swelling, No other, No abrasion, No clubbing, No cyanosis, No ecchymosis, No laceration, No no lower extremity edema bilateral, No significant edema, No tenderness, No wound Neurologic/Psychiatric: no motor/sensory deficits, alert, normal mood/affect, oriented x 3, grossly intact, power is 5/5 both on sides Skin: warm/dry; No cyanosis, No cool, No diaphoresis Results/Procedures: Labs Laboratory Tests 05/03/18 03:53: White Blood Count 13.7H, Red Blood Count 2.82L, Hemoglobin 7.0L, Hematocrit 22L , Mean Corpuscular Volume 79L, Mean Corpuscular Hemoglobin 25, Mean Corpuscular Hemoglobin Concent 32, Red Cell Distribution Width 17.4H, Platelet Count 181, Mean Platelet Volume 12.3H, Neutrophils (%) (Auto) 96H, Lymphocytes (%) (Auto) 2L, Monocytes (%) (Auto) 2, Eosinophils (%) (Auto) 0, Basophils (%) (Auto) 0, Neutrophils # (Auto) 13.1H, Lymphocytes # (Auto) 0.3L, Monocytes # (Auto) 0.3, Eosinophils # (Auto) 0.0, Basophils # (Auto) 0.0, Prothrombin Time 46.1*H, INR Comment 4.9H, Sodium Level 144, Potassium Level 3.3L, Chloride Level 116H, Carbon Dioxide Level 20L, Anion Gap 8, Blood Urea Nitrogen 35H, Creatinine 1.53H , Estimat Glomerular Filtration Rate 37, BUN/Creatinine Ratio 23, Glucose Level 96, Calcium Level 7.7L, Corrected Calcium 9.2, Phosphorus Level 3.5, Magnesium Level 2.2, Total Bilirubin 0.3, Aspartate Amino Transf (AST/SGOT) 19, Alanine Aminotransferase (ALT/SGPT) 14, Alkaline Phosphatase 55, Total Protein 4.3L, Albumin 2.1L, Triglycerides Level 120 05/03/18 13:55: Glucometer 92 05/03/18 14:40: Hemoglobin 8.3L, Hematocrit 26L Microbiology 05/01/18 Blood Culture - Preliminary, Resulted No growth 05/01/18 Influenza Types A,B Antigen (DANIELA) - Final, Complete 04/30/18 Urine Culture - Final, Complete 3 or more isolates A/P: Assessment/Dx: Septic shock Acute abdomen Sinus tach due to septic shock Acute kidney injury stage 3 LVEF 50-55% on echo of 05/01/18 Plan: * Patient is gradually improving. * Sinus tachycardia likely due to abdominal pain. * Aggressive DVT prophylaxis. * defer treatment to surgery and primary team. Thank you for your consultation. Please call me if you have any questions. Conner Nair MD, FACP, FACC, FSCAI, FHRS, CCDS Interventional Cardiology Cardiac Electrophysiology Vascular Medicine and Endovascular Interventions Focused Exam Lactate Level 05/01/18 05:44: Lactic Acid Level 2.03*H 05/01/18 08:10: Lactic Acid Level 2.26*H 05/01/18 16:15: Lactic Acid Level 1.66 Shira NAIR MD May 03, 2018 15:10
--- NOTE | 2018-05-03 16:15 | NUR ---
Received report from SILVIA Napier. Agree with previous assessment.
--- NOTE | 2018-05-03 16:28 | NUR ---
1605 PT TO ROOM 418 VIA W/C ACCOMPANIED BY THIS RN ALL PERSONAL BELONGINGS SENT WITH PT, REPORT GIVEN TO JOSÉ VEGA.
[2018-05-03] MEDS ORDERED: [UNRECOGNIZED DRUG - OTHER] IV SCH ×9 (17:00)
[2018-05-03] MEDS ORDERED: POTASSIUM ACETATE IV SCH ×9 (17:00)
[2018-05-03] MEDS ORDERED: SODIUM CHLORIDE IV SCH ×9 (17:00)
--- NOTE | 2018-05-03 17:58 | Progress Note (SOAP) ---
Subjective Date Seen by a Provider: May 03, 2018 Time Seen by a Provider: 17:45 Subjective/Events-last exam doing ok. no pain issues. ambulating well. minimal VIDAL output. no fever/chills. Focused Exam Lactate Level 05/01/18 05:44: Lactic Acid Level 2.03*H 05/01/18 08:10: Lactic Acid Level 2.26*H 05/01/18 16:15: Lactic Acid Level 1.66 Objective Exam Vital Signs Date Time Temp Pulse Resp B/P (MAP) Pulse Ox O2 Delivery O2 Flow Rate FiO2 05/03/18 16:27 97.5 83 14 131/78 (95) 94 Room Air 05/03/18 14:21 99 Room Air 05/03/18 14:00 92 35 129/80 (96) 99 Room Air 05/03/18 13:00 98.0 97 13 137/79 (98) 93 Room Air 05/03/18 13:00 111 05/03/18 12:35 93 Room Air 0.00 05/03/18 12:00 101 14 135/81 (99) 100 Room Air 05/03/18 11:40 98.9 108 12 128/79 100 Room Air 05/03/18 11:00 93 7 136/64 (88) 97 Room Air 05/03/18 10:48 93 Room Air 05/03/18 10:00 111 10 121/84 (96) 99 Room Air 05/03/18 09:01 98.8 115 20 112/60 93 Room Air 05/03/18 09:00 114 11 112/60 (77) 93 Room Air 05/03/18 08:46 98.8 117 18 128/70 93 Room Air 05/03/18 08:10 93 Room Air 0.00 05/03/18 08:00 117 18 112/67 (82) 95 Room Air 05/03/18 07:21 20 05/03/18 07:03 Room Air 05/03/18 07:00 101 14 110/72 (85) 98 Room Air 05/03/18 07:00 120 05/03/18 06:00 108 15 111/65 (80) 98 Room Air 05/03/18 05:00 106 10 94/63 (73) 91 Room Air 05/03/18 04:00 Room Air 0.00 05/03/18 04:00 104 30 116/77 (90) 98 Room Air 05/03/18 04:00 98.5 05/03/18 03:00 109 14 104/66 (79) 96 Room Air 05/03/18 02:00 112 11 105/63 (77) 89 Room Air 05/03/18 01:52 91 Room Air 05/03/18 01:40 99 Nasal Cannula 1.00 05/03/18 01:00 102 05/03/18 01:00 102 13 113/65 (81) 98 Nasal Cannula 1.00 05/03/18 00:00 98.9 05/03/18 00:00 105 10 113/65 (81) 96 Nasal Cannula 1.00 05/02/18 23:59 Room Air 0.00 05/02/18 23:00 106 8 100/53 (69) 93 Nasal Cannula 1.00 05/02/18 22:04 89 Room Air 05/02/18 22:00 110 13 99/55 (70) 85 Nasal Cannula 1.00 05/02/18 21:00 20 05/02/18 21:00 113 16 97/60 (72) 86 Room Air 05/02/18 20:25 98.6 05/02/18 20:00 Room Air 0.00 05/02/18 20:00 120 9 93/62 (72) 92 Room Air 05/02/18 19:00 113 05/02/18 19:00 113 21 103/61 (75) 91 Room Air 05/02/18 18:00 114 20 96/58 (71) 90 Room Air I & O 05/03/18 07:00 Intake Total 0 ml Output Total 1825 ml Balance -1825 ml Capillary Refill : Less Than 3 Seconds General Appearance: No Apparent Distress HEENT: PERRL/EOMI Neck: Full Range of Motion Respiratory: Chest Non Tender, Decreased Breath Sounds Cardiovascular: Regular Rate, Rhythm Gastrointestinal: non tender, soft Extremity: Normal Capillary Refill Neurologic/Psychiatric: Alert, Oriented x3 Skin: Normal Color Lymphatic: No Adenopathy Results Lab Laboratory Tests 05/03/18 03:53: White Blood Count 13.7H, Red Blood Count 2.82L, Hemoglobin 7.0L, Hematocrit 22L , Mean Corpuscular Volume 79L, Mean Corpuscular Hemoglobin 25, Mean Corpuscular Hemoglobin Concent 32, Red Cell Distribution Width 17.4H, Platelet Count 181, Mean Platelet Volume 12.3H, Neutrophils (%) (Auto) 96H, Lymphocytes (%) (Auto) 2L, Monocytes (%) (Auto) 2, Eosinophils (%) (Auto) 0, Basophils (%) (Auto) 0, Neutrophils # (Auto) 13.1H, Lymphocytes # (Auto) 0.3L, Monocytes # (Auto) 0.3, Eosinophils # (Auto) 0.0, Basophils # (Auto) 0.0, Prothrombin Time 46.1*H, INR Comment 4.9H, Sodium Level 144, Potassium Level 3.3L, Chloride Level 116H, Carbon Dioxide Level 20L, Anion Gap 8, Blood Urea Nitrogen 35H, Creatinine 1.53H , Estimat Glomerular Filtration Rate 37, BUN/Creatinine Ratio 23, Glucose Level 96, Calcium Level 7.7L, Corrected Calcium 9.2, Phosphorus Level 3.5, Magnesium Level 2.2, Total Bilirubin 0.3, Aspartate Amino Transf (AST/SGOT) 19, Alanine Aminotransferase (ALT/SGPT) 14, Alkaline Phosphatase 55, Total Protein 4.3L, Albumin 2.1L, Triglycerides Level 120 05/03/18 13:55: Glucometer 92 05/03/18 14:40: Hemoglobin 8.3L, Hematocrit 26L Microbiology 05/01/18 Blood Culture - Preliminary, Resulted No growth 05/01/18 Influenza Types A,B Antigen (DANIELA) - Final, Complete 04/30/18 Urine Culture - Final, Complete 3 or more isolates Assessment/Plan Assessment/Plan Assess & Plan/Chief Complaint s/p laparoscopic reduction large recurrent hiatal hernia and repair perforation. continue bowel rest for now and NGT. will start TPN. continue IV hydration for previous prerenal azotemia. continue DVT prophylaxis. continue abx and antifungals and manage intraabdominal drains. upper GI with gastrograffin tomorrow. Clinical Quality Measures DVT/VTE Risk/Contraindication: Risk Factor Score Per Nursin RFS Level Per Nursing on Admit: 2=Moderate SONY BERGER MD May 03, 2018 17:57
[2018-05-03] MEDS: HYDROmorphone 2 MG/ML VIAL (DILAUDID) IV PRN ×2 (18:34→21:36)
[2018-05-04] VITALS: BP 123/71
[2018-05-04 04:00] VITALS: BP 124/74
[2018-05-04] MEDS: KCL 20 MEQ TAB (K-DUR) PO SCH (05:31)
[2018-05-04] MEDS: POTASSIUM CL 10MEQ/50ML IVPB 50 ML IV SCH (05:31)
[2018-05-04] MEDS: MAGNESIUM 1 GM/100 ML IVPB 100 ML IV SCH (05:31)
[2018-05-04] MEDS: PIPERACILLIN/TAZOBACTAM (BULK) 4.5 GM in NS (IVPB) 100 ML IV SCH ×3 (05:37→21:56)
[2018-05-04] MEDS: DEXAMETHASONE 4 MG/ML SDV (DECADRON) IV SCH ×3 (05:37→21:15)
[2018-05-04 05:56] LABS: BASOPHILS % (AUTO) 0 % (0-10); EOSINOPHILS % (AUTO) 0 % (0-10); HEMATOCRIT 26 % (35-52); HEMOGLOBIN 8.3 G/DL (11.5-16.0); LYMPHOCYTES # (AUTO) 0.3 X 10^3 (1.0-4.0); LYMPHOCYTES % (AUTO) 4 % (12-44); MEAN CORPUSCULAR HEMOGLOBIN 25 PG (25-34); MEAN CORPUSCULAR HGB CONC 32 G/DL (32-36); MEAN CORPUSCULAR VOLUME 79 FL (80-99); MEAN PLATELET VOLUME 12.2 FL (7.4-10.4); MONOCYTES # (AUTO) 0.5 X 10^3 (0.0-1.0); MONOCYTES % (AUTO) 6 % (0-12); NEUTROPHILS # (AUTO) 8.2 X 10^3 (1.8-7.8); NEUTROPHILS % (AUTO) 91 % (42-75); PLATELET COUNT 200 10^3/uL (130-400); RED CELL DISTRIBUTION WIDTH 17.5 % (10.0-14.5); WHITE BLOOD COUNT 9.1 10^3/uL (4.3-11.0)
[2018-05-04 06:13] LABS: ALANINE AMINOTRANSFERASE 13 U/L (0-55); ALBUMIN 2.4 GM/DL (3.2-4.5); ALKALINE PHOSPHATASE 56 U/L (40-136); BILIRUBIN,TOTAL 0.3 MG/DL (0.1-1.0); BUN/CREATININE RATIO 34; CALCIUM 8.1 MG/DL (8.5-10.1); CARBON DIOXIDE 21 MMOL/L (21-32); CHLORIDE 116 MMOL/L (98-107); CREATININE SERUM 0.93 MG/DL (0.60-1.30); GFR ESTIMATED > 60; GLUCOSE 137 MG/DL (70-105); PHOSPHORUS 2.5 MG/DL (2.3-4.7); POTASSIUM 4.2 MMOL/L (3.6-5.0); SODIUM 145 MMOL/L (135-145); TOTAL PROTEIN 4.7 GM/DL (6.4-8.2)
[2018-05-04] MEDS: LACTATED RINGERS 1,000 ML IV SCH ×2 (06:48→13:05)
--- NOTE | 2018-05-04 07:22 | Progress Note (SOAP) ---
Subjective Date Seen by a Provider: May 04, 2018 Time Seen by a Provider: 07:30 Subjective/Events-last exam Patient now on 4th medical. Nasogastric tube in place. She is feeling much better. She understands plan today is for upper GI Gastrografin study Focused Exam Lactate Level 05/01/18 08:10: Lactic Acid Level 2.26*H 05/01/18 16:15: Lactic Acid Level 1.66 Objective Exam Vital Signs Date Time Temp Pulse Resp B/P (MAP) Pulse Ox O2 Delivery O2 Flow Rate FiO2 05/04/18 04:00 98.4 88 18 124/74 (91) 93 Room Air 05/04/18 00:00 98.0 80 18 123/71 (88) 92 Room Air 05/03/18 20:00 Room Air 05/03/18 19:43 96.3 97 16 121/73 (89) 92 Room Air 05/03/18 19:00 86 05/03/18 16:27 97.5 83 14 131/78 (95) 94 Room Air 05/03/18 14:21 99 Room Air 05/03/18 14:00 92 35 129/80 (96) 99 Room Air 05/03/18 13:00 98.0 97 13 137/79 (98) 93 Room Air 05/03/18 13:00 111 05/03/18 12:35 93 Room Air 0.00 05/03/18 12:00 101 14 135/81 (99) 100 Room Air 05/03/18 11:40 98.9 108 12 128/79 100 Room Air 05/03/18 11:00 93 7 136/64 (88) 97 Room Air 05/03/18 10:48 93 Room Air 05/03/18 10:00 111 10 121/84 (96) 99 Room Air 05/03/18 09:01 98.8 115 20 112/60 93 Room Air 05/03/18 09:00 114 11 112/60 (77) 93 Room Air 05/03/18 08:46 98.8 117 18 128/70 93 Room Air 05/03/18 08:10 93 Room Air 0.00 05/03/18 08:00 117 18 112/67 (82) 95 Room Air 05/03/18 07:21 20 I & O 05/04/18 07:00 Intake Total 150 ml Output Total 561 ml Balance -411 ml Capillary Refill : Less Than 3 Seconds General Appearance: No Apparent Distress Neck: Supple Respiratory: Lungs Clear Cardiovascular: Regular Rate, Rhythm (With a normal rate of 80) Gastrointestinal: soft (With no obvious bowel sounds), other (Drains in place) Extremity: Normal Capillary Refill Skin: Normal Color Results Lab Laboratory Tests 05/03/18 13:55: Glucometer 92 05/03/18 14:40: Hemoglobin 8.3L, Hematocrit 26L 05/03/18 18:50: Glucometer 131H 05/04/18 05:40: Hemoglobin 8.3L, Hematocrit 26L, White Blood Count 9.1, Red Blood Count 3.33L, Mean Corpuscular Volume 79L, Mean Corpuscular Hemoglobin 25, Mean Corpuscular Hemoglobin Concent 32, Red Cell Distribution Width 17.5H, Platelet Count 200, Mean Platelet Volume 12.2H, Neutrophils (%) (Auto) 91H, Lymphocytes (%) (Auto) 4L, Monocytes (%) (Auto) 6, Eosinophils (%) (Auto) 0, Basophils (%) (Auto) 0, Neutrophils # (Auto) 8.2H, Lymphocytes # (Auto) 0.3L, Monocytes # (Auto) 0.5, Eosinophils # (Auto) 0.0, Basophils # (Auto) 0.0, Sodium Level 145, Potassium Level 4.2, Chloride Level 116H, Carbon Dioxide Level 21, Anion Gap 8, Blood Urea Nitrogen 32H, Creatinine 0.93, Estimat Glomerular Filtration Rate > 60, BUN /Creatinine Ratio 34, Glucose Level 137H, Calcium Level 8.1L, Corrected Calcium 9.4, Phosphorus Level 2.5, Magnesium Level 2.0, Total Bilirubin 0.3, Aspartate Amino Transf (AST/SGOT) 14, Alanine Aminotransferase (ALT/SGPT) 13, Alkaline Phosphatase 56, Total Protein 4.7L, Albumin 2.4L Microbiology 05/01/18 Blood Culture - Preliminary, Resulted No growth 05/01/18 Influenza Types A,B Antigen (DANIELA) - Final, Complete 04/30/18 Urine Culture - Final, Complete 3 or more isolates Assessment/Plan Assessment/Plan Assess & Plan/Chief Complaint 1. Sepsis--noted tachycardia with elevated lactic acid 05/01 -Cardiology consult at last evening and placed in ICU -Patient was placed on Cardizem drip early a.m. -Patient has now been switched from Rocephin to Zosyn. -[place]umont cultures obtained by pulmonology. -Chest x-ray performed. 05/02 -Patient currently on Zosyn day number 2 05/03 -Day number 3 of Zosyn 3 -Day 4 of Zosyn 3. Diffuse abdominal pain--with a history of hiatal hernia -Continue to monitor -Dr Carson has seen her in the past, will consult -She is apparently awaiting surgery at [facility] by Dr. Lew -Patient has Toradol for pain relief. 05/01 -CT of the abdomen and pelvis arrange this morning -Patient may possibly need transfer to [facility] depending results and evaluation by Dr. Carson 05/02 -Status post repair of perforated viscus day number 1 -Dr. Carson following 05/03 -noted plan for TPN and gastrograffin UGI planned 48 hrs as of last night. -HEAD CHEF for pain control 05/04 -patient on 4th floor out of ICU 4. Dehydration -Initiation of IV fluids 05/01 -Fluids continue 5. Worsening creatinine -IV fluid bolus noted given per pulmonary -Monitor creatinine 05/02 -Creatinine trending downward now 05/03 -Cr is 1.5 improved. Hydration helping 05/04 -Cr is 0.9 6. Urinary tract infection -Patient received dose of Rocephin in ED. She will maintain ceftriaxone 1 g every 24 hours until abdominal pain has improved and then switched to oral medications 05/02 -Culture with mixed eliane 7. Anemiapostoperative -1 unit of PRBCs ordered by Dr. Romero 05/04 -Hg improved this am to 9 Clinical Quality Measures Admission Status Admission Dx 1. Urinary tract infection-on admission 2. Diffuse abdominal pain--with a history of hiatal hernia 3. Dehydration DVT/VTE Risk/Contraindication: Risk Factor Score Per Nursin RFS Level Per Nursing on Admit: 2=Moderate ERNESTO PONCE MD May 04, 2018 07:22
[2018-05-04] MEDS: HYDROmorphone 2 MG/ML VIAL (DILAUDID) IV PRN ×3 (07:56→21:15)
[2018-05-04 08:00] VITALS: BP 141/98
[2018-05-04] MEDS: PANTOPRAZOLE 40 MG (PROTONIX) VIAL IV SCH ×2 (09:12→21:15)
[2018-05-04] MEDS: SENNA W/DOCUSATE (SENOKOT S) TABLET PO SCH ×2 (09:12→09:33)
[2018-05-04] MEDS: ENOXAPARIN 40 MG/0.4 ML (LOVENOX) SYR SC SCH (09:12)
[2018-05-04] MEDS: FLUCONAZOLE 200 MG/100 ML 50 ML, EMPTY IV BAG (PVC) 1 EA IV SCH ×2 (09:34)
--- NOTE | 2018-05-04 10:06 | Pulmonary Progress Note ---
Subjective Time Seen by a Provider: 10:05 Subjective/Events-last exam NG in place. Pain is controlled. Sepsis Event Evaluation Height, Weight, BMI Height: 5'2.00" Weight: 199lbs. 1.0oz. 90.972511kp; 29.5 BMI Method:Estimated Focused Exam Lactate Level 05/01/18 16:15: Lactic Acid Level 1.66 Exam Exam Vital Signs Date Time Temp Pulse Resp B/P (MAP) Pulse Ox O2 Delivery O2 Flow Rate FiO2 05/04/18 07:00 97 05/04/18 04:00 98.4 88 18 124/74 (91) 93 Room Air 05/04/18 00:00 98.0 80 18 123/71 (88) 92 Room Air 05/03/18 20:00 Room Air 05/03/18 19:43 96.3 97 16 121/73 (89) 92 Room Air 05/03/18 19:00 86 05/03/18 16:27 97.5 83 14 131/78 (95) 94 Room Air 05/03/18 14:21 99 Room Air 05/03/18 14:00 92 35 129/80 (96) 99 Room Air 05/03/18 13:00 98.0 97 13 137/79 (98) 93 Room Air 05/03/18 13:00 111 05/03/18 12:35 93 Room Air 0.00 05/03/18 12:00 101 14 135/81 (99) 100 Room Air 05/03/18 11:40 98.9 108 12 128/79 100 Room Air 05/03/18 11:00 93 7 136/64 (88) 97 Room Air 05/03/18 10:48 93 Room Air I & O 05/04/18 07:00 Intake Total 150 ml Output Total 561 ml Balance -411 ml Height & Weight Height: 5'2.00" Weight: 199lbs. 1.0oz. 90.803262fz; 29.5 BMI Method:Estimated General Appearance: No Apparent Distress HEENT: PERRL/EOMI Neck: Supple Respiratory: Lungs Clear Cardiovascular: Regular Rate, Rhythm (With a normal rate of 80) Capillary Refill: Less Than 3 Seconds Gastrointestinal: soft (With no obvious bowel sounds), other (Drains in place) Extremity: Normal Capillary Refill Neurologic/Psychiatric: Alert, Oriented x3 Skin: Normal Color Lymphatic: No Adenopathy Results Lab Laboratory Tests 05/03/18 03:53 05/03/18 14:40 05/04/18 05:40 Assessment/Plan Assessment/Plan Severe sepsis secondary to abdominal perforation -Dumont cultures negative -Zosyn, Diflucan -MRSA- Neg Abdominal perforation s/p surgical repair -Dr. 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
--- NOTE | 2018-05-04 11:51 | Progress Note (SOAP) ---
Subjective Date Seen by a Provider: May 04, 2018 Time Seen by a Provider: 10:00 Subjective/Events-last exam doing ok. pain controlled. no fever/chills. Focused Exam Lactate Level 05/01/18 16:15: Lactic Acid Level 1.66 Objective Exam Vital Signs Date Time Temp Pulse Resp B/P (MAP) Pulse Ox O2 Delivery O2 Flow Rate FiO2 05/04/18 07:00 97 05/04/18 04:00 98.4 88 18 124/74 (91) 93 Room Air 05/04/18 00:00 98.0 80 18 123/71 (88) 92 Room Air 05/03/18 20:00 Room Air 05/03/18 19:43 96.3 97 16 121/73 (89) 92 Room Air 05/03/18 19:00 86 05/03/18 16:27 97.5 83 14 131/78 (95) 94 Room Air 05/03/18 14:21 99 Room Air 05/03/18 14:00 92 35 129/80 (96) 99 Room Air 05/03/18 13:00 98.0 97 13 137/79 (98) 93 Room Air 05/03/18 13:00 111 05/03/18 12:35 93 Room Air 0.00 05/03/18 12:00 101 14 135/81 (99) 100 Room Air I & O 05/04/18 07:00 Intake Total 150 ml Output Total 561 ml Balance -411 ml Capillary Refill : Less Than 3 Seconds General Appearance: No Apparent Distress HEENT: PERRL/EOMI Neck: Full Range of Motion Respiratory: Chest Non Tender, Lungs Clear, Normal Breath Sounds Cardiovascular: Regular Rate, Rhythm Gastrointestinal: normal bowel sounds, soft Extremity: Normal Capillary Refill Neurologic/Psychiatric: Alert, Oriented x3 Skin: Normal Color Lymphatic: No Adenopathy Results Lab Laboratory Tests 05/03/18 13:55: Glucometer 92 05/03/18 14:40: Hemoglobin 8.3L, Hematocrit 26L 05/03/18 18:50: Glucometer 131H 05/04/18 05:40: Hemoglobin 8.3L, Hematocrit 26L, White Blood Count 9.1, Red Blood Count 3.33L, Mean Corpuscular Volume 79L, Mean Corpuscular Hemoglobin 25, Mean Corpuscular Hemoglobin Concent 32, Red Cell Distribution Width 17.5H, Platelet Count 200, Mean Platelet Volume 12.2H, Neutrophils (%) (Auto) 91H, Lymphocytes (%) (Auto) 4L, Monocytes (%) (Auto) 6, Eosinophils (%) (Auto) 0, Basophils (%) (Auto) 0, Neutrophils # (Auto) 8.2H, Lymphocytes # (Auto) 0.3L, Monocytes # (Auto) 0.5, Eosinophils # (Auto) 0.0, Basophils # (Auto) 0.0, Sodium Level 145, Potassium Level 4.2, Chloride Level 116H, Carbon Dioxide Level 21, Anion Gap 8, Blood Urea Nitrogen 32H, Creatinine 0.93, Estimat Glomerular Filtration Rate > 60, BUN /Creatinine Ratio 34, Glucose Level 137H, Calcium Level 8.1L, Corrected Calcium 9.4, Phosphorus Level 2.5, Magnesium Level 2.0, Total Bilirubin 0.3, Aspartate Amino Transf (AST/SGOT) 14, Alanine Aminotransferase (ALT/SGPT) 13, Alkaline Phosphatase 56, Total Protein 4.7L, Albumin 2.4L Microbiology 05/01/18 Blood Culture - Preliminary, Resulted No growth 05/01/18 Influenza Types A,B Antigen (DANIELA) - Final, Complete 04/30/18 Urine Culture - Final, Complete 3 or more isolates Assessment/Plan Assessment/Plan Assess & Plan/Chief Complaint s/p laparoscopic reduction large recurrent hiatal hernia and repair perforation. continue bowel rest for now and NGT. will start TPN. continue IV hydration for previous prerenal azotemia. continue DVT prophylaxis. continue abx and antifungals and manage intraabdominal drains. upper GI with gastrograffin today. Clinical Quality Measures DVT/VTE Risk/Contraindication: Risk Factor Score Per Nursin RFS Level Per Nursing on Admit: 2=Moderate SONY BERGER MD May 04, 2018 11:51
[2018-05-04 12:00] VITALS: BP 125/85
--- NOTE | 2018-05-04 12:18 | Cardiology Progress Note ---
Cardiology SOAP Progress Note Subjective: No cardiac symptoms. Objective: I&O/Vital Signs 05/04/18 05/04/18 04:00 07:00 Temp 98.4 Pulse 88 97 Resp 18 B/P (MAP) 124/74 (91) Pulse Ox 93 O2 Delivery Room Air 05/04/18 00:00 Intake Total 0 ml Output Total 332 ml Balance -332 ml Weight (Pounds): 199 Weight (Ounces): 1.0 Weight (Calculated Kilograms): 90.618754 Constitutional: AAO x 3, well-developed, well-nourished Respiratory: No accessory muscle use, No respiratory distress, No chest tender , No chest expansion is symmetric; chest is bilaterally symmetric; No lungs clear to percussion; lungs clear to auscultation; No crackles, No rhonchi, No rales, No stridor, No wheezing, No pleural rub; other (fair to good bilat air entry, diminished at the bases) Cardiovascular: regular rate-rhythm; No irregularly irregular, No extra beats, No parasternal heave is noted, No JVD, No edema, No bradycardia, No point of maximal impulse, No cardiac thrills are palpable; S1 and S2; No gallop/S3, No gallop/S4, No diastolic murmur; systolic murmur (faint JENNIFER at card base); No friction rub, No click, No other Gastrointestional: tender; No soft, No round, No distended, No pulsatile mass, No organomegaly; guarding, rebound; No tenderness, No hernia, No mass, No audible bowel sounds, No abnormal bowel sounds, No abdominal bruits, No spleenomegaly; other (weak to absent BS) Extremities: No normal range of motion, No non-tender, No normal inspection, No pedal edema, No calf tenderness, No normal capillary refill, No pelvis stable , No calf tenderness, No inflammation, No pedal edema, No slow capillary refill , No swelling, No other, No abrasion, No clubbing, No cyanosis, No ecchymosis, No laceration, No no lower extremity edema bilateral, No significant edema, No tenderness, No wound Neurologic/Psychiatric: no motor/sensory deficits, alert, normal mood/affect, oriented x 3, grossly intact, power is 5/5 both on sides Skin: warm/dry; No cyanosis, No cool, No diaphoresis Results/Procedures: Labs Laboratory Tests 05/03/18 13:55: Glucometer 92 05/03/18 14:40: Hemoglobin 8.3L, Hematocrit 26L 05/03/18 18:50: Glucometer 131H 05/04/18 05:40: Hemoglobin 8.3L, Hematocrit 26L, White Blood Count 9.1, Red Blood Count 3.33L, Mean Corpuscular Volume 79L, Mean Corpuscular Hemoglobin 25, Mean Corpuscular Hemoglobin Concent 32, Red Cell Distribution Width 17.5H, Platelet Count 200, Mean Platelet Volume 12.2H, Neutrophils (%) (Auto) 91H, Lymphocytes (%) (Auto) 4L, Monocytes (%) (Auto) 6, Eosinophils (%) (Auto) 0, Basophils (%) (Auto) 0, Neutrophils # (Auto) 8.2H, Lymphocytes # (Auto) 0.3L, Monocytes # (Auto) 0.5, Eosinophils # (Auto) 0.0, Basophils # (Auto) 0.0, Sodium Level 145, Potassium Level 4.2, Chloride Level 116H, Carbon Dioxide Level 21, Anion Gap 8, Blood Urea Nitrogen 32H, Creatinine 0.93, Estimat Glomerular Filtration Rate > 60, BUN /Creatinine Ratio 34, Glucose Level 137H, Calcium Level 8.1L, Corrected Calcium 9.4, Phosphorus Level 2.5, Magnesium Level 2.0, Total Bilirubin 0.3, Aspartate Amino Transf (AST/SGOT) 14, Alanine Aminotransferase (ALT/SGPT) 13, Alkaline Phosphatase 56, Total Protein 4.7L, Albumin 2.4L 05/04/18 12:05: Lab Scanned Report Transfusion Reaction Form Microbiology 05/01/18 Blood Culture - Preliminary, Resulted No growth 05/01/18 Influenza Types A,B Antigen (DANIELA) - Final, Complete 04/30/18 Urine Culture - Final, Complete 3 or more isolates A/P: Assessment/Dx: Septic shock Acute abdomen Sinus tach due to septic shock Acute kidney injury stage 3 LVEF 50-55% on echo of 05/01/18 Plan: * Patient is gradually improving. * Improved sinus tachycardia. * Aggressive DVT prophylaxis. * defer treatment to surgery and primary team. Thank you for your consultation. Please call me if you have any questions. Conner Nair MD, FACP, FACC, FSCAI, FHRS, CCDS Interventional Cardiology Cardiac Electrophysiology Vascular Medicine and Endovascular Interventions Focused Exam Lactate Level 05/01/18 16:15: Lactic Acid Level 1.66 Shira NAIR MD May 04, 2018 12:18 pm
--- NOTE | 2018-05-04 12:53 | NUR ---
TPN: NEXT BAG UP WILL RUN AT 55 ML/HR, PROVIDING 1340 KCAL AND 90 GM PROTEIN. MEETING GOALS OF 14 KCAL/ABW WITH 2 GM/KG IBW FOR PT WITH CLASS II OBESITY.
[2018-05-04] MEDS ORDERED: DIATRIZOATE MEGLUM/SODIUM 37% 120 ML (GASTROGRAFIN) RC ONE (15:15)
--- NOTE | 2018-05-04 15:26 | NUR ---
DR. BERGER ON FLOOR AND VERBAL ORDERS RECEIVED TO PULL NG TUBE AND DIET CHANGED TO CLEAR LIQUIDS. NG TUBE PULLED WITHOUT DIFFICULTY AND PATIENT TOLERATED WELL.
[2018-05-04] MEDS: HYDROcodone/APAP 7.5MG-325 MG/15 ML (LORTAB) UDC PO PRN (15:35)
[2018-05-04 16:00] VITALS: BP 151/81
--- NOTE | 2018-05-04 17:20 | Diagnostic Imaging Report ---
INDICATION: Patient is status post paraesophageal hernia repair and gastric perforation repair. Study is performed to evaluate for leak. TECHNIQUE: The patient ingested Gastrografin contrast and spot films over the abdomen were obtained. A total of 1 minute 41 seconds of fluoroscopy was utilized. FINDINGS: Preliminary radiograph does show a moderate amount of contrast in the upper abdomen and stomach from recent GI procedure. There is intraperitoneal contrast in the left abdomen from prior perforation. NG tube is coiled in the stomach. The distal esophagus is unremarkable. There is free flow of contrast from the distal esophagus into the stomach. No caterina extravasation is identified. There continues to be a small paraesophageal component to the stomach. IMPRESSION: No obvious extravasation is identified. Dictated by: Dictated on workstation # [id number]
[2018-05-04] MEDS: SODIUM PHOSPHATE IV SCH ×10 (17:42)
[2018-05-04] MEDS: SODIUM ACETATE IV SCH ×10 (17:42)
[2018-05-04] MEDS: [UNRECOGNIZED DRUG - OTHER] IV SCH ×10 (17:42)
[2018-05-04] MEDS: POTASSIUM ACETATE IV SCH ×10 (17:42)
[2018-05-04 20:00] VITALS: BP 128/86
[2018-05-05] VITALS: BP 128/84
[2018-05-05] MEDS: LACTATED RINGERS 1,000 ML IV SCH ×2 (04:16→14:43)
[2018-05-05] MEDS: PIPERACILLIN/TAZOBACTAM (BULK) 4.5 GM in NS (IVPB) 100 ML IV SCH ×3 (05:14→21:04)
[2018-05-05] MEDS: HYDROmorphone 2 MG/ML VIAL (DILAUDID) IV PRN (05:14)
[2018-05-05] MEDS: DEXAMETHASONE 4 MG/ML SDV (DECADRON) IV SCH ×3 (06:35→21:04)
[2018-05-05 06:43] LABS: ALANINE AMINOTRANSFERASE 14 U/L (0-55); ALBUMIN 2.3 GM/DL (3.2-4.5); ALKALINE PHOSPHATASE 53 U/L (40-136); BILIRUBIN,TOTAL 0.3 MG/DL (0.1-1.0); BUN/CREATININE RATIO 47; CARBON DIOXIDE 24 MMOL/L (21-32); CHLORIDE 112 MMOL/L (98-107); CREATININE SERUM 0.73 MG/DL (0.60-1.30); GFR ESTIMATED > 60; GLUCOSE 140 MG/DL (70-105); MAGNESIUM 1.9 MG/DL (1.8-2.4); PHOSPHORUS 3.6 MG/DL (2.3-4.7); POTASSIUM 4.2 MMOL/L (3.6-5.0); SODIUM 142 MMOL/L (135-145); TOTAL PROTEIN 4.6 GM/DL (6.4-8.2)
[2018-05-05 08:00] VITALS: BP 133/71
--- NOTE | 2018-05-05 08:42 | Pulmonary Progress Note ---
Sepsis Event Evaluation Height, Weight, BMI Height: 5'2.00" Weight: 213lbs. 2.0oz. 96.612360us; 29.5 BMI Method:Estimated Exam Exam Vital Signs Date Time Temp Pulse Resp B/P (MAP) Pulse Ox O2 Delivery O2 Flow Rate FiO2 05/05/18 08:00 94 Room Air 05/05/18 01:00 55 05/05/18 00:00 97.4 77 18 128/84 (99) 98 Room Air 05/04/18 20:00 98.4 68 20 128/86 (100) 95 Room Air 05/04/18 20:00 94 Room Air 05/04/18 19:00 62 05/04/18 16:00 98.4 65 16 151/81 (104) 94 Room Air 05/04/18 13:00 71 05/04/18 12:00 98.4 76 20 125/85 (98) 93 Room Air I & O 05/05/18 07:00 Intake Total 1840 ml Output Total 100 ml Balance 1740 ml Height & Weight Height: 5'2.00" Weight: 213lbs. 2.0oz. 96.106161yp; 29.5 BMI Method:Estimated General Appearance: No Apparent Distress HEENT: PERRL/EOMI Neck: Full Range of Motion Respiratory: Chest Non Tender, Lungs Clear, Normal Breath Sounds Cardiovascular: Regular Rate, Rhythm Capillary Refill: Less Than 3 Seconds Gastrointestinal: normal bowel sounds, soft Extremity: Normal Capillary Refill Neurologic/Psychiatric: Alert, Oriented x3 Skin: Normal Color Lymphatic: No Adenopathy Results Lab Laboratory Tests 05/03/18 14:40 05/04/18 05:40 05/05/18 06:05 Assessment/Plan Assessment/Plan Severe sepsis secondary to abdominal perforation - improving -Dumont cultures negative -Zosyn, Diflucan -MRSA- Neg Abdominal perforation s/p surgical repair -Dr. 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
[2018-05-05] MEDS: SENNA W/DOCUSATE (SENOKOT S) TABLET PO SCH ×2 (09:00→09:29)
[2018-05-05] MEDS: PANTOPRAZOLE 40 MG (PROTONIX) VIAL IV SCH ×2 (09:29→21:04)
[2018-05-05] MEDS: ENOXAPARIN 40 MG/0.4 ML (LOVENOX) SYR SC SCH (09:29)
[2018-05-05] MEDS: FLUCONAZOLE 200 MG/100 ML 50 ML, EMPTY IV BAG (PVC) 1 EA IV SCH ×2 (09:30)
--- NOTE | 2018-05-05 11:53 | Progress Note (SOAP) ---
Subjective Date Seen by a Provider: May 05, 2018 Time Seen by a Provider: 11:10 Subjective/Events-last exam Patient seen with Dr. Carson. Patient reports that she is still having some abdominal discomfort but is having BMs. Tolerating liquid diet. No N/V. No fever/chills. Patient reports that she is ambulating. Objective Exam Vital Signs Date Time Temp Pulse Resp B/P (MAP) Pulse Ox O2 Delivery O2 Flow Rate FiO2 05/05/18 08:00 98.8 68 18 133/71 (91) 93 Room Air 05/05/18 08:00 94 Room Air 05/05/18 01:00 55 05/05/18 00:00 97.4 77 18 128/84 (99) 98 Room Air 05/04/18 20:00 98.4 68 20 128/86 (100) 95 Room Air 05/04/18 20:00 94 Room Air 05/04/18 19:00 62 05/04/18 16:00 98.4 65 16 151/81 (104) 94 Room Air 05/04/18 13:00 71 05/04/18 12:00 98.4 76 20 125/85 (98) 93 Room Air I & O 05/05/18 07:00 Intake Total 1840 ml Output Total 100 ml Balance 1740 ml Capillary Refill : Less Than 3 Seconds General Appearance: No Apparent Distress, WD/WN Neck: Full Range of Motion, Normal Inspection, Non Tender, Supple Respiratory: Lungs Clear, Normal Breath Sounds, No Accessory Muscle Use, No Respiratory Distress Cardiovascular: Regular Rate, Rhythm, No Edema Gastrointestinal: normal bowel sounds, soft, tenderness, other (Right and left abdominal VIDAL drains with SS drainage.) Extremity: Normal Capillary Refill, Normal Inspection, Normal Range of Motion Neurologic/Psychiatric: Alert, Oriented x3 Skin: Normal Color, Warm/Dry, Other (Incisions C/D/I) Results Lab Laboratory Tests 05/04/18 12:05: Lab Scanned Report Transfusion Reaction Form 05/05/18 06:05: Sodium Level 142, Potassium Level 4.2, Chloride Level 112H, Carbon Dioxide Level 24, Anion Gap 6, Blood Urea Nitrogen 34H, Creatinine 0.73, Estimat Glomerular Filtration Rate > 60, BUN/Creatinine Ratio 47, Glucose Level 140H, Calcium Level 8.0L, Corrected Calcium 9.4, Phosphorus Level 3.6, Magnesium Level 1.9, Total Bilirubin 0.3, Aspartate Amino Transf (AST/SGOT) 12, Alanine Aminotransferase (ALT/SGPT) 14, Alkaline Phosphatase 53, Total Protein 4.6L, Albumin 2.3L Microbiology 05/01/18 Blood Culture - Preliminary, Resulted No growth 05/01/18 Influenza Types A,B Antigen (DANIELA) - Final, Complete 05/01/18 Urine Culture - Final, Complete NO GROWTH Assessment/Plan Assessment/Plan Assess & Plan/Chief Complaint A 47 year old female who is s/p laparoscopic reduction large recurrent hiatal hernia and repair perforation. VSS. upper GI with gastrograffin study showed no leak. Continue IV fluids, pain, nausea medications. Continue Ambulation. Continue Clear liquid diet. PPI and DVT prophylaxis Clinical Quality Measures DVT/VTE Risk/Contraindication: Risk Factor Score Per Nursin RFS Level Per Nursing on Admit: 2=Moderate TOM BULLARD APRN May 05, 2018 11:53
--- NOTE | 2018-05-05 12:29 | Progress Note (SOAP) ---
Subjective Date Seen by a Provider: May 05, 2018 Time Seen by a Provider: 12:20 Subjective/Events-last exam Patient is now with NG tube out. She is sitting up in chair. She has been taking sips of fluid. She cannot swallow pills yet. Objective Exam Vital Signs Date Time Temp Pulse Resp B/P (MAP) Pulse Ox O2 Delivery O2 Flow Rate FiO2 05/05/18 08:00 98.8 68 18 133/71 (91) 93 Room Air 05/05/18 08:00 94 Room Air 05/05/18 01:00 55 05/05/18 00:00 97.4 77 18 128/84 (99) 98 Room Air 05/04/18 20:00 98.4 68 20 128/86 (100) 95 Room Air 05/04/18 20:00 94 Room Air 05/04/18 19:00 62 05/04/18 16:00 98.4 65 16 151/81 (104) 94 Room Air 05/04/18 13:00 71 I & O 05/05/18 07:00 Intake Total 1840 ml Output Total 100 ml Balance 1740 ml Capillary Refill : Less Than 3 Seconds General Appearance: No Apparent Distress Respiratory: Lungs Clear Cardiovascular: Regular Rate, Rhythm (With rate continued to be controlled) Gastrointestinal: soft, other (Bowel sounds returning) Extremity: Normal Capillary Refill Other comments Urine culture reveals 3 or more isolates consistent with contamination Results Lab Laboratory Tests 05/05/18 06:05: Sodium Level 142, Potassium Level 4.2, Chloride Level 112H, Carbon Dioxide Level 24, Anion Gap 6, Blood Urea Nitrogen 34H, Creatinine 0.73, Estimat Glomerular Filtration Rate > 60, BUN/Creatinine Ratio 47, Glucose Level 140H, Calcium Level 8.0L, Corrected Calcium 9.4, Phosphorus Level 3.6, Magnesium Level 1.9, Total Bilirubin 0.3, Aspartate Amino Transf (AST/SGOT) 12, Alanine Aminotransferase (ALT/SGPT) 14, Alkaline Phosphatase 53, Total Protein 4.6L, Albumin 2.3L Microbiology 05/01/18 Blood Culture - Preliminary, Resulted No growth 05/01/18 Influenza Types A,B Antigen (DANIELA) - Final, Complete 05/01/18 Urine Culture - Final, Complete NO GROWTH Assessment/Plan Assessment/Plan Assess & Plan/Chief Complaint 1. Sepsis--noted tachycardia with elevated lactic acid 05/01 -Cardiology consult at last evening and placed in ICU -Patient was placed on Cardizem drip early a.m. -Patient has now been switched from Rocephin to Zosyn. -Dumont cultures obtained by pulmonology. -Chest x-ray performed. 05/02 -Patient currently on Zosyn day number 2 05/03 -Day number 3 of Zosyn 3 -Day 4 of Zosyn 05/05 -Day 5 of Zosyn 3. Diffuse abdominal pain--with a history of hiatal hernia -Continue to monitor -Dr Carson has seen her in the past, will consult -She is apparently awaiting surgery at [facility] by Dr. Lew -Patient has Toradol for pain relief. 05/01 -CT of the abdomen and pelvis arrange this morning -Patient may possibly need transfer to [facility] depending results and evaluation by Dr. Carson 05/02 -Status post repair of perforated viscus day number 1 -Dr. Carson following 05/03 -noted plan for TPN and gastrograffin UGI planned 48 hrs as of last night. 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 Dehydration -Initiation of IV fluids 05/01 -Fluids continue 5. Worsening creatinine -IV fluid bolus noted given per pulmonary -Monitor creatinine 05/02 -Creatinine trending downward now 05/03 -Cr is 1.5 improved. Hydration helping 05/04 -Cr is 0.9 6. Urinary tract infection -Patient received dose of Rocephin in ED. She will maintain ceftriaxone 1 g every 24 hours until abdominal pain has improved and then switched to oral medications 05/02 -Culture with mixed eliane 7. Anemiapostoperative -1 unit of PRBCs ordered by Dr. Romero 05/04 -Hg improved this am to 9 05/05 -Hemoglobin stable at 8.3 as of yesterday Clinical Quality Measures Admission Status Admission Dx 1. Urinary tract infection-on admission 2. Diffuse abdominal pain--with a history of hiatal hernia 3. Dehydration DVT/VTE Risk/Contraindication: Risk Factor Score Per Nursin RFS Level Per Nursing on Admit: 2=Moderate ERNESTO PONCE MD May 05, 2018 12:29
--- NOTE | 2018-05-05 14:10 | NUR ---
Nate was called about 1330 iv zosyn -- not on floor pharmacy will get to floor
--- NOTE | 2018-05-05 14:12 | Cardiology Progress Note ---
Cardiology SOAP Progress Note Subjective: No cardiac symptoms. Objective: I&O/Vital Signs 05/05/18 05/05/18 08:00 08:00 Temp 98.8 Pulse 68 Resp 18 B/P (MAP) 133/71 (91) Pulse Ox 94 93 O2 Delivery Room Air Room Air 05/05/18 00:00 Intake Total 170 ml Output Total 50 ml Balance 120 ml Weight (Pounds): 213 Weight (Ounces): 2.0 Weight (Calculated Kilograms): 96.645654 Constitutional: AAO x 3, well-developed, well-nourished Respiratory: No accessory muscle use, No respiratory distress, No chest tender , No chest expansion is symmetric; chest is bilaterally symmetric; No lungs clear to percussion; lungs clear to auscultation; No crackles, No rhonchi, No rales, No stridor, No wheezing, No pleural rub; other (fair to good bilat air entry, diminished at the bases) Cardiovascular: regular rate-rhythm; No irregularly irregular, No extra beats, No parasternal heave is noted, No JVD, No edema, No bradycardia, No point of maximal impulse, No cardiac thrills are palpable; S1 and S2; No gallop/S3, No gallop/S4, No diastolic murmur; systolic murmur (faint JENNIFER at card base); No friction rub, No click, No other Gastrointestional: tender; No soft, No round, No distended, No pulsatile mass, No organomegaly; guarding, rebound; No tenderness, No hernia, No mass, No audible bowel sounds, No abnormal bowel sounds, No abdominal bruits, No spleenomegaly; other (weak to absent BS) Extremities: No normal range of motion, No non-tender, No normal inspection, No pedal edema, No calf tenderness, No normal capillary refill, No pelvis stable , No calf tenderness, No inflammation, No pedal edema, No slow capillary refill , No swelling, No other, No abrasion, No clubbing, No cyanosis, No ecchymosis, No laceration, No no lower extremity edema bilateral, No significant edema, No tenderness, No wound Neurologic/Psychiatric: no motor/sensory deficits, alert, normal mood/affect, oriented x 3, grossly intact, power is 5/5 both on sides Skin: warm/dry; No cyanosis, No cool, No diaphoresis Results/Procedures: Labs Laboratory Tests 05/05/18 06:05: Sodium Level 142, Potassium Level 4.2, Chloride Level 112H, Carbon Dioxide Level 24, Anion Gap 6, Blood Urea Nitrogen 34H, Creatinine 0.73, Estimat Glomerular Filtration Rate > 60, BUN/Creatinine Ratio 47, Glucose Level 140H, Calcium Level 8.0L, Corrected Calcium 9.4, Phosphorus Level 3.6, Magnesium Level 1.9, Total Bilirubin 0.3, Aspartate Amino Transf (AST/SGOT) 12, Alanine Aminotransferase (ALT/SGPT) 14, Alkaline Phosphatase 53, Total Protein 4.6L, Albumin 2.3L Microbiology 05/01/18 Blood Culture - Preliminary, Resulted No growth 05/01/18 Influenza Types A,B Antigen (DANIELA) - Final, Complete 05/01/18 Urine Culture - Final, Complete NO GROWTH A/P: Assessment/Dx: Septic shock Acute abdomen Sinus tach due to septic shock Acute kidney injury stage 3 LVEF 50-55% on echo of 05/01/18 Plan: * Patient is gradually improving. * Improved sinus tachycardia. * Aggressive DVT prophylaxis. * defer treatment to surgery and primary team. Thank you for your consultation. Please call me if you have any questions. Conner Nair MD, FACP, FACC, FSCAI, FHRS, CCDS Interventional Cardiology Cardiac Electrophysiology Vascular Medicine and Endovascular Interventions Shira NAIR MD May 05, 2018 2:12 pm
[2018-05-05] MEDS: HYDROcodone/APAP 7.5MG-325 MG/15 ML (LORTAB) UDC PO PRN ×2 (14:53→23:47)
[2018-05-05 16:00] VITALS: BP 118/76
[2018-05-05] MEDS: [UNRECOGNIZED DRUG - OTHER] IV SCH ×10 (18:09)
[2018-05-05] MEDS: SODIUM ACETATE IV SCH ×10 (18:09)
[2018-05-05] MEDS: SODIUM PHOSPHATE IV SCH ×10 (18:09)
[2018-05-05] MEDS: POTASSIUM ACETATE IV SCH ×10 (18:09)
[2018-05-05 23:20] VITALS: BP 129/75
[2018-05-06] MEDS: PIPERACILLIN/TAZOBACTAM (BULK) 4.5 GM in NS (IVPB) 100 ML IV SCH ×3 (05:23→20:54)
[2018-05-06] MEDS: LACTATED RINGERS 1,000 ML IV SCH ×3 (05:23→20:57)
[2018-05-06] MEDS: DEXAMETHASONE 4 MG/ML SDV (DECADRON) IV SCH ×3 (05:23→20:54)
[2018-05-06] MEDS: SENNA W/DOCUSATE (SENOKOT S) TABLET PO SCH (07:45)
[2018-05-06 08:00] VITALS: BP 132/80
[2018-05-06] MEDS: PANTOPRAZOLE 40 MG (PROTONIX) VIAL IV SCH ×2 (08:48→20:54)
[2018-05-06] MEDS: ENOXAPARIN 40 MG/0.4 ML (LOVENOX) SYR SC SCH (08:49)
[2018-05-06] MEDS: FLUCONAZOLE 200 MG/100 ML 50 ML, EMPTY IV BAG (PVC) 1 EA IV SCH ×2 (08:50)
[2018-05-06] MEDS: HYDROmorphone 2 MG/ML VIAL (DILAUDID) IV PRN (09:28)
--- NOTE | 2018-05-06 09:49 | Progress Note (SOAP) ---
Subjective Date Seen by a Provider: May 06, 2018 Time Seen by a Provider: 09:35 Subjective/Events-last exam Patient seen with Dr. Carson. Patient reports still having abdominal pain. No N/ V. Tolerating diet. Having liquid BMs. No Fever/chills. Ambulating. Patient reports that she was having problems swallowing pills 3 days ago and has been nervous take try and take any more pills by mouth. Objective Exam Vital Signs Date Time Temp Pulse Resp B/P (MAP) Pulse Ox O2 Delivery O2 Flow Rate FiO2 05/06/18 08:00 94 Room Air 05/06/18 08:00 96.6 52 18 132/80 (97) 97 Room Air 05/05/18 23:20 98.4 54 20 129/75 (93) 96 Room Air 05/05/18 20:00 94 Room Air 05/05/18 16:00 97.4 75 16 118/76 (90) 98 Room Air 05/05/18 15:29 98.8 I & O 05/06/18 07:00 Intake Total 1340 ml Output Total 66 ml Balance 1274 ml Capillary Refill : Less Than 3 Seconds General Appearance: No Apparent Distress, WD/WN Neck: Full Range of Motion, Normal Inspection, Non Tender, Supple Respiratory: Lungs Clear, Normal Breath Sounds, No Accessory Muscle Use, No Respiratory Distress Cardiovascular: Regular Rate, Rhythm, No Edema Gastrointestinal: normal bowel sounds, soft, tenderness, other (VIDAL drains with SS drainage.) Extremity: Normal Capillary Refill, Normal Inspection, Normal Range of Motion Neurologic/Psychiatric: Alert, Oriented x3 Skin: Normal Color, Warm/Dry, Other (Abdominal Incisions C/D/I) Results Lab Microbiology 05/01/18 Blood Culture - Preliminary, Resulted No growth 05/01/18 Influenza Types A,B Antigen (DANIELA) - Final, Complete 05/01/18 Urine Culture - Final, Complete NO GROWTH Assessment/Plan Assessment/Plan Assess & Plan/Chief Complaint A 47 year old female who is s/p laparoscopic reduction large recurrent hiatal hernia and repair perforation. VSS. upper GI with gastrograffin study showed no leak. Continue IV fluids, pain, nausea medications. Continue Ambulation. Continue Clear liquid diet. PPI and DVT prophylaxis Encouraged and reassured patient to take PO medications Clinical Quality Measures DVT/VTE Risk/Contraindication: Risk Factor Score Per Nursin RFS Level Per Nursing on Admit: 2=Moderate TOM BULLARD APRN May 06, 2018 09:49
--- NOTE | 2018-05-06 10:09 | Progress Note (SOAP) ---
Subjective Date Seen by a Provider: May 06, 2018 Time Seen by a Provider: 10:15 Subjective/Events-last exam Resting comfortably. RUQ of abdomen still a little tender. No fever. Taking sips of liquid. She hasn't swallowed any pills yet. Objective Exam Vital Signs Date Time Temp Pulse Resp B/P (MAP) Pulse Ox O2 Delivery O2 Flow Rate FiO2 05/06/18 08:00 94 Room Air 05/06/18 08:00 96.6 52 18 132/80 (97) 97 Room Air 05/05/18 23:20 98.4 54 20 129/75 (93) 96 Room Air 05/05/18 20:00 94 Room Air 05/05/18 16:00 97.4 75 16 118/76 (90) 98 Room Air 05/05/18 15:29 98.8 I & O 05/06/18 07:00 Intake Total 1340 ml Output Total 66 ml Balance 1274 ml Capillary Refill : Less Than 3 Seconds General Appearance: No Apparent Distress Respiratory: Lungs Clear Cardiovascular: Regular Rate, Rhythm Gastrointestinal: normal bowel sounds, soft (with abdominal wall tenderness.) Extremity: Normal Capillary Refill Skin: Normal Color Results Lab Microbiology 05/01/18 Blood Culture - Preliminary, Resulted No growth 05/01/18 Influenza Types A,B Antigen (DANIELA) - Final, Complete 05/01/18 Urine Culture - Final, Complete NO GROWTH Assessment/Plan Assessment/Plan Assess & Plan/Chief Complaint 1. Sepsis--noted tachycardia with elevated lactic acid 05/01 -Cardiology consult at last evening and placed in ICU -Patient was placed on Cardizem drip early a.m. -Patient has now been switched from Rocephin to Zosyn. -Dumont cultures obtained by pulmonology. -Chest x-ray performed. 05/02 -Patient currently on Zosyn day number 2 14 -Day number 3 of Zosyn 15 -Day 4 of Zosyn 16 -Day 5 of Zosyn 05/06 -day 6 Zosyn -Check CBC in the am 3. Diffuse abdominal pain--with a history of hiatal hernia -Continue to monitor -Dr Carson has seen her in the past, will consult -She is apparently awaiting surgery at [facility] by Dr. Lew -Patient has Toradol for pain relief. 05/01 -CT of the abdomen and pelvis arrange this morning -Patient may possibly need transfer to [facility] depending results and evaluation by Dr. Carson 05/02 -Status post repair of perforated viscus day number 1 -Dr. Carson following 05/03 -noted plan for TPN and gastrograffin UGI planned 48 hrs as of last night. -PARACHUTE INSPECTOR for pain control 05/04 -patient on 4th floor out of ICU 05/05 -Upper GI Gastrografin study performed yesterday -Patient now on liquids 4. Dehydration -Initiation of IV fluids 05/01 -Fluids continue 5. Worsening creatinine -IV fluid bolus noted given per pulmonary -Monitor creatinine 05/02 -Creatinine trending downward now 05/03 -Cr is 1.5 improved. Hydration helping 05/04 -Cr is 0.9 6. Urinary tract infection -Patient received dose of Rocephin in ED. She will maintain ceftriaxone 1 g every 24 hours until abdominal pain has improved and then switched to oral medications 05/02 -Culture with mixed eliane 7. Anemiapostoperative -1 unit of PRBCs ordered by Dr. Romero 05/04 -Hg improved this am to 9 05/05 -Hemoglobin stable at 8.3 as of yesterday Clinical Quality Measures Admission Status Admission Dx 1. Urinary tract infection-on admission 2. Diffuse abdominal pain--with a history of hiatal hernia 3. Dehydration DVT/VTE Risk/Contraindication: Risk Factor Score Per Nursin RFS Level Per Nursing on Admit: 2=Moderate ERNESTO PONCE MD May 06, 2018 10:09
[2018-05-06] MEDS ORDERED: SENNA W/DOCUSATE (SENOKOT S) TABLET PO PRN (10:30)
--- NOTE | 2018-05-06 10:42 | NUR ---
DR BERGER ON FLOOR AND THIS RN QUESTIONED HIM ABOUT PO NOT WANTING TO TAKE PO PILLS - - PT IS ALREADY ON IV PROTONIX AND GETTING LIQUID HYDROCODONE PRN -- DR BERGER SAID TO CONTINUE WITH THE ABOVE MEDS IS AND TO CHANGE DIET TO DYS 3 DIET -- WILL DO
--- NOTE | 2018-05-06 11:42 | Cardiology Progress Note ---
Cardiology SOAP Progress Note Subjective: Mild abdominal discomfort. Objective: I&O/Vital Signs 05/06/18 05/06/18 05/06/18 08:00 08:00 10:00 Temp 96.6 96.6 Pulse 52 Resp 18 B/P (MAP) 132/80 (97) Pulse Ox 97 94 O2 Delivery Room Air Room Air 05/06/18 00:00 Intake Total 1140 ml Output Total 44 ml Balance 1096 ml Weight (Pounds): 220 Weight (Ounces): 2.0 Weight (Calculated Kilograms): 99.884545 Constitutional: AAO x 3, well-developed, well-nourished Respiratory: No accessory muscle use, No respiratory distress, No chest tender , No chest expansion is symmetric; chest is bilaterally symmetric; No lungs clear to percussion; lungs clear to auscultation; No crackles, No rhonchi, No rales, No stridor, No wheezing, No pleural rub; other (fair to good bilat air entry, diminished at the bases) Cardiovascular: regular rate-rhythm; No irregularly irregular, No extra beats, No parasternal heave is noted, No JVD, No edema, No bradycardia, No point of maximal impulse, No cardiac thrills are palpable; S1 and S2; No gallop/S3, No gallop/S4, No diastolic murmur; systolic murmur (faint JENNIFER at card base); No friction rub, No click, No other Gastrointestional: tender; No soft, No round, No distended, No pulsatile mass, No organomegaly; guarding, rebound; No tenderness, No hernia, No mass, No audible bowel sounds, No abnormal bowel sounds, No abdominal bruits, No spleenomegaly; other (weak to absent BS) Extremities: No normal range of motion, No non-tender, No normal inspection, No pedal edema, No calf tenderness, No normal capillary refill, No pelvis stable , No calf tenderness, No inflammation, No pedal edema, No slow capillary refill , No swelling, No other, No abrasion, No clubbing, No cyanosis, No ecchymosis, No laceration, No no lower extremity edema bilateral, No significant edema, No tenderness, No wound Neurologic/Psychiatric: no motor/sensory deficits, alert, normal mood/affect, oriented x 3, grossly intact, power is 5/5 both on sides Skin: warm/dry; No cyanosis, No cool, No diaphoresis Results/Procedures: Labs Microbiology 05/01/18 Blood Culture - Preliminary, Resulted No growth 05/01/18 Influenza Types A,B Antigen (DANIELA) - Final, Complete 05/01/18 Urine Culture - Final, Complete NO GROWTH A/P: Assessment/Dx: Septic shock Acute abdomen Sinus tach due to septic shock Acute kidney injury stage 3 LVEF 50-55% on echo of 05/01/18 Plan: * Patient is gradually improving. * Improved sinus tachycardia. * Aggressive DVT prophylaxis. * defer treatment to surgery and primary team. Thank you for your consultation. Please call me if you have any questions. Conner Nair MD, FACP, FACC, FSCAI, FHRS, CCDS Interventional Cardiology Cardiac Electrophysiology Vascular Medicine and Endovascular Interventions Shira NAIR MD May 06, 2018 11:41 am
--- NOTE | 2018-05-06 14:38 | Pulmonary Progress Note ---
Sepsis Event Evaluation Height, Weight, BMI Height: 5'2.00" Weight: 220lbs. 2.0oz. 99.633308pb; 29.5 BMI Method:Estimated Exam Exam Vital Signs Date Time Temp Pulse Resp B/P (MAP) Pulse Ox O2 Delivery O2 Flow Rate FiO2 05/06/18 10:00 96.6 05/06/18 08:00 94 Room Air 05/06/18 08:00 96.6 52 18 132/80 (97) 97 Room Air 05/05/18 23:20 98.4 54 20 129/75 (93) 96 Room Air 05/05/18 20:00 94 Room Air 05/05/18 16:00 97.4 75 16 118/76 (90) 98 Room Air 05/05/18 15:29 98.8 I & O 05/06/18 07:00 Intake Total 1340 ml Output Total 66 ml Balance 1274 ml Height & Weight Height: 5'2.00" Weight: 220lbs. 2.0oz. 99.377233ko; 29.5 BMI Method:Estimated General Appearance: No Apparent Distress HEENT: PERRL/EOMI Neck: Full Range of Motion, Normal Inspection, Non Tender, Supple Respiratory: Lungs Clear Cardiovascular: Regular Rate, Rhythm Capillary Refill: Less Than 3 Seconds Gastrointestinal: normal bowel sounds, soft (with abdominal wall tenderness.) Extremity: Normal Capillary Refill Neurologic/Psychiatric: Alert, Oriented x3 Skin: Normal Color Lymphatic: No Adenopathy Results Lab Laboratory Tests 05/05/18 06:05 Assessment/Plan Assessment/Plan Severe sepsis secondary to abdominal perforation - improving -Dumont cultures negative -Beto Estes -MRSA- Neg Abdominal perforation s/p surgical repair -Dr. Carson following -Dilauded CONTROL ENGINEER per Dr. Carson Atelectasis -Increase activity -IS Anemia- post op -Monitor -S/P 1 unit of PRBC Dysphagia with esophageal candidiasis -MARIPOSA Parker DO May 06, 2018 14:38
[2018-05-06 16:02] VITALS: BP 124/74
[2018-05-06] MEDS: SODIUM PHOSPHATE IV SCH ×10 (17:52)
[2018-05-06] MEDS: [UNRECOGNIZED DRUG - OTHER] IV SCH ×10 (17:52)
[2018-05-06] MEDS: POTASSIUM ACETATE IV SCH ×10 (17:52)
[2018-05-06] MEDS: SODIUM ACETATE IV SCH ×10 (17:52)
[2018-05-06] MEDS: HYDROcodone/APAP 7.5MG-325 MG/15 ML (LORTAB) UDC PO PRN (20:54)
[2018-05-06 23:30] VITALS: BP 131/82
[2018-05-07] MEDS: HYDROcodone/APAP 7.5MG-325 MG/15 ML (LORTAB) UDC PO PRN (02:59)
[2018-05-07] MEDS: DEXAMETHASONE 4 MG/ML SDV (DECADRON) IV SCH ×3 (05:32→21:16)
[2018-05-07] MEDS: PIPERACILLIN/TAZOBACTAM (BULK) 4.5 GM in NS (IVPB) 100 ML IV SCH ×3 (05:32→21:17)
--- NOTE | 2018-05-07 07:29 | Progress Note (SOAP) ---
Subjective Date Seen by a Provider: May 07, 2018 Time Seen by a Provider: 07:35 Subjective/Events-last exam Patient continues to take fluids well. She denies any chest pain or cough. Still has slight right upper quadrant abdominal pain. Objective Exam Vital Signs Date Time Temp Pulse Resp B/P (MAP) Pulse Ox O2 Delivery O2 Flow Rate FiO2 05/06/18 23:30 96.8 52 20 131/82 (98) 98 Room Air 05/06/18 20:00 Room Air 05/06/18 16:02 97.1 55 16 124/74 (91) 98 Room Air 05/06/18 10:00 96.6 05/06/18 08:00 94 Room Air 05/06/18 08:00 96.6 52 18 132/80 (97) 97 Room Air I & O 05/07/18 07:00 Intake Total 2820 ml Output Total 52 ml Balance 2768 ml Capillary Refill : Less Than 3 Seconds General Appearance: No Apparent Distress Respiratory: Lungs Clear Cardiovascular: Regular Rate, Rhythm Gastrointestinal: normal bowel sounds, soft Extremity: Normal Capillary Refill Skin: Normal Color Results Lab Microbiology 05/01/18 Blood Culture - Final, Complete No growth 05/01/18 Influenza Types A,B Antigen (DANIELA) - Final, Complete 05/01/18 Urine Culture - Final, Complete NO GROWTH Assessment/Plan Assessment/Plan Assess & Plan/Chief Complaint 1. Sepsis--noted tachycardia with elevated lactic acid 05/01 -Cardiology consult at last evening and placed in ICU -Patient was placed on Cardizem drip early a.m. -Patient has now been switched from Rocephin to Zosyn. -Dumont cultures obtained by pulmonology. -Chest x-ray performed. 05/02 -Patient currently on Zosyn day number 2 05/03 -Day number 3 of Zosyn 15 -Day 4 of Zosyn 16 -Day 5 of Zosyn 05/06 -day 6 Zosyn -Check CBC in the am 05/07 -day 7 zosyn 3. Diffuse abdominal pain--with a history of hiatal hernia -Continue to monitor -Dr Carson has seen her in the past, will consult -She is apparently awaiting surgery at [facility] by Dr. Lew -Patient has Toradol for pain relief. 05/01 -CT of the abdomen and pelvis arrange this morning -Patient may possibly need transfer to [facility] depending results and evaluation by Dr. Carson 05/02 -Status post repair of perforated viscus day number 1 -Dr. Carson following 05/03 -noted plan for TPN and gastrograffin UGI planned 48 hrs as of last night. -HIGH SCHOOL ASSISTANT PRINCIPAL for pain control 05/04 -patient on 4th floor out of ICU 05/05 -Upper GI Gastrografin study performed yesterday -Patient now on liquids 05/07 -Patient continues to recovery from surgery 4. Dehydration -Initiation of IV fluids 05/01 -Fluids continue 05/07 -IVFs at 90 cc/hr 5. Worsening creatinine -IV fluid bolus noted given per pulmonary -Monitor creatinine 05/02 -Creatinine trending downward now 05/03 -Cr is 1.5 improved. Hydration helping 05/04 -Cr is 0.9 6. Urinary tract infection -Patient received dose of Rocephin in ED. She will maintain ceftriaxone 1 g every 24 hours until abdominal pain has improved and then switched to oral medications 05/02 -Culture with mixed eliane 7. Anemiapostoperative -1 unit of PRBCs ordered by Dr. Romero 05/04 -Hg improved this am to 9 05/05 -Hemoglobin stable at 8.3 as of yesterday 05/07 -CBC pending from this morning Clinical Quality Measures Admission Status Admission Dx 1. Urinary tract infection-on admission 2. Diffuse abdominal pain--with a history of hiatal hernia 3. Dehydration DVT/VTE Risk/Contraindication: Risk Factor Score Per Nursin RFS Level Per Nursing on Admit: 2=Moderate ERNESTO PONCE MD May 07, 2018 07:29
[2018-05-07 08:00] VITALS: BP 139/78
[2018-05-07] MEDS: ENOXAPARIN 40 MG/0.4 ML (LOVENOX) SYR SC SCH (08:51)
[2018-05-07] MEDS: PANTOPRAZOLE 40 MG (PROTONIX) VIAL IV SCH ×2 (08:51→21:16)
[2018-05-07] MEDS: FLUCONAZOLE 200 MG/100 ML 50 ML, EMPTY IV BAG (PVC) 1 EA IV SCH ×2 (08:52)
--- NOTE | 2018-05-07 09:51 | Physician Query Clarification ---
PQ-Present on Admission Admission/Discharge Admission Date: Apr 30, 2018 at 03:45 Discharge Date: Question: Sepsis was documented in the 05/01 consult on day after admission by Dr. Romero . Can you specify if this condition was present on admission? Please document a response below. PHYSICIAN RESPONSE Condition was Present on Admit: No Explanation of clincal finding Sepsis occured as a result of her gastric rupture. In responding to this query, please exercise your independent professional judgment. The purpose of this communication is to more accurately reflect the complexity of your patients condition. The fact that a question is asked does not imply that any particular answer is desired or expected. Thank you for your timely response to this clarification. Requestors name: Deborah Chou [facility] Phone # ext [phone] or [phone] THIS PHYSICIAN QUERY FORM IS A PERMANENT PART OF THE MEDICAL RECORD DEBORAH CHOU May 07, 2018 09:51 ERNESTO PONCE MD May 07, 2018 21:44
--- NOTE | 2018-05-07 10:47 | Cardiology Progress Note ---
Cardiology SOAP Progress Note Subjective: No cardiac complaints. Objective: I&O/Vital Signs 05/06/18 05/07/18 23:30 08:00 Temp 96.8 98.0 Pulse 52 56 Resp 20 18 B/P (MAP) 131/82 (98) 139/78 (98) Pulse Ox 98 97 O2 Delivery Room Air Room Air 05/07/18 00:00 Intake Total 2600 ml Output Total 45 ml Balance 2555 ml Weight (Pounds): 222 Weight (Ounces): 2.0 Weight (Calculated Kilograms): 100.918824 Constitutional: AAO x 3, well-developed, well-nourished Respiratory: No accessory muscle use, No respiratory distress, No chest tender , No chest expansion is symmetric; chest is bilaterally symmetric; No lungs clear to percussion; lungs clear to auscultation; No crackles, No rhonchi, No rales, No stridor, No wheezing, No pleural rub; other (fair to good bilat air entry, diminished at the bases) Cardiovascular: regular rate-rhythm; No irregularly irregular, No extra beats, No parasternal heave is noted, No JVD, No edema, No bradycardia, No point of maximal impulse, No cardiac thrills are palpable; S1 and S2; No gallop/S3, No gallop/S4, No diastolic murmur; systolic murmur (faint JENNIFER at card base); No friction rub, No click, No other Gastrointestional: tender; No soft, No round, No distended, No pulsatile mass, No organomegaly; guarding, rebound; No tenderness, No hernia, No mass, No audible bowel sounds, No abnormal bowel sounds, No abdominal bruits, No spleenomegaly; other (weak to absent BS) Extremities: No normal range of motion, No non-tender, No normal inspection, No pedal edema, No calf tenderness, No normal capillary refill, No pelvis stable , No calf tenderness, No inflammation, No pedal edema, No slow capillary refill , No swelling, No other, No abrasion, No clubbing, No cyanosis, No ecchymosis, No laceration, No no lower extremity edema bilateral, No significant edema, No tenderness, No wound Neurologic/Psychiatric: no motor/sensory deficits, alert, normal mood/affect, oriented x 3, grossly intact, power is 5/5 both on sides Skin: warm/dry; No cyanosis, No cool, No diaphoresis Results/Procedures: Labs Microbiology 05/01/18 Blood Culture - Final, Complete No growth 05/01/18 Influenza Types A,B Antigen (DANIELA) - Final, Complete 05/01/18 Urine Culture - Final, Complete NO GROWTH A/P: Assessment/Dx: Septic shock Acute abdomen Sinus tach due to septic shock Acute kidney injury stage 3 LVEF 50-55% on echo of 05/01/18 Plan: * Patient is gradually improving. * Sinus tachycardia has resolved. * Aggressive DVT prophylaxis. * defer treatment to surgery and primary team. * Cardiology to sign off. Please call us back if further assistance is required. Thank you for your consultation. Please call me if you have any questions. Conner Nair MD, FACP, FACC, FSCAI, FHRS, CCDS Interventional Cardiology Cardiac Electrophysiology Vascular Medicine and Endovascular Interventions Shira NAIR MD May 07, 2018 10:47 am
[2018-05-07] MEDS: LACTATED RINGERS 1,000 ML IV SCH (11:53)
--- NOTE | 2018-05-07 12:07 | Progress Note (SOAP) ---
Subjective Date Seen by a Provider: May 07, 2018 Time Seen by a Provider: 12:00 Subjective/Events-last exam doing ok. tolerating dys3 diet. having bowel fxn. no fever/chills. increase ambulation. Objective Exam Vital Signs Date Time Temp Pulse Resp B/P (MAP) Pulse Ox O2 Delivery O2 Flow Rate FiO2 05/07/18 08:00 98.0 56 18 139/78 (98) 97 Room Air 05/06/18 23:30 96.8 52 20 131/82 (98) 98 Room Air 05/06/18 20:00 Room Air 05/06/18 16:02 97.1 55 16 124/74 (91) 98 Room Air I & O 05/07/18 07:00 Intake Total 2820 ml Output Total 52 ml Balance 2768 ml Capillary Refill : Less Than 3 Seconds General Appearance: No Apparent Distress HEENT: PERRL/EOMI Neck: Full Range of Motion Respiratory: Chest Non Tender, Lungs Clear Cardiovascular: Regular Rate, Rhythm Gastrointestinal: normal bowel sounds, soft, other (incisions clean/dry, minimal SS drains) Extremity: Normal Capillary Refill Neurologic/Psychiatric: Alert, Oriented x3 Skin: Normal Color Lymphatic: No Adenopathy Results Lab Microbiology 05/01/18 Blood Culture - Final, Complete No growth 05/01/18 Influenza Types A,B Antigen (DANIELA) - Final, Complete 05/01/18 Urine Culture - Final, Complete NO GROWTH Assessment/Plan Assessment/Plan Assess & Plan/Chief Complaint s/p laparoscopic reduction large recurrent hiatal hernia and repair perforation. continue bowel rest for now and NGT. will start TPN. continue IV hydration for previous prerenal azotemia. continue DVT prophylaxis. continue abx and antifungals and manage intraabdominal drains. upper GI with gastrograffin no leak. tolerating dys3 diet. increase ambulation and ADL's. Clinical Quality Measures DVT/VTE Risk/Contraindication: Risk Factor Score Per Nursin RFS Level Per Nursing on Admit: 2=Moderate SONY BERGER MD May 07, 2018 12:07
[2018-05-07] MEDS ORDERED: LACTATED RINGERS 1,000 ML IV SCH (13:15)
--- NOTE | 2018-05-07 14:07 | NUR ---
1340 DR BERGER ON FLOOR NEW VERBAL ORDERS RECEIVED TO CUT TPN RATE IN HALF AND TO D/C AT 1600.
--- NOTE | 2018-05-07 15:14 | Pulmonary Progress Note ---
Subjective Time Seen by a Provider: 16:24 Subjective/Events-last exam Pt is doing much better from pulmonary standpoint. Sepsis Event Evaluation Height, Weight, BMI Height: 5'2.00" Weight: 222lbs. 2.0oz. 100.657706bx; 29.5 BMI Method:Estimated Exam Exam Vital Signs Date Time Temp Pulse Resp B/P (MAP) Pulse Ox O2 Delivery O2 Flow Rate FiO2 05/07/18 08:00 98.0 56 18 139/78 (98) 97 Room Air 05/06/18 23:30 96.8 52 20 131/82 (98) 98 Room Air 05/06/18 20:00 Room Air 05/06/18 16:02 97.1 55 16 124/74 (91) 98 Room Air I & O 05/07/18 07:00 Intake Total 2820 ml Output Total 52 ml Balance 2768 ml Height & Weight Height: 5'2.00" Weight: 222lbs. 2.0oz. 100.236770au; 29.5 BMI Method:Estimated General Appearance: No Apparent Distress HEENT: PERRL/EOMI Neck: Full Range of Motion Respiratory: Chest Non Tender, Lungs Clear Cardiovascular: Regular Rate, Rhythm Capillary Refill: Less Than 3 Seconds Gastrointestinal: normal bowel sounds, soft, other (incisions clean/dry, minimal SS drains) Extremity: Normal Capillary Refill Neurologic/Psychiatric: Alert, Oriented x3 Skin: Normal Color Lymphatic: No Adenopathy Assessment/Plan Assessment/Plan Severe sepsis secondary to abdominal perforation - improving -Dumont cultures negative -Zosyn, Diflucan -MRSA- Neg Abdominal perforation s/p surgical repair -Dr. Carson following Atelectasis -Increase activity -IS Anemia- post op -Monitor -S/P 1 unit of PRBC Dysphagia with esophageal candidiasis -Diflucan I am going to sign off please call with any questions or concerns. MARIPOSA ROSA DO May 07, 2018 15:14
--- NOTE | 2018-05-07 16:02 | Diagnostic Imaging Report ---
INDICATION: Infiltrate. Followup COMPARISON: 05/03/2018. FINDINGS: A single frontal radiographic view of the chest was obtained and demonstrates interval removal of the indwelling gastric tube. The left-sided subclavian central venous catheter is in stable position. The lungs continue to show complete obscuration of the left hemidiaphragm secondary to left basilar airspace disease and a probable small effusion. The right lung is relatively clear. There is no large effusion on the right. No pneumothorax is seen on either side. The cardiac silhouette does appear borderline prominent although this may be exaggerated by the portable technique. The pulmonary vasculature is within normal limits. The bony structures show no gross acute abnormalities. IMPRESSION: 1. Probable small left basilar effusion with persistent stable left basilar infiltrate and/or atelectasis. 2. Interval clearing of the right base. 3. Borderline prominent cardiac silhouette which again may be exaggerated by portable technique. Dictated by: Dictated on workstation # [id number]
[2018-05-07 16:17] VITALS: BP 131/78
[2018-05-07] MEDS: HYDROmorphone 2 MG/ML VIAL (DILAUDID) IV PRN (21:16)
[2018-05-07 23:30] VITALS: BP 134/75
[2018-05-08] MEDS: PIPERACILLIN/TAZOBACTAM (BULK) 4.5 GM in NS (IVPB) 100 ML IV SCH ×2 (05:31→15:07)
[2018-05-08] MEDS: HYDROmorphone 2 MG/ML VIAL (DILAUDID) IV PRN (05:31)
[2018-05-08] MEDS: DEXAMETHASONE 4 MG/ML SDV (DECADRON) IV SCH ×2 (05:31→14:45)
--- NOTE | 2018-05-08 07:04 | Progress Note (SOAP) ---
Subjective Date Seen by a Provider: May 08, 2018 Time Seen by a Provider: 07:15 Subjective/Events-last exam Patient is off her IV fluids now. She has been trying to take pills but still is concerned if that'll come back up. She is drinking liquids well and her urine output is normal. She has had small BMs pretty much liquid. Objective Exam Vital Signs Date Time Temp Pulse Resp B/P (MAP) Pulse Ox O2 Delivery O2 Flow Rate FiO2 05/07/18 23:30 97.0 56 18 134/75 (94) 94 Room Air 05/07/18 16:17 97.8 59 18 131/78 (95) 97 Room Air 05/07/18 08:00 98.0 56 18 139/78 (98) 97 Room Air I & O 05/08/18 07:00 Intake Total 1325 ml Output Total 75 ml Balance 1250 ml Capillary Refill : Less Than 3 Seconds General Appearance: No Apparent Distress Respiratory: Lungs Clear Cardiovascular: Regular Rate, Rhythm Gastrointestinal: normal bowel sounds, soft, other (Drainage tubes in place at right upper and left upper quadrant) Skin: Normal Color Results Lab Microbiology 05/01/18 Blood Culture - Final, Complete No growth 05/01/18 Influenza Types A,B Antigen (DANIELA) - Final, Complete 05/01/18 Urine Culture - Final, Complete NO GROWTH Assessment/Plan Assessment/Plan Assess & Plan/Chief Complaint 1. Sepsis--noted tachycardia with elevated lactic acid 05/01 -Cardiology consult at last evening and placed in ICU -Patient was placed on Cardizem drip early a.m. -Patient has now been switched from Rocephin to Zosyn. -[place] cultures obtained by pulmonology. -Chest x-ray performed. 05/02 -Patient currently on Zosyn day number 2 05/03 -Day number 3 of Zosyn 05/04 -Day 4 of Zosyn 16 -Day 5 of Zosyn 05/06 -day 6 Zosyn -Check CBC in the am 05/07 -day 7 zosyn 05/08 -Possible discharge today and Zosyn will be DC'd. 3. Diffuse abdominal pain--with a history of hiatal hernia -Continue to monitor -Dr Carson has seen her in the past, will consult -She is apparently awaiting surgery at [facility] by Dr. Touchet -Patient has Toradol for pain relief. 05/01 -CT of the abdomen and pelvis arrange this morning -Patient may possibly need transfer to [facility] depending results and evaluation by Dr. Carson 05/02 -Status post repair of perforated viscus day number 1 -Dr. Carson following 05/03 -noted plan for TPN and gastrograffin UGI planned 48 hrs as of last night. 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 Carson 4. Dehydration -Initiation of IV fluids 05/01 -Fluids continue 05/07 -IVFs at 90 cc/hr 05/08 -IVFs discontinued 05/07 and po intake adequate 5. Worsening creatinine -IV fluid bolus noted given per pulmonary -Monitor creatinine 05/02 -Creatinine trending downward now 05/03 -Cr is 1.5 improved. Hydration helping 05/04 -Cr is 0.9 6. Urinary tract infection -Patient received dose of Rocephin in ED. She will maintain ceftriaxone 1 g every 24 hours until abdominal pain has improved and then switched to oral medications 05/02 -Culture with mixed eliane 7. Anemiapostoperative -1 unit of PRBCs ordered by Dr. Romero 05/04 -Hg improved this am to 9 05/05 -Hemoglobin stable at 8.3 as of yesterday 05/08 -CBC pending from this morning Clinical Quality Measures Admission Status Admission Dx 1. Urinary tract infection-on admission 2. Diffuse abdominal pain--with a history of hiatal hernia 3. Dehydration DVT/VTE Risk/Contraindication: Risk Factor Score Per Nursin RFS Level Per Nursing on Admit: 2=Moderate ERNESTO PONCE MD May 08, 2018 07:04
[2018-05-08 08:00] VITALS: BP 131/79
[2018-05-08] MEDS: FLUCONAZOLE 200 MG/100 ML 50 ML, EMPTY IV BAG (PVC) 1 EA IV SCH ×2 (08:19)
[2018-05-08] MEDS: PANTOPRAZOLE 40 MG (PROTONIX) VIAL IV SCH (08:19)
[2018-05-08] MEDS: ENOXAPARIN 40 MG/0.4 ML (LOVENOX) SYR SC SCH (08:19)
[2018-05-08 08:35] LABS: BASOPHILS % (AUTO) 0 % (0-10); EOSINOPHILS % (AUTO) 0 % (0-10); HEMATOCRIT 27 % (35-52); HEMOGLOBIN 8.5 G/DL (11.5-16.0); LYMPHOCYTES # (AUTO) 0.4 X 10^3 (1.0-4.0); LYMPHOCYTES % (AUTO) 4 % (12-44); MEAN CORPUSCULAR HEMOGLOBIN 26 PG (25-34); MEAN CORPUSCULAR HGB CONC 32 G/DL (32-36); MEAN CORPUSCULAR VOLUME 80 FL (80-99); MEAN PLATELET VOLUME 12.1 FL (7.4-10.4); MONOCYTES # (AUTO) 0.3 X 10^3 (0.0-1.0); MONOCYTES % (AUTO) 3 % (0-12); NEUTROPHILS # (AUTO) 8.6 X 10^3 (1.8-7.8); NEUTROPHILS % (AUTO) 93 % (42-75); PLATELET COUNT 219 10^3/uL (130-400); RED CELL DISTRIBUTION WIDTH 17.9 % (10.0-14.5); WHITE BLOOD COUNT 9.2 10^3/uL (4.3-11.0)
[2018-05-08 08:50] LABS: BUN/CREATININE RATIO 28; CALCIUM 7.8 MG/DL (8.5-10.1); CARBON DIOXIDE 27 MMOL/L (21-32); CHLORIDE 104 MMOL/L (98-107); CREATININE SERUM 0.64 MG/DL (0.60-1.30); GFR ESTIMATED > 60; GLUCOSE 83 MG/DL (70-105); POTASSIUM 4.1 MMOL/L (3.6-5.0); SODIUM 136 MMOL/L (135-145)
--- NOTE | 2018-05-08 12:36 | Progress Note (SOAP) ---
Subjective Date Seen by a Provider: May 08, 2018 Time Seen by a Provider: 12:00 Subjective/Events-last exam doing ok. tolerating diet and having bowel fxn however reluctant to try more PO or d/c home. clinically stable. WBC normal and afebrile, minimal SS drainage per JPx2. Objective Exam Vital Signs Date Time Temp Pulse Resp B/P (MAP) Pulse Ox O2 Delivery O2 Flow Rate FiO2 05/08/18 08:35 95 Room Air 0.00 05/08/18 08:00 98.4 55 18 131/79 (96) 95 Room Air 05/07/18 23:30 97.0 56 18 134/75 (94) 94 Room Air 05/07/18 16:17 97.8 59 18 131/78 (95) 97 Room Air I & O 05/08/18 07:00 Intake Total 1325 ml Output Total 75 ml Balance 1250 ml Capillary Refill : Less Than 3 Seconds General Appearance: No Apparent Distress HEENT: PERRL/EOMI Neck: Full Range of Motion Respiratory: Chest Non Tender, Normal Breath Sounds, Decreased Breath Sounds Cardiovascular: Regular Rate, Rhythm Gastrointestinal: normal bowel sounds, non tender, soft Extremity: Normal Capillary Refill Neurologic/Psychiatric: Alert, Oriented x3 Skin: Normal Color Lymphatic: No Adenopathy Results Lab Laboratory Tests 05/08/18 08:22: White Blood Count 9.2, Red Blood Count 3.31L, Hemoglobin 8.5L, Hematocrit 27L, Mean Corpuscular Volume 80, Mean Corpuscular Hemoglobin 26, Mean Corpuscular Hemoglobin Concent 32, Red Cell Distribution Width 17.9H, Platelet Count 219, Mean Platelet Volume 12.1H, Neutrophils (%) (Auto) 93H, Lymphocytes (%) (Auto) 4L, Monocytes (%) (Auto) 3, Eosinophils (%) (Auto) 0, Basophils (%) (Auto) 0, Neutrophils # (Auto) 8.6H, Lymphocytes # (Auto) 0.4L, Monocytes # (Auto) 0.3, Eosinophils # (Auto) 0.0, Basophils # (Auto) 0.0, Sodium Level 136, Potassium Level 4.1, Chloride Level 104, Carbon Dioxide Level 27, Anion Gap 5, Blood Urea Nitrogen 18, Creatinine 0.64, Estimat Glomerular Filtration Rate > 60, BUN/ Creatinine Ratio 28, Glucose Level 83, Calcium Level 7.8L Microbiology 05/01/18 Blood Culture - Final, Complete No growth 05/01/18 Influenza Types A,B Antigen (DANIELA) - Final, Complete 05/01/18 Urine Culture - Final, Complete NO GROWTH Assessment/Plan Assessment/Plan Assess & Plan/Chief Complaint s/p laparoscopic reduction large recurrent hiatal hernia and repair perforation. continue DVT prophylaxis. continue abx and antifungals and manage intraabdominal drains. upper GI with gastrograffin no leak. tolerating dys3 diet. increase ambulation and ADL's. home when able, SS consult if needed for assessment. Clinical Quality Measures DVT/VTE Risk/Contraindication: Risk Factor Score Per Nursin RFS Level Per Nursing on Admit: 2=Moderate SONY BERGER MD May 08, 2018 12:36
[2018-05-08] MEDS ORDERED: AMOX-358 PO (12:41)
[2018-05-08] MEDS ORDERED: HYDR-34 PO (12:41)
--- NOTE | 2018-05-08 12:44 | Discharge Inst-Surgical ---
D/C Lap Instructions-AB New, Converted, or Re-Newed RX: RX on Chart Follow Up Appt in 1 week Activity as tolerated No driving for 24 hours No [address] while on pain medications Incentive Spirometry use every 2 hours while awake mechanical soft diet. record VIDAL output x2. Symptoms to Report: Fever over 101 degree F, Nausea/Vomiting Infection Signs and Symptoms to report: Increased redness, Foul odor of wound, Increased drainage Bathing instructions: May shower Operative Area Clean/Dry; Keep incision clean/dry If any problems/questions: Contact your physician or go to Emergency Room SONY BERGER MD May 08, 2018 12:44
[2018-05-08 16:00] VITALS: BP 137/83
[2018-05-08 17:38] VITALS: BP 137/83
== END 2018-05-08 16:20 | disposition home or self-care (01) | DRG 326 ==
LOC: EDUNIT# 00:34 → ER 00:35 → 4TH 03:45 → ICU 05-01 02:21 → 4TH 05-03 15:51
PROVIDERS: ADMIT Family Medicine; ATTEND Family Medicine
PROC: 0DU647Z Supplement Stomach with Autologous Tissue Substitute, Percutaneous Endoscopic Approach (ICD-10-PCS; 2018-05-01)
PROC: 0DS64ZZ Reposition Stomach, Percutaneous Endoscopic Approach (ICD-10-PCS; principal; 2018-05-01 10:10)
PROC: 0DB64ZZ Excision of Stomach, Percutaneous Endoscopic Approach (ICD-10-PCS; 2018-05-01 10:10)
DX: K44.0 Diaphragmatic hernia with obstruction, without gangrene (principal); A41.9 Sepsis, unspecified organism; R65.20 Severe sepsis without septic shock; N30.01 Acute cystitis with hematuria; E86.0 Dehydration; E87.0 Hyperosmolality and hypernatremia; N17.9 Acute kidney failure, unspecified; B37.81 Candidal esophagitis; J98.11 Atelectasis; D62 Acute posthemorrhagic anemia; E87.2 Acidosis; I12.9 Hypertensive chronic kidney disease with stage 1 through stage 4 chronic kidney disease, or unspecified chronic kidney disease; N18.3 Chronic kidney disease, stage 3 (moderate); K31.89 Other diseases of stomach and duodenum; K21.0 Gastro-esophageal reflux disease with esophagitis; K29.70 Gastritis, unspecified, without bleeding; N39.3 Stress incontinence (female) (male); R39.15 Urgency of urination; K57.50 Diverticulosis of both small and large intestine without perforation or abscess without bleeding; K58.1 Irritable bowel syndrome with constipation; M54.9 Dorsalgia, unspecified; M54.2 Cervicalgia; G43.909 Migraine, unspecified, not intractable, without status migrainosus; K64.1 Second degree hemorrhoids; J30.2 Other seasonal allergic rhinitis
CPT/HCPCS: 36415; 36600; 71045; 71250; 74176; 74241; 76770; 80048; 80053; 81000; 82805; 82962; 83605; 83735; 84100; 84134; 84478; 84703; 85007; 85014; 85018; 85025; 85027; 85610; 86850; 86900; 86901; 86920; 87040; 87081; 87088; 87804; 93005; 93306; 94002; 94640; 94664; 94760; 96361; 96374; 96375

== ENCOUNTER 2018-06-06 20:55 | Emergency (ER) | payer BC ==
[~2018-06-06] VITALS: Ht 157.5 cm; Wt 64.9 kg
[~2018-06-06 20:55] MED LIST changes: +AMOX-358 PO; +FLUC100T6 PO; +HYDR-34 PO; +METO-387 PO; +OXYB5TAB9 PO; +PANT40TA3 PO; +TOPI50TA13 PO
[2018-06-06] MEDS ORDERED: LACTATED RINGERS 1,000 ML IV ONE ×2 (21:26→22:32)
--- NOTE | 2018-06-06 21:33 | ED General ---
General Chief Complaint: Dizziness/Syncope Stated Complaint: PASSED OUT,DIZZY Source of Information: Patient, Family (daughter and sister) Exam Limitations: No Limitations History of Present Illness Date Seen by Provider: Jun 06, 2018 Time Seen by Provider: 21:14 Initial Comments The patient presents to ER by private conveyance with chief complaint of lightheadedness, feeling faint at times when she stands up, nausea past few days vomiting and a significant weight loss of about 50 pounds in the past or months. She has a hiatal hernia that was repaired 13 years ago and everything was going well she also has her appendix and gallbladder removed but late 2018 she had repeat symptoms of nausea vomiting pain feeling fullness and acid reflux. Dr. Carson had done a scope and said that her vital hernia was about 4 cm and had scheduled her to do the surgery but then she had some severe illness ended up in the ICU about 5 weeks ago he came in and did an exploratory surgery moved her stomach around and told her that he was not going to do anything about the hiatal hernia at this time. When she discharged from the hospital she was not having any nausea or vomiting so they did not send her home with anything for that. She does not have a history of ulcer, pancreatitis nor does she drink alcohol. She's not having any painful urination, fevers. She is having nausea with vomiting and often has regurgitation of acid in the back of her throat. She occasionally gets a pain for the past 2 days in her left upper quadrant. She says she just started her period today and does not usually get cramps with it but she thought maybe that's why she was having the pain in her left upper quadrant. She has not taken anything for today. Further history: The patient was seen Dr. Lew with the intention of Dr. Lew doing a specialty surgery for her hiatal hernia since her symptoms had recurred the Dr. Lew did not want to do the surgery now because he said Dr. Carson when he did his exploratory surgery hard to get it. She says that Alli told her that he did not do anything to her hiatal hernia. She is working with Dr. Ponce and Dr. Carson looking into a referral to a surgeon who would do her particular type of procedure for hiatal hernia and her profound weight loss at [facility]. Allergies and Home Medications Allergies Coded Allergies: aspirin (Verified Allergy, Unknown, Pt has received Ketorolac & ASA in the past, 04/30/18) fentanyl (Verified Allergy, Unknown, 04/22/18) Home Medications Amoxicillin/Potassium Clav 1 Each Tablet, 1 EACH PO BID Prescribed by: SONY CARSON on 05/08/18 1241 Fluconazole 100 Mg Tablet, 100 MG PO DAILY, (Reported) 14 DAY SUPPLY START DATE 04-20-18 Hydrocodone Bit/Acetaminophen 1 Ea Tablet, 1 EACH PO Q4H PRN for PAIN-MODERATE Prescribed by: SONY CARSON on 05/08/18 1241 Hyoscyamine Sulfate 0.375 Mg Tab.er.12h, 0.375 MG PO BID PRN for SPASMS, ( Reported) Loratadine 10 Mg Tablet, 10 MG PO DAILY, (Reported) Metoprolol Succinate 25 Mg Tab.er.24h, 25 MG PO DAILY, (Reported) Nitrofurantoin Macrocrystal 100 Mg Capsule, 100 MG PO BID, (Reported) 7 DAY SUPPLY FILLED 04-23-18 Ondansetron 4 Mg Tab.rapdis, 4 MG PO Q6H PRN for NAUSEA/VOMITING-1ST LINE, ( Reported) Oxybutynin Chloride 5 Mg Tablet, 5 MG PO BID, (Reported) Pantoprazole Sodium 40 Mg Tablet.dr, 40 MG PO DAILY, (Reported) Topiramate 50 Mg Tablet, 50 MG PO BID, (Reported) Patient Home Medication List Home Medication List Reviewed: Yes Review of Systems Review of Systems Constitutional: No chills, No diaphoresis, No fever; malaise, weakness EENTM: No ear discharge, No ear pain Respiratory: No cough, No hemoptysis Cardiovascular: No chest pain, No palpitations Gastrointestinal: see HPI, abdominal pain (LUQ); No constipation, No diarrhea, No dysphagia; heartburn, loss of appetite, nausea, vomiting Genitourinary: No decreased output, No discharge, No dysuria : No Musculoskeletal: No back pain, No joint pain Past Fvijazp-Ptvnoi-Yeosgc Hx Patient Social History Alcohol Use: Denies Use Recreational Drug Use: No Smoking Status: Never a Smoker 2nd Hand Smoke Exposure: No Recent Foreign Travel: No Contact w/Someone Who Travel: No Recent Hopitalizations: No Immunizations Up To Date Tetanus Booster (TDap): Unknown Past Medical History Surgeries: Yes (EGD/COLONOSCOPY; HIATAL HERNIA REPAIR 2005; X 1) Abdominal, Appendectomy, Section, Gallbladder, Tubal Ligation Respiratory: No Currently Using CPAP: No Currently Using BIPAP: No Cardiac: Yes Hypertension Neurological: Yes Headaches /Migraines 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 Genitourinary: Yes (URINARY URGENCY) Kidney Stones Gastrointestinal: Yes ( HIATAL HERNIA-S/P SURGERY X 1--NOW WITH RECURRENCE; S/ P PABLO AND APPY ) Gastroesophageal Reflux, Diverticulosis, Hemorrhoids, Hiatal Hernia, Irritable Bowel Musculoskeletal: Yes (SCIATICA; CHRONIC NECK AND BACK PAIN) Degenerate Disk Disease, Chronic Back Pain Endocrine: No HEENT: No Cancer: No Psychosocial: No Integumentary: No Blood Disorders: No Physical Exam Vital Signs Vital Signs - First Documented 06/06/18 21:12 Temp 97.7 Pulse 113 Resp 18 B/P (MAP) 126/83 (97) O2 Delivery Room Air Capillary Refill : Height, Weight, BMI Height: 5'2.00" Weight: 223lbs. 3.0oz. 101.249763xd; 29.5 BMI Method:Estimated General Appearance: No Apparent Distress, Chronically ill Eyes: Bilateral Eye Normal Inspection, Bilateral Eye PERRL, Bilateral Eye EOMI HEENT: PERRL/EOMI, Normal ENT Inspection; No Moist Mucous Membranes; Other ( oropharynx appears to be quite dry) Neck: Full Range of Motion, Normal Inspection, Supple Respiratory: Chest Non Tender, Lungs Clear, Normal Breath Sounds, No Accessory Muscle Use, No Respiratory Distress Cardiovascular: Regular Rate, Rhythm, No Edema, Normal Peripheral Pulses Gastrointestinal: Normal Bowel Sounds, No Organomegaly, No Pulsatile Mass, Soft ; No Guarding, No Rebound; Tenderness (left lower quadrant is tender to palpation.), Other (no so as her other mesenteric signs) Neurologic/Psychiatric: Alert, Oriented x3, No Motor/Sensory Deficits Focused Exam Lactate Level 06/06/18 21:35: Lactic Acid Level 1.45 Lactic Acid Level Laboratory Tests Test 06/06/18 21:35 Lactic Acid Level 1.45 MMOL/L (0.50-2.00) Procedures/Interventions Date of ETT Placement: May 01, 2018 Progress/Results/Core Measures Suspected Sepsis SIRS Temperature: Pulse: Respiratory Rate: Laboratory Tests 06/06/18 21:35: White Blood Count 7.7 Blood Pressure / Mean: 06/06/18 21:35: Lactic Acid Level 1.45 Laboratory Tests 06/06/18 21:35: Creatinine 0.78, Platelet Count 372, Total Bilirubin 0.5 Results/Orders Lab Results Laboratory Tests Test 06/06/18 21:35 Range/Units White Blood Count 7.7 4.3-11.0 10^3/uL Red Blood Count 4.74 4.35-5.85 10^6/uL Hemoglobin 11.6 11.5-16.0 G/DL Hematocrit 36 35-52 % Mean Corpuscular Volume 77 L 80-99 FL Mean Corpuscular Hemoglobin 25 25-34 PG Mean Corpuscular Hemoglobin Concent 32 32-36 G/DL Red Cell Distribution Width 21.2 H 10.0-14.5 % Platelet Count 372 130-400 10^3/uL Mean Platelet Volume 10.9 H 7.4-10.4 FL Neutrophils (%) (Auto) 67 42-75 % Lymphocytes (%) (Auto) 23 12-44 % Monocytes (%) (Auto) 9 0-12 % Eosinophils (%) (Auto) 1 0-10 % Basophils (%) (Auto) 1 0-10 % Neutrophils # (Auto) 5.2 1.8-7.8 X 10^3 Lymphocytes # (Auto) 1.8 1.0-4.0 X 10^3 Monocytes # (Auto) 0.7 0.0-1.0 X 10^3 Eosinophils # (Auto) 0.1 0.0-0.3 10^3/uL Basophils # (Auto) 0.1 0.0-0.1 10^3/uL Sodium Level 139 135-145 MMOL/L Potassium Level 3.5 L 3.6-5.0 MMOL/L Chloride Level 104 98-107 MMOL/L Carbon Dioxide Level 13 L 21-32 MMOL/L Anion Gap 22 H 5-14 MMOL/L Blood Urea Nitrogen 4 L 7-18 MG/DL Creatinine 0.78 0.60-1.30 MG/DL Estimat Glomerular Filtration Rate > 60 BUN/Creatinine Ratio 5 Glucose Level 92 70-105 MG/DL Lactic Acid Level 1.45 0.50-2.00 MMOL/L Calcium Level 9.5 8.5-10.1 MG/DL Corrected Calcium 9.9 8.5-10.1 MG/DL Magnesium Level 1.4 L 1.8-2.4 MG/DL Total Bilirubin 0.5 0.1-1.0 MG/DL Aspartate Amino Transf (AST/SGOT) 19 5-34 U/L Alanine Aminotransferase (ALT/SGPT) 9 0-55 U/L Alkaline Phosphatase 87 40-136 U/L C-Reactive Protein High Sensitivity 2.43 H 0.00-0.50 MG/DL Total Protein 7.5 6.4-8.2 GM/DL Albumin 3.5 3.2-4.5 GM/DL Monoscreen NEGATIVE NEGATIVE Smear Scan YES My Orders Orders - DAYNA SAINZ Ua Culture If Indicated (06/06/18 21:03) Cbc With Automated Diff (06/06/18 21:26) Comprehensive Metabolic Panel (06/06/18:) Hs C Reactive Protein (06/06/18 21:26) Drug Screen Stat (Urine) (06/06/18 21:26) Hcg,Qualitative Urine (06/06/18:) Lactic Acid Analyzer (06/06/18:) Magnesium (06/06/18 21:26) Monotest (06/06/18 21:26) Ed Iv/Invasive Line Start (06/06/18 21:26) Lactated Ringers (Lr 1000 Ml Iv Solution (06/06/18 21:26) Orthostatic Vital Signs (Adult (06/06/18 21:26) Ondansetron Injection (Zofran Injectio (06/06/18 21:45) Magnesium 1 Gm/100 Ml Ivpb (Magnesium Grey (06/06/18 22:30) Ketorolac Injection (Toradol Injection) (06/06/18 22:30) Ondansetron Injection (Zofran Injectio (06/06/18 22:30) Ed Iv/Invasive Line Start (06/06/18 22:32) Lactated Ringers (Lr 1000 Ml Iv Solution (06/06/18 22:32) Pantoprazole Injection (Protonix Injecti (06/06/18 23:00) Jie Prep (06/06/18 23:47) Medications Given in ED Current Medications Medications Dose Ordered Sig/Sergio Route Start Time Stop Time Status Last Admin Dose Admin Ketorolac Tromethamine 30 mg ONCE ONCE IVP 06/06/18 22:30 06/06/18 22:31 DC 06/06/18 22:43 30 MG Lactated Ringer's 1,000 ml @ 0 mls/hr Q0M ONCE IV 06/06/18 21:26 06/06/18 21:27 DC 06/06/18 21:40 999 MLS/HR Lactated Ringer's 1,000 ml @ 0 mls/hr Q0M ONCE IV 06/06/18 22:32 06/06/18 22:33 DC 06/06/18 23:22 999 MLS/HR Magnesium Sulfate/ Dextrose 100 ml @ 100 mls/hr ONCE ONCE IV 06/06/18 22:30 06/06/18 23:29 DC 06/06/18 22:43 100 MLS/HR Ondansetron HCl 4 mg ONCE ONCE IVP 06/06/18 21:45 06/06/18 21:46 DC 06/06/18 21:40 4 MG Ondansetron HCl 4 mg ONCE ONCE IVP 06/06/18 22:30 06/06/18 22:31 DC 06/06/18 22:43 4 MG Pantoprazole 40 mg ONCE ONCE IV 06/06/18 23:00 06/06/18 23:01 DC 06/06/18 23:22 40 MG Vital Signs/I&O 06/06/18 06/06/18 21:12 21:44 Temp 97.7 Pulse 113 102 123 142 Resp 18 B/P (MAP) 126/83 (97) 101/76 (84) 115/85 (95) 124/88 (100) O2 Delivery Room Air 06/07/18 00:00 Intake Total 1000 ml Balance 1000 ml Capillary Refill : Progress Note #1: Time: 21:32 Progress Note Plan to get her current weight, orthostatic vital signs, give her a liter of LR as she appears to be dry, Zofran, check some labs and urinalysis. Progress Note #2: Time: 22:29 Progress Note Patient's nausea is better she still having mild nausea so we will give her another 4 mg Zofran. She started to have some crampy like pain in her left abdomen so were going to give her some Toradol see if that improves it. Markers of inflammation and white cells are not elevated. We'll replace her magnesium since slow by IV and her some potassium and her LR. I suspect that these electrolytes are mildly off secondary to her nausea vomiting. Her orthostatics were positive based on the fact that she had a heart rate go from 100 to 140 with standing. After the IV fluids are administered we will reassess her and if she is feeling better we can send her home with some Phenergan and Zofran to continue her follow-up outpatient pursuit of a surgeon to help her with her hiatal hernia. We discussed at length her significant weight loss. In the past she showed 220 pounds here she says she used to wear 198 and today she weighs 143 pounds for a 50 pound weight loss in the last 4 months. Progress Note #3: Time: 01:03 Progress Note Patient had no vomiting since she's been here. Her nausea is gone. If the fluids her orthostatics are now normal. She is ready to go home. We will send her home some Zofran and a prescription for Zofran and Phenergan. We've encouraged her to follow up with Dr. Turner as well as continue to work on her referral to a surgeon at [facility]. Departure Impression Primary Impression: Syncope due to orthostatic hypotension Additional Impressions: Hypomagnesemia Nausea & vomiting Qualified Codes: R11.2 - Nausea with vomiting, unspecified Hiatal hernia with gastroesophageal reflux Disposition: HOME, SELF-CARE Condition: Improved Departure-Patient Inst. Decision time for Depature: 01:04 Referrals: ERNESTO PONCE MD (PCP/Family) Primary Care Physician Patient Instructions: Syncope (Fainting) (DC), Orthostatic Hypotension Add. Discharge Instructions: Drink some sports drinks or the next couple days such as Powerade or Gatorade. Use the Zofran 1 tablet every 6 hours as needed in addition you can use the Phenergan 1 tablet every 6 hours but Phenergan may cause some drowsiness is similar to a Benadryl tablet. Follow-up with Dr. Ponce outpatient to discuss management of your symptoms and help with referral for an appropriate surgeon. All discharge instructions reviewed with patient and/or family. Voiced understanding. Scripts Promethazine HCl (Promethazine Tablet) 25 Mg Tablet 25 MG PO Q6H PRN for NAUSEA/VOMITING-2ND LINE, #10 TAB 0 Refills Prov: DAYNA SAINZ 06/07/18 Ondansetron (Ondansetron Odt) 4 Mg Tab.rapdis 4 MG PO Q6H PRN for NAUSEA/VOMITING, #20 TAB 0 Refills Prov: DAYNA SAINZ 06/07/18 Copy Copies To 1: ERNESTO PONCE MD, TITUS J Jun 06, 2018 21:33
[2018-06-06 21:44] VITALS: BP_SYST 101; BP_SYST 115; BP_SYST 124; BP_DIAS 76; BP_DIAS 85; BP_DIAS 88
[2018-06-06 21:44] LABS: BASOPHILS # (AUTO) 0.1 10^3/uL (0.0-0.1); BASOPHILS % (AUTO) 1 % (0-10); EOSINOPHILS # (AUTO) 0.1 10^3/uL (0.0-0.3); EOSINOPHILS % (AUTO) 1 % (0-10); HEMATOCRIT 36 % (35-52); HEMOGLOBIN 11.6 G/DL (11.5-16.0); LYMPHOCYTES # (AUTO) 1.8 X 10^3 (1.0-4.0); LYMPHOCYTES % (AUTO) 23 % (12-44); MEAN CORPUSCULAR HEMOGLOBIN 25 PG (25-34); MEAN CORPUSCULAR HGB CONC 32 G/DL (32-36); MEAN CORPUSCULAR VOLUME 77 FL (80-99); MEAN PLATELET VOLUME 10.9 FL (7.4-10.4); MONOCYTES # (AUTO) 0.7 X 10^3 (0.0-1.0); MONOCYTES % (AUTO) 9 % (0-12); NEUTROPHILS # (AUTO) 5.2 X 10^3 (1.8-7.8); NEUTROPHILS % (AUTO) 67 % (42-75); PLATELET COUNT 372 10^3/uL (130-400); RED CELL DISTRIBUTION WIDTH 21.2 % (10.0-14.5); WHITE BLOOD COUNT 7.7 10^3/uL (4.3-11.0)
[2018-06-06 21:45] LABS: SMEAR SCAN COMMENT YES
[2018-06-06] MEDS ORDERED: ONDANSETRON 4 MG/2 ML (SDV) Z0FRAN IVP ONE ×2 (21:45→22:30)
[2018-06-06 22:04] LABS: ALANINE AMINOTRANSFERASE 9 U/L (0-55); ALBUMIN 3.5 GM/DL (3.2-4.5); ALKALINE PHOSPHATASE 87 U/L (40-136); BILIRUBIN,TOTAL 0.5 MG/DL (0.1-1.0); BUN/CREATININE RATIO 5; CALCIUM 9.5 MG/DL (8.5-10.1); CARBON DIOXIDE 13 MMOL/L (21-32); CHLORIDE 104 MMOL/L (98-107); CREATININE SERUM 0.78 MG/DL (0.60-1.30); GFR ESTIMATED > 60; GLUCOSE 92 MG/DL (70-105); MAGNESIUM 1.4 MG/DL (1.8-2.4); POTASSIUM 3.5 MMOL/L (3.6-5.0); SODIUM 139 MMOL/L (135-145); TOTAL PROTEIN 7.5 GM/DL (6.4-8.2)
[2018-06-06] MEDS ORDERED: KETOROLAC 30 MG/ML VIAL IVP ONE (22:30)
[2018-06-06] MEDS ORDERED: MAGNESIUM 1 GM/100 ML IVPB 100 ML IV ONE (22:30)
[2018-06-06] MEDS ORDERED: PANTOPRAZOLE 40 MG (PROTONIX) VIAL IV ONE (23:00)
--- NOTE | 2018-06-06 23:45 | NUR ---
TONGUE SWABBED FOR THRUSH AND SENT TO LAB.
[2018-06-07 01:06] LABS: BILIRUBIN,URINE NEGATIVE (NEGATIVE); CLARITY,URINE CLEAR; COLOR,URINE YELLOW; GLUCOSE, URINE (UA) NEGATIVE (NEGATIVE); KETONES,URINE 4+ (NEGATIVE); LEUKOCYTE ESTERASE ,URINE NEGATIVE (NEGATIVE); NITRITE,URINE NEGATIVE (NEGATIVE); PH,URINE 5 (5-9); PROTEIN,URINE 2+ (NEGATIVE); UROBILINOGEN,URINE NORMAL (NORMAL)
[2018-06-07] MEDS ORDERED: ONDA4TAB11 PO (01:06)
[2018-06-07] MEDS ORDERED: PROM25TA14 PO (01:06)
[2018-06-07 01:10] LABS: HCG,QUALITATIVE URINE NEGATIVE (NEGATIVE)
[2018-06-07] MEDS ORDERED: RX-ONDANSETRON 4 MG ODT (ZOFRAN) PPK #4 PO STA (01:14)
[2018-06-07 01:18] VITALS: BP 120/80
[2018-06-07 01:18] LABS: AMPHETAMINE SCREEN, URINE NEGATIVE (NEGATIVE); BARBITURATE SCREEN URINE NEGATIVE (NEGATIVE); BENZODIAZEPINES SCREEN URINE NEGATIVE (NEGATIVE); CANNABINOID SCREEN, URINE NEGATIVE (NEGATIVE); COCAINE SCREEN URINE NEGATIVE (NEGATIVE); METHADONE STAT NEGATIVE (NEGATIVE); METHAMPHETAMINE SCREEN URINE S NEGATIVE (NEGATIVE); OPIATE SCREEN URINE NEGATIVE (NEGATIVE); OXYCODONE STAT NEGATIVE (NEGATIVE); PROPOXYPHENE STAT NEGATIVE (NEGATIVE); TRICYCLIC ANTIDEPRESSANTS SCRE NEGATIVE (NEGATIVE)
[2018-06-07 01:19] LABS: BACTERIA,URINE FEW /HPF; SQUAMOUS EPITHELIAL CELL,UR 0-2 /HPF; WBC,URINE 0-2 /HPF
== END 2018-06-07 01:19 | disposition home or self-care (01) ==
LOC: EDUNIT# 20:55 → ER 20:56
DX: R55 Syncope and collapse (principal); I95.9 Hypotension, unspecified; K44.9 Diaphragmatic hernia without obstruction or gangrene; E83.42 Hypomagnesemia; R11.2 Nausea with vomiting, unspecified; I10 Essential (primary) hypertension; G43.909 Migraine, unspecified, not intractable, without status migrainosus; K21.9 Gastro-esophageal reflux disease without esophagitis; K58.9 Irritable bowel syndrome, unspecified; Z87.19 Personal history of other diseases of the digestive system; Z98.890 Other specified postprocedural states; Z88.6 Allergy status to analgesic agent; Z90.49 Acquired absence of other specified parts of digestive tract; Z98.51 Tubal ligation status
CPT/HCPCS: 36415; 80053; 80306; 81000; 83605; 83735; 84703; 85025; 86141; 86308; 87220

== ENCOUNTER 2018-06-10 16:49 | Emergency (ER) | payer BC ==
[~2018-06-10] VITALS: Ht 157.5 cm; Wt 63.5 kg
[~2018-06-10 16:49] MED LIST changes: +PROM25TA14 PO
[2018-06-10] MEDS ORDERED: NS IV 1000 ML 1,000 ML IV ONE ×2 (17:03→17:57)
[2018-06-10] MEDS ORDERED: FAMOTIDINE 20MG/2ML IV (PEPCID) IVP ONE (17:15)
[2018-06-10] MEDS ORDERED: ONDANSETRON 4 MG/2 ML (SDV) Z0FRAN IVP ONE (17:15)
[2018-06-10 17:16] LABS: BASOPHILS % (AUTO) 1 % (0-10); EOSINOPHILS # (AUTO) 0.1 10^3/uL (0.0-0.3); EOSINOPHILS % (AUTO) 1 % (0-10); HEMATOCRIT 33 % (35-52); HEMOGLOBIN 10.6 G/DL (11.5-16.0); LYMPHOCYTES # (AUTO) 1.3 X 10^3 (1.0-4.0); LYMPHOCYTES % (AUTO) 19 % (12-44); MEAN CORPUSCULAR HEMOGLOBIN 24 PG (25-34); MEAN CORPUSCULAR HGB CONC 32 G/DL (32-36); MEAN CORPUSCULAR VOLUME 77 FL (80-99); MEAN PLATELET VOLUME 11.1 FL (7.4-10.4); MONOCYTES # (AUTO) 0.7 X 10^3 (0.0-1.0); MONOCYTES % (AUTO) 10 % (0-12); NEUTROPHILS # (AUTO) 4.6 X 10^3 (1.8-7.8); NEUTROPHILS % (AUTO) 70 % (42-75); PLATELET COUNT 265 10^3/uL (130-400); RED CELL DISTRIBUTION WIDTH 21.7 % (10.0-14.5); WHITE BLOOD COUNT 6.7 10^3/uL (4.3-11.0)
[2018-06-10 17:36] LABS: ALANINE AMINOTRANSFERASE 7 U/L (0-55); ALBUMIN 3.2 GM/DL (3.2-4.5); ALKALINE PHOSPHATASE 74 U/L (40-136); BILIRUBIN,TOTAL 0.6 MG/DL (0.1-1.0); BUN/CREATININE RATIO 4; CARBON DIOXIDE 13 MMOL/L (21-32); CHLORIDE 105 MMOL/L (98-107); CREATININE SERUM 0.68 MG/DL (0.60-1.30); GFR ESTIMATED > 60; GLUCOSE 81 MG/DL (70-105); LIPASE 69 U/L (8-78); MAGNESIUM 1.5 MG/DL (1.8-2.4); POTASSIUM 3.2 MMOL/L (3.6-5.0); SODIUM 140 MMOL/L (135-145); TOTAL PROTEIN 6.6 GM/DL (6.4-8.2)
--- NOTE | 2018-06-10 17:38 | NUR ---
PT STATES SHE IS UNABLE TO PEE AT THIS TIME.
--- NOTE | 2018-06-10 17:57 | NUR ---
IN TALKING TO PT AT THIS TIME.
[2018-06-10] MEDS ORDERED: MAGNESIUM 1 GM/100 ML IVPB 100 ML IV ONE (18:00)
[2018-06-10] MEDS ORDERED: LIDOCAINE 2% VISCOUS 15 ML UDC PO ONE (18:00)
[2018-06-10] MEDS ORDERED: POTASSIUM CL 10MEQ/50ML IVPB 50 ML IV ONE (18:00)
[2018-06-10] MEDS ORDERED: ANTACID SUSP 30 ML UDC (MYLANTA) PO ONE (18:00)
--- NOTE | 2018-06-10 18:19 | ED Abdominal Pain ---
General Chief Complaint: Abdominal/GI Problems Stated Complaint: NAUSEA/DIZZINESS Nursing Triage Note: ARRIVED VIA WC TO ROOM 07. COMPLAINS OF CHRONIC N/V ET UNABLE TO KEEP ANYTHING DOWN TODAY. EXP LAP AT [facility] 6 WEEKS AGO WITH DX OF HERNIA. Sepsis Screen: No Definite Risk Source of Information: Patient Exam Limitations: No Limitations (CLAUS MARSHALL MD) History of Present Illness Date Seen by Provider: Jun 10, 2018 Time Seen by Provider: 16:54 Initial Comments This 47-year-old woman presents to emergency room with persistent vomiting over the last few days and diarrhea over the past week. She was seen in this ER Monday and assessed. Pain is in the left central abdomen. She has had surgery by Dr. Carson May 01 for a wedge resection of the stomach due to perforation. There was reduction of hiatal hernia as well. She denies any fever. She states pain is worse with movements. (CLAUS MARSHALL MD) Allergies and Home Medications Allergies Coded Allergies: aspirin (Verified Allergy, Unknown, Pt has received Ketorolac & ASA in the past, 04/30/18) fentanyl (Verified Allergy, Unknown, 04/22/18) Home Medications Amoxicillin/Potassium Clav 1 Each Tablet, 1 EACH PO BID Prescribed by: SONY CARSON on 05/08/18 1241 Fluconazole 100 Mg Tablet, 100 MG PO DAILY, (Reported) 14 DAY SUPPLY START DATE 04-20-18 Hydrocodone Bit/Acetaminophen 1 Ea Tablet, 1 EACH PO Q4H PRN for PAIN-MODERATE Prescribed by: SONY CARSON on 05/08/18 1241 Hyoscyamine Sulfate 0.375 Mg Tab.er.12h, 0.375 MG PO BID PRN for SPASMS, ( Reported) Loratadine 10 Mg Tablet, 10 MG PO DAILY, (Reported) Metoprolol Succinate 25 Mg Tab.er.24h, 25 MG PO DAILY, (Reported) Nitrofurantoin Macrocrystal 100 Mg Capsule, 100 MG PO BID, (Reported) 7 DAY SUPPLY FILLED 04-23-18 Ondansetron 4 Mg Tab.rapdis, 4 MG PO Q6H PRN for NAUSEA/VOMITING-1ST LINE, ( Reported) Ondansetron 4 Mg Tab.rapdis, 4 MG PO Q6H PRN for NAUSEA/VOMITING Prescribed by: DAYNA SAINZ on 06/07/18 0106 Oxybutynin Chloride 5 Mg Tablet, 5 MG PO BID, (Reported) Pantoprazole Sodium 40 Mg Tablet.dr, 40 MG PO DAILY, (Reported) Promethazine HCl 25 Mg Tablet, 25 MG PO Q6H PRN for NAUSEA/VOMITING-2ND LINE Prescribed by: DAYNA SAINZ on 06/07/18 010 Topiramate 50 Mg Tablet, 50 MG PO BID, (Reported) Patient Home Medication List Home Medication List Reviewed: Yes (CLAUS MARSHALL MD) Review of Systems Review of Systems Constitutional: no symptoms reported EENTM: No Symptoms Reported Respiratory: No Symptoms Reported Cardiovascular: No Symptoms Reported Gastrointestinal: See HPI Genitourinary: No Symptoms Reported Musculoskeletal: no symptoms reported Skin: no symptoms reported Psychiatric/Neurological: No Symptoms Reported Endocrine: No Symptoms Reported Hematologic/Lymphatic: No Symptoms Reported (CLAUS MARSHALL MD) Past Yjtbjim-Vubpix-Mbjjcj Hx Past Med/Social Hx: Reviewed and Corrections made (CLAUS MARSHALL MD) Patient Social History Alcohol Use: Denies Use Recreational Drug Use: No Smoking Status: Never a Smoker 2nd Hand Smoke Exposure: No Recent Foreign Travel: No Contact w/Someone Who Travel: No Recent Infectious Disease Expo: No Recent Hopitalizations: No (CLAUS MARSHALL MD) Immunizations Up To Date Tetanus Booster (TDap): Unknown (CLAUS MARSHALL MD) Past Medical History Surgeries: Yes (EGD/COLONOSCOPY; HIATAL HERNIA REPAIR 2005; X 1) Abdominal (Atkins hernia repair and wedge resection of stomach for treatment of perforation April 2018), Appendectomy, Section, Gallbladder, Tubal Ligation Respiratory: No Currently Using CPAP: No Currently Using BIPAP: No Cardiac: Yes Hypertension Neurological: Yes Headaches /Migraines 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 Genitourinary: Yes (URINARY URGENCY) Kidney Stones Gastrointestinal: Yes ( HIATAL HERNIA-S/P SURGERY X 1--NOW WITH RECURRENCE; S/ P PABLO AND APPY ) Gastroesophageal Reflux, Diverticulosis, Hemorrhoids, Hiatal Hernia, Irritable Bowel Musculoskeletal: Yes (SCIATICA; CHRONIC NECK AND BACK PAIN) Degenerate Disk Disease, Chronic Back Pain Endocrine: No HEENT: No Cancer: No Psychosocial: No Integumentary: No Blood Disorders: No (CLAUS MARSHALL MD) Physical Exam Vital Signs Vital Signs - First Documented 06/10/18 16:58 Temp 98.0 Pulse 96 Resp 16 B/P (MAP) 114/93 (100) Pulse Ox 99 O2 Delivery Room Air (PINA FERGUSON MD) Vital Signs Capillary Refill : Less Than 3 Seconds (CLAUS MARSHALL MD) Height/Weight/BMI Height: 5'2.00" Weight: 140lbs. 3.0oz. 63.100257li; 29.5 BMI Method:Stated General Appearance: WD/WN, no apparent distress HEENT: PERRL/EOMI, normal ENT inspection, pharynx normal Neck: normal inspection Respiratory: lungs clear, normal breath sounds, no respiratory distress, no accessory muscle use Cardiovascular: no edema, no murmur, tachycardia Gastrointestinal: normal bowel sounds, soft, tenderness (left upper and central abdomen) Extremities: normal inspection, no pedal edema Neurologic/Psychiatric: coat agent II-XII nml as tested, no motor/sensory deficits, alert, normal mood/affect, oriented x 3 Skin: normal color, warm/dry (CLAUS MARSHALL MD) Procedures/Interventions Date of ETT Placement: May 01, 2018 (CLAUS MARSHALL MD) Progress/Results/Core Measures Results/Orders Lab Results Laboratory Tests Test 06/10/18 17:10 06/10/18 19:30 Range/Units White Blood Count 6.7 4.3-11.0 10^3/uL Red Blood Count 4.35 4.35-5.85 10^6/uL Hemoglobin 10.6 L 11.5-16.0 G/DL Hematocrit 33 L 35-52 % Mean Corpuscular Volume 77 L 80-99 FL Mean Corpuscular Hemoglobin 24 L 25-34 PG Mean Corpuscular Hemoglobin Concent 32 32-36 G/DL Red Cell Distribution Width 21.7 H 10.0-14.5 % Platelet Count 265 130-400 10^3/uL Mean Platelet Volume 11.1 H 7.4-10.4 FL Neutrophils (%) (Auto) 70 42-75 % Lymphocytes (%) (Auto) 19 12-44 % Monocytes (%) (Auto) 10 0-12 % Eosinophils (%) (Auto) 1 0-10 % Basophils (%) (Auto) 1 0-10 % Neutrophils # (Auto) 4.6 1.8-7.8 X 10^3 Lymphocytes # (Auto) 1.3 1.0-4.0 X 10^3 Monocytes # (Auto) 0.7 0.0-1.0 X 10^3 Eosinophils # (Auto) 0.1 0.0-0.3 10^3/uL Basophils # (Auto) 0.0 0.0-0.1 10^3/uL Sodium Level 140 135-145 MMOL/L Potassium Level 3.2 L 3.6-5.0 MMOL/L Chloride Level 105 98-107 MMOL/L Carbon Dioxide Level 13 L 21-32 MMOL/L Anion Gap 22 H 5-14 MMOL/L Blood Urea Nitrogen 3 L 7-18 MG/DL Creatinine 0.68 0.60-1.30 MG/DL Estimat Glomerular Filtration Rate > 60 BUN/Creatinine Ratio 4 Glucose Level 81 70-105 MG/DL Calcium Level 9.0 8.5-10.1 MG/DL Corrected Calcium 9.6 8.5-10.1 MG/DL Magnesium Level 1.5 L 1.8-2.4 MG/DL Total Bilirubin 0.6 0.1-1.0 MG/DL Aspartate Amino Transf (AST/SGOT) 13 5-34 U/L Alanine Aminotransferase (ALT/SGPT) 7 0-55 U/L Alkaline Phosphatase 74 40-136 U/L Troponin I < 0.028 <0.028 NG/ML Total Protein 6.6 6.4-8.2 GM/DL Albumin 3.2 3.2-4.5 GM/DL Lipase 69 8-78 U/L Urine Color YELLOW Urine Clarity SLIGHTLY CLOUDY Urine pH 6 5-9 Urine Specific Fisher 1.015 L 1.016-1.022 Urine Protein NEGATIVE NEGATIVE Urine Glucose (UA) NEGATIVE NEGATIVE Urine Ketones 4+ H NEGATIVE Urine Nitrite NEGATIVE NEGATIVE Urine Bilirubin NEGATIVE NEGATIVE Urine Urobilinogen NORMAL NORMAL MG/DL Urine Leukocyte Esterase NEGATIVE NEGATIVE Urine RBC (Auto) 3+ H NEGATIVE Urine RBC 0-2 /HPF Urine WBC RARE /HPF Urine Squamous Epithelial Cells 10-25 H /HPF Urine Crystals NONE /LPF Urine Bacteria TRACE /HPF Urine Casts PRESENT /LPF Urine Hyaline Casts RARE /LPF Urine Mucus NEGATIVE /LPF Urine Culture Indicated NO (PINA FERGUSON MD) My Orders Orders - PINA FERGUSON MD Pantoprazole Injection (Protonix Injecti (06/10/18 19:00) Ct Abdomen/Pelvis W (06/10/18 19:26) Iohexol Injection (Omnipaque 350 Mg/Ml 1 (06/10/18 19:45) Received Contrast (Hold Metformin- Contr (06/10/18 19:45) D5 Ns 1000 Ml Iv So... W/Potassium Chlor (06/10/18 20:15) Promethazine Injection (Phenergan Injec (06/10/18 20:43) D5 Ns 1000 Ml Iv Solution (Dextrose 5%/0 (06/10/18 20:43) (PINA FERGUSON MD) Medications Given in ED Current Medications Medications Dose Ordered Sig/Sergio Route Start Time Stop Time Status Last Admin Dose Admin Al Hydrox/Mg Hydrox/Simethicone 30 ml ONCE ONCE PO 06/10/18 18:00 06/10/18 18:01 DC 06/10/18 18:09 30 ML Famotidine 20 mg ONCE ONCE IVP 06/10/18 17:15 06/10/18 17:16 DC 06/10/18 17:15 20 MG Lidocaine HCl 15 ml ONCE ONCE PO 06/10/18 18:00 06/10/18 18:01 DC 06/10/18 18:09 15 ML Magnesium Sulfate/ Dextrose 100 ml @ 100 mls/hr ONCE ONCE IV 06/10/18 18:00 06/10/18 18:59 DC 06/10/18 19:16 100 MLS/HR Ondansetron HCl 8 mg ONCE ONCE IVP 06/10/18 17:15 06/10/18 17:16 DC 06/10/18 17:15 8 MG Pantoprazole 40 mg ONCE ONCE IV 06/10/18 19:00 06/10/18 19:01 DC 06/10/18 19:18 40 MG Potassium Chloride 50 ml @ 50 mls/hr ONCE ONCE IV 06/10/18 18:00 06/10/18 18:59 DC 06/10/18 18:06 50 MLS/HR Sodium Chloride 1,000 ml @ 0 mls/hr Q0M ONCE IV 06/10/18 17:03 06/10/18 17:05 DC 06/10/18 17:16 1,000 MLS/HR Sodium Chloride 1,000 ml @ 0 mls/hr Q0M ONCE IV 06/10/18 17:57 06/10/18 17:59 DC 06/10/18 18:06 1,000 MLS/HR (PINA FERGUSON MD) Vital Signs/I&O 06/10/18 16:58 Temp 98.0 Pulse 96 Resp 16 B/P (MAP) 114/93 (100) Pulse Ox 99 O2 Delivery Room Air (PINA FERGUSON MD) Blood Pressure Mean: 100 Progress Progress Note : Time: 18:20 Progress Note Labs have been reviewed. Patient has hypokalemia and hypomagnesemia. These electrolytes are being replaced by IV route. A second liter of IV fluid is being administered. Patient has not yet been able to urinate. Chart has been reviewed and report has been given to Dr. Ferguson. Dr. Ferguson is assuming care at this time. (CLAUS MARSHALL MD) Progress Note : Progress Note 0: I have reexamined the patient and reviewed the current labs and orders. Patient is here with persistent vomiting despite nausea meds. She states that she can't even keep liquids down. She is not kept anything down for the last few days including her meds. Also has diarrhea but states she believes is because she's not eating anything. She is getting fluids now. Chest x-ray is pending. Monitor patient. 1924: She is able to give urine sample now so we will collect and evaluate that. Chest x-ray results noted. CT abdomen and pelvis ordered due to recent concerns with barium contrast. Monitor patient. 2033: CT results noted. We have initiated D5 and S with 20 KCl at 200 an hour and we'll monitor patient. She did receive Protonix 40 mg IV. 0034: Patient is doing better. She did receive Phenergan 25 mg IV which seems to have helped quite a bit. Given the no significant findings overall I believe that she will be okay with outpatient follow-up. She needs to have close follow-up with Dr. Carson as well as Dr. Ponce. She does have the hiatal hernia and this may be part of the problem. They are trying to get her set up with specialist in [place] and I agree that this is important. This was discussed with patient and family who agree. Discharged home with return precautions. Patient verbalize understanding instructions and agreement with plan. (PINA FERGUSON MD) Diagnostic Imaging Diagonstic Imaging: Xray Plain Films/CT/US/NM/MRI: chest Comments NAME: JULIETA HERNÁNDEZ [facility] REC#: [id number] PT STATUS: REG ER : 1970 PHYSICIAN: CLAUS MARSHALL MD ADMIT DATE: 06/10/18/ER Signed Date of Exam: 06/10/18 CHEST 1 VIEW, AP/PA ONLY Portable chest compared to a prior study from May 07, 2018. INDICATION: Chronic nausea and vomiting. History of exploratory laparotomy with history of hernia repair. FINDINGS: There is some persistent density demonstrated at the left lung base likely related to the patient's prior hernia and hernia repair. The lungs demonstrate no focal infiltrate or consolidation. There is no pneumothorax. Heart size and mediastinal contours appear appropriate. Pulmonary vascularity appears normal. There is diffuse persistent density demonstrated within the left upper quadrant as well as some density below the right diaphragm which appears to be residual barium related to the patient's prior examinations as evidenced on the previous CT study from April of 2018. IMPRESSION: 1. No evidence of an acute cardio pulmonary process. 2. Persistent density at the left hemidiaphragm likely related to the patient's hernia repair. There also is ongoing residual previously extravasated barium within the upper abdomen. Dictated by: Dictated on workstation # [id number] Dict: 06/10/181825 Trans: 06/10/181852 Interpreted by: MARY BLUE MD Electronically signed by: MARY BLUE MD 06/10/181852 Diagonstic Imaging: CT Plain Films/CT/US/NM/MRI: abdomen, pelvis Comments NAME: JULIETA HERNÁNDEZ [facility] REC#: [id number] PT STATUS: REG ER : 1970 PHYSICIAN: PINA FERGUSON MD ADMIT DATE: 06/10/18/ER Signed Date of Exam: 06/10/18 CT ABDOMEN/PELVIS W PROCEDURE: CT abdomen and pelvis with contrast. TECHNIQUE: Multiple contiguous axial images were obtained through the abdomen and pelvis after administration of intravenous contrast. Auto Exposure Controls were utilized during the CT exam to meet ALARA standards for radiation dose reduction. INDICATION: Abdominal pain with nausea and vomiting. History of hernia repair. Comparison made to the prior CT study of 05/01/2018. FINDINGS: There is some persistent pleural thickening at the left lung base with a probable small associated effusion. A small residual hiatal hernia remains present but appears improved from the prior exam. Right lung base is clear. The upper abdomen demonstrates dense prior barium contrast extravasation along the surfaces of the spleen and liver as well as throughout the right upper quadrant along the greater curvature of the stomach. The liver demonstrates no focal intrahepatic abnormality. The patient is status post cholecystectomy. There is some minimal intrahepatic biliary prominence which is appropriate for postcholecystectomy state. There is no significant dilation of the common bile duct. The pancreas demonstrates no focal abnormality. The spleen is normal in size. There is no adrenal mass. The kidneys enhance and appear nonobstructed. There are no findings to suggest a small or large bowel obstruction. Tjjd-tl-pcqqaxfa stool within the colon. There are no findings of free fluid. There is no evidence of abscess. There is no evidence of free air. No pathologically enlarged abdominal or pelvic lymph nodes evident. The urinary bladder is nondistended. The uterus and adnexa appear unremarkable. There is also scattered prior extravasated contrast throughout the pelvis. There is no acute or suspicious osseous abnormality evident. The aorta and IVC are normal in caliber. IMPRESSION: 1. Persistent presumed extravasated barium contrast throughout the abdomen and pelvis. There has been interval resolution of the prior extensive free fluid throughout the abdomen and pelvis. No current free fluid or abscess evident. 2. The patient's hiatal hernia appears smaller and is compatible with reported hiatal hernia repair. 3. No evidence of bowel obstruction 4. Previous cholecystectomy Dictated by: Dictated on workstation # [id number] Dict: 06/10/182003 Trans: 06/10/182023 Interpreted by: MARY BLUE MD Electronically signed by: MARY BLUE MD 06/10/182023 Reviewed: Reviewed by Me (PINA FERGUSON MD) Departure Impression Primary Impression: Upper abdominal pain Additional Impressions: Nausea and vomiting Qualified Codes: R11.2 - Nausea with vomiting, unspecified Diarrhea Qualified Codes: R19.7 - Diarrhea, unspecified Hypokalemia Hypomagnesemia Disposition: 01 HOME, SELF-CARE Condition: Stable Departure-Patient Inst. Decision time for Depature: 00:36 (PINA FERGUSON MD) Referrals: ERNESTO PONCE MD (PCP) Primary Care Physician SONY CARSON MD Patient Instructions: Acute Abdomen (Belly Pain), Adult (DC), Hypokalemia (DC) , Low Magnesium Level (DC), Nausea and Vomiting, Adult (DC) Add. Discharge Instructions: All discharge instructions reviewed with patient and/or family. Voiced understanding. Is important that you drink plenty of fluids when taking small sips frequently of non-ascitic and light fluids such as Gatorade or apple juice. You may start a light diet such as Jell-O or applesauce but minimize anything heavier than that for a day or 2. You may advance as tolerated. It is very important that you follow-up with your primary doctor and your surgeon. Call their office in the morning for appointment in the next one to 2 days. Return for worse pain, fever, vomiting, weakness, breathing problems or other concerns as needed. You may continue your nausea medicines as previously prescribed. Copy Copies To 1: SONY CARSON MD Copies To 2: ERNESTO PONCE MD, JOSHUA T MD Jun 10, 2018 18:19 PINA FERGUSON MD Jun 10, 2018 19:30
--- NOTE | 2018-06-10 18:37 | Diagnostic Imaging Report ---
Portable chest compared to a prior study from May 07, 2018. INDICATION: Chronic nausea and vomiting. History of exploratory laparotomy with history of hernia repair. FINDINGS: There is some persistent density demonstrated at the left lung base likely related to the patient's prior hernia and hernia repair. The lungs demonstrate no focal infiltrate or consolidation. There is no pneumothorax. Heart size and mediastinal contours appear appropriate. Pulmonary vascularity appears normal. There is diffuse persistent density demonstrated within the left upper quadrant as well as some density below the right diaphragm which appears to be residual barium related to the patient's prior examinations as evidenced on the previous CT study from April of 2018. IMPRESSION: 1. No evidence of an acute cardio pulmonary process. 2. Persistent density at the left hemidiaphragm likely related to the patient's hernia repair. There also is ongoing residual previously extravasated barium within the upper abdomen. Dictated by: Dictated on workstation # [id number]
--- NOTE | 2018-06-10 18:48 | NUR ---
REPORT AND CARE HANDED OVER TO MIGDALIA VEGA.
[2018-06-10] MEDS ORDERED: PANTOPRAZOLE 40 MG (PROTONIX) VIAL IV ONE (19:00)
[2018-06-10 19:38] LABS: BILIRUBIN,URINE NEGATIVE (NEGATIVE); CLARITY,URINE SLIGHTLY CLOUDY; COLOR,URINE YELLOW; GLUCOSE, URINE (UA) NEGATIVE (NEGATIVE); KETONES,URINE 4+ (NEGATIVE); LEUKOCYTE ESTERASE ,URINE NEGATIVE (NEGATIVE); NITRITE,URINE NEGATIVE (NEGATIVE); PH,URINE 6 (5-9); PROTEIN,URINE NEGATIVE (NEGATIVE); UROBILINOGEN,URINE NORMAL (NORMAL)
--- NOTE | 2018-06-10 19:40 | NUR ---
pt to ct dept via cot in stable condition
[2018-06-10] MEDS ORDERED: HOLD METFORMIN - RECEIVED CONTRAST 20 ML VIAL IV SCH (19:45)
[2018-06-10] MEDS ORDERED: IOHEXOL 350 MG/ML 100 ML (OMNIPAQUE 350) VIAL IV ONE (19:45)
[2018-06-10 19:46] LABS: BACTERIA,URINE TRACE /HPF; HYALINE CASTS, URINE RARE /LPF; RBC,URINE 0-2 /HPF; WBC,URINE RARE /HPF
[2018-06-10] MEDS ORDERED: POTASSIUM CHLORIDE INJ 20 MEQ in D5 NS 1000 ML IV SOLUTION 1,000 ML IV SCH (20:15)
--- NOTE | 2018-06-10 20:19 | Diagnostic Imaging Report ---
PROCEDURE: CT abdomen and pelvis with contrast. TECHNIQUE: Multiple contiguous axial images were obtained through the abdomen and pelvis after administration of intravenous contrast. Auto Exposure Controls were utilized during the CT exam to meet ALARA standards for radiation dose reduction. INDICATION: Abdominal pain with nausea and vomiting. History of hernia repair. Comparison made to the prior CT study of 05/01/2018. FINDINGS: There is some persistent pleural thickening at the left lung base with a probable small associated effusion. A small residual hiatal hernia remains present but appears improved from the prior exam. Right lung base is clear. The upper abdomen demonstrates dense prior barium contrast extravasation along the surfaces of the spleen and liver as well as throughout the right upper quadrant along the greater curvature of the stomach. The liver demonstrates no focal intrahepatic abnormality. The patient is status post cholecystectomy. There is some minimal intrahepatic biliary prominence which is appropriate for postcholecystectomy state. There is no significant dilation of the common bile duct. The pancreas demonstrates no focal abnormality. The spleen is normal in size. There is no adrenal mass. The kidneys enhance and appear nonobstructed. There are no findings to suggest a small or large bowel obstruction. Aezo-ht-xjriktcc stool within the colon. There are no findings of free fluid. There is no evidence of abscess. There is no evidence of free air. No pathologically enlarged abdominal or pelvic lymph nodes evident. The urinary bladder is nondistended. The uterus and adnexa appear unremarkable. There is also scattered prior extravasated contrast throughout the pelvis. There is no acute or suspicious osseous abnormality evident. The aorta and IVC are normal in caliber. IMPRESSION: 1. Persistent presumed extravasated barium contrast throughout the abdomen and pelvis. There has been interval resolution of the prior extensive free fluid throughout the abdomen and pelvis. No current free fluid or abscess evident. 2. The patient's hiatal hernia appears smaller and is compatible with reported hiatal hernia repair. 3. No evidence of bowel obstruction 4. Previous cholecystectomy Dictated by: Dictated on workstation # [id number]
[2018-06-10] MEDS ORDERED: D5 NS 1000 ML IV SOLUTION 0 ML IV ONE (20:43)
[2018-06-10] MEDS ORDERED: PROMETHAZINE INJ 25 MG/ML (PHENERGAN) AMP IVP STA (20:43)
[2018-06-11 00:59] VITALS: BP 114/81
== END 2018-06-11 00:59 | disposition home or self-care (01) ==
LOC: EDUNIT# 16:49 → ER 16:50
DX: R10.12 Left upper quadrant pain (principal); R11.2 Nausea with vomiting, unspecified; R19.7 Diarrhea, unspecified; E87.6 Hypokalemia; E83.42 Hypomagnesemia; I10 Essential (primary) hypertension; G43.909 Migraine, unspecified, not intractable, without status migrainosus; K21.9 Gastro-esophageal reflux disease without esophagitis; K58.9 Irritable bowel syndrome, unspecified; Z87.19 Personal history of other diseases of the digestive system; Z87.442 Personal history of urinary calculi; Z87.448 Personal history of other diseases of urinary system; Z88.6 Allergy status to analgesic agent; Z88.8 Allergy status to other drugs, medicaments and biological substances; Z90.49 Acquired absence of other specified parts of digestive tract; Z98.51 Tubal ligation status; Z98.890 Other specified postprocedural states
CPT/HCPCS: 36415; 71045; 74177; 80053; 81000; 83690; 83735; 84484; 85025; 93041

== ENCOUNTER 2018-07-08 12:24 | Emergency (ER) | payer BC ==
[~2018-07-08] VITALS: Ht 157.5 cm; Wt 66.2 kg
--- NOTE | 2018-07-08 12:38 | ED GI ---
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 The jejunostomy tube which was held in place but suture was pulled out by her cat about one hour prior to arrival. She states that the old tube cannot be replaced, has to be a new tube and should be done by radiology she was told by the [facility]. Timing/Duration: 1 Hour Severity/Quality: Moderate Location: LLQ Radiation: No Radiation Activities at Onset: None Associated Symptoms: Denies Symptoms Allergies and Home Medications Allergies Coded Allergies: aspirin (Verified Allergy, Unknown, Pt has received Ketorolac & ASA in the past, 04/30/18) fentanyl (Verified Allergy, Unknown, 04/22/18) Home Medications Amoxicillin/Potassium Clav 1 Each Tablet, 1 EACH PO BID Prescribed by: SONY BERGER on 05/08/18 1241 Fluconazole 100 Mg Tablet, 100 MG PO DAILY, (Reported) 14 DAY SUPPLY START DATE 04-20-18 Hydrocodone Bit/Acetaminophen 1 Ea Tablet, 1 EACH PO Q4H PRN for PAIN-MODERATE Prescribed by: SONY BERGER on 05/08/18 1241 Hyoscyamine Sulfate 0.375 Mg Tab.er.12h, 0.375 MG PO BID PRN for SPASMS, (Reported) Loratadine 10 Mg Tablet, 10 MG PO DAILY, (Reported) Metoprolol Succinate 25 Mg Tab.er.24h, 25 MG PO DAILY, (Reported) Nitrofurantoin Macrocrystal 100 Mg Capsule, 100 MG PO BID, (Reported) 7 DAY SUPPLY FILLED 04-23-18 Ondansetron 4 Mg Tab.rapdis, 4 MG PO Q6H PRN for NAUSEA/VOMITING-1ST LINE, (Reported) Ondansetron 4 Mg Tab.rapdis, 4 MG PO Q6H PRN for NAUSEA/VOMITING Prescribed by: DAYNA SAINZ on 06/07/18 0106 Oxybutynin Chloride 5 Mg Tablet, 5 MG PO BID, (Reported) Pantoprazole Sodium 40 Mg Tablet.dr, 40 MG PO DAILY, (Reported) Promethazine HCl 25 Mg Tablet, 25 MG PO Q6H PRN for NAUSEA/VOMITING-2ND LINE Prescribed by: DAYNA SAINZ on 06/07/18 0106 Topiramate 50 Mg Tablet, 50 MG PO BID, (Reported) Patient Home Medication List Home Medication List Reviewed: Yes Review of Systems Review of Systems Constitutional: see HPI EENTM: No Symptoms Reported Respiratory: No Symptoms Reported Cardiovascular: No Symptoms Reported Gastrointestinal: See HPI Genitourinary: No Symptoms Reported Musculoskeletal: no symptoms reported Psychiatric/Neurological: No Symptoms Reported Endocrine: No Symptoms Reported Past Adwzhpg-Ymoqug-Zcqrng Hx Patient Social History Alcohol Use: Denies Use Recreational Drug Use: No Smoking Status: Never a Smoker 2nd Hand Smoke Exposure: No Recent Foreign Travel: No Contact w/Someone Who Travel: No Recent Hopitalizations: No Immunizations Up To Date Tetanus Booster (TDap): Unknown Past Medical History Surgeries: Yes (EGD/COLONOSCOPY; HIATAL HERNIA REPAIR 2005; G TUBE, J TUBE PLACEMENT) Abdominal, Appendectomy, Section, Gallbladder, Tubal Ligation Respiratory: No Currently Using CPAP: No Currently Using BIPAP: No Cardiac: Yes Hypertension Neurological: Yes Headaches /Migraines 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 Disorders: No 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 3.0oz. 63.431389ih; 29.5 BMI Method:Stated General Appearance: WD/WN, no apparent distress HEENT: PERRL/EOMI Respiratory: no respiratory distress, no accessory muscle use Gastrointestinal: normal bowel sounds, soft, other (several incisions about the abdomen which are clean dry and intact. The jejunostomy tube fistula site left lower abdomen is covered with dry eschar, there is no surrounding erythema, minimal drainage seeping from the center of this.) Extremities: normal range of motion, non-tender Skin: normal color, warm/dry Procedures/Interventions Date of ETT Placement: May 01, 2018 Progress/Results/Core Measures Results/Orders My Orders Orders - SINTIA LUNDY APRN Peg Tube Check (07/08/18 14:27) Diatrizoate Meglum/Sodium 37% (Gastrogra (07/08/18 15:00) Medications Given in ED Current Medications Medications Dose Ordered Sig/Sergio Route Start Time Stop Time Status Last Admin Dose Admin Diatrizoate Meglum/ Diatrizoate Sod 120 ml ONCE ONCE NG 07/08/18 15:00 07/08/18 15:01 UNV 07/08/18 14:51 5 ML Vital Signs/I&O 07/08/18 12:28 Temp 97.6 Pulse 120 Resp 18 B/P (MAP) 111/80 (90) Pulse Ox 98 O2 Delivery Room Air Departure Communication (Admissions) I've had a perennial house manager look for jejunostomy replacement tube in purchasing department or surgery dept. unable to find one. This may have to be replaced at . I spoke with Dr. Sepulveda at the [facility] friction saw operator for surgery. He recommends transfer via private vehicle to the [facility] to have this replaced, potentially via interventional radiology since it's only about 2-3 weeks old.. Patient states that her car when I make it up there and [place] has no friends to take her either. She states that she has no family with a reliable vehicle. She states that she also does not have any money for a taxi. 1427-Dr. Enrique has been here, replaced the jejunostomy tube using a 12 Urdu Collins catheter without inflating the balloon. We will run some contrast through this and shoot an x-ray to ensure correct placement. Advises she can use her gastric tube for medications. Impression Primary Impression: Jejunostomy tube fell out Disposition: XFER SHT-TRM HOSP Condition: Stable Departure-Patient Inst. Decision time for Depature: 12:46 Referrals: ERNESTO PONCE MD (PCP/Family) Primary Care Physician Patient Instructions: NO INSTRUCTIONS GIVEN Add. Discharge Instructions: 1. Call your surgeon at the [facility] to reevaluate FIDELINA. Call your aunt to see if she can transport you up there. SINTIA LUNDY APRN July 08, 2018 12:38
[2018-07-08] MEDS ORDERED: DIATRIZOATE MEGLUM/SODIUM 37% 120 ML (GASTROGRAFIN) NG ONE (15:00)
--- NOTE | 2018-07-08 15:06 | Diagnostic Imaging Report ---
EXAMINATION: AP view of the abdomen. INDICATION: Feeding tube check. COMPARISON: Prior CT study from 06/10/2018. FINDINGS: When compared to the prior examination, there is a large degree of residual contrast present within the left upper quadrant as well as scattered intraperitoneal contrast throughout to both the right and left hemiabdomen and pelvis. In conjunction with the prior electronic commerce specialist tomogram, from the prior examination, the newly injected contrast appears to be administered via what appears to be a jejunostomy tube. There also is tubing that is likely a PEG tube. The contrast administered through the jejunostomy tube appears to opacify a normal loop of small bowel without additional new contrast extravasation. There does not appear to have been injection of the patient's gastrostomy tube. IMPRESSION: Contrast injected through the patient's apparent jejunostomy tube opacifies a loop of normal-appearing small bowel without contrast extravasation. The G-tube does not appear to have been injected. The prior contrast throughout the abdomen and pelvis otherwise appears unchanged secondary to the patient's previous perforation and contrast extravasation. Dictated by: Dictated on workstation # [id number]
[2018-07-08 15:57] VITALS: BP 108/78
== END 2018-07-08 15:57 | disposition short-term general hospital (02) ==
LOC: EDUNIT# 12:24 → ER 12:25
DX: K94.23 Gastrostomy malfunction (principal); I10 Essential (primary) hypertension; G43.909 Migraine, unspecified, not intractable, without status migrainosus; K21.9 Gastro-esophageal reflux disease without esophagitis; K58.9 Irritable bowel syndrome, unspecified; Z87.19 Personal history of other diseases of the digestive system; Z87.442 Personal history of urinary calculi; Z88.6 Allergy status to analgesic agent; Z88.8 Allergy status to other drugs, medicaments and biological substances; Z98.890 Other specified postprocedural states; Z90.49 Acquired absence of other specified parts of digestive tract; Z98.51 Tubal ligation status
CPT/HCPCS: 49465

== ENCOUNTER 2018-09-13 10:56 | Emergency (ER) | payer BC | END 2018-09-13 14:29 | disposition home or self-care (01) | LOC: ER 10:56 ==

== ENCOUNTER 2018-11-20 08:00 | Outpatient (RCR) | payer BC | END 2019-01-17 | disposition home or self-care (01) | DX: M54.12 Radiculopathy, cervical region (principal) ==

== ENCOUNTER → 2019-08-27 | Outpatient (CLI) | payer BC ==
[~2019-08-27] MED LIST changes: -METO-387 PO; +OXYB5TAB13 PO; -OXYB5TAB9 PO
--- NOTE | 2019-08-27 13:01 | Diagnostic Imaging Report ---
INDICATION: Routine screening. Comparison is made with prior mammogram from 04/15/2016 and 01/07/2014. 2-D and 3-D bilateral screening mammography was performed with CAD. Both breast are heterogeneously dense, limiting the sensitivity of mammography. The parenchymal pattern is stable. No dominant mass or malignant appearing microcalcifications are identified. Axillae are unremarkable. IMPRESSION: BI-RADS Category 1 No mammographic features suspicious for malignancy are identified. ACR BI-RADS Category 1: Negative. Result letter will be mailed to the patient. Note: At least 10% of breast cancer is not imaged by mammography. Dictated by: Dictated on workstation # [id number]
== END ==
LOC: RAD 08:06
PROVIDERS: ATTEND Family Medicine
DX: Z12.31 Encounter for screening mammogram for malignant neoplasm of breast (principal)
CPT/HCPCS: 77063; 77067

== ENCOUNTER → 2020-05-28 | Outpatient (CLI) | payer BC ==
[~2020-05-28] MED LIST changes: +BARIUM for suspension 96% w/w (Vanilla Silq Medium Density) PO ONE; +BARIUM for suspension 98% w/w (Vanilla Silq High Density) PO ONE; +MELA1TAB51 PO; -MELA1TAB8 PO; -PANT40TA3 PO; +PANT40TA52 PO
--- NOTE | 2020-05-28 13:29 | Diagnostic Imaging Report ---
INDICATION: Epigastric pain. Patient ingested effervescent crystals as well as thin and thick barium and imaging over the esophagus, stomach and proximal small bowel was performed. 1 minute and 1 second of fluoroscopic time was utilized. Preliminary radiograph again demonstrates contrast distributed throughout the peritoneal cavity particularly in the left upper quadrant from prior perforation. Similar to study back in June 2018. Esophagus has a smooth contour. No mass or strictures identified. Patient does have a paraesophageal hiatal hernia, moderate to large in size. Stomach is unremarkable. There is prompt emptying into the small bowel. Duodenal bulb is without deformity. IMPRESSION: Moderate-sized paraesophageal hiatal hernia. No other significant abnormality is seen. Dictated by: Dictated on workstation # [id number]
== END ==
LOC: RAD 09:59
PROVIDERS: ATTEND Family Medicine
DX: K44.9 Diaphragmatic hernia without obstruction or gangrene (principal)
CPT/HCPCS: 74246

== ENCOUNTER → 2022-12-20 | Outpatient (CLI) | payer OTHER ==
[~2022-12-20] MED LIST changes: -BARIUM for suspension 96% w/w (Vanilla Silq Medium Density) PO ONE; -BARIUM for suspension 98% w/w (Vanilla Silq High Density) PO ONE; -CRAN500T2 PO; +CRAN500T4 PO; +FLUC100T10 PO; -FLUC100T6 PO; +HYOS0.3738 PO; +TOPI-241 PO; -TOPI50TA13 PO
--- NOTE | 2022-12-20 15:57 | Diagnostic Imaging Report ---
Indication: Routine screening. Comparison is made with prior mammograms 08/27/2019 and 04/15/2016. 2-D and 3-D bilateral screening mammography was performed with CAD. Both breasts are heterogeneously dense, limiting the sensitivity of mammography. The parenchymal pattern is stable. No mass or malignant appearing microcalcifications are identified. Axillae are unremarkable. IMPRESSION: BI-RADS Category 1 No mammographic features suspicious for malignancy are identified. ACR BI-RADS Category 1: Negative. Result letter will be mailed to the patient. Note: At least 10% of breast cancer is not imaged by mammography. Dictated by: Dictated on workstation # [id number]
== END ==
LOC: RAD 14:30
PROVIDERS: ATTEND Family Medicine
DX: Z12.31 Encounter for screening mammogram for malignant neoplasm of breast (principal)
CPT/HCPCS: 77063; 77067